=== PATIENT | male | born 1955 | race Hispanic/Latino ===

== ENCOUNTER 2019-04-13 14:04 | Emergency (ER) | payer MEDICARE ==
[2019-04-13] MEDS ORDERED: SODIUM CHLORIDE 0.9% 1000ML 1,000 ML IV ONE (14:49)
[2019-04-13] MEDS ORDERED: KETOROLAC TROMETHAMINE 30MG/ML ONE (14:50)
[2019-04-13 15:16] LABS: BASOPHILS % (AUTO) 0.7 % (0.0-5.0); EOSINOPHILS % (AUTO) 1.5 % (0.0-8.0); HEMATOCRIT 42.3 % (42-54); MEAN CORPUSCULAR HEMOGLOBIN 30.8 pg (27.0-33.0); MEAN CORPUSCULAR HGB CONC 33.9 g/dL (32.0-36.0); MEAN CORPUSCULAR VOLUME 90.9 fL (79-99); MONOCYTES % (AUTO) 9.2 % (3.0-13.0); NEUTROPHILS % (AUTO) 75.6 % (40.0-77.0); PLATELET COUNT (AUTO) 181 K/uL (130-400); RED BLOOD CELL COUNT(AUTO) 4.65 MIL/uL (4.50-6.20); RED CELL DISTRIBUTION WIDTH 13.5 % (11.0-15.5); WHITE BLOOD COUNT (AUTO) 3.8 K/uL (4.8-10.8)
[2019-04-13 15:24] LABS: CREATININE 1.8 mg/dL (0.5-1.5); POTASSIUM 4.1 mmol/L (3.5-5.1)
[2019-04-13 15:26] LABS: INR 1.02 (0.85-1.15); PARTIAL THROMBOPLASTIN TIME 27.5 SEC (26.3-35.5); PROTHROMBIN TIME 10.7 SEC (9.6-11.6)
[2019-04-13 15:28] LABS: ALBUMIN 3.2 g/dL (3.5-5.0); BILIRUBIN,TOTAL 0.4 mg/dL (0.2-1.0); TOTAL PROTEIN, SERUM 6.7 g/dL (6.0-8.3)
== END 2019-04-13 17:19 | disposition home or self-care (01) ==
LOC: EDH 14:04
DX: L03.91 Acute lymphangitis, unspecified (principal); L03.115 Cellulitis of right lower limb; E11.9 Type 2 diabetes mellitus without complications; I10 Essential (primary) hypertension; Z72.0 Tobacco use; M79.604 Pain in right leg; Z96.659 Presence of unspecified artificial knee joint
CPT/HCPCS: 36415; 73552; 73562; 80053; 82948; 85025; 85610; 85651; 85730; 86140; 87040; 93971; 96374; 99285; J1885; J7030

== ENCOUNTER 2020-03-19 14:55 | Emergency (ER) | payer MEDICARE ==
[2020-03-19 15:43] LABS: BASOPHILS % (AUTO) 0.3 % (0.0-5.0); EOSINOPHILS % (AUTO) 2.4 % (0.0-8.0); HEMATOCRIT 47.8 % (42-54); LYMPHOCYTES % (AUTO) 15.8 % (21.0-51.0); MEAN CORPUSCULAR HEMOGLOBIN 29.6 pg (27.0-33.0); MEAN CORPUSCULAR HGB CONC 32.8 g/dL (32.0-36.0); MEAN CORPUSCULAR VOLUME 90.2 fL (79-99); MONOCYTES % (AUTO) 9.9 % (3.0-13.0); NEUTROPHILS % (AUTO) 71.3 % (40.0-77.0); PLATELET COUNT (AUTO) 169 K/uL (130-400); RED CELL DISTRIBUTION WIDTH 13.3 % (11.0-15.5); WHITE BLOOD COUNT (AUTO) 3.7 K/uL (4.8-10.8)
[2020-03-19 16:03] LABS: RAPID GROUP A STREP NEGATIVE (NEGATIVE)
[2020-03-19 16:05] LABS: ALBUMIN 3.4 g/dL (3.5-5.0); BILIRUBIN,TOTAL 0.5 mg/dL (0.2-1.0); CREATININE 2.5 mg/dL (0.5-1.5); TOTAL PROTEIN, SERUM 7.4 g/dL (6.0-8.3)
== END 2020-03-19 17:14 | disposition home or self-care (01) ==
LOC: EDH 14:55
DX: U07.1 COVID-19 (principal); J06.9 Acute upper respiratory infection, unspecified; I12.0 Hypertensive chronic kidney disease with stage 5 chronic kidney disease or end stage renal disease; E11.22 Type 2 diabetes mellitus with diabetic chronic kidney disease; N18.6 End stage renal disease
CPT/HCPCS: 36415; 71045; 80053; 82550; 83605; 84484; 85025; 87804 ×2; 87880; 99284; U0003

== ENCOUNTER 2024-08-28 07:56 | Inpatient (IN) | payer MEDICARE ==
[2024-08-28] VITALS (7 sets, daily range): BP systolic 136–140; BP diastolic 81–96; PULSE 70–71; RESP 16–20; TEMP 97.8–97.9; O2SAT 97–100
[~2024-08-28] VITALS: Ht 170.2 cm; Wt 97.7 kg
--- NOTE | 2024-08-28 08:19 | ERN ---
ED Note History of Present Illness Stated Complaint: SOB Chief Complaint: Shortness of Breath Time Seen by MD: 08:14 Dictation: This 69-year-old gentleman with a history of CAD, chronic CHF, PID, and COPD presents with one week of increasing sob this morning with some intermittent chest discomfor, now resolved as well as diaphoresis. Over the past week he has had increasing leg edema, increasing JOHNSON with orthopnea, back pain and a sensation of air hunger. There has been no fever, ENT symptoms, vomiting or diarrhea. He is not having chest pain at the time of my interview and has not had a defibrillator shock. He is not aware of weight gain. He does not have home O2. He is out of his inhaler for his COPD. The patient reports he had cardiac catheterization done in [place] about a month ago. He is not certain what the results are but he was told there was no indication for surgical intervention. He does have a history of previous myocardial infarctions. Current cardiac medications include Lasix 60 mg a day, metolazone 2.5 mg weekly, is a 10 B, amiodarone 300 a day, Entresto, carvedilol and numerous other medications for his other medical problems. He does not currently smoke but does drink alcohol. He denies recreational drugs. He is here with family His primary care physician is kushal Leonard and his envelope machine adjuster is Dr. López. Allergies: Coded Allergies: No Known Allergies (Unverified Allergy, Unknown, 04/13/19) Past Medical History Past Medical History: CAD, CHF, Diabetes-Type II, High Cholesterol, Heart Disease, Hypertension Surgical History: CABG, Pacer/AICD RN Note Reviewed/Agreed w/PFSH: Yes Review of System Dictation All pertinent systems reviewed, negative except as documented in the HPI The ROS is obtained from patient GENERAL/CONSTITUTIONAL: Negative except as documented in HPI. ENT: Negative except as documented in HPI. CARDIOVASCULAR: Negative except as documented in HPI. RESPIRATORY: Negative except as documented in HPI. GASTROINTESTINAL: Negative except as documented in HPI. GENITOURINARY: Negative except as documented in HPI. MUSCULOSKELETAL: Negative except as documented in HPI. SKIN: Negative except as documented in HPI. NEUROLOGIC: Negative except as documented in HPI. Initial Vital Sign VS Vital Signs Date Time Temp Pulse Resp B/P (MAP) Pulse Ox O2 Delivery O2 Flow Rate FiO2 08/28/24 07:59 97.9 92 24 128/93 97 Room Air 0 08/28/24 09:18 21 Physical Exam Dictation VITAL SIGNS: note is made of triage vital signs. O2 sat, heart rate and blood pressure are acceptable at bedrest CONSTITUTIONAL: This is somewhat uncomfortable anxious appearing patient who is awake, alert, and appropriately interactive. HEAD: Normocephalic, Atraumatic. EYES: Periorbital areas with no swelling, redness, or edema. Lids and lashes are normal. Conjunctival injection is absent. Sclera anicteric. Pupils equal, round, reactive to light. ENT: No nasal discharge noted. Posterior pharynx is without exudate, redness, swelling, masses, or evidence of obstruction. Uvula midline. Mucous membranes moist. NECK: Trachea midline, no masses palpated, and no cervical lymphadenopathy. No swelling. Supple, full range of motion without nuchal rigidity. No vertebral point tenderness. No meningismus. CHEST/AXILLA: Normal chest wall appearance and motion. No tenderness. No crepitus. Well-healed media sternotomy and pacemaker pocket CV: Regular, no audible murmur, marked edema is present in the feet RESPIRATORY:Respiratory rate is normal. Bilateral equal breath sounds with good airflow. The patient has decreased breath sounds in the bases right worse than left. No increased work of breathing, no retractions. ABDOMEN: Inspection normal. No distention is appreciated. Bowel sounds are normal. No mass or organomegaly is appreciated. There is no tenderness. No rebound. No rigidity. No voluntary or involuntary guarding. BACK: Inspection is normal. No midline tenderness is appreciated. The patient appears comfortable when moving. : No CVA tenderness or bladder tenderness. SKIN: Warm, dry, with normal turgor. Capillary refill less than 3 seconds. Normal color.No rash. No cellulitis or abscess. No evidence of acute injury. MS/Extremity: There is no calf tenderness. Baseline range of motion is noted in all 4 extremities. There are no deformities. NEURO: Awake and alert, lucid. Facies symmetric and speech is clear. Motor strength 5/5 in all extremities. Sensory grossly intact. PSYCH: Patient is appropriately attentive and cooperative without evidence of hallucination. Results (Laboratory/Radiology) Laboratory/Radiology Laboratory Tests Test 08/28/24 08:08/28/24 08:35 Urine Color YELLOW (YELLOW) Urine Appearance CLEAR (CLEAR) Urine pH 6.0 (5.0-8.0) Urine Specific [place] 1.016 (1.001-1.031) Urine Protein 600 mg/dL (NEGATIVE) H Urine Glucose (UA) 500 mg/dL (NEGATIVE) H Urine Ketones NEGATIVE mg/dL (NEGATIVE) Urine Occult Blood SMALL (NEGATIVE) H Urine Nitrate NEGATIVE (NEGATIVE) Urine Bilirubin NEGATIVE mg/dL (NEGATIVE) Urine Urobilinogen 0.2 mg/dL (0.2-1.0) Urine Leukocyte Esterase NEGATIVE Angella/uL Urine RBC 2-5 /HPF (0-1) H Urine WBC 0-1 /HPF (0-1) Urine Squamous Epithelial Cells RARE /HPF (0-2) Urine Bacteria FEW /HPF (None Seen) White Blood Count 7.0 K/uL (4.8-10.8) Red Blood Count 4.87 MIL/uL (4.50-6.20) Hemoglobin 15.0 g/dL (14.0-18.0) Hematocrit 46.1 % (42-54) Mean Corpuscular Volume 94.7 fL (79-99) Mean Corpuscular Hemoglobin 30.8 pg (27.0-33.0) Mean Corpuscular Hemoglobin Concent 32.5 g/dL (32.0-36.0) Red Cell Distribution Width 15.5 % (11.0-15.5) Platelet Count 224 K/uL (130-400) Mean Platelet Volume 11.5 fL (7.5-10.5) H Immature Granulocyte % (Auto) 0.4 % (0-1) Neutrophils (%) (Auto) 83.4 % (40.0-77.0) H Lymphocytes (%) (Auto) 7.6 % (21.0-51.0) L Monocytes (%) (Auto) 7.0 % (3.0-13.0) Eosinophils (%) (Auto) 1.3 % (0.0-8.0) Basophils (%) (Auto) 0.3 % (0.0-5.0) Neutrophils # (Auto) 5.8 K/uL (1.8-7.7) Lymphocytes # (Auto) 0.5 K/uL (1.0-4.8) L Monocytes # (Auto) 0.5 K/uL (0.1-1.0) Eosinophils # (Auto) 0.09 K/uL (0.00-0.70) Basophils # (Auto) 0.02 K/uL (0.00-0.20) Absolute Immature Granulocyte (auto 0.03 K/uL (0-1) Nucleated Red Blood Cells 0.0 % (0.0-0.19) White Cell Morphology Comment See comments Sodium Level 137 mmol/L (136-145) Potassium Level 4.4 mmol/L (3.5-5.1) Chloride Level 101 mmol/L (101-111) Carbon Dioxide Level 24 mmol/L (21-32) Blood Urea Nitrogen 44 mg/dL (7-18) H Creatinine 2.3 mg/dL (0.5-1.3) H Glomerular Filtration Rate Calc 30 mL/min (>90) Random Glucose 226 mg/dL (70-105) H Total Calcium 8.7 mg/dL (8.5-10.1) Magnesium Level 1.90 mg/dL (1.80-2.40) Troponin I High Sensitivity 151 ng/L (4-75) *H B-Type Natriuretic Peptide 1650 pg/mL (0-100) H EKG Comment: Time reviewed: EKG number; 1 Rate and rhythm: Ventricular pacing at 84 beats per minute [place]: +[phone] Morphology: Consistent with pacing CT interval: normal QT interval: normal ST/Twaves: normal Impression: No evidence of STEMI Comparison EKG: none EKG INTERPRETATION by Dr. Mariam Tavares ED Course ED Course Orders Procedure Category Date Status Time Cbc With Differential LAB 08/28/24 Complete 08:17 B-Type Natriuretic LAB 08/28/24 Complete Peptide 08:17 Chest 1vw RAD 08/28/24 Resulted 08:17 12 Lead Ekg Tracing- EKG 08/28/24 Logged Technical 08:17 Magnesium LAB 08/28/24 Complete 08:17 Troponin I High LAB 08/28/24 Complete Sensitivity 08:17 Basic Metabolic Panel LAB 08/28/24 Complete 08:17 Ipratropium/Albuterol PHA 08/28/24 Complete Neb (Duoneb) 08:30 Furosemide 100mg Vial PHA 08/28/24 Complete (Lasix 100mg Vial) 11:00 Urinalysis Profile LAB 12/7/24 Complete 10:57 Current Medications Medications (Trade) Dose Ordered Sig/Joellen Route PRN Reason Start Time Stop Time Status Last Admin Dose Admin Albuterol (DUOneb) 1 udvial ONCE ONCE IH 08/28/24 08:30 08/28/24 08:31 DC 08/28/24 08:29 Furosemide (LASix 100MG VIAL) 60 mg ONCE ONCE IVP 08/28/24 11:00 08/28/24 11:01 DC 08/28/24 11:10 Vital Signs Date Time Temp Pulse Resp B/P (MAP) Pulse Ox O2 Delivery O2 Flow Rate FiO2 08/28/24 10:22 70 16 137/86 98 Room Air* 0 21 08/28/24 09:18 71 19 140/92 97 Room Air* 0 21 08/28/24 08:30 70 18 08/28/24 07:59 97.9 92 24 128/93 97 Room Air 0 HEART Score Response (Comments) Value History: Moderate suspicion (+1) 1 EKG: Repolarization changes 1 Age: > 65yrs (+2) 2 Risk Factors: 3+ risk factors (+2) 2 Initial Troponin: 1-3x Normal Limit (+1) 1 HEART Score Risk: High Risk for MACE (7-10) Total 7 Medical Decision Making MDM INITIAL IMPRESSION Initial history and physical concerning for congestive heart failure reactive ischemia, no evidence of STEMI Contributing medical problems: Multiple contributing medical problems complicating his situation I have reviewed the triage nursing notes and vital signs. The patient is afebrile. He is saturating well at rest but feels air hunger Initial plan: Laboratory screening DATA REVIEW I have reviewed additional NN, repeat VS, and monitoring where indicated. Heart rate, blood pressure, and O2 saturation are acceptable. Yi diagnostic results: A BNP is 1650 in the troponin is 151. BUN and creatinine are 44 and 2.3. The glucose is 226. CBC is normal except for a neutrophil predominance. Chest x-ray is consistent with congestive heart failure and pleural effusion Other independent historian: none Review of external data: There are no recent reports for him ED COURSE Interventions: The patient received Lasix IV. Is chest pain free at the time of my evaluation but is requesting oxygen. Reassessment: Vital signs have remained stable DISPOSITION Final diagnostic impression: Acute congestive heart failure with reactive is chemia I discussed my findings, clinical impression and treatment recommendations with the patient. I have reviewed the social factors contributing to the patient's presentation and disposition planning. My final plan for disposition was made based upon clinical findings, response to treatment and discussion with the patient regarding management options. At 11:13 a.m. I discussed the case with the nurse practitioner on duty for [facility] to arrange admission Hospitalization is indicated due to high risk of short term progression, complication, morbidity or mortality related to the current diagnosis The patient will be admitted for further management of acute congestive heart failure with reactive cardiac ischemia The patient has been advised regarding the reason for admission Questions were invited and answered in layman's terms. This dictation was prepared using [employer] voice recognition software. Occasional voice recognition errors may occur. When identified, these errors have been corrected. While every attempt is made to correct errors during dictation, errors may still exist. DX & DISP Disposition: Inpatient Decision to Admit Date: Aug 28, 2024 Decision to Admit Time: 11:59 Departure Impression: Primary Impression: Acute exacerbation of chronic heart failure Additional Impressions: Secondary cardiac ischemia, Chronic renal insu fficiency Condition: Stable Referrals: KUSHAL LEONARD MD (PCP) Time of Disposition: 12:00 MARIAM TAVARES MD Aug 28, 2024 08:19
[2024-08-28] MEDS: IpraTROPium/alBUTERol SULFATE 3 ML SOLUTION IH ONE (08:29)
[2024-08-28 08:53] LABS: BASOPHILS # (AUTO) 0.02 K/uL (0.00-0.20); BASOPHILS % (AUTO) 0.3 % (0.0-5.0); EOSINOPHILS # (AUTO) 0.09 K/uL (0.00-0.70); EOSINOPHILS % (AUTO) 1.3 % (0.0-8.0); HEMATOCRIT 46.1 % (42-54); IMMATURE GRANULOCYTE ABSOLUTE 0.03 K/uL (0-1); LYMPHOCYTES # (AUTO) 0.5 K/uL (1.0-4.8); LYMPHOCYTES % (AUTO) 7.6 % (21.0-51.0); MEAN CORPUSCULAR HEMOGLOBIN 30.8 pg (27.0-33.0); MEAN CORPUSCULAR HGB CONC 32.5 g/dL (32.0-36.0); MEAN CORPUSCULAR VOLUME 94.7 fL (79-99); MONOCYTES # (AUTO) 0.5 K/uL (0.1-1.0); NEUTROPHILS # (AUTO) 5.8 K/uL (1.8-7.7); NEUTROPHILS % (AUTO) 83.4 % (40.0-77.0); PLATELET COUNT (AUTO) 224 K/uL (130-400); RED BLOOD CELL COUNT(AUTO) 4.87 MIL/uL (4.50-6.20); RED CELL DISTRIBUTION WIDTH 15.5 % (11.0-15.5)
--- NOTE | 2024-08-28 09:15 | HMCIMG ---
PORTABLE CHEST RADIOGRAPH INDICATION: sob COMPARISON: 03/19/2020 FINDINGS: Median sternotomy wires are in appropriate alignment. Left sided dual chamber pacer and continuous leads remain in customary position. Heart is enlarged. The pulmonary vascularity and marta appear normal. No evidence for consolidation. Left costophrenic angle appears slightly blunted more than the right. No pneumothorax detected. IMPRESSION: Cardiomegaly and trace left greater than right pleural effusion without pulmonary vascular congestion.
[2024-08-28 09:18] LABS: CREATININE 2.3 mg/dL (0.5-1.3); MAGNESIUM 1.9 mg/dL (1.80-2.40); POTASSIUM 4.4 mmol/L (3.5-5.1)
[2024-08-28 09:25] LABS: B-TYPE NATRIURETIC PEPTIDE 1650 pg/mL (0-100)
[2024-08-28] MEDS: furoSEMIDE 100MG VIAL 10 MG/ML VIAL IVP ONE (11:10)
[2024-08-28 11:16] LABS: APPEARANCE,URINE CLEAR (CLEAR); BILIRUBIN,URINE NEGATIVE (NEGATIVE); COLOR,URINE YELLOW (YELLOW); GLUCOSE, URINE (UA) 500 mg/dL (NEGATIVE); KETONES,URINE NEGATIVE (NEGATIVE); LEUKOCYTE ESTERASE ,URINE NEGATIVE Leu/uL (NEGATIVE); NITRATE,URINE NEGATIVE (NEGATIVE); OCCULT BLOOD,URINE SMALL (NEGATIVE); PROTEIN,URINE 600 mg/dL (NEGATIVE); UROBILINOGEN,URINE 0.2 mg/dL (0.2-1.0)
[2024-08-28 11:31] LABS: ADD UA MICROSCOPIC YES
[2024-08-28 11:42] LABS: BACTERIA,URINE FEW /HPF (None Seen); MUCUS,URINE RARE LPF (None Seen); SQUAMOUS EPITHELIAL CELL,UR RARE /HPF (0-2); WBC,URINE 0-1 /HPF (0-1)
[2024-08-28] MEDS ORDERED: AMIO400T4 PO (14:19)
[2024-08-28] MEDS ORDERED: FURO40TA5 PO (14:19)
[2024-08-28] MEDS ORDERED: GLIP-162 PO (14:19)
[2024-08-28] MEDS ORDERED: ALLO300T2 PO (14:19)
[2024-08-28] MEDS ORDERED: METO2.5T2 PO (14:19)
[2024-08-28] MEDS ORDERED: SACU1TAB PO (14:19)
[2024-08-28] MEDS ORDERED: EZET10TA48 PO (14:24)
[2024-08-28] MEDS ORDERED: ERGO50CA PO (14:24)
[2024-08-28] MEDS ORDERED: acetaMINOPHEN 650 MG SUPPOSITORY RC PRN (14:30)
--- NOTE | 2024-08-28 14:36 | CONS ---
[facility] CONSULTATION NOTE Date Patient Seen: Aug 28, 2024 Time of Visit: 14:36 Supervising Physician: [ ] Reason for Consultation: [ ] Primary Care Physician: [ ] Outpatient Specialists: [ ] Inpatient Consults: [ ] PROBLEM LIST: 1. [ ] 2. [ ] 3. [ ] 4. [ ] 5. [ ] HPI: [ ] PAST MEDICAL HX: see above PAST SURGICAL HX: noncontributory SOCIAL HISTORY: No tobacco, ETOH, or illicit drug use Coded Allergies: No Known Allergies (Unverified Allergy, Unknown, 04/13/19) REVIEW OF SYSTEMS: 12 point ROS reviewed with patient. Pertinent positives mentioned above. Otherwise negative. PHYSICAL EXAM: GENERAL: alert, weak, awake oriented x 3 HEENT: EOMI, Sclera non icteric, moist mucosa NECK: Supple, no JVD, trachea midline LUNGS: Clear breath sounds bilaterally. No wheezes HEART: Regular rate and rhythm. Normal S1 and S2, without murmurs ABD: Abdomen soft, nontender. Bowel sounds present EXT: No clubbing cyanosis or edema NEURO: Alert and oriented to person, follows commands Vital Signs (last 8hr) Date Time Temp Pulse Resp B/P (MAP) Pulse Ox O2 Delivery O2 Flow Rate FiO2 08/28/24 12:42 98.1 72 18 162/95 100 Room Air* 2 N/A Nasal Cannula* 08/28/24 10:22 70 16 137/86 98 Room Air* 0 21 08/28/24 09:18 71 19 140/92 97 Room Air* 0 21 08/28/24 08:30 70 18 08/28/24 07:59 97.9 92 24 128/93 97 Room Air 0 LABS: Hematology Labs: Test 08/28/24 08:35 Range/Units White Blood Count 7.0 4.8-10.8 K/uL Red Blood Count 4.87 4.50-6.20 MIL/uL Hemoglobin 15.0 14.0-18.0 g/dL Hematocrit 46.1 42-54 % Mean Corpuscular Volume 94.7 79-99 fL Mean Corpuscular Hemoglobin 30.8 27.0-33.0 pg Mean Corpuscular Hemoglobin Concent 32.5 32.0-36.0 g/dL Red Cell Distribution Width 15.5 11.0-15.5 % Platelet Count 224 130-400 K/uL Mean Platelet Volume 11.5 H 7.5-10.5 fL Immature Granulocyte % (Auto) 0.4 0-1 % Neutrophils (%) (Auto) 83.4 H 40.0-77.0 % Lymphocytes (%) (Auto) 7.6 L 21.0-51.0 % Monocytes (%) (Auto) 7.0 3.0-13.0 % Eosinophils (%) (Auto) 1.3 0.0-8.0 % Basophils (%) (Auto) 0.3 0.0-5.0 % Neutrophils # (Auto) 5.8 1.8-7.7 K/uL Lymphocytes # (Auto) 0.5 L 1.0-4.8 K/uL Monocytes # (Auto) 0.5 0.1-1.0 K/uL Eosinophils # (Auto) 0.09 0.00-0.70 K/uL Basophils # (Auto) 0.02 0.00-0.20 K/uL Absolute Immature Granulocyte (auto 0.03 0-1 K/uL Nucleated Red Blood Cells 0.0 0.0-0.19 % White Cell Morphology Comment See comments Chemistry Labs: Test 08/28/24 08:35 Range/Units Sodium Level 137 136-145 mmol/L Potassium Level 4.4 3.5-5.1 mmol/L Chloride Level 101 101-111 mmol/L Carbon Dioxide Level 24 21-32 mmol/L Blood Urea Nitrogen 44 H 7-18 mg/dL Creatinine 2.3 H 0.5-1.3 mg/dL Glomerular Filtration Rate Calc 30 >90 mL/min Random Glucose 226 H 70-105 mg/dL Total Calcium 8.7 8.5-10.1 mg/dL Magnesium Level 1.90 1.80-2.40 mg/dL Troponin I High Sensitivity 151 *H 4-75 ng/L B-Type Natriuretic Peptide 1650 H 0-100 pg/mL DIAGNOSTICS / RADIOLOGY RESULTS: [ ] PLAN NEURO: Minimize central acting medications as possible. Maintain fall precautions, adequate lighting during the day PULMONARY: Supplemental 02 as needed. Maintain aspiration precautions at all times CARDIOVASCULAR: Follow hemodynamics. Vital signs per facility protocol GI & NUTRITION: Continue with nutritional support. Continue stool softeners and laxatives as needed. KIDNEYS & ELECTROLYTES: Strict monitoring of intake, output and overall fluid balance. Avoid nephrotoxic medications to the extent possible. Medications to be dosed according to renal function. Monitor electrolytes and replace as needed ENDOCRINE: Maintain blood glucose between 100-180 at all times. Hypoglycemia protocol in place INFECTIOUS DISEASE: Trend temperature, WBC and procalcitonin level Follow cultures, deescalate antibiotics as soon as possible. Panculture if new onset fever ONCOLOGY/HEMATOLOGY/COAGULATION: Monitor for s/s of bleeding Monitor hemoglobin, coagulation studies as needed SKIN: Pressure ulcer prevention per facility protocol Specialty mattress ORTHO/REHAB: Continue PT/OT Prophylaxis: Continue GI and DVT prophylaxis Code Status: Full Resuscitation Disposition: TBD Other: Total patient care time exceeds 35 minutes excluding all procedures. SHREE CORDOBA [facility] Aug 28, 2024 14:36
[2024-08-28] MEDS: ASPIRIN 81MG CHEW TAB PO ONE (14:41)
[2024-08-28] MEDS: acetaMINOPHEN 500 MG TABLET PO ONE (14:41)
[2024-08-28] MEDS: cefTRIAXone 1G VIAL IVP SCH (14:41)
[2024-08-28] MEDS: furoSEMIDE 20MG VIAL IV SCH (14:41)
[2024-08-28] MEDS: NITROGLYCERIN 1GM OINT 1 INCH/1GM TD ONE ×2 (14:42→17:19)
--- NOTE | 2024-08-28 15:00 | HP ---
[facility] HISTORY & PHYSICAL Date Patient Seen: Aug 28, 2024 Time of Visit: 15:00 Supervising Physician: Gen Molina MD Primary Care Physician: Srinath Kumari MD Outpatient Specialists: Dr Maribel Higgins MD Inpatient Consults: Dr Maribel Higgins MD (Cardiology) PROBLEM LIST: Acute hypoxic respiratory failure, POA Lt > RT pleural effusion, POA Acute on Chronic CHF with ICM EF 20% s/p AICD placement, POA (BNP 1650) Suspected CAP, POA COPD exacerbation, POA CKD stage III, PO ( GFR 28 in 2019) NSTEMI, POA Chest Pain POA HEART Score 7, POA Hyperglycemia in the presence of Type 2DM, POA Proteinuria Glucosuria Essential HTN Suspected BETTY, undiagnosed and untreated, POA Hx of COPD, severe CAD s/p CABG 16yrs ago and 2nd CABG 10 yrs ago HPI: This is a 69-year-old obese male with a past medical history of two CABGs last one 10 years ago. The Patient also has a pertinent medical history of HFrEF of 20% status post AICD, COPD, CKD stage 3, essential hypertension, and type 2 diabetes mellitus. He presented to the emergency department today for progressive increasing shortness of breath with minimal exertion, and orthopnea that started this morning. Patient did report a moderate chest pain prior to coming into the emergency department. He described pain feeling like pressure in the middle of his chest radiating to his back with associated cold sweat. On arrival to the emergency department he presented with a temperature 97.9 heart rate of 92 respiratory rate of 24 blood pressure 128/93 saturating 97% on room air. WBCs were normal with neutrophils of 83.4 on chemistry BUN 44 creatinine 2.3 random glucose of 226 mg/dL with a ionized calcium of 1.09 sensitive troponin initially was 151 and on repeat 225.7. On assessment patient was awake alert and oriented x3. Appears to be comfortable but did report chest pain of 4/10 and was administered nitro place. Patient was also administered 60 mg of Lasix IV push on arrival to ED with 500 mL of urine output. Patient reports Dr López is his rfid specialist and we will consult him for NSTEMI and acute on chronic CHF. On chest x-ray medial sternotomy wires are seen left-sided dual-chamber AICD/pacemaker, cardiomegaly, left greater than right pleural effusion, no pneumothorax, increased pulmonary vascular congestion consistent with pulmonary edema. PAST MEDICAL HX: Type 2 diabetes mellitus Severe coronary artery disease HFrEF EF 20% status post AICD COPD Obesity PAST SURGICAL HX: CAD s/p CABG 16yrs ago and 2nd CABG 10 yrs ago SOCIAL HISTORY: Former smoker, ETOH, or illicit drug use Coded Allergies: No Known Allergies (Unverified Allergy, Unknown, 04/13/19) REVIEW OF SYSTEMS: Const: No fever yes to fatigue yes to weight gain Eyes:[ no recent vision problems] ENT: [No congestion, ear pain, or sore throat] C/V: Yes to chest pain, palpitations and bilateral lower extremity edema Resp: No cough yes to shortness of breath progressive dyspnea and orthopnea. GI: [No abdominal pain, nausea, vomiting, constipation, or diarrhea] : [No incontinence of or dyuria] M/S: [No joint or pain swelling] Skin: [No rash] Neuro: [no headache, focal numbness, or weakness, dizziness or seizures] Psych: [no depression or anxiety] Heme: [no abnormal bruising or bleeding] Lymph: [no swollen glands] PHYSICAL EXAM: GENERAL: alert, weak, awake oriented x 3 HEENT: EOMI, Sclera non icteric, moist mucosa NECK: Supple, no JVD, trachea midline LUNGS: Lung sounds Diminished to bilateral bases. No wheezes HEART: Regular rate and rhythm. Normal S1 and S2, without murmurs ABD: Abdomen soft obese, nontender. Bowel sounds present EXT: No clubbing cyanosis plus two pitting edema to bilateral lower extremities NEURO: Alert and oriented to person, follows commands Vital Signs (last 8hr) Date Time Temp Pulse Resp B/P (MAP) Pulse Ox O2 Delivery O2 Flow Rate FiO2 08/28/24 12:42 98.1 72 18 162/95 100 Room Air* 2 N/A Nasal Cannula* 08/28/24 10:22 70 16 137/86 98 Room Air* 0 21 08/28/24 09:18 71 19 140/92 97 Room Air* 0 21 08/28/24 08:30 70 18 08/28/24 07:59 97.9 92 24 128/93 97 Room Air 0 LABS: Hematology Labs: Test 08/28/24 08:35 Range/Units White Blood Count 7.0 4.8-10.8 K/uL Red Blood Count 4.87 4.50-6.20 MIL/uL Hemoglobin 15.0 14.0-18.0 g/dL Hematocrit 46.1 42-54 % Mean Corpuscular Volume 94.7 79-99 fL Mean Corpuscular Hemoglobin 30.8 27.0-33.0 pg Mean Corpuscular Hemoglobin Concent 32.5 32.0-36.0 g/dL Red Cell Distribution Width 15.5 11.0-15.5 % Platelet Count 224 130-400 K/uL Mean Platelet Volume 11.5 H 7.5-10.5 fL Immature Granulocyte % (Auto) 0.4 0-1 % Neutrophils (%) (Auto) 83.4 H 40.0-77.0 % Lymphocytes (%) (Auto) 7.6 L 21.0-51.0 % Monocytes (%) (Auto) 7.0 3.0-13.0 % Eosinophils (%) (Auto) 1.3 0.0-8.0 % Basophils (%) (Auto) 0.3 0.0-5.0 % Neutrophils # (Auto) 5.8 1.8-7.7 K/uL Lymphocytes # (Auto) 0.5 L 1.0-4.8 K/uL Monocytes # (Auto) 0.5 0.1-1.0 K/uL Eosinophils # (Auto) 0.09 0.00-0.70 K/uL Basophils # (Auto) 0.02 0.00-0.20 K/uL Absolute Immature Granulocyte (auto 0.03 0-1 K/uL Nucleated Red Blood Cells 0.0 0.0-0.19 % White Cell Morphology Comment See comments Chemistry Labs: Test 08/28/24 08:35 Range/Units Sodium Level 137 136-145 mmol/L Potassium Level 4.4 3.5-5.1 mmol/L Chloride Level 101 101-111 mmol/L Carbon Dioxide Level 24 21-32 mmol/L Blood Urea Nitrogen 44 H 7-18 mg/dL Creatinine 2.3 H 0.5-1.3 mg/dL Glomerular Filtration Rate Calc 30 >90 mL/min Random Glucose 226 H 70-105 mg/dL Total Calcium 8.7 8.5-10.1 mg/dL Magnesium Level 1.90 1.80-2.40 mg/dL Troponin I High Sensitivity 151 *H 4-75 ng/L B-Type Natriuretic Peptide 1650 H 0-100 pg/mL DIAGNOSTICS / RADIOLOGY RESULTS: Signed PATIENT: NESIHA BATISTA MR#: [id number] : 1955 SEX: M AGE: 69 LOCATION: [facility] ORDER 7 STATUS: REG ER REPORT#: [id number] SERVICE 6 REASON: sob ORDERING PHYSICIAN: MARIAM TAVARES MD PROCEDURE: CXR1VW - CHEST 1VW PORTABLE CHEST RADIOGRAPH INDICATION: sob COMPARISON: 03/19/2020 FINDINGS: Median sternotomy wires are in appropriate alignment. Left sided dual chamber pacer and continuous leads remain in customary position. Heart is enlarged. The pulmonary vascularity and marta appear normal. No evidence for consolidation. Left costophrenic angle appears slightly blunted more than the right. No pneumothorax detected. IMPRESSION: Cardiomegaly and trace left greater than right pleural effusion without pulmonary vascular congestion. DICTATED BY: ITZ CHAPARRO MD DATE: 08/28/24911 ELECTRONICALLY SIGNED BY: ITZ CHAPARRO MD DATE: 08/28/24914 PLAN NEURO: Minimize central acting medications as possible. Maintain fall precautions, adequate lighting during the day PULMONARY: Supplemental 02 as needed. Maintain aspiration precautions at all times maintain o2 sats above 92% atrovent Tx's PRN wheezing or sob emperin CAP coverage singulari 10mg po daily ABG if worsening respiratory failure CARDIOVASCULAR: Follow hemodynamics. Vital signs per facility protocol Telemetry monitoring Consult cardiology for NSTEMI and high HEART score Heparin per protocol for now Continue patient's cardiac meds including: Amiodarone 100 mg daily Ezetimibe 10 mg daily Diurese with Lasix IV pushes 20 mg q.8 hours Metolazone 2.5 mg daily as he takes at home Hold CARLOS/ARB due to CKD If I&O Daily weights Fluid restriction of 1500 Interrogate AICD/pacemaker GI & NUTRITION: Continue with nutritional support. Continue stool softeners and laxatives as needed. Heart healthy diet KIDNEYS & ELECTROLYTES: Strict monitoring of intake, output and overall fluid balance. Avoid nephrotoxic medications to the extent possible. Medications to be dosed according to renal function. Monitor electrolytes and replace as needed ENDOCRINE: Maintain blood glucose between 100-180 at all times. Hypoglycemia protocol in place Lantus 20units BID ISS Hemoglobin A1C in am TSH in am INFECTIOUS DISEASE: Trend temperature, WBC and procalcitonin level Follow cultures, deescalate antibiotics as soon as possible. Panculture if new onset fever Doxy Rocephin for emperic CAP coverage swab for flu, covid, and strep blood cultures resp culture ONCOLOGY/HEMATOLOGY/COAGULATION: Monitor for s/s of bleeding Monitor hemoglobin, coagulation studies as needed monitor for bleeding due to heparin gtt monitor platelets PT/INR now SKIN: Pressure ulcer prevention per facility protocol Specialty mattress ORTHO/REHAB: Continue PT/OT Prophylaxis: Continue GI and DVT prophylaxis Protonix on heparin gtt Code Status: Full Resuscitation Disposition: PCCU Other: Total patient care time exceeds 60 minutes excluding all procedures. SHREE CORDOBA Aug 28, 2024 15:00
[2024-08-28] MEDS ORDERED: GLUCAGON 1MG KIT 1 MG ML IM PRN (15:30)
[2024-08-28 15:33] LABS: COVID19 (SARS ANTIGEN RAPID) PRESUMPTIVE NEGATIVE (NEGATIVE); INFLUENZA TYPE A Negative For Type A (NEGATIVE); INFLUENZA TYPE B Negative For Type B (NEGATIVE)
--- NOTE | 2024-08-28 15:50 | NUR ---
PT WAS ADMITTED TO ROOM 221 FROM ER. PT IS TO BE ASSESSED AND DOCUMENT.
[2024-08-28] MEDS ORDERED: NITROGLYCERIN 0.4 MG SL TAB SL PRN (17:00)
--- NOTE | 2024-08-28 17:00 | NUR ---
DR. BLACKWELL WAS PAGED AND WILL AWAIT THE RESPONSE.
--- NOTE | 2024-08-28 17:07 | NUR ---
DR. BLACKWELL CALLED BACK AND WAS ADVISED OF PT'S PRESENT STATUS AND CONSULT.
[2024-08-28] MEDS: INSULIN humuLIN R 100 UNIT/ML 3ML SQ SCH (17:20)
[2024-08-28 19:26] LABS: INR 1.12 (0.85-1.15)
--- NOTE | 2024-08-28 19:43 | HMCIMG ---
US VENOUS DOPPLER BILATERAL CLINICAL HISTORY: Lower extremity pain and edema COMPARISON: None FINDINGS: Bilateral lower extremity venous Doppler ultrasound was performed. The greater saphenous, common femoral, deep femoral, femoral , popliteal veins are widely patent and easily compressible with the ultrasound probe. Calf veins appear normal as well. There is normal response to compression and augmentation. IMPRESSION: Normal bilateral lower extremity venous Doppler ultrasound.
[2024-08-28 20:40] LABS: CREATINE KINASE, TOTAL 202 U/L (21-232)
[2024-08-28] MEDS: DOXYCYCLINE 100MG+NS 250ML IV SCH (21:34)
[2024-08-28] MEDS: INSULIN GLARgine 100 UNITS/ML 10 ML VIAL SQ SCH (21:36)
[2024-08-28] MEDS: IpraTROPium 0.5 MG/2.5 ML INH IH SCH (23:15)
[2024-08-29] VITALS (15 sets, daily range): BP systolic 122–147; BP diastolic 71–93; PULSE 62–78; RESP 17–20; TEMP 97.5–98.7; O2SAT 94–100
[2024-08-29 02:11] LABS: BASOPHILS # (AUTO) 0.02 K/uL (0.00-0.20); BASOPHILS % (AUTO) 0.3 % (0.0-5.0); EOSINOPHILS # (AUTO) 0.14 K/uL (0.00-0.70); EOSINOPHILS % (AUTO) 2.2 % (0.0-8.0); HEMATOCRIT 40.9 % (42-54); IMMATURE GRANULOCYTE ABSOLUTE 0.01 K/uL (0-1); LYMPHOCYTES # (AUTO) 0.8 K/uL (1.0-4.8); LYMPHOCYTES % (AUTO) 11.9 % (21.0-51.0); MEAN CORPUSCULAR HEMOGLOBIN 30.7 pg (27.0-33.0); MONOCYTES # (AUTO) 0.6 K/uL (0.1-1.0); MONOCYTES % (AUTO) 9.4 % (3.0-13.0); NEUTROPHILS # (AUTO) 4.8 K/uL (1.8-7.7); PLATELET COUNT (AUTO) 189 K/uL (130-400); RED CELL DISTRIBUTION WIDTH 15.7 % (11.0-15.5); WHITE BLOOD COUNT (AUTO) 6.3 K/uL (4.8-10.8)
[2024-08-29 02:35] LABS: B-TYPE NATRIURETIC PEPTIDE 1420 pg/mL (0-100); HEMOGLOBIN A1C 7.4 % (4.0-6.0)
[2024-08-29 02:41] LABS: ALBUMIN 2.9 g/dL (3.5-5.0); BILIRUBIN,TOTAL 0.6 mg/dL (0.2-1.0); CREATININE 2.3 mg/dL (0.5-1.3); PHOSPHORUS 4.3 mg/dL (2.5-4.9); POTASSIUM 4.1 mmol/L (3.5-5.1); THYROID STIMULATING HORMONE 1.24 uIU/mL (0.36-3.74); TOTAL PROTEIN, SERUM 5.9 g/dL (6.0-8.3)
[2024-08-29] MEDS: HEParin 25,000 UNITS/250ML D5W 250 ML IV SCH ×2 (03:03→21:34)
--- NOTE | 2024-08-29 03:21 | EKG ---
[facility] Test Date: 2024-08-29 Test Time: 03:20:26 Pat Name: NEISHA BATISTA Department: [facility] Room: 221 1 Gender: M Building Construction Superintendent: IVA : 1955 Requested By: HANNAH CHAUDHRY Order Number: [id number] Reading MD: Fox Combs Measurements Intervals [place] Rate: 70 P: 0 MN: 120 QRS: 92 QRSD: 176 T: -3 QT: 532 QTc: 574 Interpretive Statements AV dual-paced rhythm No previous ECG available for comparison Electronically Signed On 08-29-2024 17:45:10 SILK SCREEN PRINTER HELPER by Fox Combs Please click the below link to view image of tracing.
[2024-08-29] MEDS ORDERED: ENOXAPARIN SODIUM 30 MG/0.3 ML SQ SCH (09:00)
--- NOTE | 2024-08-29 09:08 | HMCIMG ---
CHEST 1VW REASON: HYPOXIA COMPARISON: 08/28/2024 FINDINGS: There is cardiomegaly. There is mild central vascular congestion. There are small bilateral pleural effusions. Pacemaker and median sternotomy are again noted. IMPRESSION: 1. Interval development of mild vascular congestion with small bilateral pleural effusions.
[2024-08-29] MEDS: AMIOdarone 200 MG TABLET PO SCH (09:26)
[2024-08-29] MEDS: polyETHYLene GLYCol 3350 17 GM POWD.PACK PO SCH (09:26)
[2024-08-29] MEDS: PANTOPrazole 40 MG TAB DR PO SCH (09:26)
[2024-08-29] MEDS: glipiZIDE XL 5MG TAB PO SCH (09:26)
[2024-08-29] MEDS: EZETIMIBE 10 MG TAB PO SCH (09:26)
[2024-08-29] MEDS: alloPURInol 300 MG TABLET PO SCH (09:27)
--- NOTE | 2024-08-29 09:36 | NUR ---
DCP: HOME Sw met with pt who states he lives at home alone. Pt lives in home his mother left him. Pt gets $13.00 food stamps, on SSI, has provider services 21hrs a wk thru [facility] and uses [facility] or [facility] in [place]. Pt denies dc needs and will return home at sc Addendum: 08/29/24 at 0938 by MERARY KRAUSE Amended: Links added.
--- NOTE | 2024-08-29 13:23 | HMCSR ---
APPROVED REPORT EXAM: Two-dimensional and M-mode echocardiogram with Doppler and color Doppler. Study Details: HTN ,HLD ,CHF ,CAD , CP , COPD , CABG INDICATION ICD: acute on chronic CHF 2D Dimensions RVDd5.8 cmLVEF(%)38.1 (>50%)LA ESV INDEX (4CH)34.50 mL/m2 IVSd1.0 (0.7-1.1cm)FS(%)18 % LVDd4.9 (3.8-5.6cm)LA (2D)4.7 (1.6-4.0cm) PWd1.5 (0.7-1.1cm)Ao Root(2D)3.5 (2.0-3.7cm) IVSs1.3 cmLVOT diam2.2 (1.8-2.4cm) LVDs4.0 (2.5-4.0cm) PWs1.6 cm M-Mode Dimensions EPSS2.1 cm LA (MM)5.3 (1.6-4.0cm) Ao Root(MM)3.2 (2.0-3.7cm) Aortic Valve AoV VTI0.1 mAo Mean GR1.0 mmHgLVOT VTI0.09 m OLIVER (VMAX)2.7 cm2AVA (VTI) 2.7 cm2 Mitral Valve MV E Yxck704.3 cm/sDECEL Yvnh264 ms MV A Vmax23.5 cm/sP 1/2 T51 ms E/A ratio5.3MVA (PHT)4.4 cm2 TDI E/E' Ybgull20.8E/E' Zvfwnae59.1 Medial E' Peak V3.50 cm/sLateral E' Peak V3.90 cm/s Pulmonary Valve PV VTI0.13 mPV Mean GR1 mmHg Tricuspid Valve TR Vmax2.6 m/s TR Peak GR26.4 mmHg Left Ventricle The left ventricle is moderately dilated. Severe concentric left ventricular hypertrophy. LVEF is 25 -30%. Stage III diastolic dysfunction. Right Ventricle The right ventricle is moderately dilated. Right ventricular systolic function is moderately reduced. Device lead is present in the right ventricle. Atria The left atrium is moderately dilated. The right atrium size is normal. A pacemaker is seen in the ri ght atrium consistent with history. Aortic Valve Aortic valve leaflets are thickened and calcified. No aortic regurgitation is present. There is no ao rtic valvular stenosis. Mitral Valve Mild mitral annular calcification present. The mitral valve chordae are redundant. Mitral regurgitati on is mild. There is no mitral valve stenosis. Tricuspid Valve The tricuspid valve leaflets are mildly thickened. Mild tricuspid regurgitation. Pulmonic Valve Pulmonic valve is not well visualized. There is no pulmonic valvular regurgitation. Great Vessels The aortic root is normal in size. The ascending aorta is normal in size. The inferior vena cava is m oderately to severely dilated with no inspiratory collapse. Pericardium No pericardial effusion. Other Information Technically limited study due to body habitus, smoking and CABG. Conclusion The left ventricle is moderately dilated. LVEF is 25-30%. Stage III diastolic dysfunction. Mitral regurgitation is mild.
[2024-08-29] MEDS ORDERED: DiphenhydrAMINE HCL 50 MG/ML VIAL IVP PRN (14:00)
--- NOTE | 2024-08-29 14:43 | CONS ---
CARDIOLOGY/PERIPHERAL ARTERY DISEASE CONSULTATION LOCATION: He is in room 221. REFERRING PHYSICIAN: Gen Byrnes MD. REASON FOR REFERRAL: Congestive heart failure, elevated troponin. HISTORY OF PRESENT ILLNESS: This 69-year-old man came to the Emergency Room on 04/02/2024 complaining of increasing shortness of breath over the preceding week. His initial blood pressure 128/93 mmHg and heart rate 92 beats per minute. His electrocardiogram showed evidence of electronic atrial sensing and electronic ventricular pacing at 72 beats per minute. His first troponin was 369, second troponin 225, third troponin 601. The B-type natriuretic peptide was 1420. PAST CARDIAC HISTORY: This patient has a known ischemic dilated cardiomyopathy. He is status post remote coronary artery bypass grafting in addition to subsequent angioplasty plus stenting. The last cardiac catheterization was done by me in 2018, at which time, the left main was stented into the circumflex. The patient does have an AICD, followed by Dr. Gallardo. ADDITIONAL PAST MEDICAL HISTORY: Diabetes, hypercholesterolemia, hypertension, and chronic renal failure. ALLERGIES: None. PHYSICAL EXAMINATION: GENERAL: The patient is a well-developed, well-nourished man in no acute distress, currently sitting in a chair but becomes short of breath, getting back to bed. VITAL SIGNS: Last blood pressure 123/71 mmHg, heart rate 65 beats per minute. LUNGS: Lungs are clear bilaterally. NECK: There is no JVD but there is a mildly positive HJR. HEART: S1 is soft. S2 single. No S3 or S4. There is a grade 1-2/6 systolic murmur at the lower left sternal border. No diastolic murmurs. No pericardial friction or rubs. ABDOMEN: The abdomen is nondistended. Bowel sounds are positive. No bruits, no masses, no hepatomegaly. EXTREMITIES: There is 1+-2+ edema bilaterally. The popliteal pulses are intact. LABORATORY DATA: WBC 6.3, hemoglobin 13.5, hematocrit 40.9. Potassium 4.4, BUN 44, creatinine 2.3 with a glomerular filtration rate of 30. Magnesium 1.9. ECHOCARDIOGRAM: The patient's ejection fraction is 25-30% with a dilated left ventricle which is globally hypokinetic. No significant valvular abnormalities. IMPRESSION: This patient has a known ischemic dilated cardiomyopathy. He presents with increasing shortness of breath but also has elevated troponin. Cardiac catheterization and possible percutaneous intervention was discussed with the patient including risks, benefits, pros, and cons. He has consented for the procedure. PLAN: Proceed with cardiac catheterization and intervention as needed in the morning. TID: [id number] RECEIPT: [id number]
[2024-08-29] MEDS: ASPIRIN 81 MG EC TAB PO SCH (16:30)
--- NOTE | 2024-08-29 17:17 | EKG ---
[facility] Test Date: 2024-08-28 Test Time: 08:08:57 Pat Name: NEISHA BATISTA Department: [facility] Room: 221 1 Gender: M Marketing Intern: [id number] : 1955 Requested By: MARIAM TAVARES Order Number: [id number] Reading MD: Fox Combs Measurements Intervals [place] Rate: 84 P: 146 FL: 66 QRS: 178 QRSD: 161 T: -12 QT: 451 QTc: 544 Interpretive Statements Ventricular-paced complexes No previous ECG available for comparison Electronically Signed On 08-29-2024 17:40:49 RETRIEVAL SPECIALIST by Fox Combs Please click the below link to view image of tracing.
--- NOTE | 2024-08-29 17:22 | EKG ---
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
--- NOTE | 2024-08-29 20:12 | NUR ---
Doxy IV Per report, swathi RN had only 1 IV access with pt on hep gtt and access came out with shower. 3 IVs were established to accommodate all meds, but doxycycline ran late due to this and was hung at 1646 at time of Rocephin. RX was made aware and timing to be adjusted on doxy.
[2024-08-29] MEDS: furoSEMIDE 40MG VIAL IV SCH (20:47)
[2024-08-29] MEDS: atorVAStatin 40 MG TABLET PO SCH (20:47)
[2024-08-29] MEDS: metoPROLOL tartRATE 25 MG TAB PO SCH (20:47)
--- NOTE | 2024-08-29 21:09 | NUR ---
Hep gtt Hep gtt order seen as dc'd with comment "D/C AT 0200 08/30/24". Notified pharmacy who stated the order was dc'd by Dr. López. Per swathi RN, this was clarified with : hep gtt to remain running but stop date comment was meant to be the actual stop time. Hep gtt re-ordered, to be stopped at 08/30/24 0200.
[2024-08-29] MEDS ORDERED: HEParin 5,000 UNIT VIAL IV PRN (22:00)
--- NOTE | 2024-08-29 22:22 | PN ---
[facility] PROGRESS NOTE Date Patient Seen: Aug 29, 2024 Time of Visit: 22:22 Supervising Physician: 13:00 Primary Care Physician: Srinath Kumari MD Outpatient Specialists: Dr Maribel Higgins MD Inpatient Consults: Dr Maribel Higgins MD (Cardiology) PROBLEM LIST: Acute hypoxic respiratory failure, POA Lt > RT pleural effusion, POA Acute on Chronic CHF with ICM EF 25-30% s/p AICD placement, POA (BNP 1650) Suspected CAP, POA COPD exacerbation, POA CKD stage III, PO ( GFR 28 in 2019) NSTEMI, POA Chest Pain POA HEART Score 7, POA Hyperglycemia in the presence of Type 2DM, POA Proteinuria Glucosuria Essential HTN Suspected BETTY, undiagnosed and untreated, POA Hx of COPD, severe CAD s/p CABG 16yrs ago and 2nd CABG 10 yrs ago INTERVAL HISTORY: Patient is awake alert and oriented x3. Hemodynamically stable. No fevers blood pressure today 123/71 heart rate in the 60s respiratory rate of 18 and unlabored saturating 97% on room air. He reports still some dyspnea with minimal exertion. Urine output a total of 1020 mL. We will continue to follow daily weights. Patient continues on Lasix 40 mg IV push q.12 hours. Pending Cardiology consult for NSTEMI. This morning patient heparin is on hold due to supratherapeutic levels per continues with protocol. Patient is currently on aspirin, statin, beta meagan for medical management of NSTEMI. 2D echo resulted with left ventricular moderate dilation, LVEF is 25-30% stage III diastolic dysfunction with mild mitral regurgitation. We will await and appreciate Cardiology recommendations. REVIEW OF SYSTEMS: Const: No fever yes to fatigue yes to weight gain Eyes:[ no recent vision problems] ENT: [No congestion, ear pain, or sore throat] C/V: Yes to chest pain, palpitations and bilateral lower extremity edema Resp: No cough yes to shortness of breath progressive dyspnea and orthopnea. GI: [No abdominal pain, nausea, vomiting, constipation, or diarrhea] : [No incontinence of or dyuria] M/S: [No joint or pain swelling] Skin: [No rash] Neuro: [no headache, focal numbness, or weakness, dizziness or seizures] Psych: [no depression or anxiety] Heme: [no abnormal bruising or bleeding] Lymph: [no swollen glands] PHYSICAL EXAM: GENERAL: alert, weak, awake oriented x 3 HEENT: EOMI, Sclera non icteric, moist mucosa NECK: Supple, no JVD, trachea midline LUNGS: Lung sounds Diminished to bilateral bases. No wheezes HEART: Regular rate and rhythm. Normal S1 and S2, without murmurs ABD: Abdomen soft obese, nontender. Bowel sounds present EXT: No clubbing cyanosis plus two pitting edema to bilateral lower extremities NEURO: Alert and oriented to person, follows commands Vital Signs (last 8hr) Date Time Temp Pulse Resp B/P (MAP) Pulse Ox O2 Delivery O2 Flow Rate FiO2 08/29/24 19:28 98.2 78 19 147/93 97 Room Air 08/29/24 16:21 98.4 73 18 138/84 95 Room Air 08/29/24 14:26 74 18 08/29/24 14:25 74 18 N/A Room Air 21 LABS: Hematology Labs: Test 08/29/24 02:04 08/28/24 08:35 Range/Units White Blood Count 6.3 4.8-10.8 K/uL Red Blood Count 4.40 L 4.50-6.20 MIL/uL Hemoglobin 13.5 L 14.0-18.0 g/dL Hematocrit 40.9 L 42-54 % Mean Corpuscular Volume 93.0 79-99 fL Mean Corpuscular Hemoglobin 30.7 27.0-33.0 pg Mean Corpuscular Hemoglobin Concent 33.0 32.0-36.0 g/dL Red Cell Distribution Width 15.7 H 11.0-15.5 % Platelet Count 189 130-400 K/uL Mean Platelet Volume 10.9 H 7.5-10.5 fL Immature Granulocyte % (Auto) 0.2 0-1 % Neutrophils (%) (Auto) 76.0 40.0-77.0 % Lymphocytes (%) (Auto) 11.9 L 21.0-51.0 % Monocytes (%) (Auto) 9.4 3.0-13.0 % Eosinophils (%) (Auto) 2.2 0.0-8.0 % Basophils (%) (Auto) 0.3 0.0-5.0 % Neutrophils # (Auto) 4.8 1.8-7.7 K/uL Lymphocytes # (Auto) 0.8 L 1.0-4.8 K/uL Monocytes # (Auto) 0.6 0.1-1.0 K/uL Eosinophils # (Auto) 0.14 0.00-0.70 K/uL Basophils # (Auto) 0.02 0.00-0.20 K/uL Absolute Immature Granulocyte (auto 0.01 0-1 K/uL Nucleated Red Blood Cells 0.0 0.0-0.19 % White Cell Morphology Comment See comments Chemistry Labs: Test 08/29/24 19:47 08/29/24 02:04 08/28/24 15:31 Range/Units Whole Blood Glucose 124 H 70-110 MG/DL Sodium Level 143 136-145 mmol/L Potassium Level 4.1 3.5-5.1 mmol/L Chloride Level 106 101-111 mmol/L Carbon Dioxide Level 27 21-32 mmol/L Blood Urea Nitrogen 46 H 7-18 mg/dL Creatinine 2.3 H 0.5-1.3 mg/dL Glomerular Filtration Rate Calc 30 >90 mL/min Random Glucose 59 #L 70-105 mg/dL Hemoglobin A1c 7.4 H 4.0-6.0 % Estimated Average Glucose (eAG) 166 H 70-126 mg/dL Lactic Acid Level 2.0 0.8-2.5 mmol/L Total Calcium 8.5 8.5-10.1 mg/dL Phosphorus Level 4.3 2.5-4.9 mg/dL Magnesium Level 2.00 1.80-2.40 mg/dL Total Bilirubin 0.6 0.2-1.0 mg/dL Aspartate Amino Transf (AST/SGOT) 27 10-37 U/L Alanine Aminotransferase (ALT/SGPT) 35 12-78 U/L Alkaline Phosphatase 111 50-136 U/L Total Creatine Kinase 178 21-232 U/L Troponin I High Sensitivity 601.3 *H 4-75 ng/L B-Type Natriuretic Peptide 1420 H 0-100 pg/mL Total Protein 5.9 L 6.0-8.3 g/dL Albumin 2.9 L 3.5-5.0 g/dL Triglycerides Level 68 30-200 mg/dL Cholesterol Level 146 <200 mg/dL LDL Cholesterol 84 0-99 mg/dL HDL Cholesterol 51 29-71 mg/dL Procalcitonin 0.09 0.05-0.5 ng/mL Thyroid Stimulating Hormone (TSH) 1.24 0.36-3.74 uIU/mL Ionized Calcium 1.09 L 1.16-1.32 MMOL/L Coagulation Labs: Test 08/29/24 18:56 08/28/24 18:57 Range/Units Activated Partial Thromboplast Time 75.4 #H 26.3-35.5 SEC Prothrombin Time 12.0 H 9.6-11.6 SEC Prothromb Time International Ratio 1.12 0.85-1.15 DIAGNOSTICS / RADIOLOGY RESULTS: [ ] PATIENT: NEISHA BATISTA MR#: [id number] : 1955 SEX: M AGE: 69 LOCATION: 2DH ORDER 2300 STATUS: ADM IN REPORT#: [id number] SERVICE 0600 REASON: HYPOXIA ORDERING PHYSICIAN: SHREE CORDOBA PROCEDURE: CXR1VW - CHEST 1VW CHEST 1VW REASON: HYPOXIA COMPARISON: 08/28/2024 FINDINGS: There is cardiomegaly. There is mild central vascular congestion. There are small bilateral pleural effusions. Pacemaker and median sternotomy are again noted. IMPRESSION: 1. Interval development of mild vascular congestion with small bilateral pleural effusions. DICTATED BY: WENDY MUELLER MD DATE: 08/29/24903 ELECTRONICALLY SIGNED BY: WENDY MUELLER MD DATE: 08/29/24907 Signed PATIENT: NEISHA BATSITA MR#: [id number] : 1955 SEX: M AGE: 69 LOCATION: 2DH ORDER 1433 STATUS: ADM IN REPORT#: [id number] SERVICE 1433 REASON: ACUTE ON CHORNIC CHF ORDERING PHYSICIAN: SHREE CORDOBA PROCEDURE: ECHO CMP - ECHO 2-D COMPLETE APPROVED REPORT EXAM: Two-dimensional and M-mode echocardiogram with Doppler and color Doppler. Study Details: HTN ,HLD ,CHF ,CAD , CP , COPD , CABG INDICATION ICD: acute on chronic CHF 2D Dimensions RVDd 5.8 cm LVEF(%) 38.1 (>50%) LA ESV INDEX (4CH) 34.50 mL/m2 IVSd 1.0 (0.7-1.1cm) FS(%) 18 % LVDd 4.9 (3.8-5.6cm) LA (2D) 4.7 (1.6-4.0cm) PWd 1.5 (0.7-1.1cm) Ao Root(2D) 3.5 (2.0-3.7cm) IVSs 1.3 cm LVOT diam 2.2 (1.8-2.4cm) LVDs 4.0 (2.5-4.0cm) PWs 1.6 cm M-Mode Dimensions EPSS 2.1 cm LA (MM) 5.3 (1.6-4.0cm) Ao Root(MM) 3.2 (2.0-3.7cm) Aortic Valve AoV VTI 0.1 m Ao Mean GR 1.0 mmHg LVOT VTI 0.09 m OLIVER (VMAX) 2.7 cm2 OLIVER (VTI) 2.7 cm2 Mitral Valve MV E Vmax 125.3 cm/s DECEL Time 173 ms MV A Vmax 23.5 cm/s P 1/2 T 51 ms E/A ratio 5.3 MVA (PHT) 4.4 cm2 TDI E/E' Medial 35.8 E/E' Lateral 32.1 Medial E' Peak V 3.50 cm/s Lateral E' Peak V 3.90 cm/s Pulmonary Valve PV VTI 0.13 m PV Mean GR 1 mmHg Tricuspid Valve TR Vmax 2.6 m/s TR Peak GR 26.4 mmHg Left Ventricle The left ventricle is moderately dilated. Severe concentric left ventricular hypertrophy. LVEF is 25-30%. Stage III diastolic dysfunction. Right Ventricle The right ventricle is moderately dilated. Right ventricular systolic function is moderately reduced. Device lead is present in the right ventricle. Atria The left atrium is moderately dilated. The right atrium size is normal. A pacemaker is seen in the right atrium consistent with history. Aortic Valve Aortic valve leaflets are thickened and calcified. No aortic regurgitation is present. There is no aortic valvular stenosis. Mitral Valve Mild mitral annular calcification present. The mitral valve chordae are redundant. Mitral regurgitation is mild. There is no mitral valve stenosis. Tricuspid Valve The tricuspid valve leaflets are mildly thickened. Mild tricuspid regurgitation. Pulmonic Valve Pulmonic valve is not well visualized. There is no pulmonic valvular regurgitation. Great Vessels The aortic root is normal in size. The ascending aorta is normal in size. The inferior vena cava is moderately to severely dilated with no inspiratory collapse. Pericardium No pericardial effusion. Other Information Technically limited study due to body habitus, smoking and CABG. Conclusion The left ventricle is moderately dilated. LVEF is 25-30%. Stage III diastolic dysfunction. Mitral regurgitation is mild. DICTATED BY: JAYLEN BLACKWELL II, MD DATE: 08/28/24 1636 ELECTRONICALLY SIGNED BY: JAYLEN BLACKWELL II, MD DATE: 08/29/24 1323 PLAN NEURO: Minimize central acting medications as possible. Maintain fall precautions, adequate lighting during the day PULMONARY: Supplemental 02 as needed. Maintain aspiration precautions at all times maintain o2 sats above 92% atrovent Tx's PRN wheezing or sob emperin CAP coverage singulari 10mg po daily ABG if worsening respiratory failure CARDIOVASCULAR: Follow hemodynamics. Vital signs per facility protocol Telemetry monitoring Consult cardiology for NSTEMI and high HEART score Heparin per protocol for now Continue patient's cardiac meds including: Amiodarone 100 mg daily Ezetimibe 10 mg daily Diurese with Lasix IV pushes 20 mg q.8 hours Metolazone 2.5 mg daily as he takes at home Hold CARLOS/ARB due to CKD If I&O Daily weights Fluid restriction of 1500 Interrogate AICD/pacemaker 2D echo done Aspirin Atorvastatin Beta meagan GI & NUTRITION: Continue with nutritional support. Continue stool softeners and laxatives as needed. Heart healthy diet KIDNEYS & ELECTROLYTES: Strict monitoring of intake, output and overall fluid balance. Avoid nephrotoxic medications to the extent possible. Medications to be dosed according to renal function. Monitor electrolytes and replace as needed ENDOCRINE: Maintain blood glucose between 100-180 at all times. Hypoglycemia protocol in place Lantus 20units BID ISS Hemoglobin A1C in am TSH in am INFECTIOUS DISEASE: Trend temperature, WBC and procalcitonin level Follow cultures, deescalate antibiotics as soon as possible. Panculture if new onset fever Doxy Rocephin for emperic CAP coverage swab for flu, covid, and strep blood cultures resp culture ONCOLOGY/HEMATOLOGY/COAGULATION: Monitor for s/s of bleeding Monitor hemoglobin, coagulation studies as needed monitor for bleeding due to heparin gtt monitor platelets PT/INR now SKIN: Pressure ulcer prevention per facility protocol Specialty mattress ORTHO/REHAB: Continue PT/OT Prophylaxis: Continue GI and DVT prophylaxis Protonix on heparin gtt Code Status: Full Resuscitation Disposition: PCCU Other: Total patient care time exceeds 60 minutes excluding all procedures. SHREE CORDOBA [facility] Aug 29, 2024 22:22
[2024-08-29] MEDS: MELATONIN 5 MG TABLET PO ONE ×2 (23:58)
[2024-08-30] VITALS (13 sets, daily range): BP systolic 109–141; BP diastolic 73–95; PULSE 67–78; RESP 18–20; TEMP 97.6–98.4; O2SAT 97–100
[2024-08-30 02:25] LABS: HEMATOCRIT 41.6 % (42-54); MEAN CORPUSCULAR HEMOGLOBIN 30.7 pg (27.0-33.0); MEAN CORPUSCULAR HGB CONC 32.7 g/dL (32.0-36.0); MEAN CORPUSCULAR VOLUME 93.9 fL (79-99); RED BLOOD CELL COUNT(AUTO) 4.43 MIL/uL (4.50-6.20); RED CELL DISTRIBUTION WIDTH 15.5 % (11.0-15.5); WHITE BLOOD COUNT (AUTO) 5.9 K/uL (4.8-10.8)
[2024-08-30 02:39] LABS: INR 1.18 (0.85-1.15); PROTHROMBIN TIME 12.6 SEC (9.6-11.6)
[2024-08-30 02:41] LABS: PARTIAL THROMBOPLASTIN TIME 81.7 SEC (26.3-35.5)
[2024-08-30 02:43] LABS: CREATININE 2.3 mg/dL (0.5-1.3); POTASSIUM 3.8 mmol/L (3.5-5.1)
[2024-08-30] MEDS: DOXYCYCLINE 100MG+NS 250ML IV SCH (06:09)
--- NOTE | 2024-08-30 13:58 | PN ---
[facility] PROGRESS NOTE Date Patient Seen: Aug 30, 2024 Time of Visit: 1025 Supervising Physician: Dr. Macario Primary Care Physician: Srinath Kumari MD Outpatient Specialists: Dr Maribel Higgins MD Inpatient Consults: Dr Maribel Higgins MD (Cardiology) PROBLEM LIST: Acute hypoxic respiratory failure, requiring supplemental oxygen via nasal cannula POA Lt > RT pleural effusion, POA Acute on Chronic CHF exacerbation with ICM EF 25-30% s/p AICD placement, POA (BNP 1650) Suspected CAP, POA COPD exacerbation, POA CKD stage III, PO ( GFR 28 in 2019) NSTEMI, POA Chest Pain POA HEART Score 7, POA Hyperglycemia in the presence of Type 2DM, POA Proteinuria Glucosuria Essential HTN Suspected BETTY, undiagnosed and untreated, POA Hx of COPD, severe CAD s/p CABG 16yrs ago and 2nd CABG 10 yrs ago INTERVAL HISTORY: Patient is awake alert and oriented x3. Hemodynamically stable. No fevers blood pressure today 123/71 heart rate in the 60s respiratory rate of 18 and unlabored saturating 97% on room air. He reports still some dyspnea with minimal exertion. Urine output a total of 1020 mL. We will continue to follow daily weights. Patient continues on Lasix 40 mg IV push q.12 hours. Pending Cardiology consult for NSTEMI. This morning patient heparin is on hold due to supratherapeutic levels per continues with protocol. Patient is currently on aspirin, statin, beta meagan for medical management of NSTEMI. 2D echo resulted with left ventricular moderate dilation, LVEF is 25-30% stage III diastolic dysfunction with mild mitral regurgitation. We will await and appreciate Cardiology recommendations. 08/30 patient was seen and examined by bedside with no family present. At time of visit patient is currently on2 L nasal cannula appears to be tolerating well. Patient denies chest pain however is reporting shortness of breath, and primary nurse had to apply nasal cannula to patient. Patient states FiO2 is helping with symptoms. Patient's BNP noted to be trending down upon admission a a 1650 today 1420 we will continue with diuresing. Patient's chest x-ray shows bilateral small effusions. Patient's venous Dopplers were negative for DVT. Patient to continue on doxycycline and Rocephin. Patient is scheduled for left heart catheterization with possible intervention on 09/01/2024. We will continue to follow recommendations from Cardiology. REVIEW OF SYSTEMS: Const: No fever yes to fatigue yes to weight gain Eyes:[ no recent vision problems] ENT: [No congestion, ear pain, or sore throat] C/V: Yes to chest pain, palpitations and bilateral lower extremity edema Resp: No cough yes to shortness of breath progressive dyspnea and orthopnea. GI: [No abdominal pain, nausea, vomiting, constipation, or diarrhea] : [No incontinence of or dyuria] M/S: [No joint or pain swelling] Skin: [No rash] Neuro: [no headache, focal numbness, or weakness, dizziness or seizures] Psych: [no depression or anxiety] Heme: [no abnormal bruising or bleeding] Lymph: [no swollen glands] PHYSICAL EXAM: GENERAL: alert, weak, awake oriented x 3 HEENT: EOMI, Sclera non icteric, moist mucosa NECK: Supple, no JVD, trachea midline LUNGS: Lung sounds Diminished to bilateral bases. No wheezes HEART: Regular rate and rhythm. Normal S1 and S2, without murmurs ABD: Abdomen soft obese, nontender. Bowel sounds present EXT: No clubbing cyanosis plus two pitting edema to bilateral lower extremities NEURO: Alert and oriented to person, follows commands Vital Signs (last 8hr) Date Time Temp Pulse Resp B/P (MAP) Pulse Ox O2 Delivery O2 Flow Rate FiO2 08/30/24 12:00 97.5 72 18 140/95 99 Nasal Cannula 1.0 08/30/24 08:00 100 Room Air* 0 21 08/30/24 06:39 70 18 N/A Room Air 08/30/24 06:37 70 18 LABS: Hematology Labs: Test 08/30/24 02:16 08/29/24 02:04 Range/Units White Blood Count 5.9 4.8-10.8 K/uL Red Blood Count 4.43 L 4.50-6.20 MIL/uL Hemoglobin 13.6 L 14.0-18.0 g/dL Hematocrit 41.6 L 42-54 % Mean Corpuscular Volume 93.9 79-99 fL Mean Corpuscular Hemoglobin 30.7 27.0-33.0 pg Mean Corpuscular Hemoglobin Concent 32.7 32.0-36.0 g/dL Red Cell Distribution Width 15.5 11.0-15.5 % Platelet Count 191 130-400 K/uL Mean Platelet Volume 11.1 H 7.5-10.5 fL Nucleated Red Blood Cells 0.0 0.0-0.19 % Immature Granulocyte % (Auto) 0.2 0-1 % Neutrophils (%) (Auto) 76.0 40.0-77.0 % Lymphocytes (%) (Auto) 11.9 L 21.0-51.0 % Monocytes (%) (Auto) 9.4 3.0-13.0 % Eosinophils (%) (Auto) 2.2 0.0-8.0 % Basophils (%) (Auto) 0.3 0.0-5.0 % Neutrophils # (Auto) 4.8 1.8-7.7 K/uL Lymphocytes # (Auto) 0.8 L 1.0-4.8 K/uL Monocytes # (Auto) 0.6 0.1-1.0 K/uL Eosinophils # (Auto) 0.14 0.00-0.70 K/uL Basophils # (Auto) 0.02 0.00-0.20 K/uL Absolute Immature Granulocyte (auto 0.01 0-1 K/uL Chemistry Labs: Test 08/30/24 11:46 08/30/24 02:16 08/29/24 02:04 08/28/24 15:31 Range/Units Whole Blood Glucose 145 H 70-110 MG/DL Sodium Level 141 136-145 mmol/L Potassium Level 3.8 3.5-5.1 mmol/L Chloride Level 107 101-111 mmol/L Carbon Dioxide Level 24 21-32 mmol/L Blood Urea Nitrogen 46 H 7-18 mg/dL Creatinine 2.3 H 0.5-1.3 mg/dL Glomerular Filtration Rate Calc 30 >90 mL/min Random Glucose 185 H 70-105 mg/dL Total Calcium 8.5 8.5-10.1 mg/dL Hemoglobin A1c 7.4 H 4.0-6.0 % Estimated Average Glucose (eAG) 166 H 70-126 mg/dL Lactic Acid Level 2.0 0.8-2.5 mmol/L Phosphorus Level 4.3 2.5-4.9 mg/dL Magnesium Level 2.00 1.80-2.40 mg/dL Total Bilirubin 0.6 0.2-1.0 mg/dL Aspartate Amino Transf (AST/SGOT) 27 10-37 U/L Alanine Aminotransferase (ALT/SGPT) 35 12-78 U/L Alkaline Phosphatase 111 50-136 U/L Total Creatine Kinase 178 21-232 U/L Troponin I High Sensitivity 601.3 *H 4-75 ng/L B-Type Natriuretic Peptide 1420 H 0-100 pg/mL Total Protein 5.9 L 6.0-8.3 g/dL Albumin 2.9 L 3.5-5.0 g/dL Triglycerides Level 68 30-200 mg/dL Cholesterol Level 146 <200 mg/dL LDL Cholesterol 84 0-99 mg/dL HDL Cholesterol 51 29-71 mg/dL Procalcitonin 0.09 0.05-0.5 ng/mL Thyroid Stimulating Hormone (TSH) 1.24 0.36-3.74 uIU/mL Ionized Calcium 1.09 L 1.16-1.32 MMOL/L Coagulation Labs: Test 08/30/24 02:16 Range/Units Prothrombin Time 12.6 H 9.6-11.6 SEC Prothromb Time International Ratio 1.18 H 0.85-1.15 Activated Partial Thromboplast Time 81.7 H 26.3-35.5 SEC DIAGNOSTICS / RADIOLOGY RESULTS: na PLAN Continue to actively titrate FiO2 as tolerated Patient will require 6 minute walk prior to discharge for home oxygen evaluation Patient is scheduled for left heart catheterization 09/01/2024 with possible intervention per cardiology's recommendations Continue with Lasix 40 mg IV push b.i.d. Continue with metolazone 2.5 mg Continue with Rocephin2 g daily Continue with doxycycline 100 mg b.i.d. Continue metoprolol 12.5 mg b.i.d. Continue amiodarone 300 mg daily Continue [id number] mg daily Continue atorvastatin 40 mg q.h.s. We will discontinue patient's glipizide while in the hospital NEURO: Minimize central acting medications as possible. Maintain fall precautions, adequate lighting during the day PULMONARY: Supplemental 02 as needed. Maintain aspiration precautions at all times maintain o2 sats above 92% atrovent Tx's PRN wheezing or sob emperin CAP coverage singulari 10mg po daily ABG if worsening respiratory failure CARDIOVASCULAR: Follow hemodynamics. Vital signs per facility protocol Telemetry monitoring Continue patient's cardiac meds including: Amiodarone 100 mg daily Ezetimibe 10 mg daily Diurese with Lasix IV pushes 20 mg q.8 hours Metolazone 2.5 mg daily as he takes at home Hold CARLOS/ARB due to CKD I&O Daily weights Fluid restriction of 1500 Interrogate AICD/pacemaker Aspirin Atorvastatin Beta meagan GI & NUTRITION: Continue with nutritional support. Continue stool softeners and laxatives as needed. Heart healthy diet KIDNEYS & ELECTROLYTES: Strict monitoring of intake, output and overall fluid balance. Avoid nephrotoxic medications to the extent possible. Medications to be dosed according to renal function. Monitor electrolytes and replace as needed ENDOCRINE: Maintain blood glucose between 100-180 at all times. Hypoglycemia protocol in place Lantus 20units BID ISS INFECTIOUS DISEASE: Trend temperature, WBC and procalcitonin level Follow cultures, deescalate antibiotics as soon as possible. Panculture if new onset fever Doxy Rocephin for emperic CAP coverage ONCOLOGY/HEMATOLOGY/COAGULATION: Monitor for s/s of bleeding Monitor hemoglobin, coagulation studies as needed SKIN: Pressure ulcer prevention per facility protocol Specialty mattress ORTHO/REHAB: Continue PT/OT Prophylaxis: Continue GI and DVT prophylaxis Protonix Lovenox Code Status: Full Resuscitation Disposition: TBD Other: Total critical care time 35 minutes Case discussed with supervising physician plan of care agreed upon MYNOR DOVER Aug 30, 2024 13:58
[2024-08-31] VITALS (13 sets, daily range): BP systolic 123–152; BP diastolic 79–99; PULSE 64–83; RESP 16–24; TEMP 97.7–98.5; O2SAT 98–100
[2024-08-31] MEDS ORDERED: DiphenhydrAMINE HCL 50 MG/ML VIAL IVP PRN (08:30)
[2024-08-31] MEDS: ENOXAPARIN SODIUM 30 MG/0.3 ML SQ SCH (09:04)
--- NOTE | 2024-08-31 12:18 | HMCIMG ---
CHEST 1VW REASON: PLEURAL EFFUSION COMPARISON: 08/29/2024 FINDINGS: There are stable cardiomegaly. There is mild vascular congestion. There are small bilateral pleural effusions. These findings appear unchanged. Pacemaker and median sternotomy are again noted. IMPRESSION: 1. Mild cardiomegaly with mild vascular congestion and effusions. 2. No interval change.
--- NOTE | 2024-08-31 14:21 | PN ---
[facility] PROGRESS NOTE Date Patient Seen: Aug 31, 2024 Time of Visit: 14:06 Supervising Physician: Dr. Bimal Macario Primary Care Physician: Srinath Kumari MD Outpatient Specialists: Dr Maribel Higgins MD Inpatient Consults: Dr Maribel Higgins MD (Cardiology) PROBLEM LIST: Acute hypoxic respiratory failure, requiring supplemental oxygen via nasal cannula POA, NSTEMI, POA Severe CAD s/p CABG 16yrs ago and 2nd CABG 10 yrs ago Acute on Chronic CHF exacerbation with ICM EF 25-30% s/p AICD placement, POA (BNP 1650) Suspected CAP, POA COPD exacerbation, POA Lt > RT pleural effusion, POA , multifactorial CKD stage III, PO ( GFR 28 in 2020) Hyperglycemia in the presence of Type 2DM, POA Essential HTN Suspected BETTY, undiagnosed and untreated, POA INTERVAL HISTORY: Patient was seen and examined today by me, at bedside with son in room, patient was sitting up in chair continues to complain of dyspnea, shortness for breath. He is pending left heart catheterization for tomorrow. He denies any significant orthopnea, it has overall improved with diuresis. Co ntinues on Lasix and responding well with a total output of 800 mL in the last 24 hours. Renal function is being monitored. His renal function is stable when compared to previous lab results. Back in February of 2020 the patient's creatinine was at 2.5 currently at 2.3. REVIEW OF SYSTEMS: 12 Point ROS reviewed with patient and were positive only as per HPI. Pertinent + and negative listed above all others negative PHYSICAL EXAM: GENERAL: alert, weak, awake oriented x 3 HEENT: EOMI, Sclera non icteric, moist mucosa NECK: Supple, no JVD, trachea midline LUNGS: Lung sounds Diminished to bilateral bases. No wheezes HEART: Regular rate and rhythm. Normal S1 and S2, without murmurs ABD: Abdomen soft obese, nontender. Bowel sounds present EXT: No clubbing cyanosis plus 1 pitting edema to bilateral lower extremities NEURO: Alert and oriented to person, follows commands Vital Signs (last 8hr) Date Time Temp Pulse Resp B/P (MAP) Pulse Ox O2 Delivery O2 Flow Rate FiO2 08/31/24 13:52 74 24 N/Cannula Low lpm 2.0 08/31/24 13:48 74 24 08/31/24 11:00 98.4 70 20 142/94 100 Nasal Cannula 2.0 08/31/24 07:00 99 Room Air* 0 21 08/31/24 07:00 97.9 71 16 137/99 100 Room Air 08/31/24 06:31 71 18 LABS: Hematology Labs: Test 08/30/24 02:16 Range/Units White Blood Count 5.9 4.8-10.8 K/uL Red Blood Count 4.43 L 4.50-6.20 MIL/uL Hemoglobin 13.6 L 14.0-18.0 g/dL Hematocrit 41.6 L 42-54 % Mean Corpuscular Volume 93.9 79-99 fL Mean Corpuscular Hemoglobin 30.7 27.0-33.0 pg Mean Corpuscular Hemoglobin Concent 32.7 32.0-36.0 g/dL Red Cell Distribution Width 15.5 11.0-15.5 % Platelet Count 191 130-400 K/uL Mean Platelet Volume 11.1 H 7.5-10.5 fL Nucleated Red Blood Cells 0.0 0.0-0.19 % Chemistry Labs: Test 08/31/24 10:48 08/30/24 02:16 Range/Units Whole Blood Glucose 171 #H 70-110 MG/DL Bedside Glucose Comment Notified Nurse Sodium Level 141 136-145 mmol/L Potassium Level 3.8 3.5-5.1 mmol/L Chloride Level 107 101-111 mmol/L Carbon Dioxide Level 24 21-32 mmol/L Blood Urea Nitrogen 46 H 7-18 mg/dL Creatinine 2.3 H 0.5-1.3 mg/dL Glomerular Filtration Rate Calc 30 >90 mL/min Random Glucose 185 H 70-105 mg/dL Total Calcium 8.5 8.5-10.1 mg/dL Coagulation Labs: Test 08/30/24 02:16 Range/Units Prothrombin Time 12.6 H 9.6-11.6 SEC Prothromb Time International Ratio 1.18 H 0.85-1.15 Activated Partial Thromboplast Time 81.7 H 26.3-35.5 SEC DIAGNOSTICS / RADIOLOGY RESULTS: CHEST 1VW REASON: PLEURAL EFFUSION COMPARISON: 08/29/2024 FINDINGS: There are stable cardiomegaly. There is mild vascular congestion. There are small bilateral pleural effusions. These findings appear unchanged. Pacemaker and median sternotomy are again noted. IMPRESSION: 1. Mild cardiomegaly with mild vascular congestion and effusions. 2. No interval change. PLAN Continue to actively titrate FiO2 as tolerated Patient will require 6 minute walk prior to discharge for home oxygen evaluation Patient is scheduled for left heart catheterization 09/01/2024 with possible intervention per cardiology's recommendations Continue with Lasix 40 mg IV push b.i.d. Continue with metolazone 2.5 mg Continue with Rocephin2 g daily Continue with doxycycline 100 mg b.i.d. Continue metoprolol 12.5 mg b.i.d. Continue amiodarone 300 mg daily Continue qibdgin93 mg daily Continue atorvastatin 40 mg q.h.s. We will discontinue patient's glipizide while in the hospital NEURO: Minimize central acting medications as possible. Maintain fall precautions, adequate lighting during the day PULMONARY: Supplemental 02 as needed. Maintain aspiration precautions at all times maintain o2 sats above 92% atrovent Tx's PRN wheezing or sob emperin CAP coverage singulari 10mg po daily ABG if worsening respiratory failure CARDIOVASCULAR: Follow hemodynamics. Vital signs per facility protocol Telemetry monitoring Continue patient's cardiac meds including: Amiodarone 300 mg daily Ezetimibe 10 mg daily Diurese with Lasix Metolazone 2.5 mg daily as he takes at home Hold CARLOS/ARB due to CKD I&O Daily weights Fluid restriction of 1500 Interrogate AICD/pacemaker Aspirin Atorvastatin Beta meagan GI & NUTRITION: Continue with nutritional support. Continue stool softeners and laxatives as needed. Heart healthy diet KIDNEYS & ELECTROLYTES: Strict monitoring of intake, output and overall fluid balance. Avoid nephrotoxic medications to the extent possible. Medications to be dosed according to renal function. Monitor electrolytes and replace as needed ENDOCRINE: Maintain blood glucose between 100-180 at all times. Hypoglycemia protocol in place Lantus 20units BID ISS INFECTIOUS DISEASE: Trend temperature, WBC and procalcitonin level Follow cultures, deescalate antibiotics as soon as possible. Panculture if new onset fever Doxy Rocephin for emperic CAP coverage ONCOLOGY/HEMATOLOGY/COAGULATION: Monitor for s/s of bleeding Monitor hemoglobin, coagulation studies as needed SKIN: Pressure ulcer prevention per facility protocol Specialty mattress ORTHO/REHAB: Continue PT/OT Prophylaxis: Continue GI and DVT prophylaxis Protonix Lovenox Code Status: Full Resuscitation Disposition: TBD Other: Total critical care time 35 minutes Case discussed with supervising physician plan of care agreed upon ALBIN DIAS Aug 31, 2024 14:21
[2024-08-31] MEDS ORDERED: queTIAPine fuMARate 25 MG TAB PO PRN (20:30)
[2024-08-31] MEDS: 0.9%NACL 1000ML 1,000 ML IV SCH (21:31)
[2024-08-31] MEDS: MELATONIN 5 MG TABLET PO PRN (21:51)
[2024-08-31] MEDS: acetaMINOPHEN 325 MG TAB PO PRN (21:56)
[2024-09-01] VITALS (17 sets, daily range): BP systolic 14–159; BP diastolic 82–104; PULSE 66–76; RESP 18–22; TEMP 96.6–98.5; O2SAT 98–100
[2024-09-01 04:38] LABS: HEMATOCRIT 44.8 % (42-54); MEAN CORPUSCULAR HEMOGLOBIN 30.4 pg (27.0-33.0); MEAN CORPUSCULAR HGB CONC 31.9 g/dL (32.0-36.0); MEAN CORPUSCULAR VOLUME 95.1 fL (79-99); RED BLOOD CELL COUNT(AUTO) 4.71 MIL/uL (4.50-6.20); RED CELL DISTRIBUTION WIDTH 15.5 % (11.0-15.5); WHITE BLOOD COUNT (AUTO) 7.5 K/uL (4.8-10.8)
[2024-09-01 04:47] LABS: CREATININE 2.3 mg/dL (0.5-1.3); POTASSIUM 3.8 mmol/L (3.5-5.1)
[2024-09-01 04:56] LABS: INR 1.18 (0.85-1.15); PROTHROMBIN TIME 12.6 SEC (9.6-11.6)
[2024-09-01 04:57] LABS: PARTIAL THROMBOPLASTIN TIME 34.2 SEC (26.3-35.5)
[2024-09-01] MEDS ORDERED: HEParin 10,000 UNIT/10ML (1,000 UNIT/ML) VIAL ONE (09:18)
[2024-09-01] MEDS ORDERED: HEParin-NS 1,000 UNIT/500 ML 1,000 ML IV ONE (09:18)
[2024-09-01] MEDS ORDERED: IOHEXOL 350 MG/ML 100ML INFUS..BTL IV ONE ×2 (09:18→11:11)
[2024-09-01] MEDS ORDERED: LIDOCAINE HCL 400MG/20ML VIAL ONE (09:18)
[2024-09-01] MEDS ORDERED: NITROGLYCERIN 50MG VIAL ONE (09:18)
[2024-09-01] MEDS ORDERED: IOHEXOL-350 50ML VIAL IV ONE (09:19)
[2024-09-01] MEDS ORDERED: BIVALIRUDIN 250 MG/VIAL IV ONE ×2 (09:35→10:35)
[2024-09-01] MEDS ORDERED: FENTanyl CITRate PF 50 MCG/1 ML 2ML VIAL ONE (09:44)
[2024-09-01] MEDS ORDERED: MIDAZOLAM HCL 1 MG/ML 2ML VIAL ONE (09:44)
[2024-09-01] MEDS ORDERED: HEParin-NS 1,000 UNIT/500 ML 500 ML IV ONE (10:35)
[2024-09-01] MEDS ORDERED: TICAGrelor 90 MG TABLET ONE (11:23)
[2024-09-01] MEDS ORDERED: ASPIRIN 325MG EC TAB PO ONE (11:23)
[2024-09-01] MEDS: 0.9%NACL 1000ML 1,000 ML IV SCH (12:27)
--- NOTE | 2024-09-01 12:38 | PR ---
PROCEDURES PERFORMED: Left heart catheterization, left and right coronary arteriography, bypass graft angiography, angioplasty plus stenting of the saphenous vein graft to the posterior descending artery. INDICATIONS: This 69-year-old man has a known longstanding ischemic dilated cardiomyopathy. He is status post coronary artery bypass grafting, percutaneous coronary interventions, placement of a biventricular AICD. The patient presents with shortness of breath and chest discomfort with mildly elevated troponins, consistent with a non-ST elevation OK. Previous ejection fractions have been in the 25% range. He last underwent cardiac catheterization in 2018 with angioplasty and stenting of the left main into the circumflex. The previously stented LAD was patent. Two saphenous vein grafts were totally occluded. The saphenous vein graft to the posterior descending artery was patent. The left internal mammary artery had been anastomosed to a high obtuse marginal branch/ramus branch and was widely patent. DESCRIPTION OF PROCEDURE: After informed consent and premedication, the patient was brought to the cardiac catheterization laboratory in a fasting state, where the right femoral artery was accessed utilizing the micropuncture technique. The above described procedures were performed. COMPLICATIONS: None. FINDINGS: LEFT MAIN: The previously stented left main is patent, but may contain a 50% stenosis in its mid portion. The stent is patent into the circumflex. CIRCUMFLEX: The nondominant circumflex including the high obtuse marginal branch/ramus branch is patent. LAD: The LAD is subtotally occluded starting at its origin without distal flow either antegrade or retrograde. RIGHT CORONARY ARTERY: The right coronary artery contains a 70% stenosis in its mid portion. The posterior descending artery is not well seen. SAPHENOUS VEIN GRAFT TO THE POSTERIOR DESCENDING ARTERY: The saphenous vein graft to the posterior descending artery contains a 99% stenosis proximally. Two other saphenous vein grafts are known to be totally occluded. The aortic valve was crossed with the JR4 diagnostic catheter. The resting left ventricular end diastolic pressure is 31 mmHg. There is no aortic stenosis. No left ventricular angiography was performed. ANGIOPLASTY PLUS STENTING OF THE SAPHENOUS VEIN GRAFT TO THE POSTERIOR DESCENDING ARTERY: A 6-Maori RCB guide gave good support. A 0.014 Whisper wire was positioned in the distal saphenous vein graft. A 5 mm spider wire distal protection device was positioned in the distal bypass graft. Balloon angioplasty was performed in the vein graft utilizing a 3.0 x 15 mm Sprinter balloon being inflated to 3.18 mm. The saphenous vein graft was then stented utilizing a 3.5 x 26 mm [place] drug-eluting stent being deployed at 3.5 mm. Angiography was repeated. FINDINGS: The saphenous vein graft to the posterior descending artery now has 10% residual stenosis. Attempted angioplasty of the LAD, a 6-Maori JL4 guide gave good support. The same 0.014 Whisper wire was used, but no wire pass could enter the LAD. No intervention in the LAD was performed. The arteriotomy was closed with Mynx. MEDICATIONS: The patient received Versed 2 mg IV, fentanyl 50 mcg IV, heparin 1000 units intravenously for the diagnostic angiograms, followed by Angiomax 12.25 mL bolus and 33.25 mL per hour for the duration of the procedure. He received Brilinta 180 mg p.o. and aspirin 325 mg p.o. IMPRESSION: This has been a successful angioplasty and stenting of the saphenous vein graft to the posterior descending artery. TID: [id number] RECEIPT: [id number]
--- NOTE | 2024-09-01 13:30 | NUR ---
RIGHT GROIN STARTED OOZING SMALL AMOUNT OF BLOOD. OP SITE. REMOVED. PRESSURE HELD FOR 30 MINUTES. CHARGE NURSE OCTAVIA NOTIFIED. PEDAL PULSE WITH DOPPLER. RIGHT FOOT IS PINK AND WARM. PATIENT IS EXTREMELY AGGRESSIVE AND ANGRY. CLAIMS THE NURSES MOVE TOO SLOW. WILL NOTIFY AT [address] DR [place]ACK[place] AND ALBIN DIAS MANAGER REVENUE ON PATIENTS STATUS. ORDERS RECEIVED.
[2024-09-01] MEDS: diazePAM 5 MG/ML 2 ML SYG IVP ONE (14:15)
--- NOTE | 2024-09-01 14:17 | PN ---
[facility] PROGRESS NOTE Date Patient Seen: Sep 01, 2024 Time of Visit: 14:02 Supervising Physician: MD IKER Primary Care Physician: Srinath Kumari MD Outpatient Specialists: Dr Maribel Higgins MD Inpatient Consults: Dr Maribel Higgins MD (Cardiology) PROBLEM LIST: Acute hypoxic respiratory failure, requiring supplemental oxygen via nasal cannula POA, NSTEMI, POA -s/p [facility] Left heart catheterization with stenting of the saphenous vein graft to the posterior descending artery. Severe CAD s/p CABG 16yrs ago and 2nd CABG 10 yrs ago Acute on Chronic CHF exacerbation with ICM EF 25-30% s/p AICD placement, POA (BNP 1650) Suspected CAP, POA COPD exacerbation, POA,improved Lt > RT pleural effusion, POA , multifactorial CKD stage III, PO ( GFR 28 in 2019) Hyperglycemia in the presence of Type 2DM, POA Essential HTN Suspected BETTY, undiagnosed and untreated, POA INTERVAL HISTORY: Patient was seen and examined today by me at bedside he was evaluated post left heart catheterization, a stent was placed to the saphenous vein graft to the posterior descending artery. Post procedure the patient was in the reverse Trendelenburg position, VS stable and patient with no acute complaints . Of note the patient continues with Lasix 40 mg q.12 hours with a total of 820 mL output in the last24 hours. Chest x-ray from yesterday continues to reveal bilateral effusions with left greater than the right. It was secondary to his congestive heart failure exacerbation with an EF of25 30% with stage III diastolic dysfunction.Will Monitor renal function, patient has stable creat of 2.3 at this time And was later called after evaluating the patient that he began to have mild oozing from his groin, pressure applied and bleeding controlled. Patient did have a panic attack during episode due to bleeding , x 1 dose of low dose diazepam was ordered. REVIEW OF SYSTEMS: 12 Point ROS reviewed with patient and were positive only as per HPI. Pertinent + and negative listed above all others negative PHYSICAL EXAM: GENERAL: alert, weak, awake oriented x 3 HEENT: EOMI, Sclera non icteric, moist mucosa NECK: Supple, no JVD, trachea midline LUNGS: Lung sounds Diminished to bilateral bases. No wheezes HEART: Regular rate and rhythm. Normal S1 and S2, without murmurs ABD: Abdomen soft obese, nontender. Bowel sounds present EXT: No clubbing cyanosis plus 1 pitting edema to bilateral lower extremities NEURO: Alert and oriented to person, follows commands , calm at time of my evaluation Vital Signs (last 8hr) Date Time Temp Pulse Resp B/P (MAP) Pulse Ox O2 Delivery O2 Flow Rate FiO2 09/01/24 13:00 76 159/98 95 Room Air 09/01/24 12:45 72 154/99 99 Room Air 09/01/24 12:30 70 156/98 99 09/01/24 12:15 71 156/98 99 Room Air 09/01/24 12:00 96.6 70 18 146/95 98 Room Air 09/01/24 07:00 97.9 69 20 14/97 97 Room Air 09/01/24 07:00 98 Room Air* 0 21 09/01/24 06:34 68 18 09/01/24 06:33 68 18 N/A Room Air 21 LABS: Hematology Labs: Test 09/01/24 04:25 Range/Units White Blood Count 7.5 4.8-10.8 K/uL Red Blood Count 4.71 4.50-6.20 MIL/uL Hemoglobin 14.3 14.0-18.0 g/dL Hematocrit 44.8 42-54 % Mean Corpuscular Volume 95.1 79-99 fL Mean Corpuscular Hemoglobin 30.4 27.0-33.0 pg Mean Corpuscular Hemoglobin Concent 31.9 L 32.0-36.0 g/dL Red Cell Distribution Width 15.5 11.0-15.5 % Platelet Count 209 130-400 K/uL Mean Platelet Volume 11.1 H 7.5-10.5 fL Nucleated Red Blood Cells 0.0 0.0-0.19 % Chemistry Labs: Test 09/01/24 12:15 09/01/24 04:25 08/31/24 16:23 Range/Units Whole Blood Glucose 77 70-110 MG/DL Sodium Level 146 H 136-145 mmol/L Potassium Level 3.8 3.5-5.1 mmol/L Chloride Level 109 101-111 mmol/L Carbon Dioxide Level 26 21-32 mmol/L Blood Urea Nitrogen 50 H 7-18 mg/dL Creatinine 2.3 H 0.5-1.3 mg/dL Glomerular Filtration Rate Calc 30 >90 mL/min Random Glucose 55 L 70-105 mg/dL Total Calcium 9.0 8.5-10.1 mg/dL Bedside Glucose Comment Notified Nurse Coagulation Labs: Test 09/01/24 04:25 Range/Units Prothrombin Time 12.6 H 9.6-11.6 SEC Prothromb Time International Ratio 1.18 H 0.85-1.15 Activated Partial Thromboplast Time 34.2 26.3-35.5 SEC DIAGNOSTICS / RADIOLOGY RESULTS: [ ] PLAN Continue to actively titrate FiO2 as tolerated Patient will require 6 minute walk prior to discharge for home oxygen evaluation s/p [facility] with successful angioplasty and stenting to SVG to posterior descending artery. continue with ASA, statin and brilinta. Continue with Lasix 40 mg IV push b.i.d. and metolazone 2.5 mg Will reassess pleural effusion in AM and further recommendation to follow Continue with Rocephin2 g daily Continue with doxycycline 100 mg b.i.d. Continue metoprolol 12.5 mg b.i.d. Continue amiodarone 300 mg daily We will discontinue patient's glipizide while in the hospital NEURO: Minimize central acting medications as possible. Maintain fall precautions, adequate lighting during the day PULMONARY: Supplemental 02 as needed. Maintain aspiration precautions at all times maintain o2 sats above 92% atrovent Tx's PRN wheezing or sob emperic CAP coverage singular 10mg po daily ABG if worsening respiratory failure CARDIOVASCULAR: Follow hemodynamics. Vital signs per facility protocol Telemetry monitoring Continue patient's cardiac meds including: Amiodarone 300 mg daily Ezetimibe 10 mg daily Diurese with Lasix Metolazone 2.5 mg Hold CARLOS/ARB due to CKD I&O Daily weights Fluid restriction of 1500 Aspirin Atorvastatin Brilinta Beta meagan GI & NUTRITION: Continue with nutritional support. Continue stool softeners and laxatives as needed. Heart healthy diet KIDNEYS & ELECTROLYTES: Strict monitoring of intake, output and overall fluid balance. Avoid nephrotoxic medications to the extent possible. Medications to be dosed according to renal function. Monitor electrolytes and replace as needed ENDOCRINE: Maintain blood glucose between 100-180 at all times. Hypoglycemia protocol in place Lantus 20units BID ISS INFECTIOUS DISEASE: Trend temperature, WBC and procalcitonin level Follow cultures, deescalate antibiotics as soon as possible. Panculture if new onset fever Doxy Rocephin for emperic CAP coverage ONCOLOGY/HEMATOLOGY/COAGULATION: Monitor for s/s of bleeding Monitor hemoglobin, coagulation studies as needed SKIN: Pressure ulcer prevention per facility protocol Specialty mattress ORTHO/REHAB: Continue PT/OT Prophylaxis: Continue GI and DVT prophylaxis Protonix Lovenox Code Status: Full Resuscitation Disposition: TBD Other: Total critical care time 35 minutes Case discussed with supervising physician plan of care agreed upon ALBIN DIAS Sep 01, 2024 14:17
[2024-09-01] MEDS: TICAGrelor 90 MG TABLET PO SCH (20:55)
[2024-09-02] VITALS (13 sets, daily range): BP systolic 122–156; BP diastolic 71–106; PULSE 70–78; RESP 18–22; TEMP 97.5–98.5; O2SAT 96–100
[2024-09-02 03:39] LABS: BASOPHILS # (AUTO) 0.02 K/uL (0.00-0.20); BASOPHILS % (AUTO) 0.3 % (0.0-5.0); EOSINOPHILS # (AUTO) 0.09 K/uL (0.00-0.70); EOSINOPHILS % (AUTO) 1.2 % (0.0-8.0); HEMATOCRIT 44.1 % (42-54); IMMATURE GRANULOCYTE ABSOLUTE 0.02 K/uL (0-1); LYMPHOCYTES # (AUTO) 0.5 K/uL (1.0-4.8); LYMPHOCYTES % (AUTO) 6.1 % (21.0-51.0); MEAN CORPUSCULAR HEMOGLOBIN 29.9 pg (27.0-33.0); MEAN CORPUSCULAR HGB CONC 31.5 g/dL (32.0-36.0); MEAN CORPUSCULAR VOLUME 94.8 fL (79-99); MONOCYTES # (AUTO) 0.6 K/uL (0.1-1.0); MONOCYTES % (AUTO) 7.9 % (3.0-13.0); NEUTROPHILS # (AUTO) 6.2 K/uL (1.8-7.7); NEUTROPHILS % (AUTO) 84.2 % (40.0-77.0); PLATELET COUNT (AUTO) 210 K/uL (130-400); RED BLOOD CELL COUNT(AUTO) 4.65 MIL/uL (4.50-6.20); RED CELL DISTRIBUTION WIDTH 15.6 % (11.0-15.5); WHITE BLOOD COUNT (AUTO) 7.4 K/uL (4.8-10.8)
[2024-09-02 03:58] LABS: ALBUMIN 3.1 g/dL (3.5-5.0); BILIRUBIN,TOTAL 0.5 mg/dL (0.2-1.0); CREATININE 2.5 mg/dL (0.5-1.3); MAGNESIUM 1.7 mg/dL (1.80-2.40); POTASSIUM 3.7 mmol/L (3.5-5.1); TOTAL PROTEIN, SERUM 6.3 g/dL (6.0-8.3)
[2024-09-02 04:36] LABS: B-TYPE NATRIURETIC PEPTIDE 2240 pg/mL (0-100)
--- NOTE | 2024-09-02 08:25 | PN ---
CARDIOLOGY PROGRESS REPORT LOCATION: He is in room 221. SUBJECTIVE: This 69-year-old man has a known ischemic dilated cardiomyopathy. He does have an AICD. Ejection fraction is in the 25% range. He is status post remote coronary artery bypass grafting and remote percutaneous coronary interventions. He is admitted with shortness of breath and elevated troponin. Yesterday, he underwent angiography and intervention. He was found to have a 99% stenosis in the saphenous vein graft to the right coronary artery. He underwent angioplasty and stenting of this bypass graft, resulting in 10% residual stenosis. He has 2 previously known totally occluded saphenous vein grafts. He was also found to have a widely patent left internal mammary artery graft to the ramus/high obtuse marginal branch. The LAD is totally occluded. He has a previously placed stent in the left main into the circumflex, which is also patent. A left ventricular angiogram was not done because of renal dysfunction. PHYSICAL EXAMINATION: GENERAL: At present, the patient is resting comfortably, in no acute distress. VITAL SIGNS: Blood pressure 153/98, heart rate 71. RIGHT GROIN: The bandage was removed. It had been replaced last evening. There was no bleeding. There was mild tenderness and no obvious hematoma. LABORATORY DATA: Hemoglobin 13.9, hematocrit 44.1. Potassium 3.7, magnesium 1.7, BUN 48, creatinine 2.5 with a glomerular filtration rate of 27. MEDICATIONS: Reviewed. The patient was receiving metoprolol tartrate. He is not receiving an CARLOS inhibitor or CARLOS inhibitor receptor meagan because of his renal dysfunction. PLAN: A nephrology consult with Dr. Dickerson will be requested. The magnesium will be replaced. The metoprolol tartrate will be discontinued. Carvedilol 12.5 mg b.i.d. will be started. Isosorbide mononitrate 30 mg daily will be started. Hydralazine 12.5 mg t.i.d. will be started. TID: [id number] RECEIPT: [id number]
[2024-09-02] MEDS: ASPIRIN 81MG CHEW TAB PO SCH (10:43)
[2024-09-02] MEDS: carVEDIlol 12.5 MG TABLET PO SCH (10:43)
[2024-09-02] MEDS: ISOSORBIDE MONO 30MG SR TAB PO SCH (10:44)
[2024-09-02] MEDS: hydrALAZine 25MG TABLET PO SCH (10:48)
--- NOTE | 2024-09-02 12:27 | PN ---
[facility] PROGRESS NOTE Date Patient Seen: Sep 02, 2024 Time of Visit: 12:25 Supervising Physician: DR JOY BAHENA Primary Care Physician: Srinath Kumari MD Outpatient Specialists: Dr Maribel Higgins MD Inpatient Consults: Dr Maribel Higgins MD (Cardiology) PROBLEM LIST: Acute hypoxic respiratory failure, requiring supplemental oxygen via nasal cannula POA, NSTEMI, POA -s/p [facility] Left heart catheterization with stenting of the saphenous vein graft to the posterior descending artery. Severe CAD s/p CABG 16yrs ago and 2nd CABG 10 yrs ago Acute on Chronic CHF exacerbation with ICM EF 25-30% s/p AICD placement, POA (BNP 1650) Suspected CAP, POA COPD exacerbation, POA,improved Lt > RT pleural effusion, POA , multifactorial CKD stage III, PO ( GFR 28 in 2019) Hyperglycemia in the presence of Type 2DM, POA Essential HTN Suspected BETTY, undiagnosed and untreated, POA INTERVAL HISTORY: Patient was seen and examined today by me at bedside continues to complain of shortness of breath continues with Lasix 40 mg q.12 hours , Chest x-ray to reveal bilateral effusions with left greater than the right small to moderate, improving. Of note does have congestive heart failure exacerbation with an EF of25 30% with stage III diastolic dysfunction and medications have been optimized by Dr. López Considerdation for dobutamine drip discussed with Dr. López as per recs by our team however at this time he would like to wait and see how he comes along . Should he not improve Dr. López would prefer milrinone. We greatly appreciate his input in this interesting case. For now we will continue to monitor his effusions , he is on 2L via [place] + orthopnea REVIEW OF SYSTEMS: 12 Point ROS reviewed with patient and were positive only as per HPI. Pertinent + and negative listed above all others negative PHYSICAL EXAM: GENERAL: alert, weak, awake oriented x 3 HEENT: EOMI, Sclera non icteric, moist mucosa NECK: Supple, no JVD, trachea midline LUNGS: Lung sounds Diminished to bilateral bases. No wheezes HEART: Regular rate and rhythm. Normal S1 and S2, without murmurs ABD: Abdomen soft obese, nontender. Bowel sounds present EXT: No clubbing cyanosis plus 1 pitting edema to bilateral lower extremities NEURO: Alert and oriented to person, follows commands , calm at time of my evaluation Vital Signs (last 8hr) Date Time Temp Pulse Resp B/P (MAP) Pulse Ox O2 Delivery O2 Flow Rate FiO2 09/02/24 11:00 98.1 72 22 156/106 100 Nasal Cannula 2.0 09/02/24 10:43 153/98 09/02/24 07:44 98.1 71 22 153/98 98 Nasal Cannula 2.0 09/02/24 07:11 71 18 N/A Room Air 21 09/02/24 07:08 70 20 LABS: Hematology Labs: Test 09/02/24 09:34 09/02/24 03:08 Range/Units Hemoglobin 14.1 14.0-18.0 g/dL White Blood Count 7.4 4.8-10.8 K/uL Red Blood Count 4.65 4.50-6.20 MIL/uL Hematocrit 44.1 42-54 % Mean Corpuscular Volume 94.8 79-99 fL Mean Corpuscular Hemoglobin 29.9 27.0-33.0 pg Mean Corpuscular Hemoglobin Concent 31.5 L 32.0-36.0 g/dL Red Cell Distribution Width 15.6 H 11.0-15.5 % Platelet Count 210 130-400 K/uL Mean Platelet Volume 11.6 H 7.5-10.5 fL Immature Granulocyte % (Auto) 0.3 0-1 % Neutrophils (%) (Auto) 84.2 H 40.0-77.0 % Lymphocytes (%) (Auto) 6.1 L 21.0-51.0 % Monocytes (%) (Auto) 7.9 3.0-13.0 % Eosinophils (%) (Auto) 1.2 0.0-8.0 % Basophils (%) (Auto) 0.3 0.0-5.0 % Neutrophils # (Auto) 6.2 1.8-7.7 K/uL Lymphocytes # (Auto) 0.5 L 1.0-4.8 K/uL Monocytes # (Auto) 0.6 0.1-1.0 K/uL Eosinophils # (Auto) 0.09 0.00-0.70 K/uL Basophils # (Auto) 0.02 0.00-0.20 K/uL Absolute Immature Granulocyte (auto 0.02 0-1 K/uL Nucleated Red Blood Cells 0.0 0.0-0.19 % Chemistry Labs: Test 09/02/24 10:49 09/02/24 03:08 08/31/24 16:23 Range/Units Whole Blood Glucose 91 70-110 MG/DL Sodium Level 146 H 136-145 mmol/L Potassium Level 3.7 3.5-5.1 mmol/L Chloride Level 109 101-111 mmol/L Carbon Dioxide Level 26 21-32 mmol/L Blood Urea Nitrogen 48 H 7-18 mg/dL Creatinine 2.5 H 0.5-1.3 mg/dL Glomerular Filtration Rate Calc 27 >90 mL/min Random Glucose 77 70-105 mg/dL Total Calcium 9.1 8.5-10.1 mg/dL Magnesium Level 1.70 L 1.80-2.40 mg/dL Total Bilirubin 0.5 0.2-1.0 mg/dL Aspartate Amino Transf (AST/SGOT) 23 10-37 U/L Alanine Aminotransferase (ALT/SGPT) 25 12-78 U/L Alkaline Phosphatase 126 50-136 U/L B-Type Natriuretic Peptide 2240 H 0-100 pg/mL Total Protein 6.3 6.0-8.3 g/dL Albumin 3.1 L 3.5-5.0 g/dL Bedside Glucose Comment Notified Nurse Coagulation Labs: Test 09/01/24 04:25 Range/Units Prothrombin Time 12.6 H 9.6-11.6 SEC Prothromb Time International Ratio 1.18 H 0.85-1.15 Activated Partial Thromboplast Time 34.2 26.3-35.5 SEC DIAGNOSTICS / RADIOLOGY RESULTS: [ ] PLAN Continue to actively titrate FiO2 as tolerated Patient will require 6 minute walk prior to discharge for home oxygen evaluation s/p [facility] with successful angioplasty and stenting to SVG to posterior descending artery. continue with ASA, statin and brilinta. Continue with Lasix 40 mg IV push b.i.d. and metolazone 2.5 mg Will reassess pleural effusion and further recommendation to follow Continue with Rocephin2 g daily Continue with doxycycline 100 mg b.i.d. Continue metoprolol 12.5 mg b.i.d. Continue amiodarone 300 mg daily We will discontinue patient's glipizide while in the hospital NEURO: Minimize central acting medications as possible. Maintain fall precautions, adequate lighting during the day PULMONARY: Supplemental 02 as needed. Maintain aspiration precautions at all times maintain o2 sats above 92% atrovent Tx's PRN wheezing or sob emperic CAP coverage singular 10mg po daily ABG if worsening respiratory failure CARDIOVASCULAR: Follow hemodynamics. Vital signs per facility protocol Telemetry monitoring Continue patient's cardiac meds including: Amiodarone 300 mg daily Ezetimibe 10 mg daily Diurese with Lasix Metolazone 2.5 mg Hold CARLOS/ARB due to CKD I&O Daily weights Fluid restriction of 1500 Aspirin Atorvastatin Brilinta Beta meagan GI & NUTRITION: Continue with nutritional support. Continue stool softeners and laxatives as needed. Heart healthy diet KIDNEYS & ELECTROLYTES: Strict monitoring of intake, output and overall fluid balance. Avoid nephrotoxic medications to the extent possible. Medications to be dosed according to renal function. Monitor electrolytes and replace as needed ENDOCRINE: Maintain blood glucose between 100-180 at all times. Hypoglycemia protocol in place Lantus 20units BID ISS INFECTIOUS DISEASE: Trend temperature, WBC and procalcitonin level Follow cultures, deescalate antibiotics as soon as possible. Panculture if new onset fever Doxy Rocephin for emperic CAP coverage ONCOLOGY/HEMATOLOGY/COAGULATION: Monitor for s/s of bleeding Monitor hemoglobin, coagulation studies as needed SKIN: Pressure ulcer prevention per facility protocol Specialty mattress ORTHO/REHAB: Continue PT/OT Prophylaxis: Continue GI and DVT prophylaxis Protonix Lovenox Code Status: Full Resuscitation Disposition: TBD Other: Total critical care time 35 minutes Case discussed with supervising physician plan of care agreed upon ALBIN DIAS Sep 02, 2024 12:27
--- NOTE | 2024-09-02 13:57 | HMCIMG ---
CHEST 1VW REASON: effusion COMPARISON: 08/31/2024 FINDINGS: There is mild cardiomegaly. There is mild vascular congestion, this appears decreased. There are small bilateral pleural effusions, also decreased. IMPRESSION: 1. Stable cardiomegaly with decreasing vascular congestion and effusions.
--- NOTE | 2024-09-02 15:06 | CONS ---
NEPHROLOGY CONSULTATION NOTE Date/Time Patient Seen: Sep 02, 2024 Reason for Consultation: Acute on chronic renal failure, STEMI HISTORY OF PRESENT ILLNESS: This is a 69-year-old male with a past medical history of two CABGs last one 10 years ago, HFrEF of 20% status post AICD, COPD, CKD stage 3, essential hypertension, obesity, and type 2 diabetes mellitus. He presented to the emergency department today for progressive increasing shortness of breath with minimal exertion, and orthopnea that started this morning. He has been in the hospital for several days Was admitted further evaluation and management of NSTEMI. Echocardiogram showed LVEF of 25-30%. Stage III diastolic dysfunction He is S/p left heart catheterization with stenting of the saphenous vein graft to the posterior descending artery on 09/01/2024. He was noted to have worsening renal function. We has been consulted for renal failure. Renal function remains elevated Electrolytes are stable. He continues on diuretics. He was seen in the telemetry floor, in no acute distress No family at the bedside Prognosis remains guarded REVIEW OF SYSTEMS: GENERAL: Negative for any nausea, vomiting, fevers, chills, or weight loss. NEUROLOGIC: Negative for any blurry vision, blind spots, double vision, facial asymmetry, dysphagia, dysarthria, hemiparesis, hemisensory deficits, vertigo, ataxia. HEENT: Negative for any head trauma, neck trauma, neck stiffness, photophobia, phonophobia, sinusitis, rhinitis. CARDIAC: Negative for any chest pain, dyspnea on exertion, paroxysmal nocturnal dyspnea, peripheral edema. PULMONARY: Negative for any shortness of breath, wheezing, COPD, or TB exposure. GASTROINTESTINAL: Negative for any abdominal pain, nausea, vomiting, bright red blood per rectum, melena. GENITOURINARY: Negative for any dysuria, hematuria, incontinence. INTEGUMENTARY: Negative for any rashes, cuts, insect bites. RHEUMATOLOGIC: Negative for any joint pains, photosensitive rashes, history of vasculitis or kidney problems. HEMATOLOGIC: Negative for any abnormal bruising, frequent infections or bleeding. PAST MEDICAL HISTORY: Coronary artery disease HFrEF EF 20% status post AICD COPD Chronic kidney disease Hypertension Diabetes mellitus type II Obesity PAST SURGICAL HISTORY: CABG x2 PAST SOCIAL HISTORY: Former smoker Denies use of alcohol, tobacco or illicit drugs FAMILY HISTORY: Noncontributory PHYSICAL EXAM: GENERAL: Alert and oriented x 3. No acute distress. Well-nourished. EYES: EOMI. Anicteric. HENT: Moist mucous membranes. No scleral icterus. No cervical lymphadenopathy. LUNGS: Clear to auscultation bilaterally. No accessory muscle use. CARDIOVASCULAR: Regular rate and rhythm. No murmur. No JVD. ABDOMEN: Soft, non-tender and non-distended. No palpable masses. EXTREMITIES: No edema. Non-tender. SKIN: No rashes or lesions. Warm. NEUROLOGIC: No focal neurological deficits. CN II-XII grossly intact, but not individually tested. PSYCHIATRIC: Cooperative. Appropriate mood and affect. MEDICATIONS: [ ] Current Medications Medications (Trade) Dose Ordered Sig/Joellen Route PRN Reason Start Time Stop Time Status Last Admin Dose Admin Acetaminophen (TYLenol 325MG TAB) 650 mg Q6H PRN PO FEVER/MILD PAIN LEVEL 1-3 08/28/24 14:30 09/27/24 14:29 08/31/24 21:56 650 MG Acetaminophen (TYLenol 650MG SUPPOSITORY) 650 mg Q6H PRN RC FEVER / MILD PAIN 1-3 IF NPO 08/28/24 14:30 09/27/24 14:29 Allopurinol (ZYLOprim 300MG) 300 mg DAILY PO 08/29/24 09:00 09/28/24 08:59 09/02/24 10:44 300 MG Amiodarone HCl (pacERONE 200MG) 300 mg DAILY PO 08/29/24 09:00 09/28/24 08:59 09/02/24 10:44 300 MG Aspirin (Aspirin 81mg Chew Tab) 81 mg DAILY PO 09/02/24 09:00 10/02/24 08:59 09/02/24 10:43 81 MG Aspirin (Aspirin 81mg Ec Tab) 81 mg DAILY PO 08/29/24 13:30 09/01/24 14:07 DC 08/31/24 09:05 81 MG Atorvastatin Calcium (LIPItor 40MG) 40 mg HS PO 08/29/24 21:00 09/28/24 20:59 09/01/24 20:55 40 MG Carvedilol (Coreg 12.5MG) 12.5 mg BID PO 09/02/24 09:00 10/02/24 08:59 09/02/24 10:43 12.5 MG Ceftriaxone Sodium (ROCEphine 1G INJ) 2 gm Q24H IVP 08/28/24 14:30 09/07/24 14:29 09/01/24 14:54 2 GM Dextrose (D50w) 50 ml AD PRN IV HYPOGLYCEMIA PROTOCOL 08/28/24 15:30 09/27/24 15:29 Diphenhydramine HCl (BENAdryl INJ) 25 mg ONCE PRN IVP [facility] TO [employer] 08/31/24 08:30 Diphenhydramine HCl (BENAdryl INJ) 25 mg ONCE PRN IVP BULK[employer] CARPENTER TO [employer]ING SPECIALIST 08/29/24 14:00 08/31/24 08:41 DC Doxycycline Hyclate (Doxycycline 100mg+NS 250ml) 100 mg BID IV 08/28/24 21:00 08/29/24 20:17 DC 08/29/24 09:27 100 MG Doxycycline Hyclate (Doxycycline 100mg+NS 250ml) 100 mg Q12H IV 08/30/24 05:00 09/09/24 04:59 09/02/24 05:46 100 MG Enoxaparin Sodium (Lovenox) 30 mg DAILY SQ 08/31/24 09:00 09/01/24 11:34 DC 08/31/24 09:04 30 MG Enoxaparin Sodium (Lovenox) 30 mg DAILY SQ 08/29/24 09:00 08/28/24 18:38 DC EZETIMIBE (Zetia) 10 mg DAILY PO 08/29/24 09:00 09/28/24 08:59 09/02/24 10:45 10 MG Furosemide (LASix 20MG VIAL) 20 mg Q8H IV 08/28/24 14:30 08/29/24 16:30 DC 08/29/24 05:51 20 MG Furosemide (LASix 40MG VIAL) 40 mg Q12H IV 08/29/24 20:00 09/28/24 19:59 09/02/24 10:48 40 MG Glipizide (GLUCOtrol XL 5MG TAB) 5 mg DAILY PO 08/29/24 09:00 08/30/24 13:55 DC 08/30/24 09:24 5 MG Glucagon (Glucagon 1mg Kit) 1 mg AD PRN IM HYPOGLYCEMIA PROTOCOL 08/28/24 15:30 09/27/24 15:29 Heparin Sodium (Porcine) (HEParin 5,000 UNIT VIAL) *calculation based on ACTUAL B... AD PRN IV HEPARIN PROTOCOL 08/29/24 22:00 08/30/24 02:00 DC Heparin Sodium/ Dextrose 250 ml @ 0 mls/hr PROTOCOL IV 08/28/24 19:00 08/29/24 14:07 DC 08/29/24 03:03 0 MLS/HR Heparin Sodium/ Dextrose 250 ml @ 0 mls/hr Q6H IV 08/29/24 22:00 08/30/24 02:00 DC 08/29/24 21:34 12.38 MLS/HR Home Med (Home Medication) (Vitamin D2) (Katheryn... QWEEK PO 09/04/24 09:00 10/04/24 08:59 Hydralazine HCl ([id number] TAB) 12.5 mg TID PO 09/02/24 09:00 10/02/24 08:59 09/02/24 10:48 12.5 MG Insulin Glargine (LANtus 100 UNITS/ML 10 ML VIAL) 20 units BID@0730,2100 SQ 08/28/24 21:00 09/27/24 20:59 09/01/24 20:50 20 UNITS Insulin Human Regular (humuLIN R 100 UNIT/ML 3ML) INSULIN SLIDING SCAL... ACHS SQ 08/28/24 16:30 09/27/24 16:29 08/31/24 11:47 4 UNIT Ipratropium [place] (AtrovENT UD) 0.5 MG [id number] IH 08/28/24 22:00 09/27/24 21:59 09/02/24 14:25 0.5 MG Isosorbide Mononitrate (Imdur 30mg Sr) 30 mg DAILY PO 09/02/24 09:00 10/02/24 08:59 09/02/24 10:44 30 MG Magnesium Sulfate 50 ml @ 0 mls/hr PROTOCOL PRN IV MAGNESIUM PROTOCOL 09/02/24 08:00 10/02/24 07:59 Melatonin (Melatonin) 5 mg HS PRN PO INSOMNIA/SLEEP 08/31/24 20:30 09/30/24 20:29 08/31/24 21:51 5 MG Metolazone (zarOXOlyn) 2.5 mg QWEEK PO 09/04/24 09:00 10/04/24 08:59 Metoprolol Tartrate (loprESSOR) 12.5 mg BID PO 08/29/24 21:00 09/02/24 08:03 DC 09/01/24 21:07 12.5 MG Nitroglycerin (Nitrostat) 0.4 mg AD PRN SL CHEST PAIN 08/28/24 17:00 09/27/24 16:59 Pantoprazole Sodium (PROTonix 40MG TAB) 40 mg DAILY PO 08/29/24 09:00 09/28/24 08:59 09/02/24 10:44 40 MG Polyethylene Glycol (MIRalax 3350 17 GM POWD.PACK) 17 gm DAILY PO 08/29/24 09:00 09/28/24 08:59 09/02/24 10:41 17 GM Quetiapine Fumarate (SEROquel 25 mg TAB) 25 mg HS PRN PO INSOMNIA 08/31/24 20:30 08/31/24 20:11 DC Sodium Chloride 1,000 ml @ 30 mls/hr Q24H IV 08/31/24 08:30 09/01/24 11:42 DC Sodium Chloride 1,000 ml @ 50 mls/hr Q20H IV 09/01/24 12:00 09/01/24 15:59 DC 09/01/24 12:27 50 MLS/HR Ticagrelor (BRILinta) 90 mg BID PO 09/01/24 21:00 10/01/24 20:59 09/02/24 10:43 90 MG Vital Signs (last 8hr) Date Time Temp Pulse Resp B/P (MAP) Pulse Ox O2 Delivery O2 Flow Rate FiO2 09/02/24 14:25 70 20 09/02/24 11:00 98.1 72 22 156/106 100 Nasal Cannula 2.0 09/02/24 10:43 153/98 09/02/24 07:44 98.1 71 22 153/98 98 Nasal Cannula 2.0 09/02/24 07:35 100 Room Air* 0 21 09/02/24 07:11 71 18 N/A Room Air 21 09/02/24 07:08 70 20 DIAGNOSTICS / RADIOLOGY: REASON: effusion ORDERING PHYSICIAN: ALBIN DIAS PROCEDURE: CXR1VW - CHEST 1VW CHEST 1VW REASON: effusion COMPARISON: 08/31/2024 FINDINGS: There is mild cardiomegaly. There is mild vascular congestion, this appears decreased. There are small bilateral pleural effusions, also decreased. IMPRESSION: 1. Stable cardiomegaly with decreasing vascular congestion and effusions. DICTATED BY: WENDY MUELLER MD DATE: 09/02/24 1354 REASON: PLEURAL EFFUSION ORDERING PHYSICIAN: ALBIN DIAS PROCEDURE: CXR1VW - CHEST 1VW CHEST 1VW REASON: PLEURAL EFFUSION COMPARISON: 08/29/2024 FINDINGS: There are stable cardiomegaly. There is mild vascular congestion. There are small bilateral pleural effusions. These findings appear unchanged. Pacemaker and median sternotomy are again noted. IMPRESSION: 1. Mild cardiomegaly with mild vascular congestion and effusions. 2. No interval change. DICTATED BY: WENDY MUELLER MD DATE: 08/31/24 1215 REASON: ACUTE ON CHORNIC CHF ORDERING PHYSICIAN: SHREE CORDOBA PROCEDURE: ECHO CMP - ECHO 2-D COMPLETE APPROVED REPORT EXAM: Two-dimensional and M-mode echocardiogram with Doppler and color Doppler. Study Details: HTN ,HLD ,CHF ,CAD , CP , COPD , CABG INDICATION ICD: acute on chronic CHF 2D Dimensions RVDd 5.8 cm LVEF(%) 38.1 (>50%) LA ESV INDEX (4CH) 34.50 mL/m2 IVSd 1.0 (0.7-1.1cm) FS(%) 18 % LVDd 4.9 (3.8-5.6cm) LA (2D) 4.7 (1.6-4.0cm) PWd 1.5 (0.7-1.1cm) Ao Root(2D) 3.5 (2.0-3.7cm) IVSs 1.3 cm LVOT diam 2.2 (1.8-2.4cm) LVDs 4.0 (2.5-4.0cm) PWs 1.6 cm M-Mode Dimensions EPSS 2.1 cm LA (MM) 5.3 (1.6-4.0cm) Ao Root(MM) 3.2 (2.0-3.7cm) Aortic Valve AoV VTI 0.1 m Ao Mean GR 1.0 mmHg LVOT VTI 0.09 m OLIVER (VMAX) 2.7 cm2 OLIVER (VTI) 2.7 cm2 Mitral Valve MV E Vmax 125.3 cm/s DECEL Time 173 ms MV A Vmax 23.5 cm/s P 1/2 T 51 ms E/A ratio 5.3 MVA (PHT) 4.4 cm2 TDI E/E' Medial 35.8 E/E' Lateral 32.1 Medial E' Peak V 3.50 cm/s Lateral E' Peak V 3.90 cm/s Pulmonary Valve PV VTI 0.13 m PV Mean GR 1 mmHg Tricuspid Valve TR Vmax 2.6 m/s TR Peak GR 26.4 mmHg Left Ventricle The left ventricle is moderately dilated. Severe concentric left ventricular hypertrophy. LVEF is 25-30%. Stage III diastolic dysfunction. Right Ventricle The right ventricle is moderately dilated. Right ventricular systolic function is moderately reduced. Device lead is present in the right ventricle. Atria The left atrium is moderately dilated. The right atrium size is normal. A p acemaker is seen in the right atrium consistent with history. Aortic Valve Aortic valve leaflets are thickened and calcified. No aortic regurgitation is present. There is no aortic valvular stenosis. Mitral Valve Mild mitral annular calcification present. The mitral valve chordae are redundant. Mitral regurgitation is mild. There is no mitral valve stenosis. Tricuspid Valve The tricuspid valve leaflets are mildly thickened. Mild tricuspid regurgitation. Pulmonic Valve Pulmonic valve is not well visualized. There is no pulmonic valvular regurgitation. Great Vessels The aortic root is normal in size. The ascending aorta is normal in size. The inferior vena cava is moderately to severely dilated with no inspiratory collapse. Pericardium No pericardial effusion. Other Information Technically limited study due to body habitus, smoking and CABG. Conclusion The left ventricle is moderately dilated. LVEF is 25-30%. Stage III diastolic dysfunction. Mitral regurgitation is mild. DICTATED BY: JAYLEN BLACKWELL II, MD DATE: 08/28/24 1636 REASON: HYPOXIA ORDERING PHYSICIAN: SHREE CORDOBA PROCEDURE: CXR1VW - CHEST 1VW CHEST 1VW REASON: HYPOXIA COMPARISON: 08/28/2024 FINDINGS: There is cardiomegaly. There is mild central vascular congestion. There are small bilateral pleural effusions. Pacemaker and median sternotomy are again noted. IMPRESSION: 1. Interval development of mild vascular congestion with small bilateral pleural effusions. DICTATED BY: WENDY MUELLER MD DATE: 08/29/24903 REASON: RULE OUT dvt ORDERING PHYSICIAN: SHREE CORDOBA PROCEDURE: VENOUS JONATHAN - US VENOUS DOPPLER BILATERAL US VENOUS DOPPLER BILATERAL CLINICAL HISTORY: Lower extremity pain and edema COMPARISON: None FINDINGS: Bilateral lower extremity venous Doppler ultrasound was performed. The greater saphenous, common femoral, deep femoral, femoral , popliteal veins are widely patent and easily compressible with the ultrasound probe. Calf veins appear normal as well. There is normal response to compression and augmentation. IMPRESSION: Normal bilateral lower extremity venous Doppler ultrasound. DICTATED BY: ANCA MIXON DO DATE: 08/28/241938 REASON: sob ORDERING PHYSICIAN: MARIAM TAVARES MD PROCEDURE: CXR1VW - CHEST 1VW PORTABLE CHEST RADIOGRAPH INDICATION: sob COMPARISON: 03/19/2020 FINDINGS: Median sternotomy wires are in appropriate alignment. Left sided dual chamber pacer and continuous leads remain in customary position. Heart is enlarged. The pulmonary vascularity and marta appear normal. No evidence for consolidation. Left costophrenic angle appears slightly blunted more than the right. No pneumothorax detected. IMPRESSION: Cardiomegaly and trace left greater than right pleural effusion without pulmonary vascular congestion. DICTATED BY: ITZ CHAPARRO MD DATE: 08/28/24911 LABORATORY: [ ] Hematology Labs: Test 09/02/24 09:34 09/02/24 03:08 Range/Units Hemoglobin 14.1 14.0-18.0 g/dL White Blood Count 7.4 4.8-10.8 K/uL Red Blood Count 4.65 4.50-6.20 MIL/uL Hematocrit 44.1 42-54 % Mean Corpuscular Volume 94.8 79-99 fL Mean Corpuscular Hemoglobin 29.9 27.0-33.0 pg Mean Corpuscular Hemoglobin Concent 31.5 L 32.0-36.0 g/dL Red Cell Distribution Width 15.6 H 11.0-15.5 % Platelet Count 210 130-400 K/uL Mean Platelet Volume 11.6 H 7.5-10.5 fL Immature Granulocyte % (Auto) 0.3 0-1 % Neutrophils (%) (Auto) 84.2 H 40.0-77.0 % Lymphocytes (%) (Auto) 6.1 L 21.0-51.0 % Monocytes (%) (Auto) 7.9 3.0-13.0 % Eosinophils (%) (Auto) 1.2 0.0-8.0 % Basophils (%) (Auto) 0.3 0.0-5.0 % Neutrophils # (Auto) 6.2 1.8-7.7 K/uL Lymphocytes # (Auto) 0.5 L 1.0-4.8 K/uL Monocytes # (Auto) 0.6 0.1-1.0 K/uL Eosinophils # (Auto) 0.09 0.00-0.70 K/uL Basophils # (Auto) 0.02 0.00-0.20 K/uL Absolute Immature Granulocyte (auto 0.02 0-1 K/uL Nucleated Red Blood Cells 0.0 0.0-0.19 % Chemistry Labs: Test 09/02/24 10:49 09/02/24 03:08 08/31/24 16:23 Range/Units Whole Blood Glucose 91 70-110 MG/DL Sodium Level 146 H 136-145 mmol/L Potassium Level 3.7 3.5-5.1 mmol/L Chloride Level 109 101-111 mmol/L Carbon Dioxide Level 26 21-32 mmol/L Blood Urea Nitrogen 48 H 7-18 mg/dL Creatinine 2.5 H 0.5-1.3 mg/dL Glomerular Filtration Rate Calc 27 >90 mL/min Random Glucose 77 70-105 mg/dL Total Calcium 9.1 8.5-10.1 mg/dL Magnesium Level 1.70 L 1.80-2.40 mg/dL Total Bilirubin 0.5 0.2-1.0 mg/dL Aspartate Amino Transf (AST/SGOT) 23 10-37 U/L Alanine Aminotransferase (ALT/SGPT) 25 12-78 U/L Alkaline Phosphatase 126 50-136 U/L B-Type Natriuretic Peptide 2240 H 0-100 pg/mL Total Protein 6.3 6.0-8.3 g/dL Albumin 3.1 L 3.5-5.0 g/dL Bedside Glucose Comment Notified Nurse Coagulation Labs: Test 09/01/24 04:25 Range/Units Prothrombin Time 12.6 H 9.6-11.6 SEC Prothromb Time International Ratio 1.18 H 0.85-1.15 Activated Partial Thromboplast Time 34.2 26.3-35.5 SEC ASSESSMENT: Acute on chronic renal failure Acute hypoxic respiratory failure NSTEMI, Severe CAD s/p CABG 16yrs ago and 2nd CABG 10 yrs ago Acute on Chronic CHF exacerbation with ICM EF 25-30% s/p AICD placement Suspected CAP COPD exacerbation Lt > RT pleural effusion Type 2DM Essential hypertension Obesity PLAN: Labs, diagnostic, radiologic exams reviewed and interpreted by myself and supervising physician. We have reviewed external records in detail Obtain UA and complete renal ultrasound Start Nephro-Yany daily Require close monitoring of renal function and electrolytes Order CBC, CMP, uric acid, TSH and electrolytes in am Continue with antibiotics Renal diabetic diet BiPAP as necessary, for respiratory distress Monitor blood pressure adjust medication doses as needed Avoid hypotensive episodes May use Dilaudid 0.5 mg IV every 6 hours as needed for severe pain Monitor blood sugars Strict intake, output, and daily weight should be monitored Please renally adjust medications Avoid nephrotoxic and nonsteroidal drugs Avoid contrast if possible Will continue to monitor renal function, anemia, electrolytes Treatment plan discussed with patient Questions were answered We have discussed with the other team physicians in detail about the care plan We will continue to monitor the patient closely Thank you for allowing us to participate in the care of this patient ATTESTATION BY PHYSICIAN I have seen and examined the patient. I reviewed the documentation, medical decision making, and treatment plan as noted by the mid-level provider above. I agree with the findings and plan of care. IVAN DUARTE MD, [facility] Sep 02, 2024 15:06 IVAN DUARTE MD Sep 02, 2024 20:04
[2024-09-02] MEDS: MAGNESIUM 2GM PREMIX 50ML 50 ML IV PRN (22:36)
[2024-09-03] VITALS (13 sets, daily range): BP systolic 102–132; BP diastolic 61–96; PULSE 69–77; RESP 16–20; TEMP 97.4–98.5; O2SAT 96–100
[2024-09-03 04:31] LABS: HEMATOCRIT 42.8 % (42-54); MEAN CORPUSCULAR HEMOGLOBIN 30.7 pg (27.0-33.0); RED BLOOD CELL COUNT(AUTO) 4.46 MIL/uL (4.50-6.20); RED CELL DISTRIBUTION WIDTH 15.5 % (11.0-15.5); WHITE BLOOD COUNT (AUTO) 7.4 K/uL (4.8-10.8)
[2024-09-03 05:11] LABS: ALBUMIN 3.1 g/dL (3.5-5.0); BILIRUBIN,TOTAL 0.7 mg/dL (0.2-1.0); CREATININE 2.8 mg/dL (0.5-1.3); MAGNESIUM 2.3 mg/dL (1.80-2.40); PHOSPHORUS 4.4 mg/dL (2.5-4.9); POTASSIUM 3.6 mmol/L (3.5-5.1); THYROID STIMULATING HORMONE 1.51 uIU/mL (0.36-3.74); TOTAL PROTEIN, SERUM 6.2 g/dL (6.0-8.3)
[2024-09-03] MEDS: Vitamin B Complex/Vit C/Folic Acid PO SCH (08:11)
--- NOTE | 2024-09-03 10:18 | HMCIMG ---
US RENAL SONOGRAM REASON: ACUTE KIDNEY INJURY COMPARISON: None TECHNIQUE: Renal and bladder sonogram was performed FINDINGS: Right kidney is 9.9 x 6.1 x 5.0 cm, left 4.2 x 6.5 x 5.0 cm. Overall size and cortical thickness appears preserved. Kidneys are moderately echogenic consistent with chronic renal disease. There is no mass, stone or hydronephrosis. Urinary bladder was nondistended and not well visualized. IMPRESSION: 1. Echogenic kidneys consistent with chronic renal disease, overall size and cortical thickness appears preserved. 2. Urinary bladder not well visualized.
--- NOTE | 2024-09-03 14:02 | PN ---
NEPHROLOGY PROGRESS NOTE Date/Time Patient Seen: Sep 03, 2024 SUBJECTIVE: This is a 69-year-old male with a past medical history of two CABGs last one 10 years ago, HFrEF of 20% status post AICD, COPD, CKD stage 3, essential hypertension, obesity, and type 2 diabetes mellitus. He presented to the emergency department today for progressive increasing shortness of breath with minimal exertion, and orthopnea that started this morning. He has been in the hospital for several days Was admitted further evaluation and management of NSTEMI. Echocardiogram showed LVEF of 25-30%. Stage III diastolic dysfunction He is S/p left heart catheterization with stenting of the saphenous vein graft to the posterior descending artery on 09/01/2024. He was noted to have worsening renal function. We has been consulted for renal failure. Renal function remains elevated Electrolytes are stable. Renal ultrasound noted. He continues on diuretics. Continues with shortness of breath He was seen in the telemetry floor, in no acute distress No family at the bedside Prognosis remains guarded REVIEW OF SYSTEMS: GENERAL: Negative for any nausea, vomiting, fevers, chills, or weight loss. NEUROLOGIC: Negative for any blurry vision, blind spots, double vision, facial a symmetry, dysphagia, dysarthria, hemiparesis, hemisensory deficits, vertigo, ataxia. HEENT: Negative for any head trauma, neck trauma, neck stiffness, photophobia, phonophobia, sinusitis, rhinitis. CARDIAC: Negative for any chest pain, dyspnea on exertion, paroxysmal nocturnal dyspnea, peripheral edema. PULMONARY: Negative for any shortness of breath, wheezing, COPD, or TB exposure. GASTROINTESTINAL: Negative for any abdominal pain, nausea, vomiting, bright red blood per rectum, melena. GENITOURINARY: Negative for any dysuria, hematuria, incontinence. INTEGUMENTARY: Negative for any rashes, cuts, insect bites. RHEUMATOLOGIC: Negative for any joint pains, photosensitive rashes, history of vasculitis or kidney problems. HEMATOLOGIC: Negative for any abnormal bruising, frequent infections or bleeding. PHYSICAL EXAM: GENERAL: Alert and oriented x 3. No acute distress. Well-nourished. EYES: EOMI. Anicteric. HENT: Moist mucous membranes. No scleral icterus. No cervical lymphadenopathy. LUNGS: Clear to auscultation bilaterally. No accessory muscle use. CARDIOVASCULAR: Regular rate and rhythm. No murmur. No JVD. ABDOMEN: Soft, non-tender and non-distended. No palpable masses. EXTREMITIES: No edema. Non-tender. SKIN: No rashes or lesions. Warm. NEUROLOGIC: No focal neurological deficits. CN II-XII grossly intact, but not individually tested. PSYCHIATRIC: Cooperative. Appropriate mood and affect. LABORATORY: [ ] Hematology Labs: Test 09/03/24 03:45 09/02/24 03:08 Range/Units White Blood Count 7.4 4.8-10.8 K/uL Red Blood Count 4.46 L 4.50-6.20 MIL/uL Hemoglobin 13.7 L 14.0-18.0 g/dL Hematocrit 42.8 42-54 % Mean Corpuscular Volume 96.0 79-99 fL Mean Corpuscular Hemoglobin 30.7 27.0-33.0 pg Mean Corpuscular Hemoglobin Concent 32.0 32.0-36.0 g/dL Red Cell Distribution Width 15.5 11.0-15.5 % Platelet Count 178 130-400 K/uL Mean Platelet Volume 11.5 H 7.5-10.5 fL Nucleated Red Blood Cells 0.0 0.0-0.19 % Immature Granulocyte % (Auto) 0.3 0-1 % Neutrophils (%) (Auto) 84.2 H 40.0-77.0 % Lymphocytes (%) (Auto) 6.1 L 21.0-51.0 % Monocytes (%) (Auto) 7.9 3.0-13.0 % Eosinophils (%) (Auto) 1.2 0.0-8.0 % Basophils (%) (Auto) 0.3 0.0-5.0 % Neutrophils # (Auto) 6.2 1.8-7.7 K/uL Lymphocytes # (Auto) 0.5 L 1.0-4.8 K/uL Monocytes # (Auto) 0.6 0.1-1.0 K/uL Eosinophils # (Auto) 0.09 0.00-0.70 K/uL Basophils # (Auto) 0.02 0.00-0.20 K/uL Absolute Immature Granulocyte (auto 0.02 0-1 K/uL Chemistry Labs: Test 09/03/24 11:07 09/03/24 03:45 09/02/24 03:08 Range/Units Whole Blood Glucose 125 #H 70-110 MG/DL Sodium Level 147 H 136-145 mmol/L Potassium Level 3.6 3.5-5.1 mmol/L Chloride Level 108 101-111 mmol/L Carbon Dioxide Level 25 21-32 mmol/L Blood Urea Nitrogen 51 H 7-18 mg/dL Creatinine 2.8 H 0.5-1.3 mg/dL Glomerular Filtration Rate Calc 24 >90 mL/min Random Glucose 55 L 70-105 mg/dL Uric Acid 9.0 H 2.6-7.2 mg/dL Total Calcium 9.0 8.5-10.1 mg/dL Phosphorus Level 4.4 2.5-4.9 mg/dL Magnesium Level 2.30 1.80-2.40 mg/dL Total Bilirubin 0.7 0.2-1.0 mg/dL Aspartate Amino Transf (AST/SGOT) 26 10-37 U/L Alanine Aminotransferase (ALT/SGPT) 24 12-78 U/L Alkaline Phosphatase 128 50-136 U/L Total Protein 6.2 6.0-8.3 g/dL Albumin 3.1 L 3.5-5.0 g/dL Thyroid Stimulating Hormone (TSH) 1.51 # 0.36-3.74 uIU/mL B-Type Natriuretic Peptide 2240 H 0-100 pg/mL DIAGNOSTICS / RADIOLOGY: REASON: ACUTE KIDNEY INJURY ORDERING PHYSICIAN: IVAN DUARTE MD PROCEDURE: RENAL - US RENAL SONOGRAM US RENAL SONOGRAM REASON: ACUTE KIDNEY INJURY COMPARISON: None TECHNIQUE: Renal and bladder sonogram was performed FINDINGS: Right kidney is 9.9 x 6.1 x 5.0 cm, left 4.2 x 6.5 x 5.0 cm. Overall size and cortical thickness appears preserved. Kidneys are moderately echogenic consistent with chronic renal disease. There is no mass, stone or hydronephrosis. Urinary bladder was nondistended and not well visualized. IMPRESSION: 1. Echogenic kidneys consistent with chronic renal disease, overall size and cortical thickness appears preserved. 2. Urinary bladder not well visualized. DICTATED BY: WENDY MUELLER MD DATE: 09/03/24 1013 REASON: effusion ORDERING PHYSICIAN: ALBIN DIAS PROCEDURE: CXR1VW - CHEST 1VW CHEST 1VW REASON: effusion COMPARISON: 08/31/2024 FINDINGS: There is mild cardiomegaly. There is mild vascular congestion, this appears decreased. There are small bilateral pleural effusions, also decreased. IMPRESSION: 1. Stable cardiomegaly with decreasing vascular congestion and effusions. DICTATED BY: WENDY MUELLER MD DATE: 09/02/24 1354 REASON: PLEURAL EFFUSION ORDERING PHYSICIAN: ALBIN DIAS PROCEDURE: CXR1VW - CHEST 1VW CHEST 1VW REASON: PLEURAL EFFUSION COMPARISON: 08/29/2024 FINDINGS: There are stable cardiomegaly. There is mild vascular congestion. There are small bilateral pleural effusions. These findings appear unchanged. Pacemaker and median sternotomy are again noted. IMPRESSION: 1. Mild cardiomegaly with mild vascular congestion and effusions. 2. No interval change. DICTATED BY: WENDY MUELLER MD DATE: 08/31/24 1215 REASON: ACUTE ON CHORNIC CHF ORDERING PHYSICIAN: SHREE CORDOBA PROCEDURE: ECHO CMP - ECHO 2-D COMPLETE APPROVED REPORT EXAM: Two-dimensional and M-mode echocardiogram with Doppler and color Doppler. Study Details: HTN ,HLD ,CHF ,CAD , CP , COPD , CABG INDICATION ICD: acute on chronic CHF 2D Dimensions RVDd 5.8 cm LVEF(%) 38.1 (>50%) LA ESV INDEX (4CH) 34.50 mL/m2 IVSd 1.0 (0.7-1.1cm) FS(%) 18 % LVDd 4.9 (3.8-5.6cm) LA (2D) 4.7 (1.6-4.0cm) PWd 1.5 (0.7-1.1cm) Ao Root(2D) 3.5 (2.0-3.7cm) IVSs 1.3 cm LVOT diam 2.2 (1.8-2.4cm) LVDs 4.0 (2.5-4.0cm) PWs 1.6 cm M-Mode Dimensions EPSS 2.1 cm LA (MM) 5.3 (1.6-4.0cm) Ao Root(MM) 3.2 (2.0-3.7cm) Aortic Valve AoV VTI 0.1 m Ao Mean GR 1.0 mmHg LVOT VTI 0.09 m OLIVER (VMAX) 2.7 cm2 OLIVER (VTI) 2.7 cm2 Mitral Valve MV E Vmax 125.3 cm/s DECEL Time 173 ms MV A Vmax 23.5 cm/s P 1/2 T 51 ms E/A ratio 5.3 MVA (PHT) 4.4 cm2 TDI E/E' Medial 35.8 E/E' Lateral 32.1 Medial E' Peak V 3.50 cm/s Lateral E' Peak V 3.90 cm/s Pulmonary Valve PV VTI 0.13 m PV Mean GR 1 mmHg Tricuspid Valve TR Vmax 2.6 m/s TR Peak GR 26.4 mmHg Left Ventricle The left ventricle is moderately dilated. Severe concentric left ventricular hypertrophy. LVEF is 25-30%. Stage III diastolic dysfunction. Right Ventricle The right ventricle is moderately dilated. Right ventricular systolic function is moderately reduced. Device lead is present in the right ventricle. Atria The left atrium is moderately dilated. The right atrium size is normal. A pacem carlito is seen in the right atrium consistent with history. Aortic Valve Aortic valve leaflets are thickened and calcified. No aortic regurgitation is present. There is no aortic valvular stenosis. Mitral Valve Mild mitral annular calcification present. The mitral valve chordae are redundant. Mitral regurgitation is mild. There is no mitral valve stenosis. Tricuspid Valve The tricuspid valve leaflets are mildly thickened. Mild tricuspid regurgitation. Pulmonic Valve Pulmonic valve is not well visualized. There is no pulmonic valvular regurgitation. Great Vessels The aortic root is normal in size. The ascending aorta is normal in size. The inferior vena cava is moderately to severely dilated with no inspiratory collapse. Pericardium No pericardial effusion. Other Information Technically limited study due to body habitus, smoking and CABG. Conclusion The left ventricle is moderately dilated. LVEF is 25-30%. Stage III diastolic dysfunction. Mitral regurgitation is mild. DICTATED BY: JAYLEN BLACKWELL II, MD DATE: 08/28/24 1636 REASON: HYPOXIA ORDERING PHYSICIAN: SHREE CORDOBA PROCEDURE: CXR1VW - CHEST 1VW CHEST 1VW REASON: HYPOXIA COMPARISON: 08/28/2024 FINDINGS: There is cardiomegaly. There is mild central vascular congestion. There are small bilateral pleural effusions. Pacemaker and median sternotomy are again noted. IMPRESSION: 1. Interval development of mild vascular congestion with small bilateral pleural effusions. DICTATED BY: WENDY MUELLER MD DATE: 08/29/24 0904 REASON: RULE OUT dvt ORDERING PHYSICIAN: SHREE CORDOBA PROCEDURE: VENOUS JONATHAN - US VENOUS DOPPLER BILATERAL US VENOUS DOPPLER BILATERAL CLINICAL HISTORY: Lower extremity pain and edema COMPARISON: None FINDINGS: Bilateral lower extremity venous Doppler ultrasound was performed. The greater saphenous, common femoral, deep femoral, femoral , popliteal veins are widely patent and easily compressible with the ultrasound probe. Calf veins appear normal as well. There is normal response to compression and augmentation. IMPRESSION: Normal bilateral lower extremity venous Doppler ultrasound. DICTATED BY: ANCA MIXON DO DATE: 08/28/241938 REASON: sob ORDERING PHYSICIAN: MARIAM TAVARES MD PROCEDURE: CXR1VW - CHEST 1VW PORTABLE CHEST RADIOGRAPH INDICATION: sob COMPARISON: 03/19/2020 FINDINGS: Median sternotomy wires are in appropriate alignment. Left sided dual chamber pacer and continuous leads remain in customary position. Heart is enlarged. The pulmonary vascularity and marta appear normal. No evidence for consolidation. Left costophrenic angle appears slightly blunted more than the right. No pneumothorax detected. IMPRESSION: Cardiomegaly and trace left greater than right pleural effusion without pulmonary vascular congestion. DICTATED BY: ITZ CHAPARRO MD DATE: 08/28/24 0912 ASSESSMENT: Acute on chronic renal failure Acute hypoxic respiratory failure NSTEMI, Severe CAD s/p CABG 16yrs ago and 2nd CABG 10 yrs ago Acute on Chronic CHF exacerbation with ICM EF 25-30% s/p AICD placement Suspected CAP COPD exacerbation Lt > RT pleural effusion Type 2DM Essential hypertension Obesity PLAN: Labs, diagnostic, radiologic exams reviewed and interpreted by myself and supervising physician. We have reviewed external records in detail Continue with diuretics. He was counseled on the importance of fluid restriction. There is no need for renal replacement therapy at this time Require close monitoring of renal function and electrolytes Order CBC, CMP, and electrolytes in am Continue with antibiotics Renal diabetic diet BiPAP as necessary, for respiratory distress Monitor blood pressure adjust medication doses as needed Avoid hypotensive episodes May use Dilaudid 0.5 mg IV every 6 hours as needed for severe pain Monitor blood sugars Strict intake, output, and daily weight should be monitored Please renally adjust medications Avoid nephrotoxic and nonsteroidal drugs Avoid contrast if possible Will continue to monitor renal function, anemia, electrolytes Treatment plan discussed with patient Questions were answered We have discussed with the other team physicians in detail about the care plan We will continue to monitor the patient closely ATTESTATION BY PHYSICIAN I have seen and examined the patient. I reviewed the documentation, medical decision making, and treatment plan as noted by the mid-level provider above. I agree with the findings and plan of care. IVAN DUARTE MD, [facility] Sep 03, 2024 14:02
[2024-09-03] MEDS: CEFTRIAXONE 2GM VIAL IVP SCH (14:03)
[2024-09-03] MEDS: MILRINONE-D5W 20 MG/100 ML 100 ML IV SCH (14:18)
[2024-09-03 14:48] LABS: INR 1.16 (0.85-1.15); PROTHROMBIN TIME 12.4 SEC (9.6-11.6)
--- NOTE | 2024-09-03 19:44 | PN ---
[facility] PROGRESS NOTE Date Patient Seen: Sep 03, 2024 Time of Visit: 19:43 Supervising Physician: Dr. Romero Primary Care Physician: Srinath Kumari MD Outpatient Specialists: Dr Maribel Higgins MD Inpatient Consults: Dr Maribel Higgins MD (Cardiology) PROBLEM LIST: Acute hypoxic respiratory failure, requiring supplemental oxygen via nasal cannula POA, NSTEMI, POA -s/p [facility] Left heart catheterization with stenting of the saphenous vein graft to the posterior descending artery. Severe CAD s/p CABG 16yrs ago and 2nd CABG 10 yrs ago Acute on Chronic CHF exacerbation with ICM EF 25-30% s/p AICD placement, POA (BNP 1650) Suspected CAP, POA COPD exacerbation, POA,improved Lt > RT pleural effusion, POA , multifactorial CKD stage III, PO ( GFR 28 in 2019) Hyperglycemia in the presence of Type 2DM, POA Essential HTN Suspected BETTY, undiagnosed and untreated, POA INTERVAL HISTORY: Patient was seen and examined today by me at bedside continues to complain of shortness of breath continues with Lasix 40 mg q.12 hours , Chest x-ray to reveal bilateral effusions with left greater than the right small to moderate, improving. Of note does have congestive heart failure exacerbation with an EF of25 30% with stage III diastolic dysfunction and medications have been optimized by Dr. López Considerdation for dobutamine drip discussed with Dr. López as per recs by our team however at this time he would like to wait and see how he comes along .Should he not improve Dr. López would prefer milrinone. We greatly appreciate his input in this interesting case. For now we will continue to monitor his effusions , he is on 2L via [place] + orthopnea 09/03 patient is sitting up in the chair not in acute distress. He reported that he is still out of breath with exertion. He remains on 2 L of oxygen nasal cannula. Creatinine is worsening, creatinine is 2.8 up from 2.5. we will start patient on inotrope with Milrinone drip. Continue to monitor I/O. REVIEW OF SYSTEMS: 12 Point ROS reviewed with patient and were positive only as per HPI. Pertinent + and negative listed above all others negative PHYSICAL EXAM: GENERAL: alert, weak, awake oriented x 3 HEENT: EOMI, Sclera non icteric, moist mucosa NECK: Supple, no JVD, trachea midline LUNGS: Lung sounds Diminished to bilateral bases. No wheezes HEART: Regular rate and rhythm. Normal S1 and S2, without murmurs ABD: Abdomen soft obese, nontender. Bowel sounds present EXT: No clubbing cyanosis plus 1 pitting edema to bilateral lower extremities NEURO: Alert and oriented to person, follows commands , calm at time of my evaluation Vital Signs (last 8hr) Date Time Temp Pulse Resp B/P (MAP) Pulse Ox O2 Delivery O2 Flow Rate FiO2 09/03/24 19:38 71 19 N/A Room Air 21 09/03/24 19:37 71 18 09/03/24 17:55 97.9 72 16 121/74 99 Nasal Cannula 1.0 09/03/24 14:50 77 18 LABS: Hematology Labs: Test 09/03/24 03:45 09/02/24 03:08 Range/Units White Blood Count 7.4 4.8-10.8 K/uL Red Blood Count 4.46 L 4.50-6.20 MIL/uL Hemoglobin 13.7 L 14.0-18.0 g/dL Hematocrit 42.8 42-54 % Mean Corpuscular Volume 96.0 79-99 fL Mean Corpuscular Hemoglobin 30.7 27.0-33.0 pg Mean Corpuscular Hemoglobin Concent 32.0 32.0-36.0 g/dL Red Cell Distribution Width 15.5 11.0-15.5 % Platelet Count 178 130-400 K/uL Mean Platelet Volume 11.5 H 7.5-10.5 fL Nucleated Red Blood Cells 0.0 0.0-0.19 % Immature Granulocyte % (Auto) 0.3 0-1 % Neutrophils (%) (Auto) 84.2 H 40.0-77.0 % Lymphocytes (%) (Auto) 6.1 L 21.0-51.0 % Monocytes (%) (Auto) 7.9 3.0-13.0 % Eosinophils (%) (Auto) 1.2 0.0-8.0 % Basophils (%) (Auto) 0.3 0.0-5.0 % Neutrophils # (Auto) 6.2 1.8-7.7 K/uL Lymphocytes # (Auto) 0.5 L 1.0-4.8 K/uL Monocytes # (Auto) 0.6 0.1-1.0 K/uL Eosinophils # (Auto) 0.09 0.00-0.70 K/uL Basophils # (Auto) 0.02 0.00-0.20 K/uL Absolute Immature Granulocyte (auto 0.02 0-1 K/uL Chemistry Labs: Test 09/03/24 15:23 09/03/24 03:45 09/02/24 03:08 Range/Units Whole Blood Glucose 217 #H 70-110 MG/DL Sodium Level 147 H 136-145 mmol/L Potassium Level 3.6 3.5-5.1 mmol/L Chloride Level 108 101-111 mmol/L Carbon Dioxide Level 25 21-32 mmol/L Blood Urea Nitrogen 51 H 7-18 mg/dL Creatinine 2.8 H 0.5-1.3 mg/dL Glomerular Filtration Rate Calc 24 >90 mL/min Random Glucose 55 L 70-105 mg/dL Uric Acid 9.0 H 2.6-7.2 mg/dL Total Calcium 9.0 8.5-10.1 mg/dL Phosphorus Level 4.4 2.5-4.9 mg/dL Magnesium Level 2.30 1.80-2.40 mg/dL Total Bilirubin 0.7 0.2-1.0 mg/dL Aspartate Amino Transf (AST/SGOT) 26 10-37 U/L Alanine Aminotransferase (ALT/SGPT) 24 12-78 U/L Alkaline Phosphatase 128 50-136 U/L Total Protein 6.2 6.0-8.3 g/dL Albumin 3.1 L 3.5-5.0 g/dL Thyroid Stimulating Hormone (TSH) 1.51 # 0.36-3.74 uIU/mL B-Type Natriuretic Peptide 2240 H 0-100 pg/mL Coagulation Labs: Test 09/03/24 14:20 Range/Units Prothrombin Time 12.4 H 9.6-11.6 SEC Prothromb Time International Ratio 1.16 H 0.85-1.15 DIAGNOSTICS / RADIOLOGY RESULTS: [ ] PLAN Continue to actively titrate FiO2 as tolerated Patient will require 6 minute walk prior to discharge for home oxygen evaluation s/p C with successful angioplasty and stenting to SVG to posterior descending artery. continue with ASA, statin and brilinta. Continue with Lasix 40 mg IV push b.i.d. and metolazone 2.5 mg Will reassess pleural effusion and further recommendation to follow Continue with Rocephin2 g daily Continue with doxycycline 100 mg b.i.d. Continue metoprolol 12.5 mg b.i.d. Continue amiodarone 300 mg daily We will discontinue patient's glipizide while in the hospital NEURO: Minimize central acting medications as possible. Maintain fall precautions, adequate lighting during the day PULMONARY: Supplemental 02 as needed. Maintain aspiration precautions at all times maintain o2 sats above 92% atrovent Tx's PRN wheezing or sob emperic CAP coverage singular 10mg po daily ABG if worsening respiratory failure CARDIOVASCULAR: Follow hemodynamics. Vital signs per facility protocol Telemetry monitoring Continue patient's cardiac meds including: Amiodarone 300 mg daily Ezetimibe 10 mg daily Diurese with Lasix Metolazone 2.5 mg Hold CARLOS/ARB due to CKD I&O Daily weights Fluid restriction of 1500 Aspirin Atorvastatin Brilinta Beta meagan GI & NUTRITION: Continue with nutritional support. Continue stool softeners and laxatives as needed. Heart healthy diet KIDNEYS & ELECTROLYTES: Strict monitoring of intake, output and overall fluid balance. Avoid nephrotoxic medications to the extent possible. Medications to be dosed according to renal function. Monitor electrolytes and replace as needed ENDOCRINE: Maintain blood glucose between 100-180 at all times. Hypoglycemia protocol in place Lantus 20units BID ISS INFECTIOUS DISEASE: Trend temperature, WBC and procalcitonin level Follow cultures, deescalate antibiotics as soon as possible. Panculture if new onset fever Doxy Rocephin for emperic CAP coverage ONCOLOGY/HEMATOLOGY/COAGULATION: Monitor for s/s of bleeding Monitor hemoglobin, coagulation studies as needed SKIN: Pressure ulcer prevention per facility protocol Specialty mattress ORTHO/REHAB: Continue PT/OT Prophylaxis: Continue GI and DVT prophylaxis Protonix Lovenox Code Status: Full Resuscitation Disposition: TBD Other: Total critical care time 35 minutes Case discussed with supervising physician plan of care agreed upon [facility] Sep 03, 2024 19:43
[2024-09-04] VITALS (13 sets, daily range): BP systolic 110–129; BP diastolic 62–89; PULSE 70–77; RESP 16–20; TEMP 97.6–98; O2SAT 97–99
[2024-09-04 04:06] LABS: BASOPHILS # (AUTO) 0.02 K/uL (0.00-0.20); BASOPHILS % (AUTO) 0.3 % (0.0-5.0); EOSINOPHILS # (AUTO) 0.17 K/uL (0.00-0.70); EOSINOPHILS % (AUTO) 2.4 % (0.0-8.0); HEMATOCRIT 39.1 % (42-54); IMMATURE GRANULOCYTE ABSOLUTE 0.02 K/uL (0-1); LYMPHOCYTES # (AUTO) 0.3 K/uL (1.0-4.8); LYMPHOCYTES % (AUTO) 4.3 % (21.0-51.0); MEAN CORPUSCULAR HEMOGLOBIN 30.2 pg (27.0-33.0); MEAN CORPUSCULAR HGB CONC 32.2 g/dL (32.0-36.0); MEAN CORPUSCULAR VOLUME 93.8 fL (79-99); MONOCYTES # (AUTO) 0.5 K/uL (0.1-1.0); MONOCYTES % (AUTO) 7.4 % (3.0-13.0); NEUTROPHILS % (AUTO) 85.3 % (40.0-77.0); PLATELET COUNT (AUTO) 167 K/uL (130-400); RED BLOOD CELL COUNT(AUTO) 4.17 MIL/uL (4.50-6.20); RED CELL DISTRIBUTION WIDTH 15.6 % (11.0-15.5)
[2024-09-04 04:11] LABS: CREATININE 4.1 mg/dL (0.5-1.3); MAGNESIUM 2.2 mg/dL (1.80-2.40); POTASSIUM 3.7 mmol/L (3.5-5.1)
[2024-09-04] MEDS: [UNRECOGNIZED DRUG - OTHER] PO SCH (09:00)
[2024-09-04] MEDS: VITAMIN D2 PO SCH (09:00)
--- NOTE | 2024-09-04 11:48 | NUR ---
Bladder scan performed at bedside, bladder scan revealed 33ml of fluid in bladder. Patient denies any retention or bladder distention, no further needs noted.
[2024-09-04] MEDS: metoLAZONE 2.5 MG TABLET PO SCH (12:07)
--- NOTE | 2024-09-04 13:05 | PN ---
FOLLOWUP PROGRESS NOTE SUBJECTIVE: A 69-year-old male with a history of diabetes mellitus and hypertension. The patient with a history of known coronary artery disease, status post coronary catheterization. The patient has a history of known congestive heart failure. The patient has had worsening renal dysfunction in the hospital. The patient also with significant anasarca on the diuretics. Urine output has been marginal and he is being seen for all of the above. REVIEW OF SYSTEMS: GENERAL: He is feeling weak and tired. HEENT: No change in vision. No change in hearing. CARDIOVASCULAR: There is no current chest pain or palpitations. PULMONARY: Has chronic shortness of breath. GASTROINTESTINAL: He is tolerating diet. MUSCULOSKELETAL: Complains of the weakness. PHYSICAL EXAMINATION: VITAL SIGNS: Blood pressure 122/62, pulse in the 70s. GENERAL: He is a chronically ill male, lying in bed on medical floor. HEENT: Head is atraumatic. Pupils equal, roving to light. Oropharynx is without exudate. Nares clear. NECK: There is no JVP. There is no thyromegaly, no mass. CARDIOVASCULAR: Regular rhythm. There is no S3, S4 gallop. LUNGS: Coarse with equal thoracic movement. ABDOMEN: Soft, nondistended, nontender. EXTREMITIES: He does have edema. LABORATORY DATA: Hemoglobin 12, hematocrit 39. Sodium 143, potassium 3.7, BUN 65, creatinine is 4. IMPRESSION: * Aztja-dj-gzoewat renal failure. * Coronary artery disease, status post coronary catheterization. * Anasarca. * Diabetes mellitus. PLAN: The patient is now with worsening renal dysfunction in the hospital. We will obtain a bladder scan for completeness. The patient will continue with the diuretics as prescribed. We will continue to follow closely. There is no acute need for renal replacement therapy at this time. All labs can be repeated in the morning. TID: [id number] RECEIPT: [id number]
--- NOTE | 2024-09-04 15:53 | PN ---
[facility] PROGRESS NOTE Date Patient Seen: Sep 04, 2024 Time of Visit: 15:50 Supervising Physician: Bimal Troncoso Primary Care Physician: Srinath Kumari MD Outpatient Specialists: Dr Maribel Higgins MD Inpatient Consults: Dr Maribel Higgins MD (Cardiology) PROBLEM LIST: Acute hypoxic respiratory failure, requiring supplemental oxygen via nasal cannula POA, NSTEMI, POA -s/p C Left heart catheterization with stenting of the saphenous vein graft to the posterior descending artery. Acute renal failure secondary to ATN from [facility] vs CRS on CKD stage III, PO ( GFR 28 in 2019) Severe CAD s/p CABG 16yrs ago and 2nd CABG 10 yrs ago Acute on Chronic CHF exacerbation with ICM EF 25-30% s/p AICD placement, POA (BNP 1650) Suspected CAP, POA COPD exacerbation, POA,improved Lt > RT pleural effusion, POA , multifactorial Hyperglycemia in the presence of Type 2DM, POA Essential HTN Suspected BETTY, undiagnosed and untreated, POA INTERVAL HISTORY: Patient was seen and examined today by me at bedside continues to complain of shortness of breath continues with Lasix 40 mg q.12 hours , Chest x-ray to reveal bilateral effusions with left greater than the right small to moderate, improving. Of note does have congestive heart failure exacerbation with an EF of25 30% with stage III diastolic dysfunction and medications have been optimized by Dr. López Considerdation for dobutamine drip discussed with Dr. López as per recs by our team however at this time he would like to wait and see how he comes along .Should he not improve Dr. López would prefer milrinone. We greatly appreciate his input in this interesting case. For now we will continue to monitor his effusions , he is on 2L via [place] + orthopnea 09/03 patient is sitting up in the chair not in acute distress. He reported that he is still out of breath with exertion. He remains on 2 L of oxygen nasal cannula. Creatinine is worsening, creatinine is 2.8 up from 2.5. we will start patient on inotrope with Milrinone drip. Continue to monitor I/O. 09/04 patient is up in the chair dangling his legs which are markedly more ed ematous since yesterday. Venous Doppler negative. This is likely from fluid retention in related to worsening MAHESH, creatinine is 4.1 this is up from 2.8 yesterday. He was started on inotrope Milrinone. Given worsening renal function and urine output is minimal, We will discontinue Milrinone because he is not responding to inotrope. He likely has cardiorenal syndrome vs LANIE. Con tinue with diuretic Lasix. Continue to follow renal function very closely. Otherwise continue current regimen. Nephrology is following. REVIEW OF SYSTEMS: 12 Point ROS reviewed with patient and were positive only as per HPI. Pertinent + and negative listed above all others negative PHYSICAL EXAM: GENERAL: alert, weak, awake oriented x 3 HEENT: EOMI, Sclera non icteric, moist mucosa NECK: Supple, no JVD, trachea midline LUNGS: Lung sounds Diminished to bilateral bases. No wheezes HEART: Regular rate and rhythm. Normal S1 and S2, without murmurs ABD: Abdomen soft obese, nontender. Bowel sounds present EXT: No clubbing cyanosis plus 1 pitting edema to bilateral lower extremities NEURO: Alert and oriented to person, follows commands , calm at time of my evaluation Vital Signs (last 8hr) Date Time Temp Pulse Resp B/P (MAP) Pulse Ox O2 Delivery O2 Flow Rate FiO2 09/04/24 14:29 70 18 09/04/24 12:17 98.1 75 16 129/81 96 Nasal Cannula 1.0 09/04/24 09:16 119/62 09/04/24 08:15 97 Room Air* 0 21 09/04/24 07:59 97.5 71 16 119/62 99 Nasal Cannula 1.0 LABS: Hematology Labs: Test 09/04/24 03:12 Range/Units White Blood Count 7.0 4.8-10.8 K/uL Red Blood Count 4.17 L 4.50-6.20 MIL/uL Hemoglobin 12.6 L 14.0-18.0 g/dL Hematocrit 39.1 L 42-54 % Mean Corpuscular Volume 93.8 79-99 fL Mean Corpuscular Hemoglobin 30.2 27.0-33.0 pg Mean Corpuscular Hemoglobin Concent 32.2 32.0-36.0 g/dL Red Cell Distribution Width 15.6 H 11.0-15.5 % Platelet Count 167 130-400 K/uL Mean Platelet Volume 11.5 H 7.5-10.5 fL Immature Granulocyte % (Auto) 0.3 0-1 % Neutrophils (%) (Auto) 85.3 H 40.0-77.0 % Lymphocytes (%) (Auto) 4.3 L 21.0-51.0 % Monocytes (%) (Auto) 7.4 3.0-13.0 % Eosinophils (%) (Auto) 2.4 0.0-8.0 % Basophils (%) (Auto) 0.3 0.0-5.0 % Neutrophils # (Auto) 6.0 1.8-7.7 K/uL Lymphocytes # (Auto) 0.3 L 1.0-4.8 K/uL Monocytes # (Auto) 0.5 0.1-1.0 K/uL Eosinophils # (Auto) 0.17 0.00-0.70 K/uL Basophils # (Auto) 0.02 0.00-0.20 K/uL Absolute Immature Granulocyte (auto 0.02 0-1 K/uL Nucleated Red Blood Cells 0.0 0.0-0.19 % Chemistry Labs: Test 09/04/24 11:47 09/04/24 03:12 09/03/24 03:45 Range/Units Whole Blood Glucose 151 H 70-110 MG/DL Sodium Level 143 136-145 mmol/L Potassium Level 3.7 3.5-5.1 mmol/L Chloride Level 107 101-111 mmol/L Carbon Dioxide Level 24 21-32 mmol/L Blood Urea Nitrogen 65 H 7-18 mg/dL Creatinine 4.1 H 0.5-1.3 mg/dL Glomerular Filtration Rate Calc 15 >90 mL/min Random Glucose 102 # 70-105 mg/dL Total Calcium 9.0 8.5-10.1 mg/dL Magnesium Level 2.20 1.80-2.40 mg/dL Uric Acid 9.0 H 2.6-7.2 mg/dL Phosphorus Level 4.4 2.5-4.9 mg/dL Total Bilirubin 0.7 0.2-1.0 mg/dL Aspartate Amino Transf (AST/SGOT) 26 10-37 U/L Alanine Aminotransferase (ALT/SGPT) 24 12-78 U/L Alkaline Phosphatase 128 50-136 U/L Total Protein 6.2 6.0-8.3 g/dL Albumin 3.1 L 3.5-5.0 g/dL Thyroid Stimulating Hormone (TSH) 1.51 # 0.36-3.74 uIU/mL Coagulation Labs: Test 09/03/24 14:20 Range/Units Prothrombin Time 12.4 H 9.6-11.6 SEC Prothromb Time International Ratio 1.16 H 0.85-1.15 DIAGNOSTICS / RADIOLOGY RESULTS: [ ] PLAN Continue to actively titrate FiO2 as tolerated Patient will require 6 minute walk prior to discharge for home oxygen evaluation s/p C with successful angioplasty and stenting to SVG to posterior descending artery. continue with ASA, statin and brilinta. Continue with Lasix 40 mg IV push b.i.d. and metolazone 2.5 mg Will reassess pleural effusion and further recommendation to follow Continue with Rocephin2 g daily Continue with doxycycline 100 mg b.i.d. Continue metoprolol 12.5 mg b.i.d. Continue amiodarone 300 mg daily We will discontinue patient's glipizide while in the hospital NEURO: Minimize central acting medications as possible. Maintain fall precautions, adequate lighting during the day PULMONARY: Supplemental 02 as needed. Maintain aspiration precautions at all times maintain o2 sats above 92% atrovent Tx's PRN wheezing or sob emperic CAP coverage singular 10mg po daily ABG if worsening respiratory failure CARDIOVASCULAR: Follow hemodynamics. Vital signs per facility protocol Telemetry monitoring Continue patient's cardiac meds including: Amiodarone 300 mg daily Ezetimibe 10 mg daily Diurese with Lasix Metolazone 2.5 mg Hold CARLOS/ARB due to CKD I&O Daily weights Fluid restriction of 1500 Aspirin Atorvastatin Brilinta Beta meagan GI & NUTRITION: Continue with nutritional support. Continue stool softeners and laxatives as needed. Heart healthy diet KIDNEYS & ELECTROLYTES: Strict monitoring of intake, output and overall fluid balance. Avoid nephrotoxic medications to the extent possible. Medications to be dosed according to renal function. Monitor electrolytes and replace as needed ENDOCRINE: Maintain blood glucose between 100-180 at all times. Hypoglycemia protocol in place Lantus 20units BID ISS INFECTIOUS DISEASE: Trend temperature, WBC and procalcitonin level Follow cultures, deescalate antibiotics as soon as possible. Panculture if new onset fever Doxy Rocephin for emperic CAP coverage ONCOLOGY/HEMATOLOGY/COAGULATION: Monitor for s/s of bleeding Monitor hemoglobin, coagulation studies as needed SKIN: Pressure ulcer prevention per facility protocol Specialty mattress ORTHO/REHAB: Continue PT/OT Prophylaxis: Continue GI and DVT prophylaxis Protonix Lovenox Code Status: Full Resuscitation Disposition: TBD Other: Total critical care time 35 minutes Case discussed with supervising physician plan of care agreed upon R[facility] HERNANDEZ [facility] Sep 04, 2024 15:53
[2024-09-05] VITALS (13 sets, daily range): BP systolic 116–139; BP diastolic 50–81; PULSE 70–89; RESP 18–22; TEMP 97.6–98.4; O2SAT 96–99
[2024-09-05 04:54] LABS: BASOPHILS # (AUTO) 0.01 K/uL (0.00-0.20); BASOPHILS % (AUTO) 0.1 % (0.0-5.0); EOSINOPHILS # (AUTO) 0.18 K/uL (0.00-0.70); EOSINOPHILS % (AUTO) 2.4 % (0.0-8.0); HEMATOCRIT 39.2 % (42-54); IMMATURE GRANULOCYTE ABSOLUTE 0.03 K/uL (0-1); LYMPHOCYTES # (AUTO) 0.4 K/uL (1.0-4.8); LYMPHOCYTES % (AUTO) 4.9 % (21.0-51.0); MEAN CORPUSCULAR HEMOGLOBIN 29.9 pg (27.0-33.0); MEAN CORPUSCULAR HGB CONC 31.6 g/dL (32.0-36.0); MEAN CORPUSCULAR VOLUME 94.5 fL (79-99); MONOCYTES # (AUTO) 0.6 K/uL (0.1-1.0); MONOCYTES % (AUTO) 8.2 % (3.0-13.0); NEUTROPHILS # (AUTO) 6.4 K/uL (1.8-7.7); PLATELET COUNT (AUTO) 165 K/uL (130-400); RED BLOOD CELL COUNT(AUTO) 4.15 MIL/uL (4.50-6.20); RED CELL DISTRIBUTION WIDTH 15.3 % (11.0-15.5); WHITE BLOOD COUNT (AUTO) 7.6 K/uL (4.8-10.8)
[2024-09-05 05:08] LABS: CREATININE 5.2 mg/dL (0.5-1.3); POTASSIUM 3.8 mmol/L (3.5-5.1)
--- NOTE | 2024-09-05 10:36 | NUR ---
Dr. Antonette Whitman, stud master/mistress, came in to see patient. Dr. Whitman updated him on his kidney status and reviewed plan of care.
--- NOTE | 2024-09-05 11:48 | PN ---
FOLLOWUP PROGRESS NOTE SUBJECTIVE: A 69-year-old male with a history of diabetes mellitus and hypertension. The patient with a history of known coronary artery disease, status post coronary catheterization. The patient with congestive heart failure. He continues to have worsening renal dysfunction in the hospital with oliguria. He does remain on the diuretics and the patient is being seen as a followup visit for all of the above. REVIEW OF SYSTEMS: GENERAL: He is feeling weak and tired. HEENT: No change in vision. No change in hearing, no nasal discharge, no sore throat. CARDIOVASCULAR: There is no current chest pain or palpitations. PULMONARY: He has chronic shortness of breath. GASTROINTESTINAL: He is tolerating a diet. MUSCULOSKELETAL: Complains of swelling. PHYSICAL EXAMINATION: VITAL SIGNS: Blood pressure 138/81, pulse in the 70s. GENERAL: He is a chronically ill male, older than appearing. HEENT: Head is atraumatic. Pupils equal, roving to light. Oropharynx is without exudate. Nares clear. NECK: There is no JVP. There is no thyromegaly, no mass. CARDIOVASCULAR: Regular. There is no S3, S4 gallop. LUNGS: Coarse with equal thoracic movement. ABDOMEN: Soft, nondistended, nontender. EXTREMITIES: Reveal no clubbing, no cyanosis. NEUROLOGIC: He is awake. He is alert. LABORATORY DATA: BUN 12, hematocrit 39, white cell count 7000. Sodium 143, BUN 72, creatinine is 5. IMPRESSION: * Acute on chronic renal dysfunction. * Coronary artery disease, status post recent coronary catheterization. * Hypertension. * Congestive heart failure. PLAN: The patient continues with worsening renal dysfunction while in the hospital. The patient's urine output continues to be marginal despite the diuretics. I did have a long discussion with the patient. The patient said he is refusing any form of renal replacement therapy if ever needed. We will continue to follow the chemistries closely. All labs can be repeated in the morning. TID: [id number] RECEIPT: [id number]
--- NOTE | 2024-09-05 16:26 | PN ---
[facility] PROGRESS NOTE Date Patient Seen: Sep 05, 2024 Time of Visit: 16:23 Supervising Physician: Bimal Troncoso Primary Care Physician: Srinath Kumari MD Outpatient Specialists: Dr Maribel Higgins MD Inpatient Consults: Dr Maribel Higgins MD (Cardiology), Dr. Whitman (nephrology) PROBLEM LIST: Acute hypoxic respiratory failure, requiring supplemental oxygen via nasal cannula POA, NSTEMI, POA S/p C Left heart catheterization with stenting of the saphenous vein graft to the posterior descending artery 09/01 Acute renal failure secondary to ATN from [facility] vs CRS on CKD stage III, PO ( GFR 28 in 2019 Severe CAD s/p CABG 16yrs ago and 2nd CABG 10 yrs ago Acute on Chronic CHF exacerbation with ICM EF 25-30% s/p AICD placement, POA (BNP 1650) Suspected CAP, POA COPD exacerbation, POA,improved Lt > RT pleural effusion, POA , multifactorial Hyperglycemia in the presence of Type 2DM, POA Essential HTN Suspected BETTY, undiagnosed and untreated, POA INTERVAL HISTORY: Patient was seen and examined today by me at bedside continues to complain of shortness of breath continues with Lasix 40 mg q.12 hours , Chest x-ray to reveal bilateral effusions with left greater than the right small to moderate, improving. Of note does have congestive heart failure exacerbation with an EF of25 30% with stage III diastolic dysfunction and medications have been optimized by Dr. López Considerdation for dobutamine drip discussed with Dr. López as per recs by our team however at this time he would like to wait and see how he comes along .Should he not improve Dr. López would prefer milrinone. We greatly appreciate his input in this interesting case. For now we will continue to monitor his effusions , he is on 2L via [place] + orthopnea 09/03 patient is sitting up in the chair not in acute distress. He reported that he is still out of breath with exertion. He remains on 2 L of oxygen nasal cannula. Creatinine is worsening, creatinine is 2.8 up from 2.5. we will start patient on inotrope with Milrinone drip. Continue to monitor I/O. 09/04 patient is up in the chair dangling his legs which are markedly more edematous since yesterday. Venous Doppler negative. This is likely from fluid retention in related to worsening MAHESH, creatinine is 4.1 this is up from 2.8 yesterday. He was started on inotrope Milrinone. Given worsening renal function and urine output is minimal, We will discontinue Milrinone because he is not responding to inotrope. He likely has cardiorenal syndrome vs LANIE. Continue with diuretic Lasix. Continue to follow renal function very closely. Otherwise continue current regimen. Nephrology is following. 09/05 patient is sitting up at the recliner not in acute distress. He stated that he is able to ambulate though with shortness of breath. His bilateral lower extremity are still edematous. His remarkable lab studies this morning with creatinine up to 5.2 from 4.1. He put out 500 cc with balance +79 cc. Diuretic. He also has moved his bowel. He remains on 2 L nasal cannula with sats 98%. Continue to trend renal function. Will need 6 minute walk prior to discharge. REVIEW OF SYSTEMS: 12 Point ROS reviewed with patient and were positive only as per HPI. Pertinent + and negative listed above all others negative PHYSICAL EXAM: GENERAL: alert, weak, awake oriented x 3 HEENT: EOMI, Sclera non icteric, moist mucosa NECK: Supple, no JVD, trachea midline LUNGS: Lung sounds Diminished to bilateral bases. No wheezes HEART: Regular rate and rhythm. Normal S1 and S2, without murmurs ABD: Abdomen soft obese, nontender. Bowel sounds present EXT: No clubbing cyanosis plus 1 pitting edema to bilateral lower extremities NEURO: Alert and oriented to person, follows commands , calm at time of my evaluation Vital Signs (last 8hr) Date Time Temp Pulse Resp B/P (MAP) Pulse Ox O2 Delivery O2 Flow Rate FiO2 09/05/24 16:22 97.5 79 18 123/50 95 Nasal Cannula 1.0 09/05/24 14:08 70 18 116/63 98 Room Air 09/05/24 13:59 70 20 09/05/24 13:59 70 20 N/Cannula Low lpm 1.0 09/05/24 12:05 98.1 80 18 134/64 96 Room Air 09/05/24 10:00 96 Room Air* 0 21 09/05/24 09:54 138/81 LABS: Hematology Labs: Test 09/05/24 04:43 Range/Units White Blood Count 7.6 4.8-10.8 K/uL Red Blood Count 4.15 L 4.50-6.20 MIL/uL Hemoglobin 12.4 L 14.0-18.0 g/dL Hematocrit 39.2 L 42-54 % Mean Corpuscular Volume 94.5 79-99 fL Mean Corpuscular Hemoglobin 29.9 27.0-33.0 pg Mean Corpuscular Hemoglobin Concent 31.6 L 32.0-36.0 g/dL Red Cell Distribution Width 15.3 11.0-15.5 % Platelet Count 165 130-400 K/uL Mean Platelet Volume 11.1 H 7.5-10.5 fL Immature Granulocyte % (Auto) 0.4 0-1 % Neutrophils (%) (Auto) 84.0 H 40.0-77.0 % Lymphocytes (%) (Auto) 4.9 L 21.0-51.0 % Monocytes (%) (Auto) 8.2 3.0-13.0 % Eosinophils (%) (Auto) 2.4 0.0-8.0 % Basophils (%) (Auto) 0.1 0.0-5.0 % Neutrophils # (Auto) 6.4 1.8-7.7 K/uL Lymphocytes # (Auto) 0.4 L 1.0-4.8 K/uL Monocytes # (Auto) 0.6 0.1-1.0 K/uL Eosinophils # (Auto) 0.18 0.00-0.70 K/uL Basophils # (Auto) 0.01 0.00-0.20 K/uL Absolute Immature Granulocyte (auto 0.03 0-1 K/uL Nucleated Red Blood Cells 0.0 0.0-0.19 % White Cell Morphology Comment See comments Chemistry Labs: Test 09/05/24 16:01 09/05/24 04:43 09/04/24 03:12 Range/Units Whole Blood Glucose 110 70-110 MG/DL Sodium Level 143 136-145 mmol/L Potassium Level 3.8 3.5-5.1 mmol/L Chloride Level 108 101-111 mmol/L Carbon Dioxide Level 22 21-32 mmol/L Blood Urea Nitrogen 72 H 7-18 mg/dL Creatinine 5.2 H 0.5-1.3 mg/dL Glomerular Filtration Rate Calc 11 >90 mL/min Random Glucose 106 H 70-105 mg/dL Total Calcium 8.8 8.5-10.1 mg/dL Magnesium Level 2.20 1.80-2.40 mg/dL DIAGNOSTICS / RADIOLOGY RESULTS: [ ] PLAN Continue to actively titrate FiO2 as tolerated Patient will require 6 minute walk prior to discharge for home oxygen evaluation s/p [place] with successful angioplasty and stenting to SVG to posterior descending artery. continue with ASA, statin and brilinta. Continue with Lasix 40 mg IV push b.i.d. and metolazone 2.5 mg Will reassess pleural effusion and further recommendation to follow Continue with Rocephin2 g daily Continue with doxycycline 100 mg b.i.d. Continue metoprolol 12.5 mg b.i.d. Continue amiodarone 300 mg daily We will discontinue patient's glipizide while in the hospital NEURO: Minimize central acting medications as possible. Maintain fall precautions, adequate lighting during the day PULMONARY: Supplemental 02 as needed. Maintain aspiration precautions at all times maintain o2 sats above 92% atrovent Tx's PRN wheezing or sob emperic CAP coverage singular 10mg po daily ABG if worsening respiratory failure CARDIOVASCULAR: Follow hemodynamics. Vital signs per facility protocol Telemetry monitoring Continue patient's cardiac meds including: Amiodarone 300 mg daily Ezetimibe 10 mg daily Diurese with Lasix Metolazone 2.5 mg Hold CARLOS/ARB due to CKD I&O Daily weights Fluid restriction of 1500 Aspirin Atorvastatin Brilinta Beta meagan GI & NUTRITION: Continue with nutritional support. Continue stool softeners and laxatives as needed. Heart healthy diet KIDNEYS & ELECTROLYTES: Strict monitoring of intake, output and overall fluid balance. Avoid nephrotoxic medications to the extent possible. Medications to be dosed according to renal function. Monitor electrolytes and replace as needed ENDOCRINE: Maintain blood glucose between 100-180 at all times. Hypoglycemia protocol in place Lantus 20units BID ISS INFECTIOUS DISEASE: Trend temperature, WBC and procalcitonin level Follow cultures, deescalate antibiotics as soon as possible. Panculture if new onset fever Doxy Rocephin for emperic CAP coverage ONCOLOGY/HEMATOLOGY/COAGULATION: Monitor for s/s of bleeding Monitor hemoglobin, coagulation studies as needed SKIN: Pressure ulcer prevention per facility protocol Specialty mattress ORTHO/REHAB: Continue PT/OT Prophylaxis: Continue GI and DVT prophylaxis Protonix Lovenox Code Status: Full Resuscitation Disposition: TBD Other: Total critical care time 35 minutes Case discussed with supervising physician plan of care agreed upon RAND HERNANDEZ [facility] Sep 05, 2024 16:26
--- NOTE | 2024-09-05 18:30 | NUR ---
Midline Leaking Midline noted to be leaking on one port when flushed. Dressing was changed. IV antibiotic connected and started. However, patient called that Midline started leaking. Midline removed after a new peripheral IV was inserted.
[2024-09-06] VITALS (14 sets, daily range): BP systolic 13–129; BP diastolic 64–77; PULSE 65–73; RESP 16–20; TEMP 97.7–98.5; O2SAT 96–100
[2024-09-06] MEDS: DEXTROSE 50%-WATER 50 ML DISP.SYRIN IV PRN (04:09)
--- NOTE | 2024-09-06 04:50 | NUR ---
0400 patient called nurse and was found to be lethargic, with dizzyness and diaphoresis, blood glucose checked was found to be 56, 1 AMP of D50 blood glucose rechecked, 70 blood glucose, patient more alert, juice given to patient to drink, glucose rechecked, result 105, patient no longer feeling symptoms of hypoglycemia.
[2024-09-06 04:59] LABS: BASOPHILS # (AUTO) 0.02 K/uL (0.00-0.20); BASOPHILS % (AUTO) 0.3 % (0.0-5.0); EOSINOPHILS # (AUTO) 0.13 K/uL (0.00-0.70); EOSINOPHILS % (AUTO) 1.8 % (0.0-8.0); HEMATOCRIT 38.9 % (42-54); IMMATURE GRANULOCYTE ABSOLUTE 0.04 K/uL (0-1); LYMPHOCYTES # (AUTO) 0.4 K/uL (1.0-4.8); LYMPHOCYTES % (AUTO) 4.7 % (21.0-51.0); MEAN CORPUSCULAR HEMOGLOBIN 30.3 pg (27.0-33.0); MEAN CORPUSCULAR HGB CONC 31.9 g/dL (32.0-36.0); MEAN CORPUSCULAR VOLUME 95.1 fL (79-99); MONOCYTES # (AUTO) 0.6 K/uL (0.1-1.0); MONOCYTES % (AUTO) 8.4 % (3.0-13.0); NEUTROPHILS # (AUTO) 6.2 K/uL (1.8-7.7); NEUTROPHILS % (AUTO) 84.3 % (40.0-77.0); PLATELET COUNT (AUTO) 158 K/uL (130-400); RED BLOOD CELL COUNT(AUTO) 4.09 MIL/uL (4.50-6.20); RED CELL DISTRIBUTION WIDTH 15.3 % (11.0-15.5); WHITE BLOOD COUNT (AUTO) 7.4 K/uL (4.8-10.8)
[2024-09-06 05:06] LABS: CREATININE 5.8 mg/dL (0.5-1.3); POTASSIUM 3.9 mmol/L (3.5-5.1)
--- NOTE | 2024-09-06 09:25 | HMCIMG ---
CHEST 1VW HISTORY: Follow-up COMPARISON: 08/25/2024 FINDINGS: A frontal projection of the chest was obtained. Mild bilateral pulmonary infiltrates are seen may be related to mild pulmonary vascular congestion with possible superimposed pneumonitis. Poststernotomy changes are seen. The heart is enlarged. Degenerative changes of the thoracolumbar spine are present. Pacemaker is seen entering from the left. No evidence of aortic calcification is seen. IMPRESSION: 1. Mild bilateral pulmonary infiltrates are seen may be related to mild pulmonary vascular congestion with possible superimposed pneumonitis.
--- NOTE | 2024-09-06 13:49 | PN ---
NEPHROLOGY PROGRESS NOTE Date/Time Patient Seen: Sep 06, 2024 SUBJECTIVE: This is a 69-year-old male with a past medical history of two CABGs last one 10 years ago, HFrEF of 20% status post AICD, COPD, CKD stage 3, essential hypertension, obesity, and type 2 diabetes mellitus. He presented to the emergency department today for progressive increasing shortness of breath with minimal exertion, and orthopnea that started this morning. He has been in the hospital for several days Was admitted further evaluation and management of NSTEMI. Echocardiogram showed LVEF of 25-30%. Stage III diastolic dysfunction He is S/p left heart catheterization with stenting of the saphenous vein graft to the posterior descending artery on 09/01/2024. He was noted to have worsening renal function. We has been consulted for renal failure. Renal function continues to worsen Electrolytes are stable. He continues on metolazone 2.5 mg p.o. weekly and Lasix 40 mg IV b.i.d.. Weight continues to trend up Continues with shortness of breath He was seen in the telemetry floor, in no acute distress He is complaining of lower extremity edema and shortness of breath. Family at the bedside Prognosis remains guarded REVIEW OF SYSTEMS: GENERAL: Positive for lower extremity edema and shortness of breath NEUROLOGIC: Negative for any blurry vision, blind spots, double vision, facial asymmetry, dysphagia, dysarthria, hemiparesis, hemisensory deficits, vertigo, ataxia. HEENT: Negative for any head trauma, neck trauma, neck stiffness, photophobia, phonophobia, sinusitis, rhinitis. CARDIAC: Negative for any chest pain, dyspnea on exertion, paroxysmal nocturnal dyspnea, peripheral edema. PULMONARY: Negative for any shortness of breath, wheezing, COPD, or TB exposure. GASTROINTESTINAL: Negative for any abdominal pain, nausea, vomiting, bright red blood per rectum, melena. GENITOURINARY: Negative for any dysuria, hematuria, incontinence. INTEGUMENTARY: Negative for any rashes, cuts, insect bites. RHEUMATOLOGIC: Negative for any joint pains, photosensitive rashes, history of vasculitis or kidney problems. HEMATOLOGIC: Negative for any abnormal bruising, frequent infections or bleeding. Vital Signs (last 8hr) Date Time Temp Pulse Resp B/P (MAP) Pulse Ox O2 Delivery O2 Flow Rate FiO2 09/06/24 14:09 71 20 09/06/24 11:30 98.4 71 16 123/77 100 Nasal Cannula 2.0 100 09/06/24 09:29 13/65 09/06/24 08:50 96 Room Air* 0 21 PHYSICAL EXAM: GENERAL: Alert and oriented x 3. No acute distress. Well-nourished. EYES: EOMI. Anicteric. HENT: Moist mucous membranes. No scleral icterus. No cervical lymphadenopathy. LUNGS: Clear to auscultation bilaterally. No accessory muscle use. CARDIOVASCULAR: Regular rate and rhythm. No murmur. No JVD. ABDOMEN: Soft, non-tender and non-distended. No palpable masses. EXTREMITIES: 2+ edema. Non-tender. SKIN: No rashes or lesions. Warm. NEUROLOGIC: No focal neurological deficits. CN II-XII grossly intact, but not individually tested. PSYCHIATRIC: Cooperative. Appropriate mood and affect. Current Medications Medications (Trade) Dose Ordered Sig/Joellen Route Start Time Stop Time Status Last Admin Dose Admin Allopurinol (ZYLOprim 300MG) 300 mg DAILY PO 08/29/24 09:00 09/28/24 08:59 09/06/24 09:28 300 MG Amiodarone HCl (pacERONE 200MG) 300 mg DAILY PO 08/29/24 09:00 09/28/24 08:59 09/06/24 09:31 300 MG Aspirin (Aspirin 81mg Chew Tab) 81 mg DAILY PO 09/02/24 09:00 10/02/24 08:59 09/06/24 09:31 81 MG Aspirin (Aspirin 81mg Ec Tab) 81 mg DAILY PO 08/29/24 13:30 09/01/24 14:07 DC 08/31/24 09:05 81 MG Atorvastatin Calcium (LIPItor 40MG) 40 mg HS PO 08/29/24 21:00 09/28/24 20:59 09/05/24 20:37 40 MG Carvedilol (Coreg 12.5MG) 12.5 mg BID PO 09/02/24 09:00 10/02/24 08:59 09/06/24 09:29 12.5 MG Ceftriaxone Sodium (ROCEphine 1G INJ) 2 gm Q24H IVP 08/28/24 14:30 09/03/24 13:41 DC 09/02/24 15:44 2 GM Ceftriaxone Sodium (Rocephin 2gm Inj) 2 gm Q24H IVP 09/03/24 14:00 09/07/24 14:29 09/05/24 14:05 2 GM Doxycycline Hyclate (Doxycycline 100mg+NS 250ml) 100 mg BID IV 08/28/24 21:00 08/29/24 20:17 DC 08/29/24 09:27 100 MG Doxycycline Hyclate (Doxycycline 100mg+NS 250ml) 100 mg Q12H IV 08/30/24 05:00 09/09/24 04:59 09/06/24 04:09 100 MG Enoxaparin Sodium (Lovenox) 30 mg DAILY SQ 08/31/24 09:00 09/01/24 11:34 DC 08/31/24 09:04 30 MG Enoxaparin Sodium (Lovenox) 30 mg DAILY SQ 08/29/24 09:00 08/28/24 18:38 DC EZETIMIBE (Zetia) 10 mg DAILY PO 08/29/24 09:00 09/28/24 08:59 09/06/24 09:32 10 MG Furosemide (LASix 20MG VIAL) 20 mg Q8H IV 08/28/24 14:30 08/29/24 16:30 DC 08/29/24 05:51 20 MG Furosemide (LASix 40MG VIAL) 40 mg Q12H IV 08/29/24 20:00 09/28/24 19:59 09/06/24 09:28 40 MG Glipizide (GLUCOtrol XL 5MG TAB) 5 mg DAILY PO 08/29/24 09:00 08/30/24 13:55 DC 08/30/24 09:24 5 MG Heparin Sodium/ Dextrose 250 ml @ 0 mls/hr PROTOCOL IV 08/28/24 19:00 08/29/24 14:07 DC 08/29/24 03:03 0 MLS/HR Heparin Sodium/ Dextrose 250 ml @ 0 mls/hr Q6H IV 08/29/24 22:00 08/30/24 02:00 DC 08/29/24 21:34 12.38 MLS/HR Home Med (Home Medication) (Vitamin D2) (Katheryn... QWEEK PO 09/04/24 09:00 10/04/24 08:59 Hydralazine HCl ([id number] TAB) 12.5 mg TID PO 09/02/24 09:00 10/02/24 08:59 09/06/24 09:31 12.5 MG Insulin Glargine (LANtus 100 UNITS/ML 10 ML VIAL) 20 units BID@0730,2100 SQ 08/28/24 21:00 09/27/24 20:59 09/05/24 20:33 20 UNITS Insulin Human Regular (humuLIN R 100 UNIT/ML 3ML) INSULIN SLIDING SCAL... ACHS SQ 08/28/24 16:30 09/27/24 16:29 09/06/24 12:19 6 UNIT Ipratropium [place] (AtrovENT UD) 0.5 MG I4THREY IH 08/28/24 22:00 09/27/24 21:59 09/06/24 14:09 0.5 MG Isosorbide Mononitrate (Imdur 30mg Sr) 30 mg DAILY PO 09/02/24 09:00 10/02/24 08:59 09/06/24 09:32 30 MG Metolazone (zarOXOlyn) 2.5 mg QWEEK PO 09/04/24 09:00 10/04/24 08:59 09/04/24 12:07 2.5 MG Metoprolol Tartrate (loprESSOR) 12.5 mg BID PO 08/29/24 21:00 09/02/24 08:03 DC 09/01/24 21:07 12.5 MG Milrinone Lactate/ Dextrose 100 ml @ 0 mls/hr PROTOCOL IV 09/03/24 14:00 09/04/24 12:42 DC 09/03/24 14:18 4 MLS/HR Pantoprazole Sodium (PROTonix 40MG TAB) 40 mg DAILY PO 08/29/24 09:00 09/28/24 08:59 09/06/24 09:29 40 MG Polyethylene Glycol (MIRalax 3350 17 GM POWD.PACK) 17 gm DAILY PO 08/29/24 09:00 09/28/24 08:59 09/06/24 09:32 17 GM Sodium Chloride 1,000 ml @ 30 mls/hr Q24H IV 08/31/24 08:30 09/01/24 11:42 DC Sodium Chloride 1,000 ml @ 50 mls/hr Q20H IV 09/01/24 12:00 09/01/24 15:59 DC 09/01/24 12:27 50 MLS/HR Ticagrelor (BRILinta) 90 mg BID PO 09/01/24 21:00 10/01/24 20:59 09/06/24 09:31 90 MG Vitamin B Complex/ Vit C/Folic Acid (Nephrovite Tablet) 1 cap DAILY PO 09/03/24 09:00 10/03/24 08:59 09/06/24 09:29 1 CAP LABORATORY: [ ] Hematology Labs: Test 09/06/24 04:39 09/05/24 04:43 Range/Units White Blood Count 7.4 4.8-10.8 K/uL Red Blood Count 4.09 L 4.50-6.20 MIL/uL Hemoglobin 12.4 L 14.0-18.0 g/dL Hematocrit 38.9 L 42-54 % Mean Corpuscular Volume 95.1 79-99 fL Mean Corpuscular Hemoglobin 30.3 27.0-33.0 pg Mean Corpuscular Hemoglobin Concent 31.9 L 32.0-36.0 g/dL Red Cell Distribution Width 15.3 11.0-15.5 % Platelet Count 158 130-400 K/uL Mean Platelet Volume 11.8 H 7.5-10.5 fL Immature Granulocyte % (Auto) 0.5 0-1 % Neutrophils (%) (Auto) 84.3 H 40.0-77.0 % Lymphocytes (%) (Auto) 4.7 L 21.0-51.0 % Monocytes (%) (Auto) 8.4 3.0-13.0 % Eosinophils (%) (Auto) 1.8 0.0-8.0 % Basophils (%) (Auto) 0.3 0.0-5.0 % Neutrophils # (Auto) 6.2 1.8-7.7 K/uL Lymphocytes # (Auto) 0.4 L 1.0-4.8 K/uL Monocytes # (Auto) 0.6 0.1-1.0 K/uL Eosinophils # (Auto) 0.13 0.00-0.70 K/uL Basophils # (Auto) 0.02 0.00-0.20 K/uL Absolute Immature Granulocyte (auto 0.04 0-1 K/uL Nucleated Red Blood Cells 0.0 0.0-0.19 % White Cell Morphology Comment See comments Chemistry Labs: Test 09/06/24 11:33 09/06/24 04:39 Range/Units Whole Blood Glucose 200 #H 70-110 MG/DL Sodium Level 141 136-145 mmol/L Potassium Level 3.9 3.5-5.1 mmol/L Chloride Level 107 101-111 mmol/L Carbon Dioxide Level 20 L 21-32 mmol/L Blood Urea Nitrogen 81 *H 7-18 mg/dL Creatinine 5.8 H 0.5-1.3 mg/dL Glomerular Filtration Rate Calc 10 >90 mL/min Random Glucose 93 70-105 mg/dL Total Calcium 8.7 8.5-10.1 mg/dL DIAGNOSTICS / RADIOLOGY: REASON: follow up pulmonary edema, hypoxia ORDERING PHYSICIAN: RAND HERNANDEZ CNP PROCEDURE: CXR1VW - CHEST 1VW CHEST 1VW HISTORY: Follow-up COMPARISON: 08/25/2024 FINDINGS: A frontal projection of the chest was obtained. Mild bilateral pulmonary infiltrates are seen may be related to mild pulmonary vascular congestion with possible superimposed pneumonitis. Poststernotomy changes are seen. The heart is enlarged. Degenerative changes of the thoracolumbar spine are present. Pacemaker is seen entering from the left. No evidence of aortic calcification is seen. IMPRESSION: 1. Mild bilateral pulmonary infiltrates are seen may be related to mild pulmonary vascular congestion with possible superimposed pneumonitis. DICTATED BY: GARFIELD BRAGA MD DATE: 09/06/24 0920 REASON: ACUTE KIDNEY INJURY ORDERING PHYSICIAN: IVAN DUARTE MD PROCEDURE: RENAL - US RENAL SONOGRAM US RENAL SONOGRAM REASON: ACUTE KIDNEY INJURY COMPARISON: None TECHNIQUE: Renal and bladder sonogram was performed FINDINGS: Right kidney is 9.9 x 6.1 x 5.0 cm, left 4.2 x 6.5 x 5.0 cm. Overall size and cortical thickness appears preserved. Kidneys are moderately echogenic consistent with chronic renal disease. There is no mass, stone or hydronephrosis. Urinary bladder was nondistended and not well visualized. IMPRESSION: 1. Echogenic kidneys consistent with chronic renal disease, overall size and cortical thickness appears preserved. 2. Urinary bladder not well visualized. DICTATED BY: WENDY MUELLER MD DATE: 09/03/24 1013 REASON: effusion ORDERING PHYSICIAN: ALBIN DIAS PROCEDURE: CXR1VW - CHEST 1VW CHEST 1VW REASON: effusion COMPARISON: 08/31/2024 FINDINGS: There is mild cardiomegaly. There is mild vascular congestion, this appears decreased. There are small bilateral pleural effusions, also decreased. IMPRESSION: 1. Stable cardiomegaly with decreasing vascular congestion and effusions. DICTATED BY: WENDY MUELLER MD DATE: 09/02/24 1354 REASON: PLEURAL EFFUSION ORDERING PHYSICIAN: ALBIN DIAS PROCEDURE: CXR1VW - CHEST 1VW CHEST 1VW REASON: PLEURAL EFFUSION COMPARISON: 08/29/2024 FINDINGS: There are stable cardiomegaly. There is mild vascular congestion. There are small bilateral pleural effusions. These findings appear unchanged. Pacemaker and median sternotomy are again noted. IMPRESSION: 1. Mild cardiomegaly with mild vascular congestion and effusions. 2. No interval change. DICTATED BY: WENDY MUELLER MD DATE: 08/31/24 1215 REASON: ACUTE ON CHORNIC CHF ORDERING PHYSICIAN: SHREE CORDOBA PROCEDURE: ECHO CMP - ECHO 2-D COMPLETE APPROVED REPORT EXAM: Two-dimensional and M-mode echocardiogram with Doppler and color Doppler. Study Details: HTN ,HLD ,CHF ,CAD , CP , COPD , CABG INDICATION ICD: acute on chronic CHF 2D Dimensions RVDd 5.8 cm LVEF(%) 38.1 (>50%) LA ESV INDEX (4CH) 34.50 mL/m2 IVSd 1.0 (0.7-1.1cm) FS(%) 18 % LVDd 4.9 (3.8-5.6cm) LA (2D) 4.7 (1.6-4.0cm) PWd 1.5 (0.7-1.1cm) Ao Root(2D) 3.5 (2.0-3.7cm) IVSs 1.3 cm LVOT diam 2.2 (1.8-2.4cm) LVDs 4.0 (2.5-4.0cm) PWs 1.6 cm M-Mode Dimensions EPSS 2.1 cm LA (MM) 5.3 (1.6-4.0cm) Ao Root(MM) 3.2 (2.0-3.7cm) Aortic Valve AoV VTI 0.1 m Ao Mean GR 1.0 mmHg LVOT VTI 0.09 m OLIVER (VMAX) 2.7 cm2 OLIVER (VTI) 2.7 cm2 Mitral Valve MV E Vmax 125.3 cm/s DECEL Time 173 ms MV A Vmax 23.5 cm/s P 1/2 T 51 ms E/A ratio 5.3 MVA (PHT) 4.4 cm2 TDI E/E' Medial 35.8 E/E' Lateral 32.1 Medial E' Peak V 3.50 cm/s Lateral E' Peak V 3.90 cm/s Pulmonary Valve PV VTI 0.13 m PV Mean GR 1 mmHg Tricuspid Valve TR Vmax 2.6 m/s TR Peak GR 26.4 mmHg Left Ventricle The left ventricle is moderately dilated. Severe concentric left ventricular hypertrophy. LVEF is 25-30%. Stage III diastolic dysfunction. Right Ventricle The right ventricle is moderately dilated. Right ventricular systolic function is moderately reduced. Device lead is present in the right ventricle. Atria The left atrium is moderately dilated. The right atrium size is normal. A pacemaker is seen in the right atrium consistent with history. Aortic Valve Aortic valve leaflets are thickened and calcified. No aortic regurgitation is present. There is no aortic valvular stenosis. Mitral Valve Mild mitral annular calcification present. The mitral valve chordae are redundant. Mitral regurgitation is mild. There is no mitral valve stenosis. Tricuspid Valve The tricuspid valve leaflets are mildly thickened. Mild tricuspid regurgitation. Pulmonic Valve Pulmonic valve is not well visualized. There is no pulmonic valvular regurgitation. Great Vessels The aortic root is normal in size. The ascending aorta is normal in size. The inferior vena cava is moderately to severely dilated with no inspiratory collapse. Pericardium No pericardial effusion. Other Information Technically limited study due to body habitus, smoking and CABG. Conclusion The left ventricle is moderately dilated. LVEF is 25-30%. Stage III diastolic dysfunction. Mitral regurgitation is mild. DICTATED BY: JAYLEN BLACKWELL II, MD DATE: 08/28/24 1636 REASON: HYPOXIA ORDERING PHYSICIAN: SHREE CORDOBA PROCEDURE: CXR1VW - CHEST 1VW CHEST 1VW REASON: HYPOXIA COMPARISON: 08/28/2024 FINDINGS: There is cardiomegaly. There is mild central vascular congestion. There are small bilateral pleural effusions. Pacemaker and median sternotomy are again noted. IMPRESSION: 1. Interval development of mild vascular congestion with small bilateral pleural effusions. DICTATED BY: WENDY MUELLER MD DATE: 08/29/24903 REASON: RULE OUT dvt ORDERING PHYSICIAN: SHREE CORDOBA PROCEDURE: VENOUS JONATHAN - US VENOUS DOPPLER BILATERAL US VENOUS DOPPLER BILATERAL CLINICAL HISTORY: Lower extremity pain and edema COMPARISON: None FINDINGS: Bilateral lower extremity venous Doppler ultrasound was performed. The greater saphenous, common femoral, deep femoral, femoral , popliteal veins are widely patent and easily compressible with the ultrasound probe. Calf veins appear normal as well. There is normal response to compression and augmentation. IMPRESSION: Normal bilateral lower extremity venous Doppler ultrasound. DICTATED BY: ANCA MIXON DO DATE: 08/28/241938 REASON: sob ORDERING PHYSICIAN: MARIAM TAVARES MD PROCEDURE: CXR1VW - CHEST 1VW PORTABLE CHEST RADIOGRAPH INDICATION: sob COMPARISON: 03/19/2020 FINDINGS: Median sternotomy wires are in appropriate alignment. Left sided dual chamber pacer and continuous leads remain in customary position. Heart is enlarged. The pulmonary vascularity and marta appear normal. No evidence for consolidation. Left costophrenic angle appears slightly blunted more than the right. No pneumothorax detected. IMPRESSION: Cardiomegaly and trace left greater than right pleural effusion without pulmonary vascular congestion. DICTATED BY: ITZ CHAPARRO MD DATE: 08/28/24 0912 ASSESSMENT: Acute on chronic renal failure Acute hypoxic respiratory failure NSTEMI, Severe CAD s/p CABG 16yrs ago and 2nd CABG 10 yrs ago Acute on Chronic CHF exacerbation with ICM EF 25-30% s/p AICD placement Suspected CAP COPD exacerbation Lt > RT pleural effusion Type 2DM Essential hypertension Obesity PLAN: Labs, diagnostic, radiologic exams reviewed and interpreted by myself and super vising physician. We have reviewed external records in detail From a renal standpoint, the function continues to decline and electrolytes remain unbalanced. The patient has remained hemodynamically stable and therefore we will recommend dialysis intervention to correct electrolytes as well as BUN and Creatinine. Risk and complications of renal replacement therapy, vascular access, and modalities were explained in great detail to the patient. Patient voices understanding and wishes to proceed. PermCath replaced and dialysis to follow Continue with diuretics. He was counseled on the importance of fluid restriction. Require close monitoring of renal function and electrolytes Order CBC, CMP, and electrolytes in am Continue with antibiotics Renal diabetic diet BiPAP as necessary, for respiratory distress Monitor blood pressure adjust medication doses as needed Avoid hypotensive episodes May use Dilaudid 0.5 mg IV every 6 hours as needed for severe pain Monitor blood sugars Strict intake, output, and daily weight should be monitored Please renally adjust medications Avoid nephrotoxic and nonsteroidal drugs Avoid contrast if possible Will continue to monitor renal function, anemia, electrolytes Treatment plan discussed with patient Questions were answered We have discussed with the other team physicians in detail about the care plan We will continue to monitor the patient closely ATTESTATION BY PHYSICIAN I have seen and examined the patient. I reviewed the documentation, medical decision making, and treatment plan as noted by the mid-level provider above. I agree with the findings and plan of care. IVAN DUARTE MD, [facility] Sep 06, 2024 13:49
[2024-09-06 16:08] LABS: HEMATOCRIT 39.5 % (42-54)
[2024-09-06 16:29] LABS: % IRON SATURATION 11.3 % (30-44)
[2024-09-06 16:43] LABS: CREATININE 5.7 mg/dL (0.5-1.3)
--- NOTE | 2024-09-06 16:44 | HMCIMG ---
CHEST 1VW HISTORY: Dialysis COMPARISON: None FINDINGS: A frontal projection of the chest was obtained. There are bilateral pulmonary infiltrates suggestive of pulmonary vascular congestion with possible superimposed pneumonitis. Poststernotomy changes are seen. The heart is enlarged. Degenerative changes of the thoracolumbar spine are present. Pacemaker is seen entering from the left. Aortic calcifications are seen. IMPRESSION: 1. Bilateral pulmonary infiltrates mostly on the right are seen suggestive of pulmonary vascular congestion with possible superimposed pneumonitis.
[2024-09-06 16:45] LABS: HIV 1&2 ANTIBODY Non-Reactive (Negative); HIV-1 p24 Antigen Non-Reactive (Negative)
[2024-09-06 16:49] LABS: HEMOGLOBIN A1C 7.1 % (4.0-6.0)
--- NOTE | 2024-09-06 18:00 | PN ---
[facility] PROGRESS NOTE Date Patient Seen: Sep 06, 2024 Time of Visit: 17:58 Supervising Physician: Bimal Troncoso Primary Care Physician: Srinath Kumari MD Outpatient Specialists: Dr Maribel Higgins MD Inpatient Consults: Dr Maribel Higgins MD (Cardiology), Dr. Whitman (nephrology) PROBLEM LIST: Acute hypoxic respiratory failure, requiring supplemental oxygen via nasal cannula POA, NSTEMI, POA S/p C Left heart catheterization with stenting of the saphenous vein graft to the posterior descending artery 09/01 Acute renal failure secondary to ATN from [facility] vs CRS on CKD stage III, PO ( GFR 28 in 2019 Severe CAD s/p CABG 16yrs ago and 2nd CABG 10 yrs ago Acute on Chronic CHF exacerbation with ICM EF 25-30% s/p AICD placement, POA (BNP 1650) Suspected CAP, POA COPD exacerbation, POA,improved Lt > RT pleural effusion, POA , multifactorial Hyperglycemia in the presence of Type 2DM, POA Essential HTN Suspected BETTY, undiagnosed and untreated, POA INTERVAL HISTORY: Patient was seen and examined today by me at bedside continues to complain of shortness of breath continues with Lasix 40 mg q.12 hours , Chest x-ray to reveal bilateral effusions with left greater than the right small to moderate, improving. Of note does have congestive heart failure exacerbation with an EF of25 30% with stage III diastolic dysfunction and medications have been optimized by Dr. López Considerdation for dobutamine drip discussed with Dr. López as per recs by our team however at this time he would like to wait and see how he comes along .Should he not improve Dr. López would prefer milrinone. We greatly appreciate his input in this interesting case. For now we will continue to monitor his effusions , he is on 2L via [place] + orthopnea 09/03 patient is sitting up in the chair not in acute distress. He reported that he is still out of breath with exertion. He remains on 2 L of oxygen nasal cannula. Creatinine is worsening, creatinine is 2.8 up from 2.5. we will start patient on inotrope with Milrinone drip. Continue to monitor I/O. 09/04 patient is up in the chair dangling his legs which are markedly more edematous since yesterday. Venous Doppler negative. This is likely from fluid retention in related to worsening MAHESH, creatinine is 4.1 this is up from 2.8 yesterday. He was started on inotrope Milrinone. Given worsening renal function and urine output is minimal, We will discontinue Milrinone because he is not responding to inotrope. He likely has cardiorenal syndrome vs LANIE. Continue with diuretic Lasix. Continue to follow renal function very closely. Otherwise continue current regimen. Nephrology is following. 09/05 patient is sitting up at the recliner not in acute distress. He stated that he is able to ambulate though with shortness of breath. His bilateral lower extremity are still edematous. His remarkable lab studies this morning with creatinine up to 5.2 from 4.1. He put out 500 cc with balance +79 cc. Diuretic. He also has moved his bowel. He remains on 2 L nasal cannula with sats 98%. Continue to trend renal function. Will need 6 minute walk prior to discharge. 09/06 patient is awake alert oriented x3 no acute event overnight. Patient had decided to go ahead and do dialysis given worsening renal function. Patient's lower extremities edema is worsened. Patient has put out only 1.2 L of urine. We will ask IR to place dialysis catheter and Nephrology to start patient on hemodialysis. Case management to arrange for chair for outpatient dialysis. REVIEW OF SYSTEMS: 12 Point ROS reviewed with patient and were positive only as per HPI. Pertinent + and negative listed above all others negative PHYSICAL EXAM: GENERAL: alert, weak, awake oriented x 3 HEENT: EOMI, Sclera non icteric, moist mucosa NECK: Supple, no JVD, trachea midline LUNGS: Lung sounds Diminished to bilateral bases. No wheezes HEART: Regular rate and rhythm. Normal S1 and S2, without murmurs ABD: Abdomen soft obese, nontender. Bowel sounds present EXT: No clubbing cyanosis plus 1 pitting edema to bilateral lower extremities NEURO: Alert and oriented to person, follows commands , calm at time of my evaluation Vital Signs (last 8hr) Date Time Temp Pulse Resp B/P (MAP) Pulse Ox O2 Delivery O2 Flow Rate FiO2 09/06/24 16:00 97.9 71 20 129/67 98 Nonrebreathing Mask 3.0 09/06/24 14:09 71 20 09/06/24 11:30 98.4 71 16 123/77 100 Nasal Cannula 2.0 100 LABS: Hematology Labs: Test 09/06/24 15:57 09/06/24 04:39 09/05/24 04:43 Range/Units Hemoglobin 13.1 L 14.0-18.0 g/dL Hematocrit 39.5 L 42-54 % White Blood Count 7.4 4.8-10.8 K/uL Red Blood Count 4.09 L 4.50-6.20 MIL/uL Mean Corpuscular Volume 95.1 79-99 fL Mean Corpuscular Hemoglobin 30.3 27.0-33.0 pg Mean Corpuscular Hemoglobin Concent 31.9 L 32.0-36.0 g/dL Red Cell Distribution Width 15.3 11.0-15.5 % Platelet Count 158 130-400 K/uL Mean Platelet Volume 11.8 H 7.5-10.5 fL Immature Granulocyte % (Auto) 0.5 0-1 % Neutrophils (%) (Auto) 84.3 H 40.0-77.0 % Lymphocytes (%) (Auto) 4.7 L 21.0-51.0 % Monocytes (%) (Auto) 8.4 3.0-13.0 % Eosinophils (%) (Auto) 1.8 0.0-8.0 % Basophils (%) (Auto) 0.3 0.0-5.0 % Neutrophils # (Auto) 6.2 1.8-7.7 K/uL Lymphocytes # (Auto) 0.4 L 1.0-4.8 K/uL Monocytes # (Auto) 0.6 0.1-1.0 K/uL Eosinophils # (Auto) 0.13 0.00-0.70 K/uL Basophils # (Auto) 0.02 0.00-0.20 K/uL Absolute Immature Granulocyte (auto 0.04 0-1 K/uL Nucleated Red Blood Cells 0.0 0.0-0.19 % White Cell Morphology Comment See comments Chemistry Labs: Test 09/06/24 15:57 09/06/24 15:28 09/06/24 04:39 Range/Units Blood Urea Nitrogen 82 *H 7-18 mg/dL Creatinine 5.7 H 0.5-1.3 mg/dL Glomerular Filtration Rate Calc 10 >90 mL/min Hemoglobin A1c 7.1 H 4.0-6.0 % Estimated Average Glucose (eAG) 157 H 70-126 mg/dL Iron Level 29 L 65-175 mcg/dL Total Iron Binding Capacity 255 250-450 mcg/dL Percent Iron Saturation 11.3 L 30-44 % Ferritin 143 30-400 ng/mL Albumin 3.0 L 3.5-5.0 g/dL Triglycerides Level 15 L 30-200 mg/dL Cholesterol Level 80 # <200 mg/dL LDL Cholesterol 36 0-99 mg/dL HDL Cholesterol 58 29-71 mg/dL Whole Blood Glucose 101 70-110 MG/DL Sodium Level 141 136-145 mmol/L Potassium Level 3.9 3.5-5.1 mmol/L Chloride Level 107 101-111 mmol/L Carbon Dioxide Level 20 L 21-32 mmol/L Random Glucose 93 70-105 mg/dL Total Calcium 8.7 8.5-10.1 mg/dL DIAGNOSTICS / RADIOLOGY RESULTS: [ ] PLAN Continue to actively titrate FiO2 as tolerated Patient will require 6 minute walk prior to discharge for home oxygen evaluation s/p [facility] with successful angioplasty and stenting to SVG to posterior descending artery. continue with ASA, statin and brilinta. Continue with Lasix 40 mg IV push b.i.d. and metolazone 2.5 mg Will reassess pleural effusion and further recommendation to follow Continue with Rocephin2 g daily Continue with doxycycline 100 mg b.i.d. Continue metoprolol 12.5 mg b.i.d. Continue amiodarone 300 mg daily We will discontinue patient's glipizide while in the hospital NEURO: Minimize central acting medications as possible. Maintain fall precautions, adequate lighting during the day PULMONARY: Supplemental 02 as needed. Maintain aspiration precautions at all times maintain o2 sats above 92% atrovent Tx's PRN wheezing or sob emperic CAP coverage singular 10mg po daily ABG if worsening respiratory failure CARDIOVASCULAR: Follow hemodynamics. Vital signs per facility protocol Telemetry monitoring Continue patient's cardiac meds including: Amiodarone 300 mg daily Ezetimibe 10 mg daily Diurese with Lasix Metolazone 2.5 mg Hold CARLOS/ARB due to CKD I&O Daily weights Fluid restriction of 1500 Aspirin Atorvastatin Brilinta Beta meagan GI & NUTRITION: Continue with nutritional support. Continue stool softeners and laxatives as needed. Heart healthy diet KIDNEYS & ELECTROLYTES: Strict monitoring of intake, output and overall fluid balance. Avoid nephrotoxic medications to the extent possible. Medications to be dosed according to renal function. Monitor electrolytes and replace as needed ENDOCRINE: Maintain blood glucose between 100-180 at all times. Hypoglycemia protocol in place Lantus 20units BID ISS INFECTIOUS DISEASE: Trend temperature, WBC and procalcitonin level Follow cultures, deescalate antibiotics as soon as possible. Panculture if new onset fever Doxy Rocephin for emperic CAP coverage ONCOLOGY/HEMATOLOGY/COAGULATION: Monitor for s/s of bleeding Monitor hemoglobin, coagulation studies as needed SKIN: Pressure ulcer prevention per facility protocol Specialty mattress ORTHO/REHAB: Continue PT/OT Prophylaxis: Continue GI and DVT prophylaxis Protonix Lovenox Code Status: Full Resuscitation Disposition: TBD Other: Total critical care time 35 minutes Case discussed with supervising physician plan of care agreed upon RAND HERNANDEZ BONSAI CULTURIST Sep 06, 2024 18:00
--- NOTE | 2024-09-06 20:30 | NUR ---
held brilanta as ordered due to patient receiving a permacath placement tomorrow.
[2024-09-07] VITALS (23 sets, daily range): BP systolic 119–151; BP diastolic 61–104; PULSE 63–77; RESP 16–20; TEMP 97.5–98.6; O2SAT 95–98
[2024-09-07 04:01] LABS: HEMATOCRIT 37.7 % (42-54); MEAN CORPUSCULAR HEMOGLOBIN 30.5 pg (27.0-33.0); MEAN CORPUSCULAR HGB CONC 32.4 g/dL (32.0-36.0); MEAN CORPUSCULAR VOLUME 94.3 fL (79-99); WHITE BLOOD COUNT (AUTO) 7.1 K/uL (4.8-10.8)
[2024-09-07 04:15] LABS: INR 1.12 (0.85-1.15); PROTHROMBIN TIME 12.4 SEC (9.6-11.6)
[2024-09-07 04:16] LABS: PARTIAL THROMBOPLASTIN TIME 36.7 SEC (26.3-35.5)
[2024-09-07 04:19] LABS: HEPATITIS B CORE AB TOTAL Non-Reactive (Nonreactive); HEPATITIS B SURFACE ANTIGEN Non-Reactive (Nonreactive); HEPATITIS C ANTIBODY Non-Reactive (Nonreactive)
[2024-09-07 04:30] LABS: ALBUMIN 2.7 g/dL (3.5-5.0); BILIRUBIN,TOTAL 0.5 mg/dL (0.2-1.0); CREATININE 5.9 mg/dL (0.5-1.3); MAGNESIUM 1.7 mg/dL (1.80-2.40); PHOSPHORUS 7.1 mg/dL (2.5-4.9); POTASSIUM 3.5 mmol/L (3.5-5.1)
[2024-09-07 06:31] LABS: HEPATITIS B SURFACE ANTIBODY Negative (Reactive)
--- NOTE | 2024-09-07 06:35 | EKG ---
[facility] Test Date: 2024-09-07 Test Time: 06:02:27 Pat Name: NEISHA BATISTA Department: [facility] Room: 221 1 Gender: M Director Of Regional Sales: [id number] : 1955 Requested By: IVAN DUARTE Order Number: [id number] Reading MD: Fox Combs Measurements Intervals [place] Rate: 71 P: 0 NE: 131 QRS: 164 QRSD: 173 T: 263 QT: 534 QTc: 582 Interpretive Statements Ventricular-paced rhythm Compared to ECG 08/29/2024 03:20:26 AV dual-paced complex(es) or rhythm no longer present Electronically Signed On 09-07-2024 20:55:08 CONTENT ANALYST by Fox Combs Please click the below link to view image of tracing.
--- NOTE | 2024-09-07 13:51 | PN ---
NEPHROLOGY PROGRESS NOTE Date/Time Patient Seen: Sep 07, 2024 SUBJECTIVE: This is a 69-year-old male with a past medical history of two CABGs last one 10 years ago, HFrEF of 20% status post AICD, COPD, CKD stage 3, essential hypertension, obesity, and type 2 diabetes mellitus. He presented to the emergency department today for progressive increasing shortness of breath with minimal exertion, and orthopnea that started this morning. He has been in the hospital for several days Was admitted further evaluation and management of NSTEMI. Echocardiogram showed LVEF of 25-30%. Stage III diastolic dysfunction He is S/p left heart catheterization with stenting of the saphenous vein graft to the posterior descending artery on 09/01/2024. He was noted to have worsening renal function. We has been consulted for renal failure. Renal function continues to worsen Electrolytes are stable. He continues on metolazone 2.5 mg p.o. weekly and Lasix 40 mg IV b.i.d.. Weight continues to trend up Continues with shortness of breath Patient has agreed to start renal replacement therapy, pending PermCath placement, dialysis to follow He was seen in the telemetry floor, in no acute distress He is complaining of lower extremity edema and shortness of breath. Family at the bedside Prognosis remains guarded REVIEW OF SYSTEMS: GENERAL: Positive for lower extremity edema and shortness of breath NEUROLOGIC: Negative for any blurry vision, blind spots, double vision, facial asymmetry, dysphagia, dysarthria, hemiparesis, hemisensory deficits, vertigo, ataxia. HEENT: Negative for any head trauma, neck trauma, neck stiffness, photophobia, phonophobia, sinusitis, rhinitis. CARDIAC: Negative for any chest pain, dyspnea on exertion, paroxysmal nocturnal dyspnea, peripheral edema. PULMONARY: Negative for any shortness of breath, wheezing, COPD, or TB exposure. GASTROINTESTINAL: Negative for any abdominal pain, nausea, vomiting, bright red blood per rectum, melena. GENITOURINARY: Negative for any dysuria, hematuria, incontinence. INTEGUMENTARY: Negative for any rashes, cuts, insect bites. RHEUMATOLOGIC: Negative for any joint pains, photosensitive rashes, history of vasculitis or kidney problems. HEMATOLOGIC: Negative for any abnormal bruising, frequent infections or bleeding. Vital Signs (last 8hr) Date Time Temp Pulse Resp B/P (MAP) Pulse Ox O2 Delivery O2 Flow Rate FiO2 09/06/24 14:09 71 20 09/06/24 11:30 98.4 71 16 123/77 100 Nasal Cannula 2.0 100 09/06/24 09:29 13/65 09/06/24 08:50 96 Room Air* 0 21 PHYSICAL EXAM: GENERAL: Alert and oriented x 3. No acute distress. Well-nourished. EYES: EOMI. Anicteric. HENT: Moist mucous membranes. No scleral icterus. No cervical lymphadenopathy. LUNGS: Clear to auscultation bilaterally. No accessory muscle use. CARDIOVASCULAR: Regular rate and rhythm. No murmur. No JVD. ABDOMEN: Soft, non-tender and non-distended. No palpable masses. EXTREMITIES: 2+ edema. Non-tender. SKIN: No rashes or lesions. Warm. NEUROLOGIC: No focal neurological deficits. CN II-XII grossly intact, but not individually tested. PSYCHIATRIC: Cooperative. Appropriate mood and affect. Current Medications Medications (Trade) Dose Ordered Sig/[facility] Route Start Time Stop Time Status Last Admin Dose Admin Allopurinol (ZYLOprim 300MG) 300 mg DAILY PO 08/29/24 09:00 09/28/24 08:59 09/06/24 09:28 300 MG Amiodarone HCl (pacERONE 200MG) 300 mg DAILY PO 08/29/24 09:00 09/28/24 08:59 09/06/24 09:31 300 MG Aspirin (Aspirin 81mg Chew Tab) 81 mg DAILY PO 09/02/24 09:00 10/02/24 08:59 09/06/24 09:31 81 MG Aspirin (Aspirin 81mg Ec Tab) 81 mg DAILY PO 08/29/24 13:30 09/01/24 14:07 DC 08/31/24 09:05 81 MG Atorvastatin Calcium (LIPItor 40MG) 40 mg HS PO 08/29/24 21:00 09/28/24 20:59 09/05/24 20:37 40 MG Carvedilol (Coreg 12.5MG) 12.5 mg BID PO 09/02/24 09:00 10/02/24 08:59 09/06/24 09:29 12.5 MG Ceftriaxone Sodium (ROCEphine 1G INJ) 2 gm Q24H IVP 08/28/24 14:30 09/03/24 13:41 DC 09/02/24 15:44 2 GM Ceftriaxone Sodium (Rocephin 2gm Inj) 2 gm Q24H IVP 09/03/24 14:00 09/07/24 14:29 09/05/24 14:05 2 GM Doxycycline Hyclate (Doxycycline 100mg+NS 250ml) 100 mg BID IV 08/28/24 21:00 08/29/24 20:17 DC 08/29/24 09:27 100 MG Doxycycline Hyclate (Doxycycline 100mg+NS 250ml) 100 mg Q12H IV 08/30/24 05:00 09/09/24 04:59 09/06/24 04:09 100 MG Enoxaparin Sodium (Lovenox) 30 mg DAILY SQ 08/31/24 09:00 09/01/24 11:34 DC 08/31/24 09:04 30 MG Enoxaparin Sodium (Lovenox) 30 mg DAILY SQ 08/29/24 09:00 08/28/24 18:38 DC EZETIMIBE (Zetia) 10 mg DAILY PO 08/29/24 09:00 09/28/24 08:59 09/06/24 09:32 10 MG Furosemide (LASix 20MG VIAL) 20 mg Q8H IV 08/28/24 14:30 08/29/24 16:30 OK 08/29/24 05:51 20 MG Furosemide (LASix 40MG VIAL) 40 mg Q12H IV 08/29/24 20:00 09/28/24 19:59 09/06/24 09:28 40 MG Glipizide (GLUCOtrol XL 5MG TAB) 5 mg DAILY PO 08/29/24 09:00 08/30/24 13:55 OK 08/30/24 09:24 5 MG Heparin Sodium/ Dextrose 250 ml @ 0 mls/hr PROTOCOL IV 08/28/24 19:00 08/29/24 14:07 DC 08/29/24 03:03 0 MLS/HR Heparin Sodium/ Dextrose 250 ml @ 0 mls/hr Q6H IV 08/29/24 22:00 08/30/24 02:00 OK 08/29/24 21:34 12.38 MLS/HR Home Med (Home Medication) (Vitamin D2) (Katheryn... QWEEK PO 09/04/24 09:00 10/04/24 08:59 Hydralazine HCl ([id number] TAB) 12.5 mg TID PO 09/02/24 09:00 10/02/24 08:59 09/06/24 09:31 12.5 MG Insulin Glargine (LANtus 100 UNITS/ML 10 ML VIAL) 20 units BID@0730,2100 SQ 08/28/24 21:00 09/27/24 20:59 09/05/24 20:33 20 UNITS Insulin Human Regular (humuLIN R 100 UNIT/ML 3ML) INSULIN SLIDING SCAL... ACHS SQ 08/28/24 16:30 09/27/24 16:29 09/06/24 12:19 6 UNIT Ipratropium [place] (AtrovENT UD) 0.5 MG Q7GYNEM IH 08/28/24 22:00 09/27/24 21:59 09/06/24 14:09 0.5 MG Isosorbide Mononitrate (Imdur 30mg Sr) 30 mg DAILY PO 09/02/24 09:00 10/02/24 08:59 09/06/24 09:32 30 MG Metolazone (zarOXOlyn) 2.5 mg QWEEK PO 09/04/24 09:00 10/04/24 08:59 09/04/24 12:07 2.5 MG Metoprolol Tartrate (loprESSOR) 12.5 mg BID PO 08/29/24 21:00 09/02/24 08:03 DC 09/01/24 21:07 12.5 MG Milrinone Lactate/ Dextrose 100 ml @ 0 mls/hr PROTOCOL IV 09/03/24 14:00 09/04/24 12:42 DC 09/03/24 14:18 4 MLS/HR Pantoprazole Sodium (PROTonix 40MG TAB) 40 mg DAILY PO 08/29/24 09:00 09/28/24 08:59 09/06/24 09:29 40 MG Polyethylene Glycol (MIRalax 3350 17 GM POWD.PACK) 17 gm DAILY PO 08/29/24 09:00 09/28/24 08:59 09/06/24 09:32 17 GM Sodium Chloride 1,000 ml @ 30 mls/hr Q24H IV 08/31/24 08:30 09/01/24 11:42 DC Sodium Chloride 1,000 ml @ 50 mls/hr Q20H IV 09/01/24 12:00 09/01/24 15:59 DC 09/01/24 12:27 50 MLS/HR Ticagrelor (BRILinta) 90 mg BID PO 09/01/24 21:00 10/01/24 20:59 09/06/24 09:31 90 MG Vitamin B Complex/ Vit C/Folic Acid (Nephrovite Tablet) 1 cap DAILY PO 09/03/24 09:00 10/03/24 08:59 09/06/24 09:29 1 CAP LABORATORY: [ ] Hematology Labs: Test 09/07/24 03:19 09/06/24 04:39 Range/Units White Blood Count 7.1 4.8-10.8 K/uL Red Blood Count 4.00 L 4.50-6.20 MIL/uL Hemoglobin 12.2 L 14.0-18.0 g/dL Hematocrit 37.7 L 42-54 % Mean Corpuscular Volume 94.3 79-99 fL Mean Corpuscular Hemoglobin 30.5 27.0-33.0 pg Mean Corpuscular Hemoglobin Concent 32.4 32.0-36.0 g/dL Red Cell Distribution Width 15.0 11.0-15.5 % Platelet Count 149 130-400 K/uL Mean Platelet Volume 12.1 H 7.5-10.5 fL Nucleated Red Blood Cells 0.0 0.0-0.19 % Immature Granulocyte % (Auto) 0.5 0-1 % Neutrophils (%) (Auto) 84.3 H 40.0-77.0 % Lymphocytes (%) (Auto) 4.7 L 21.0-51.0 % Monocytes (%) (Auto) 8.4 3.0-13.0 % Eosinophils (%) (Auto) 1.8 0.0-8.0 % Basophils (%) (Auto) 0.3 0.0-5.0 % Neutrophils # (Auto) 6.2 1.8-7.7 K/uL Lymphocytes # (Auto) 0.4 L 1.0-4.8 K/uL Monocytes # (Auto) 0.6 0.1-1.0 K/uL Eosinophils # (Auto) 0.13 0.00-0.70 K/uL Basophils # (Auto) 0.02 0.00-0.20 K/uL Absolute Immature Granulocyte (auto 0.04 0-1 K/uL Chemistry Labs: Test 09/07/24 11:41 09/07/24 03:19 09/06/24 15:57 Range/Units Whole Blood Glucose 96 70-110 MG/DL Sodium Level 145 136-145 mmol/L Potassium Level 3.5 3.5-5.1 mmol/L Chloride Level 107 101-111 mmol/L Carbon Dioxide Level 22 21-32 mmol/L Blood Urea Nitrogen 88 *H 7-18 mg/dL Creatinine 5.9 H 0.5-1.3 mg/dL Glomerular Filtration Rate Calc 10 >90 mL/min Random Glucose 115 H 70-105 mg/dL Total Calcium 8.7 8.5-10.1 mg/dL Phosphorus Level 7.1 H 2.5-4.9 mg/dL Magnesium Level 1.70 L 1.80-2.40 mg/dL Total Bilirubin 0.5 0.2-1.0 mg/dL Aspartate Amino Transf (AST/SGOT) 21 10-37 U/L Alanine Aminotransferase (ALT/SGPT) 20 12-78 U/L Alkaline Phosphatase 128 50-136 U/L Total Protein 6.0 6.0-8.3 g/dL Albumin 2.7 L 3.5-5.0 g/dL Hemoglobin A1c 7.1 H 4.0-6.0 % Estimated Average Glucose (eAG) 157 H 70-126 mg/dL Iron Level 29 L 65-175 mcg/dL Total Iron Binding Capacity 255 250-450 mcg/dL Percent Iron Saturation 11.3 L 30-44 % Ferritin 143 30-400 ng/mL Triglycerides Level 15 L 30-200 mg/dL Cholesterol Level 80 # <200 mg/dL LDL Cholesterol 36 0-99 mg/dL HDL Cholesterol 58 29-71 mg/dL Coagulation Labs: Test 09/07/24 03:19 Range/Units Prothrombin Time 12.4 H 9.6-11.6 SEC Prothromb Time International Ratio 1.12 0.85-1.15 Activated Partial Thromboplast Time 36.7 H 26.3-35.5 SEC DIAGNOSTICS / RADIOLOGY: REASON: [facility]. ORDERING PHYSICIAN: IVAN DUARTE MD PROCEDURE: CXR1VW - CHEST 1VW CHEST 1VW HISTORY: Dialysis COMPARISON: None FINDINGS: A frontal projection of the chest was obtained. There are bilateral pulmonary infiltrates suggestive of pulmonary vascular congestion with possible superimposed pneumonitis. Poststernotomy changes are seen. The heart is enlarged. Degenerative changes of the thoracolumbar spine are present. Pacemaker is seen entering from the left. Aortic calcifications are seen. IMPRESSION: 1. Bilateral pulmonary infiltrates mostly on the right are seen suggestive of pulmonary vascular congestion with possible superimposed pneumonitis. DICTATED BY: GARFIELD BRAGA MD DATE: 09/06/24 1641 REASON: follow up pulmonary edema, hypoxia ORDERING PHYSICIAN: RAND HERNANDEZ CNP PROCEDURE: CXR1VW - CHEST 1VW CHEST 1VW HISTORY: Follow-up COMPARISON: 08/25/2024 FINDINGS: A frontal projection of the chest was obtained. Mild bilateral pulmonary infiltrates are seen may be related to mild pulmonary vascular congestion with possible superimposed pneumonitis. Poststernotomy changes are seen. The heart is enlarged. Degenerative changes of the thoracolumbar spine are present. Pacemaker is seen entering from the left. No evidence of aortic calcification is seen. IMPRESSION: 1. Mild bilateral pulmonary infiltrates are seen may be related to mild pulmonary vascular congestion with possible superimposed pneumonitis. DICTATED BY: GARFIELD BRAGA MD DATE: 09/06/24 0920 REASON: ACUTE KIDNEY INJURY ORDERING PHYSICIAN: IVAN DUARTE MD PROCEDURE: RENAL - US RENAL SONOGRAM US RENAL SONOGRAM REASON: ACUTE KIDNEY INJURY COMPARISON: None TECHNIQUE: Renal and bladder sonogram was performed FINDINGS: Right kidney is 9.9 x 6.1 x 5.0 cm, left 4.2 x 6.5 x 5.0 cm. Overall size and cortical thickness appears preserved. Kidneys are moderately echogenic consistent with chronic renal disease. There is no mass, stone or hydronephrosis. Urinary bladder was nondistended and not well visualized. IMPRESSION: 1. Echogenic kidneys consistent with chronic renal disease, overall size and cortical thickness appears preserved. 2. Urinary bladder not well visualized. DICTATED BY: WENDY MUELLER MD DATE: 09/03/24 1013 REASON: effusion ORDERING PHYSICIAN: ALBIN DIAS PROCEDURE: CXR1VW - CHEST 1VW CHEST 1VW REASON: effusion COMPARISON: 08/31/2024 FINDINGS: There is mild cardiomegaly. There is mild vascular congestion, this appears decreased. There are small bilateral pleural effusions, also decreased. IMPRESSION: 1. Stable cardiomegaly with decreasing vascular congestion and effusions. DICTATED BY: WENDY MUELLER MD DATE: 09/02/24 1354 REASON: PLEURAL EFFUSION ORDERING PHYSICIAN: ALBIN DIAS PROCEDURE: CXR1VW - CHEST 1VW CHEST 1VW REASON: PLEURAL EFFUSION COMPARISON: 08/29/2024 FINDINGS: There are stable cardiomegaly. There is mild vascular congestion. There are small bilateral pleural effusions. These findings appear unchanged. Pacemaker and median sternotomy are again noted. IMPRESSION: 1. Mild cardiomegaly with mild vascular congestion and effusions. 2. No interval change. DICTATED BY: WENDY MUELLER MD DATE: 08/31/24 1215 REASON: ACUTE ON CHORNIC CHF ORDERING PHYSICIAN: SHREE CORDOBA PROCEDURE: ECHO CMP - ECHO 2-D COMPLETE APPROVED REPORT EXAM: Two-dimensional and M-mode echocardiogram with Doppler and color Doppler. Study Details: HTN ,HLD ,CHF ,CAD , CP , COPD , CABG INDICATION ICD: acute on chronic CHF 2D Dimensions RVDd 5.8 cm LVEF(%) 38.1 (>50%) LA ESV INDEX (4CH) 34.50 mL/m2 IVSd 1.0 (0.7-1.1cm) FS(%) 18 % LVDd 4.9 (3.8-5.6cm) LA (2D) 4.7 (1.6-4.0cm) PWd 1.5 (0.7-1.1cm) Ao Root(2D) 3.5 (2.0-3.7cm) IVSs 1.3 cm LVOT diam 2.2 (1.8-2.4cm) LVDs 4.0 (2.5-4.0cm) PWs 1.6 cm M-Mode Dimensions EPSS 2.1 cm LA (MM) 5.3 (1.6-4.0cm) Ao Root(MM) 3.2 (2.0-3.7cm) Aortic Valve AoV VTI 0.1 m Ao Mean GR 1.0 mmHg LVOT VTI 0.09 m OLIVER (VMAX) 2.7 cm2 OLIVER (VTI) 2.7 cm2 Mitral Valve MV E Vmax 125.3 cm/s DECEL Time 173 ms MV A Vmax 23.5 cm/s P 1/2 T 51 ms E/A ratio 5.3 MVA (PHT) 4.4 cm2 TDI E/E' Medial 35.8 E/E' Lateral 32.1 Medial E' Peak V 3.50 cm/s Lateral E' Peak V 3.90 cm/s Pulmonary Valve PV VTI 0.13 m PV Mean GR 1 mmHg Tricuspid Valve TR Vmax 2.6 m/s TR Peak GR 26.4 mmHg Left Ventricle The left ventricle is moderately dilated. Severe concentric left ventricular hypertrophy. LVEF is 25-30%. Stage III diastolic dysfunction. Right Ventricle The right ventricle is moderately dilated. Right ventricular systolic function is moderately reduced. Device lead is present in the right ventricle. Atria The left atrium is moderately dilated. The right atrium size is normal. A pacemaker is seen in the right atrium consistent with history. Aortic Valve Aortic valve leaflets are thickened and calcified. No aortic regurgitation is present. There is no aortic valvular stenosis. Mitral Valve Mild mitral annular calcification present. The mitral valve chordae are redundant. Mitral regurgitation is mild. There is no mitral valve stenosis. Tricuspid Valve The tricuspid valve leaflets are mildly thickened. Mild tricuspid regurgitation. Pulmonic Valve Pulmonic valve is not well visualized. There is no pulmonic valvular regurgitation. Great Vessels The aortic root is normal in size. The ascending aorta is normal in size. The inferior vena cava is moderately to severely dilated with no inspiratory collapse. Pericardium No pericardial effusion. Other Information Technically limited study due to body habitus, smoking and CABG. Conclusion The left ventricle is moderately dilated. LVEF is 25-30%. Stage III diastolic dysfunction. Mitral regurgitation is mild. DICTATED BY: JAYLEN BLACKWELL II, MD DATE: 08/28/24 1636 REASON: HYPOXIA ORDERING PHYSICIAN: SHREE CORDOBA PROCEDURE: CXR1VW - CHEST 1VW CHEST 1VW REASON: HYPOXIA COMPARISON: 08/28/2024 FINDINGS: There is cardiomegaly. There is mild central vascular congestion. There are small bilateral pleural effusions. Pacemaker and median sternotomy are again noted. IMPRESSION: 1. Interval development of mild vascular congestion with small bilateral pleural effusions. DICTATED BY: WENDY MUELLER MD DATE: 08/29/24903 REASON: RULE OUT dvt ORDERING PHYSICIAN: SHREE CORDOBA PROCEDURE: VENOUS JONATHAN - US VENOUS DOPPLER BILATERAL US VENOUS DOPPLER BILATERAL CLINICAL HISTORY: Lower extremity pain and edema COMPARISON: None FINDINGS: Bilateral lower extremity venous Doppler ultrasound was performed. The greater saphenous, common femoral, deep femoral, femoral , popliteal veins are widely patent and easily compressible with the ultrasound probe. Calf veins appear normal as well. There is normal response to compression and augmentation. IMPRESSION: Normal bilateral lower extremity venous Doppler ultrasound. DICTATED BY: ANCA MIXON DO DATE: 08/28/241938 REASON: sob ORDERING PHYSICIAN: MARIAM TAVARES MD PROCEDURE: CXR1VW - CHEST 1VW PORTABLE CHEST RADIOGRAPH INDICATION: sob COMPARISON: 03/19/2020 FINDINGS: Median sternotomy wires are in appropriate alignment. Left sided dual chamber pacer and continuous leads remain in customary position. Heart is enlarged. The pulmonary vascularity and marta appear normal. No evidence for consolidation. Left costophrenic angle appears slightly blunted more than the right. No pneumothorax detected. IMPRESSION: Cardiomegaly and trace left greater than right pleural effusion without pulmonary vascular congestion. DICTATED BY: ITZ CHAPARRO MD DATE: 08/28/24911 ASSESSMENT: Acute on chronic renal failure Acute hypoxic respiratory failure NSTEMI Severe CAD s/p CABG 16yrs ago and 2nd CABG 10 yrs ago Acute on Chronic CHF exacerbation with ICM EF 25-30% s/p AICD placement Suspected CAP COPD exacerbation Lt > RT pleural effusion Type 2DM Essential hypertension Obesity PLAN: Labs, diagnostic, radiologic exams reviewed and interpreted by myself and supervising physician. We have reviewed external records in detail Pending PermCath and dialysis to follow Continue with diuretics. Preserve nondominant arm for AV access creation Epogen, on dialysis days. He was counseled on the importance of fluid restriction. Require close monitoring of renal function and electrolytes Order CBC, CMP, and electrolytes in am Continue with antibiotics Renal diabetic diet BiPAP as necessary, for respiratory distress Monitor blood pressure adjust medication doses as needed Avoid hypotensive episodes May use Dilaudid 0.5 mg IV every 6 hours as needed for severe pain Monitor blood sugars Strict intake, output, and daily weight should be monitored Please renally adjust medications Avoid nephrotoxic and nonsteroidal drugs Avoid contrast if possible Will continue to monitor renal function, anemia, electrolytes Treatment plan discussed with patient Questions were answered We have discussed with the other team physicians in detail about the care plan We will continue to monitor the patient closely ATTESTATION BY PHYSICIAN I have seen and examined the patient. I reviewed the documentation, medical decision making, and treatment plan as noted by the mid-level provider above. I agree with the findings and plan of care. IVAN DUARTE MD, [facility] Sep 07, 2024 13:51
[2024-09-07] MEDS ORDERED: IRON sUCROse COMPLEX 100 MG/5 ML VIAL IVP SCH (14:00)
[2024-09-07] MEDS ORDERED: LIDOCAINE HCL 1% MDV 50ML VIAL ONE (14:08)
[2024-09-07] MEDS ORDERED: HEParin-NS 1,000 UNIT/500 ML 500 ML IV ONE (14:08)
[2024-09-07] MEDS ORDERED: HEParin 1,000 UNIT VIAL ONE (14:08)
[2024-09-07] MEDS ORDERED: COMPOUND IV REFRIGERATED 1 EACH IVSOLN MISC PRN (14:30)
[2024-09-07] MEDS: CEFTRIAXONE 2GM VIAL IVP SCH (18:05)
--- NOTE | 2024-09-07 18:25 | PN ---
[facility] PROGRESS NOTE Date Patient Seen: Sep 07, 2024 Time of Visit: 18:20 Supervising Physician: salvatore Macario MD Primary Care Physician: Srinath Kumari MD Outpatient Specialists: Dr Maribel Higgins MD Inpatient Consults: Dr Maribel Higgins MD (Cardiology), Dr. Whitman (nephrology) PROBLEM LIST: Acute hypoxic respiratory failure, requiring supplemental oxygen via nasal cannula POA, NSTEMI, POA S/p LHC Left heart catheterization with stenting of the saphenous vein graft to the posterior descending artery 09/01 Acute renal failure secondary to ATN from LANIE vs CRS on CKD stage III, PO ( GFR 28 in 2019 Severe CAD s/p CABG 16yrs ago and 2nd CABG 10 yrs ago Acute on Chronic CHF exacerbation with ICM EF 25-30% s/p AICD placement, POA (BNP 1650) Suspected CAP, POA COPD exacerbation, POA,improved Lt > RT pleural effusion, POA , multifactorial Hyperglycemia in the presence of Type 2DM, POA Essential HTN Suspected BETTY, undiagnosed and untreated, POA INTERVAL HISTORY: Patient was seen and examined today by me at bedside continues to complain of shortness of breath continues with Lasix 40 mg q.12 hours , Chest x-ray to reveal bilateral effusions with left greater than the right small to moderate, improving. Of note does have congestive heart failure exacerbation with an EF of25 30% with stage III diastolic dysfunction and medications have been optimized by Dr. López Considerdation for dobutamine drip discussed with Dr. López as per recs by our team however at this time he would like to wait and see how he comes along .Should he not improve Dr. López would prefer milrinone. We greatly appreciate his input in this interesting case. For now we will continue to monitor his effusions , he is on 2L via [place] + orthopnea 09/03 patient is sitting up in the chair not in acute distress. He reported that he is still out of breath with exertion. He remains on 2 L of oxygen nasal cannula. Creatinine is worsening, creatinine is 2.8 up from 2.5. we will start patient on inotrope with Milrinone drip. Continue to monitor I/O. 09/04 patient is up in the chair dangling his legs which are markedly more e dematous since yesterday. Venous Doppler negative. This is likely from fluid retention in related to worsening MAHESH, creatinine is 4.1 this is up from 2.8 yesterday. He was started on inotrope Milrinone. Given worsening renal function and urine output is minimal, We will discontinue Milrinone because he is not responding to inotrope. He likely has cardiorenal syndrome vs LANIE. Co ntinue with diuretic Lasix. Continue to follow renal function very closely. Otherwise continue current regimen. Nephrology is following. 09/05 patient is sitting up at the recliner not in acute distress. He stated that he is able to ambulate though with shortness of breath. His bilateral lower extremity are still edematous. His remarkable lab studies this morning with creatinine up to 5.2 from 4.1. He put out 500 cc with balance +79 cc. Diuretic. He also has moved his bowel. He remains on 2 L nasal cannula with sats 98%. Continue to trend renal function. Will need 6 minute walk prior to discharge. 09/06 patient is awake alert oriented x3 no acute event overnight. Patient had decided to go ahead and do dialysis given worsening renal function. Patient's lower extremities edema is worsened. Patient has put out only 1.2 L of urine. We will ask IR to place dialysis catheter and Nephrology to start patient on hemodialysis. Case management to arrange for chair for outpatient dialysis. 09/07-patient is awake alert and oriented x3 hemodynamically stable afebrile saturating 99% on room air. Pending a PermCath placement. And dialysis scheduled for later on today. CBC unremarkable similar to yesterday. Magnesium was 1.7 replace per protocol BUN 88 creatinine 5.9 GFR 10 consistent with ESRD. PT is 12.4 INR 1.12, P APTT 36.7. We will follow Nephrology recommendations in regards to hemodialysis. Poor long-term prognosis. Consider palliative. REVIEW OF SYSTEMS: 12 Point ROS reviewed with patient and were positive only as per HPI. Pertinent + and negative listed above all others negative PHYSICAL EXAM: GENERAL: alert, weak, awake oriented x 3 HEENT: EOMI, Sclera non icteric, moist mucosa NECK: Supple, no JVD, trachea midline LUNGS: Lung sounds Diminished to bilateral bases. No wheezes HEART: Regular rate and rhythm. Normal S1 and S2, without murmurs ABD: Abdomen soft obese, nontender. Bowel sounds present EXT: No clubbing cyanosis plus 1 pitting edema to bilateral lower extremities NEURO: Alert and oriented to person, follows commands , calm at time of my evaluation Vital Signs (last 8hr) Date Time Temp Pulse Resp B/P (MAP) Pulse Ox O2 Delivery O2 Flow Rate FiO2 09/07/24 18:05 97.5 70 16 143/92 99 Room Air 09/07/24 17:55 70 16 145/89 99 Room Air 09/07/24 17:40 70 16 139/86 99 Room Air 09/07/24 17:25 70 16 139/84 99 Room Air 09/07/24 17:10 70 16 141/89 98 Room Air 09/07/24 16:55 70 16 133/87 98 Room Air 09/07/24 16:40 74 16 138/90 98 Room Air 09/07/24 16:25 77 16 151/104 98 Room Air 09/07/24 16:10 73 16 139/91 98 Room Air 09/07/24 16:00 97.7 73 16 139/86 97 Room Air 09/07/24 16:00 98.6 71 20 137/85 98 Nasal Cannula 2.0 09/07/24 15:45 97.7 73 20 137/85 97 Room Air 09/07/24 15:05 71 20 09/07/24 10:22 74 18 N/Cannula Low lpm 2.0 28 LABS: Hematology Labs: Test 09/07/24 03:19 09/06/24 04:39 Range/Units White Blood Count 7.1 4.8-10.8 K/uL Red Blood Count 4.00 L 4.50-6.20 MIL/uL Hemoglobin 12.2 L 14.0-18.0 g/dL Hematocrit 37.7 L 42-54 % Mean Corpuscular Volume 94.3 79-99 fL Mean Corpuscular Hemoglobin 30.5 27.0-33.0 pg Mean Corpuscular Hemoglobin Concent 32.4 32.0-36.0 g/dL Red Cell Distribution Width 15.0 11.0-15.5 % Platelet Count 149 130-400 K/uL Mean Platelet Volume 12.1 H 7.5-10.5 fL Nucleated Red Blood Cells 0.0 0.0-0.19 % Immature Granulocyte % (Auto) 0.5 0-1 % Neutrophils (%) (Auto) 84.3 H 40.0-77.0 % Lymphocytes (%) (Auto) 4.7 L 21.0-51.0 % Monocytes (%) (Auto) 8.4 3.0-13.0 % Eosinophils (%) (Auto) 1.8 0.0-8.0 % Basophils (%) (Auto) 0.3 0.0-5.0 % Neutrophils # (Auto) 6.2 1.8-7.7 K/uL Lymphocytes # (Auto) 0.4 L 1.0-4.8 K/uL Monocytes # (Auto) 0.6 0.1-1.0 K/uL Eosinophils # (Auto) 0.13 0.00-0.70 K/uL Basophils # (Auto) 0.02 0.00-0.20 K/uL Absolute Immature Granulocyte (auto 0.04 0-1 K/uL Chemistry Labs: Test 09/07/24 16:25 09/07/24 03:19 09/06/24 15:57 Range/Units Whole Blood Glucose 94 70-110 MG/DL Sodium Level 145 136-145 mmol/L Potassium Level 3.5 3.5-5.1 mmol/L Chloride Level 107 101-111 mmol/L Carbon Dioxide Level 22 21-32 mmol/L Blood Urea Nitrogen 88 *H 7-18 mg/dL Creatinine 5.9 H 0.5-1.3 mg/dL Glomerular Filtration Rate Calc 10 >90 mL/min Random Glucose 115 H 70-105 mg/dL Total Calcium 8.7 8.5-10.1 mg/dL Phosphorus Level 7.1 H 2.5-4.9 mg/dL Magnesium Level 1.70 L 1.80-2.40 mg/dL Total Bilirubin 0.5 0.2-1.0 mg/dL Aspartate Amino Transf (AST/SGOT) 21 10-37 U/L Alanine Aminotransferase (ALT/SGPT) 20 12-78 U/L Alkaline Phosphatase 128 50-136 U/L Total Protein 6.0 6.0-8.3 g/dL Albumin 2.7 L 3.5-5.0 g/dL Hemoglobin A1c 7.1 H 4.0-6.0 % Estimated Average Glucose (eAG) 157 H 70-126 mg/dL Iron Level 29 L 65-175 mcg/dL Total Iron Binding Capacity 255 250-450 mcg/dL Percent Iron Saturation 11.3 L 30-44 % Ferritin 143 30-400 ng/mL Triglycerides Level 15 L 30-200 mg/dL Cholesterol Level 80 # <200 mg/dL LDL Cholesterol 36 0-99 mg/dL HDL Cholesterol 58 29-71 mg/dL Coagulation Labs: Test 09/07/24 03:19 Range/Units Prothrombin Time 12.4 H 9.6-11.6 SEC Prothromb Time International Ratio 1.12 0.85-1.15 Activated Partial Thromboplast Time 36.7 H 26.3-35.5 SEC DIAGNOSTICS / RADIOLOGY RESULTS: [ ] PLAN Continue to actively titrate FiO2 as tolerated Patient will require 6 minute walk prior to discharge for home oxygen evaluation s/p C with successful angioplasty and stenting to SVG to posterior descending artery. continue with ASA, statin and brilinta. Continue with Lasix 40 mg IV push b.i.d. and metolazone 2.5 mg Will reassess pleural effusion and further recommendation to follow Continue with Rocephin2 g daily Continue with doxycycline 100 mg b.i.d. Continue metoprolol 12.5 mg b.i.d. Continue amiodarone 300 mg daily We will discontinue patient's glipizide while in the hospital NEURO: Minimize central acting medications as possible. Maintain fall precautions, adequate lighting during the day PULMONARY: Supplemental 02 as needed. Maintain aspiration precautions at all times maintain o2 sats above 92% atrovent Tx's PRN wheezing or sob emperic CAP coverage singular 10mg po daily ABG if worsening respiratory failure CARDIOVASCULAR: Follow hemodynamics. Vital signs per facility protocol Telemetry monitoring Continue patient's cardiac meds including: Amiodarone 300 mg daily Ezetimibe 10 mg daily Diurese with Lasix Metolazone 2.5 mg Hold CARLOS/ARB due to CKD I&O Daily weights Fluid restriction of 1500 Aspirin Atorvastatin Brilinta Beta meagan GI & NUTRITION: Continue with nutritional support. Continue stool softeners and laxatives as needed. Heart healthy diet KIDNEYS & ELECTROLYTES: Strict monitoring of intake, output and overall fluid balance. Avoid nephrotoxic medications to the extent possible. Medications to be dosed according to renal function. Monitor electrolytes and replace as needed ENDOCRINE: Maintain blood glucose between 100-180 at all times. Hypoglycemia protocol in place Lantus 20units BID ISS INFECTIOUS DISEASE: Trend temperature, WBC and procalcitonin level Follow cultures, deescalate antibiotics as soon as possible. Panculture if new onset fever Doxy Rocephin for emperic CAP coverage ONCOLOGY/HEMATOLOGY/COAGULATION: Monitor for s/s of bleeding Monitor hemoglobin, coagulation studies as needed SKIN: Pressure ulcer prevention per facility protocol Specialty mattress ORTHO/REHAB: Continue PT/OT Prophylaxis: Continue GI and DVT prophylaxis Protonix Lovenox Code Status: Full Resuscitation Disposition: TBD Other: Total critical care time 35 minutes Case discussed with supervising physician plan of care agreed upon SHREE CORDOBA [facility] Sep 07, 2024 18:25
--- NOTE | 2024-09-07 18:40 | NUR ---
DAY #1 DIALYSIS REMOVED 1.3 LITERS OVER 3 HOURS PENDING MEDICATIONS STARTED
--- NOTE | 2024-09-07 18:55 | OP ---
DATE OF PROCEDURE: 09/07/2024 INDICATIONS: History of chronic renal failure, for hemodialysis. BUSINESS LINE MANAGER: Ryan Browne MD TECHNIQUE: Informed consent was obtained after explaining the procedure and potential. Patient was placed supine on the angiographic table. Timeout performed. All elements of maximal sterile barrier technique, including hand hygiene, sterile gown, gloves and mask were utilized. The neck and chest were prepped and draped in sterile fashion. Under ultrasound and fluoroscopic guidance, access was gained into the internal jugular vein with a 21G needle. Over a wire, a peel-away sheath was deployed leaving its tip in the superior vena cava. Skin dylan made and entry site in the anterior/superior chest wall and a tunneling device was utilized to advance cm BioFlo Duramax catheter through the subcutaneous tissues and into the venotomy site. The catheter advanced through the sheath, which was peeled away. Catheter was heparin locked and secured to the skin with a suture. Sterile dressing applied. ANESTHETIC: 10 mL Lidocaine 1% SQ. BLOOD LOSS: 5 mL. COMPLICATIONS: None. IMPRESSION: Successful placement of permcath placement using the right internal jugular vein. TID: [id number] RECEIPT: [id number]
--- NOTE | 2024-09-07 21:10 | PN ---
SUBJECTIVE: This patient has been seen several times today. I initially saw, ordered a PermCath and then waiting for dialysis. The patient was seen for on and off dialysis. The patient is critically ill. He is short of breath. He has renal failure, possibly has reached end-stage. No other associated finding. No other aggravating or relieving factors. PHYSICAL EXAMINATION: VITAL SIGNS: Blood pressure has been low, pulse 74, respiratory rate 18, afebrile. HEENT: Head is atraumatic. Pupils are round and reactive. Sclerae are anicteric. Conjunctivae not pale. Oral mucosa is not dry. NECK: Supple. No masses or bruits. Thyroid is palpable. LABORATORY DATA: Have been reviewed. Old records reviewed. PROBLEMS: Renal failure and anemia. PLAN: To continue monitoring. Follow up on renal function. Follow up on electrolytes. Intake, output, weight will be monitored. The patient was evaluated and seen for dialysis and seen on and off dialysis multiple times. Total time spent today was 40-45 minutes. TID: [id number] RECEIPT: [id number]
[2024-09-08] VITALS (27 sets, daily range): BP systolic 115–135; BP diastolic 22–84; PULSE 67–99; RESP 16–20; TEMP 97.9–98.4; O2SAT 96–100
[2024-09-08] MEDS: IRON SUCROSE COMPLEX 300 MG+/NS 250ML IV SCH ×2 (01:20→17:10)
[2024-09-08 03:31] LABS: HEMATOCRIT 38.1 % (42-54); MEAN CORPUSCULAR HEMOGLOBIN 30.6 pg (27.0-33.0); MEAN CORPUSCULAR HGB CONC 33.1 g/dL (32.0-36.0); MEAN CORPUSCULAR VOLUME 92.5 fL (79-99); RED BLOOD CELL COUNT(AUTO) 4.12 MIL/uL (4.50-6.20); RED CELL DISTRIBUTION WIDTH 15.1 % (11.0-15.5); WHITE BLOOD COUNT (AUTO) 6.8 K/uL (4.8-10.8)
[2024-09-08 03:49] LABS: ALBUMIN 2.7 g/dL (3.5-5.0); BILIRUBIN,TOTAL 0.7 mg/dL (0.2-1.0); CREATININE 4.5 mg/dL (0.5-1.3); PHOSPHORUS 5.8 mg/dL (2.5-4.9); POTASSIUM 3.1 mmol/L (3.5-5.1); TOTAL PROTEIN, SERUM 5.6 g/dL (6.0-8.3)
--- NOTE | 2024-09-08 09:40 | HMCIMG ---
CHEST 1VW HISTORY: Hypoxia COMPARISON: 09/06/2024 FINDINGS: A frontal projection of the chest was obtained. Mild bilateral pulmonary infiltrates are seen may be related to mild pulmonary vascular congestion with possible superimposed pneumonitis. Poststernotomy changes are seen. The heart is enlarged. Degenerative changes of the thoracolumbar spine are present. All the lines and tubes are again seen in place. Aortic calcifications are seen. IMPRESSION: 1. Mild bilateral pulmonary infiltrates are seen may be related to mild pulmonary vascular congestion with possible superimposed pneumonitis.
--- NOTE | 2024-09-08 12:38 | PN ---
[facility] PROGRESS NOTE Date Patient Seen: Sep 08, 2024 Time of Visit: 12:38 Supervising Physician: Bello Miguel MD Primary Care Physician: Srinath Kumari MD Outpatient Specialists: Dr Maribel Higgins MD Inpatient Consults: Dr Maribel Higgins MD (Cardiology), Dr. Whitman (nephrology) PROBLEM LIST: Acute hypoxic respiratory failure, requiring supplemental oxygen via nasal cannula POA, NSTEMI, POA S/p LHC Left heart catheterization with stenting of the saphenous vein graft to the posterior descending artery 09/01 Acute renal failure secondary to ATN from LANIE vs CRS on CKD stage III, PO ( GFR 28 in 2019) S/P PermCath placement to right chest wall and HD 1st Tx on 09/07/24 Severe CAD s/p CABG 16yrs ago and 2nd CABG 10 yrs ago Acute on Chronic CHF exacerbation with ICM EF 25-30% s/p AICD placement, POA (BNP 1650) Suspected CAP, POA COPD exacerbation, POA,improved Lt > RT pleural effusion, POA , multifactorial Hyperglycemia in the presence of Type 2DM, POA Essential HTN Suspected BETTY, undiagnosed and untreated, POA INTERVAL HISTORY: Patient was seen and examined today by me at bedside continues to complain of shortness of breath continues with Lasix 40 mg q.12 hours , Chest x-ray to reveal bilateral effusions with left greater than the right small to moderate, improving. Of note does have congestive heart failure exacerbation with an EF of25 30% with stage III diastolic dysfunction and medications have been optimized by Dr. López Considerdation for dobutamine drip discussed with Dr. López as per recs by our team however at this time he would like to wait and see how he comes along .Should he not improve Dr. López would prefer milrinone. We greatly appreciate his input in this interesting case. For now we will continue to monitor his effusions , he is on 2L via [place] + orthopnea 09/03 patient is sitting up in the chair not in acute distress. He reported that he is still out of breath with exertion. He remains on 2 L of oxygen nasal cannula. Creatinine is worsening, creatinine is 2.8 up from 2.5. we will start patient on inotrope with Milrinone drip. Continue to monitor I/O. 09/04 patient is up in the chair dangling his legs which are markedly more edematous since yesterday. Venous Doppler negative. This is likely from fluid retention in related to worsening MAHESH, creatinine is 4.1 this is up from 2.8 yesterday. He was started on inotrope Milrinone. Given worsening renal function and urine output is minimal, We will discontinue Milrinone because he is not responding to inotrope. He likely has cardiorenal syndrome vs LANIE. Continue with diuretic Lasix. Continue to follow renal function very closely. Otherwise continue current regimen. Nephrology is following. 09/05 patient is sitting up at the recliner not in acute distress. He stated that he is able to ambulate though with shortness of breath. His bilateral lower extremity are still edematous. His remarkable lab studies this morning with creatinine up to 5.2 from 4.1. He put out 500 cc with balance +79 cc. Diuretic. He also has moved his bowel. He remains on 2 L nasal cannula with sats 98%. Continue to trend renal function. Will need 6 minute walk prior to discharge. 09/06 patient is awake alert oriented x3 no acute event overnight. Patient had decided to go ahead and do dialysis given worsening renal function. Patient's lower extremities edema is worsened. Patient has put out only 1.2 L of urine. We will ask IR to place dialysis catheter and Nephrology to start patient on hemodialysis. Case management to arrange for chair for outpatient dialysis. 09/07-patient is awake alert and oriented x3 hemodynamically stable afebrile saturating 99% on room air. Pending a PermCath placement. And dialysis scheduled for later on today. CBC unremarkable similar to yesterday. Magnesium was 1.7 replace per protocol BUN 88 creatinine 5.9 GFR 10 consistent with ESRD. PT is 12.4 INR 1.12, P APTT 36.7. We will follow Nephrology recommendations in regards to hemodialysis. 09/08- patient is awake alert and oriented x3 he is in good spirits his family at bedside hemodynamically stable with a blood pressure of 128/72 heart rate in the 70s respiratory rate of 16 saturating 99% on room air and afebrile. He tolerated his hemodialysis treatment yesterday in which the pulled 1.3 L. On laboratory H&H is 12.6/38.1 and platelet count is [id number]. Chemistries sodium is 141 potassium 3.1 covered per protocol with BUN 68 creatinine of 4.5 and GFR 14 consistent with his ESRD glucose 109 mg/dL with a phosphorus 5.8 total protein 5.6 albumin 2.7. On chest x-ray mild bilateral pulmonary infiltrates are seen may be related to mild pulmonary vascular congestion with possible superimposed pneumonitis. Nephrology plans for another hemodialysis treatment for today. Case management spoke to patient regarding HD arrangement patient's preference is to have a chair at [facility]. Poor long-term prognosis. Consider palliative. REVIEW OF SYSTEMS: 12 Point ROS reviewed with patient and were positive only as per HPI. Pertinent + and negative listed above all others negative PHYSICAL EXAM: GENERAL: alert, weak, awake oriented x 3 HEENT: EOMI, Sclera non icteric, moist mucosa NECK: Supple, no JVD, trachea midline LUNGS: Lung sounds clear to bilateral bases. No wheezes HEART: Regular rate and rhythm. Normal S1 and S2, without murmurs ABD: Abdomen soft obese, nontender. Bowel sounds present EXT: No clubbing cyanosis plus 1 pitting edema to bilateral lower extremities NEURO: Alert and oriented to person, follows commands , calm at time of my evaluation Vital Signs (last 8hr) Date Time Temp Pulse Resp B/P (MAP) Pulse Ox O2 Delivery O2 Flow Rate FiO2 09/08/24 08:59 97 Nasal Cannula* 2 28 09/08/24 08:43 134/78 09/08/24 07:03 77 18 09/08/24 07:02 18 N/Cannula Low lpm 2.0 28 09/08/24 07:00 98.2 73 20 134/78 97 Room Air LABS: Hematology Labs: Test 09/08/24 03:19 Range/Units White Blood Count 6.8 4.8-10.8 K/uL Red Blood Count 4.12 L 4.50-6.20 MIL/uL Hemoglobin 12.6 L 14.0-18.0 g/dL Hematocrit 38.1 L 42-54 % Mean Corpuscular Volume 92.5 79-99 fL Mean Corpuscular Hemoglobin 30.6 27.0-33.0 pg Mean Corpuscular Hemoglobin Concent 33.1 32.0-36.0 g/dL Red Cell Distribution Width 15.1 11.0-15.5 % Platelet Count 150 130-400 K/uL Mean Platelet Volume 11.7 H 7.5-10.5 fL Nucleated Red Blood Cells 0.0 0.0-0.19 % Chemistry Labs: Test 09/08/24 11:58 09/08/24 03:19 09/07/24 03:19 09/06/24 15:57 Range/Units Whole Blood Glucose 175 #H 70-110 MG/DL Sodium Level 141 136-145 mmol/L Potassium Level 3.1 L 3.5-5.1 mmol/L Chloride Level 103 101-111 mmol/L Carbon Dioxide Level 25 21-32 mmol/L Blood Urea Nitrogen 68 #H 7-18 mg/dL Creatinine 4.5 H 0.5-1.3 mg/dL Glomerular Filtration Rate Calc 14 >90 mL/min Random Glucose 109 H 70-105 mg/dL Total Calcium 8.5 8.5-10.1 mg/dL Phosphorus Level 5.8 H 2.5-4.9 mg/dL Total Bilirubin 0.7 # 0.2-1.0 mg/dL Aspartate Amino Transf (AST/SGOT) 20 10-37 U/L Alanine Aminotransferase (ALT/SGPT) 16 12-78 U/L Alkaline Phosphatase 116 50-136 U/L Total Protein 5.6 L 6.0-8.3 g/dL Albumin 2.7 L 3.5-5.0 g/dL Magnesium Level 1.70 L 1.80-2.40 mg/dL Hemoglobin A1c 7.1 H 4.0-6.0 % Estimated Average Glucose (eAG) 157 H 70-126 mg/dL Iron Level 29 L 65-175 mcg/dL Total Iron Binding Capacity 255 250-450 mcg/dL Percent Iron Saturation 11.3 L 30-44 % Ferritin 143 30-400 ng/mL Triglycerides Level 15 L 30-200 mg/dL Cholesterol Level 80 # <200 mg/dL LDL Cholesterol 36 0-99 mg/dL HDL Cholesterol 58 29-71 mg/dL Coagulation Labs: Test 09/07/24 03:19 Range/Units Prothrombin Time 12.4 H 9.6-11.6 SEC Prothromb Time International Ratio 1.12 0.85-1.15 Activated Partial Thromboplast Time 36.7 H 26.3-35.5 SEC DIAGNOSTICS / RADIOLOGY RESULTS: IMAGING REPORT Signed PATIENT: NEISHA BATISTA MR#: [id number] : 1955 SEX: M AGE: 69 LOCATION: 2DH ORDER 230 STATUS: ADM IN REPORT#: [id number] SERVICE [id number] REASON: hypoxic resp failure ORDERING PHYSICIAN: SHREE CORDOBA PROCEDURE: CXR1VW - CHEST 1VW CHEST 1VW HISTORY: Hypoxia COMPARISON: 09/06/2024 FINDINGS: A frontal projection of the chest was obtained. Mild bilateral pulmonary infiltrates are seen may be related to mild pulmonary vascular congestion with possible superimposed pneumonitis. Poststernotomy changes are seen. The heart is enlarged. Degenerative changes of the thoracolumbar spine are present. All the lines and tubes are again seen in place. Aortic calcifications are seen. IMPRESSION: 1. Mild bilateral pulmonary infiltrates are seen may be related to mild pulmonary vascular congestion with possible superimposed pneumonitis. DICTATED BY: GARFIELD BRAGA MD DATE: 09/08/24934 ELECTRONICALLY SIGNED BY: GARFIELD BRAGA MD DATE: 09/08/24939 PLAN wean O2 Patient will require 6 minute walk prior to discharge for home oxygen evaluation s/p [facility] with successful angioplasty and stenting to SVG to posterior descending artery 09/01. continue with ASA, statin and brilinta. Continue with Lasix 40 mg IV push b.i.d. and metolazone 2.5 mg Continue with Rocephin2 g daily Continue with doxycycline 100 mg b.i.d. Continue metoprolol 12.5 mg b.i.d. Continue amiodarone 300 mg daily We will discontinue patient's glipizide while in the hospital Case Management for DC planning and setting up HD chair , pt's preference [facility]. NEURO: Minimize central acting medications as possible. Maintain fall precautions, adequate lighting during the day PULMONARY: Supplemental 02 as needed. Maintain aspiration precautions at all times maintain o2 sats above 92% atrovent Tx's PRN wheezing or sob emperic CAP coverage singular 10mg po daily ABG if worsening respiratory failure CARDIOVASCULAR: Follow hemodynamics. Vital signs per facility protocol Telemetry monitoring Continue patient's cardiac meds including: Amiodarone 300 mg daily Ezetimibe 10 mg daily Diurese with Lasix Metolazone 2.5 mg Hold CARLOS/ARB due to CKD I&O Daily weights Fluid restriction of 1500 Aspirin Atorvastatin Brilinta Beta meagan GI & NUTRITION: Continue with nutritional support. Continue stool softeners and laxatives as needed. Heart healthy diet KIDNEYS & ELECTROLYTES: Strict monitoring of intake, output and overall fluid balance. Avoid nephrotoxic medications to the extent possible. Medications to be dosed according to renal function. Monitor electrolytes and replace as needed ENDOCRINE: Maintain blood glucose between 100-180 at all times. Hypoglycemia protocol in place Lantus 20units BID ISS INFECTIOUS DISEASE: Trend temperature, WBC and procalcitonin level Follow cultures, deescalate antibiotics as soon as possible. Panculture if new onset fever Doxy Rocephin for emperic CAP coverage ONCOLOGY/HEMATOLOGY/COAGULATION: Monitor for s/s of bleeding Monitor hemoglobin, coagulation studies as needed SKIN: Pressure ulcer prevention per facility protocol Specialty mattress ORTHO/REHAB: Continue PT/OT Prophylaxis: Continue GI and DVT prophylaxis Protonix Lovenox Code Status: Full Resuscitation Disposition: TBD Other: Total critical care time 35 minutes Case discussed with supervising physician plan of care agreed upon SHREE CORDOBA [facility] Sep 08, 2024 12:38
[2024-09-08] MEDS ORDERED: COMPOUND IV MISC 1 EACH IVSOLN MISC PRN (13:00)
--- NOTE | 2024-09-08 17:46 | NUR ---
BEBETO DUNCAN/AILYN TATE spoke to patient regarding o/p HD arrangements. Patient prefers placement at [facility]. CM obtained [facility]AAK and faxed referral. CM to f/u. Addendum: 09/08/24 at 1747 by CATY YOU CM Amended: Links added. Addendum: 09/08/24 at 1753 by CATY YOU CM PATIENT PREFERS MWF CHAIR 2ND SHIFT. BEBETO ALSO DISCUSSED TRANSPORTATION TO HD TREATMENTS. STATES HE PLANS ON DRIVING SELF.
[2024-09-09] VITALS (28 sets, daily range): BP systolic 106–131; BP diastolic 55–77; PULSE 62–114; RESP 16–20; TEMP 97.3–99.1; O2SAT 96–99
--- NOTE | 2024-09-09 00:40 | PN ---
NEPHROLOGY NOTE SUBJECTIVE: The patient has been evaluated and seen for dialysis and seen several times. No other associated finding. No other aggravating or relieving factors. The patient is weak. PHYSICAL EXAMINATION: GENERAL: Pale, no other distress, short of breath. VITAL SIGNS: Patient's blood pressure is 137/80, respiratory rate is 18, afebrile. HEENT: Head is atraumatic. Pupils are round and reactive. Sclerae are anicteric. Conjunctivae not pale. Oral mucosa is not dry. NECK: Supple. No masses, bruits. Thyroid is palpable. Neck has no bruits. CHEST: Shows equal thoracic percussion note being resonant. Diminished in both bases. CARDIAC: Regular rhythm, no rub, no S3, S4. No parasternal heave. LABORATORY DATA: Have been reviewed and old records reviewed. PROBLEMS: Renal failure, anemia, fluid overload. PLAN: To continue supportive care. Seen for dialysis multiple times. I reviewed the old records. We will continue monitoring. The patient was evaluated multiple times today. TID: [id number] RECEIPT: [id number]
--- NOTE | 2024-09-09 01:15 | PN ---
SUBJECTIVE: The patient has been evaluated and seen for dialysis and seen multiple times. The patient has renal failure, anemia and multiple other comorbidities. No fever, chills or rigors with no cough, expectoration, or hemoptysis. No abdominal pain, no nausea or vomiting. No other associated finding. No other aggravating or relieving factors. PHYSICAL EXAMINATION: GENERAL: Pale, no other distress or deformities, lying in bed. VITAL SIGNS: Blood pressure is 118/70, respiratory rate is 18. HEENT: Head is atraumatic. Pupils are round and reactive. Sclerae are anicteric. Conjunctivae not pale. Oral mucosa is not dry. NECK: Without masses, bruits. Thyroid is palpable. Neck has no bruits. LABORATORY DATA: Have been reviewed. Old records reviewed. PROBLEMS: Renal failure, anemia, end-stage renal disease, multiple other comorbidities. PLAN: To continue dialysis support. Follow up on renal function. Follow up on electrolytes. Intake, output, weight will be monitored. The patient was evaluated and seen for dialysis and seen several times. We will be monitoring closely. The patient was evaluated multiple times today. I have discussed with other team physicians. TID: [id number] RECEIPT: [id number]
[2024-09-09 05:06] LABS: HEMATOCRIT 38.3 % (42-54); MEAN CORPUSCULAR HEMOGLOBIN 30.4 pg (27.0-33.0); MEAN CORPUSCULAR HGB CONC 33.2 g/dL (32.0-36.0); MEAN CORPUSCULAR VOLUME 91.6 fL (79-99); RED BLOOD CELL COUNT(AUTO) 4.18 MIL/uL (4.50-6.20); RED CELL DISTRIBUTION WIDTH 14.7 % (11.0-15.5)
[2024-09-09 05:26] LABS: ALBUMIN 2.8 g/dL (3.5-5.0); BILIRUBIN,TOTAL 0.9 mg/dL (0.2-1.0); CREATININE 3.7 mg/dL (0.5-1.3); PHOSPHORUS 4.2 mg/dL (2.5-4.9); POTASSIUM 3.2 mmol/L (3.5-5.1)
--- NOTE | 2024-09-09 12:47 | PN ---
[facility] PROGRESS NOTE Date Patient Seen: Sep 09, 2024 Time of Visit: 12:47 Supervising Physician: Bello Miguel MD Primary Care Physician: Srinath Kumari MD Outpatient Specialists: Dr Maribel Higgins MD Inpatient Consults: Dr Maribel Higgins MD (Cardiology), Dr. Whitman (nephrology) PROBLEM LIST: Acute hypoxic respiratory failure, requiring supplemental oxygen via nasal cannula POA, NSTEMI, POA S/p LHC Left heart catheterization with stenting of the saphenous vein graft to the posterior descending artery 09/01 Acute renal failure secondary to ATN from LANIE vs CRS on CKD stage III, PO ( GFR 28 in 2019) S/P PermCath placement to right chest wall and HD 1st Tx on 09/07/24 Severe CAD s/p CABG 16yrs ago and 2nd CABG 10 yrs ago Acute on Chronic CHF exacerbation with ICM EF 25-30% s/p AICD placement, POA (BNP 1650) Suspected CAP, POA COPD exacerbation, POA,improved Lt > RT pleural effusion, POA , multifactorial Hyperglycemia in the presence of Type 2DM, POA Essential HTN Suspected BETTY, undiagnosed and untreated, POA INTERVAL HISTORY: Patient was seen and examined today by me at bedside continues to complain of shortness of breath continues with Lasix 40 mg q.12 hours , Chest x-ray to reveal bilateral effusions with left greater than the right small to moderate, improving. Of note does have congestive heart failure exacerbation with an EF of25 30% with stage III diastolic dysfunction and medications have been optimized by Dr. López Considerdation for dobutamine drip discussed with Dr. López as per recs by our team however at this time he would like to wait and see how he comes along .Should he not improve Dr. López would prefer milrinone. We greatly appreciate his input in this interesting case. For now we will continue to monitor his effusions , he is on 2L via [place] + orthopnea 09/03 patient is sitting up in the chair not in acute distress. He reported that he is still out of breath with exertion. He remains on 2 L of oxygen nasal cannula. Creatinine is worsening, creatinine is 2.8 up from 2.5. we will start patient on inotrope with Milrinone drip. Continue to monitor I/O. 09/04 patient is up in the chair dangling his legs which are markedly more edematous since yesterday. Venous Doppler negative. This is likely from fluid retention in related to worsening MAHESH, creatinine is 4.1 this is up from 2.8 yesterday. He was started on inotrope Milrinone. Given worsening renal function and urine output is minimal, We will discontinue Milrinone because he is not responding to inotrope. He likely has cardiorenal syndrome vs LANIE. Continue with diuretic Lasix. Continue to follow renal function very closely. Otherwise continue current regimen. Nephrology is following. 09/05 patient is sitting up at the recliner not in acute distress. He stated that he is able to ambulate though with shortness of breath. His bilateral lower extremity are still edematous. His remarkable lab studies this morning with creatinine up to 5.2 from 4.1. He put out 500 cc with balance +79 cc. Diuretic. He also has moved his bowel. He remains on 2 L nasal cannula with sats 98%. Continue to trend renal function. Will need 6 minute walk prior to discharge. 09/06 patient is awake alert oriented x3 no acute event overnight. Patient had decided to go ahead and do dialysis given worsening renal function. Patient's lower extremities edema is worsened. Patient has put out only 1.2 L of urine. We will ask IR to place dialysis catheter and Nephrology to start patient on hemodialysis. Case management to arrange for chair for outpatient dialysis. 09/07-patient is awake alert and oriented x3 hemodynamically stable afebrile saturating 99% on room air. Pending a PermCath placement. And dialysis scheduled for later on today. CBC unremarkable similar to yesterday. Magnesium was 1.7 replace per protocol BUN 88 creatinine 5.9 GFR 10 consistent with ESRD. PT is 12.4 INR 1.12, P APTT 36.7. We will follow Nephrology recommendations in regards to hemodialysis. 09/08- patient is awake alert and oriented x3 he is in good spirits his family at bedside hemodynamically stable with a blood pressure of 128/72 heart rate in the 70s respiratory rate of 16 saturating 99% on room air and afebrile. He tolerated his hemodialysis treatment yesterday in which the pulled 1.3 L. On laboratory H&H is 12.6/38.1 and platelet count is [id number]. Chemistries sodium is 141 potassium 3.1 covered per protocol with BUN 68 creatinine of 4.5 and GFR 14 consistent with his ESRD glucose 109 mg/dL with a phosphorus 5.8 total protein 5.6 albumin 2.7. On chest x-ray mild bilateral pulmonary infiltrates are seen may be related to mild pulmonary vascular congestion with possible superimposed pneumonitis. Nephrology plans for another hemodialysis treatment for today. Case management spoke to patient regarding HD arrangement patient's preference is to have a chair at [facility]. 09/09-patient is awake alert and oriented x3 sitting up in recliner chair. Appears to be in good spirits afebrile heart rate in the 70s hemodynamically stable with a blood pressure 115/72 saturating 96% on room air. He has passed 6 minute walk. Patient received dialysis yesterday with a 2nd time with 2.2 L out and pending dialysis for today as well. Per nephrology recommendations consult CV surgery for possible AV fistula placement or graft placement. Pending to see. Otherwise as per case management patient already has a chair at [facility]. REVIEW OF SYSTEMS: 12 Point ROS reviewed with patient and were positive only as per HPI. Pertinent + and negative listed above all others negative PHYSICAL EXAM: GENERAL: alert, weak, awake oriented x 3 HEENT: EOMI, Sclera non icteric, moist mucosa NECK: Supple, no JVD, trachea midline LUNGS: Lung sounds clear to bilateral bases. No wheezes HEART: Regular rate and rhythm. Normal S1 and S2, without murmurs ABD: Abdomen soft obese, nontender. Bowel sounds present EXT: No clubbing cyanosis plus 1 pitting edema to bilateral lower extremities NEURO: Alert and oriented to person, follows commands , calm at time of my evaluation Vital Signs (last 8hr) Date Time Temp Pulse Resp B/P (MAP) Pulse Ox O2 Delivery O2 Flow Rate FiO2 09/09/24 11:00 98.1 62 20 119/73 98 Room Air 09/09/24 09:41 130/69 09/09/24 08:48 72 18 N/A Room Air 21 09/09/24 08:00 96 Room Air* 0 21 09/09/24 07:14 71 18 09/09/24 07:00 98.1 70 20 130/69 96 Room Air LABS: Hematology Labs: Test 09/09/24 04:39 Range/Units White Blood Count 7.0 4.8-10.8 K/uL Red Blood Count 4.18 L 4.50-6.20 MIL/uL Hemoglobin 12.7 L 14.0-18.0 g/dL Hematocrit 38.3 L 42-54 % Mean Corpuscular Volume 91.6 79-99 fL Mean Corpuscular Hemoglobin 30.4 27.0-33.0 pg Mean Corpuscular Hemoglobin Concent 33.2 32.0-36.0 g/dL Red Cell Distribution Width 14.7 11.0-15.5 % Platelet Count 161 130-400 K/uL Mean Platelet Volume 12.2 H 7.5-10.5 fL Nucleated Red Blood Cells 0.0 0.0-0.19 % Chemistry Labs: Test 09/09/24 10:46 09/09/24 04:39 Range/Units Whole Blood Glucose 207 #H 70-110 MG/DL Bedside Glucose Comment Notified Nurse Sodium Level 140 136-145 mmol/L Potassium Level 3.2 L 3.5-5.1 mmol/L Chloride Level 102 101-111 mmol/L Carbon Dioxide Level 29 21-32 mmol/L Blood Urea Nitrogen 54 H 7-18 mg/dL Creatinine 3.7 H 0.5-1.3 mg/dL Glomerular Filtration Rate Calc 17 >90 mL/min Random Glucose 90 70-105 mg/dL Total Calcium 8.9 8.5-10.1 mg/dL Phosphorus Level 4.2 2.5-4.9 mg/dL Total Bilirubin 0.9 0.2-1.0 mg/dL Aspartate Amino Transf (AST/SGOT) 24 10-37 U/L Alanine Aminotransferase (ALT/SGPT) 17 12-78 U/L Alkaline Phosphatase 118 50-136 U/L Total Protein 6.0 6.0-8.3 g/dL Albumin 2.8 L 3.5-5.0 g/dL DIAGNOSTICS / RADIOLOGY RESULTS: [ ] PLAN wean O2 Passed 6 min walk. s/p C with successful angioplasty and stenting to SVG to posterior descending artery 09/01. continue with ASA, statin and brilinta. Continue with Lasix 40 mg IV push b.i.d. and metolazone 2.5 mg Continue with Rocephin2 g daily Continue with doxycycline 100 mg b.i.d. Continue metoprolol 12.5 mg b.i.d. Continue amiodarone 300 mg daily We will discontinue patient's glipizide while in the hospital Per Case Management pt has a chair in [facility]. Per Nepology recs consult CV for possible AV fistula, preferably a graft Poor long-term prognosis. Consider palliative. NEURO: Minimize central acting medications as possible. Maintain fall precautions, adequate lighting during the day PULMONARY: Supplemental 02 as needed. Maintain aspiration precautions at all times maintain o2 sats above 92% atrovent Tx's PRN wheezing or sob emperic CAP coverage singular 10mg po daily ABG if worsening respiratory failure CARDIOVASCULAR: Follow hemodynamics. Vital signs per facility protocol Telemetry monitoring Continue patient's cardiac meds including: Amiodarone 300 mg daily Ezetimibe 10 mg daily Diurese with Lasix Metolazone 2.5 mg Hold CARLOS/ARB due to CKD I&O Daily weights Fluid restriction of 1500 Aspirin Atorvastatin Brilinta Beta meagan GI & NUTRITION: Continue with nutritional support. Continue stool softeners and laxatives as needed. Heart healthy diet KIDNEYS & ELECTROLYTES: Strict monitoring of intake, output and overall fluid balance. Avoid nephrotoxic medications to the extent possible. Medications to be dosed according to renal function. Monitor electrolytes and replace as needed ENDOCRINE: Maintain blood glucose between 100-180 at all times. Hypoglycemia protocol in place Lantus 20units BID ISS INFECTIOUS DISEASE: Trend temperature, WBC and procalcitonin level Follow cultures, deescalate antibiotics as soon as possible. Panculture if new onset fever Doxy Rocephin for emperic CAP coverage ONCOLOGY/HEMATOLOGY/COAGULATION: Monitor for s/s of bleeding Monitor hemoglobin, coagulation studies as needed SKIN: Pressure ulcer prevention per facility protocol Specialty mattress ORTHO/REHAB: Continue PT/OT Prophylaxis: Continue GI and DVT prophylaxis Protonix Lovenox Code Status: Full Resuscitation Disposition: TBD Other: Total critical care time 35 minutes Case discussed with supervising physician plan of care agreed upon SHREE CORDOBA Sep 09, 2024 12:47
--- NOTE | 2024-09-09 17:22 | NUR ---
CM NOTE/DAVITA APPROVED CM spoke to Sulma with [facility]. Verified patient is approved for MWF @ 230 pm. CM provided copy of welcome letter to patient and primary nurse. Virgil Morgan SURFACE MINER updated with approval. Dr. Dickerson also updated. States patient will need AV access surgery prior to d/c.
--- NOTE | 2024-09-09 20:51 | PN ---
NEPHROLOGY NOTE SUBJECTIVE: The patient has been evaluated and seen for dialysis and seen multiple times. The patient is generally weak. No other associated finding. No other aggravating or relieving factor. The patient is critically ill. He is short of breath. He has CHF, severe cardiomyopathy and he will need possible AV access. We have discussed with other care team assistant. PHYSICAL EXAMINATION: GENERAL: Pale, no other distress or deformities, lying in bed. VITAL SIGNS: Blood pressure is 117/74, pulse 70, respiratory rate 16. HEENT: Head is atraumatic. Pupils are round and reactive. Sclerae are anicteric. Conjunctivae not pale. Oral mucosa is not dry. NECK: Supple. No masses or bruits. Thyroid is palpable. Neck has no bruits. LABORATORY DATA: Labs have been reviewed. Old records are reviewed and imaging studies are personally reviewed. PROBLEMS: Renal failure, anemia and underlying other comorbidities, underlying coronary artery disease and cardiomyopathy, atrial fibrillation. PLAN: Continue dialysis support. Outpatient dialysis being arranged. Meanwhile, the patient will be better served by having AV access also, seen several times. Doses of medicine to be adjusted. Diuretics can be soon stopped because of dialysis and fluid status management. Doses of antihypertensives can be adjusted depending on the blood pressure now. Seen for dialysis multiple times. TID: [id number] RECEIPT: [id number]
--- NOTE | 2024-09-09 21:11 | PN ---
NEPHROLOGY NOTE SUBJECTIVE: This patient has been evaluated and seen for dialysis and seen several times. The patient has no fever, chills, or rigors. No cough, expectoration, or hemoptysis. No abdominal pain, no nausea. PHYSICAL EXAMINATION: GENERAL: Pale, no other distress or deformities, lying in bed. VITAL SIGNS: Blood pressure is 128/70, respiratory rate is 18, afebrile. HEENT: Head is atraumatic. Pupils are round and reactive. LABORATORY DATA: We have reviewed available labs in detail. Old records reviewed. PROBLEMS: Renal failure, anemia, multiple other comorbidities. The patient has underlying diabetes, cardiomyopathy, and congestive heart failure. PLAN: Continue dialysis support. Seen for dialysis multiple times. We will be following up closely. Condition remained guarded. Thank you for this patient. TID: [id number] RECEIPT: [id number]
--- NOTE | 2024-09-09 22:32 | HMCIMG ---
US VEIN MAPPING UNI/LTD HISTORY: Preop COMPARISON: None TECHNIQUE: Ultrasound of left upper extremity venous mapping study was performed for hemodialysis access. FINDINGS: Noncompressible thrombi are seen in the proximal portion of the left basilic vein consistent with superficial thrombophlebitis. Noncompressible thrombus are noted in the left axillary vein consistent with deep venous spondylosis. Left cephalic vein High upper arm: 11 x 3 millimeter Mid upper arm: 4 x 3 millimeter Low upper arm: 8 x 3 millimeter High forearm: 5 x 3 millimeter Mid forearm: 5 x 3 millimeter Low forearm: 2 x 3 millimeter Left basilic vein Upper arm: 8 x 6 millimeter Lower arm: 5 x 6 millimeter Antecubital fossa: 4 x 4 millimeter IMPRESSION: 1. Noncompressible thrombi are seen in the proximal portion of the left basilic vein consistent with superficial thrombophlebitis. Noncompressible thrombus are noted in the left axillary vein consistent with deep venous spondylosis. Ultrasound upper extremity venous mapping study as described above.
--- NOTE | 2024-09-09 23:25 | NUR ---
Fistula Mapping Results DVT finding reported to Miguel BAKER, no orders given at this time. Continue Brilinta PO, already given. Addendum: 09/10/24 at 0434 by MENA BARNEY RN RN 09/10/24 Leanna Rivera NP ordered for Heparin Subcutaneous 250 units per kg every 12 hours to be given for DVT treatment, pharmacy to dose
[2024-09-10] VITALS (13 sets, daily range): BP systolic 103–119; BP diastolic 54–68; PULSE 64–78; RESP 16–20; TEMP 97.9–98.7; O2SAT 96–98
[2024-09-10] MEDS ORDERED: PHARMACY COMMUNICATION MISC SCH
[2024-09-10] MEDS: HEParin 5,000 UNIT VIAL SQ SCH (00:59)
[2024-09-10 03:53] LABS: BASOPHILS # (AUTO) 0.02 K/uL (0.00-0.20); BASOPHILS % (AUTO) 0.3 % (0.0-5.0); EOSINOPHILS % (AUTO) 2.6 % (0.0-8.0); IMMATURE GRANULOCYTE ABSOLUTE 0.04 K/uL (0-1); LYMPHOCYTES # (AUTO) 0.4 K/uL (1.0-4.8); LYMPHOCYTES % (AUTO) 5.6 % (21.0-51.0); MEAN CORPUSCULAR HEMOGLOBIN 29.4 pg (27.0-33.0); MEAN CORPUSCULAR HGB CONC 32.3 g/dL (32.0-36.0); MEAN CORPUSCULAR VOLUME 91.1 fL (79-99); MONOCYTES # (AUTO) 0.8 K/uL (0.1-1.0); MONOCYTES % (AUTO) 10.5 % (3.0-13.0); NEUTROPHILS # (AUTO) 6.2 K/uL (1.8-7.7); NEUTROPHILS % (AUTO) 80.5 % (40.0-77.0); NUCLEATED RED BLOOD CELLS 0.3 % (0.0-0.19); PLATELET COUNT (AUTO) 165 K/uL (130-400); RED BLOOD CELL COUNT(AUTO) 4.28 MIL/uL (4.50-6.20); RED CELL DISTRIBUTION WIDTH 14.7 % (11.0-15.5); WHITE BLOOD COUNT (AUTO) 7.6 K/uL (4.8-10.8)
[2024-09-10 04:05] LABS: INR 1.14 (0.85-1.15); PROTHROMBIN TIME 12.6 SEC (9.6-11.6)
[2024-09-10 04:10] LABS: ALBUMIN 2.8 g/dL (3.5-5.0); BILIRUBIN,TOTAL 0.9 mg/dL (0.2-1.0); CREATININE 3.2 mg/dL (0.5-1.3); MAGNESIUM 1.6 mg/dL (1.80-2.40); PHOSPHORUS 3.6 mg/dL (2.5-4.9); TOTAL PROTEIN, SERUM 6.2 g/dL (6.0-8.3)
[2024-09-10 04:16] LABS: POTASSIUM 2.9 mmol/L (3.5-5.1)
[2024-09-10 04:22] LABS: PARTIAL THROMBOPLASTIN TIME 97.1 SEC (26.3-35.5)
--- NOTE | 2024-09-10 12:40 | PN ---
[facility] PROGRESS NOTE Date Patient Seen: Sep 10, 2024 Time of Visit: 12:40 Supervising Physician: Sebastian Nolasco MD Primary Care Physician: Srinath Kumari MD Outpatient Specialists: Dr Maribel Higgins MD Inpatient Consults: Dr Maribel Higgins MD (Cardiology), Dr. Whitman (nephrology) PROBLEM LIST: Acute hypoxic respiratory failure, requiring supplemental oxygen via nasal cannula POA, resolved Left upper extremity DVT on vein mapping 09/10/24. NSTEMI, POA S/p C Left heart catheterization with stenting of the saphenous vein graft to the posterior descending artery 09/01 Acute renal failure secondary to ATN from LANIE vs CRS on CKD stage III, PO ( GFR 28 in 2019) S/P PermCath placement to right chest wall and HD 1st Tx on 09/07/24 Severe CAD s/p CABG 16yrs ago and 2nd CABG 10 yrs ago Acute on Chronic CHF exacerbation with ICM EF 25-30% s/p AICD placement, POA (BNP 1650) Suspected CAP, POA COPD exacerbation, POA,improved Lt > RT pleural effusion, POA , multifactorial Hyperglycemia in the presence of Type 2DM, POA Essential HTN Suspected BETTY, undiagnosed and untreated, POA INTERVAL HISTORY: Patient was seen and examined today by me at bedside continues to complain of shortness of breath continues with Lasix 40 mg q.12 hours , Chest x-ray to reveal bilateral effusions with left greater than the right small to moderate, improving. Of note does have congestive heart failure exacerbation with an EF of25 30% with stage III diastolic dysfunction and medications have been optimized by Dr. López Considerdation for dobutamine drip discussed with Dr. López as per recs by our team however at this time he would like to wait and see how he comes along .Should he not improve Dr. López would prefer milrinone. We greatly appreciate his input in this interesting case. For now we will continue to monitor his effusions , he is on 2L via [place] + orthopnea 09/03 patient is sitting up in the chair not in acute distress. He reported that he is still out of breath with exertion. He remains on 2 L of oxygen nasal cannula. Creatinine is worsening, creatinine is 2.8 up from 2.5. we will start patient on inotrope with Milrinone drip. Continue to monitor I/O. 09/04 patient is up in the chair dangling his legs which are markedly more edematous since yesterday. Venous Doppler negative. This is likely from fluid retention in related to worsening MAHESH, creatinine is 4.1 this is up from 2.8 yesterday. He was started on inotrope Milrinone. Given worsening renal function and urine output is minimal, We will discontinue Milrinone because he is not responding to inotrope. He likely has cardiorenal syndrome vs LANIE. Continue with diuretic Lasix. Continue to follow renal function very closely. Otherwise continue current regimen. Nephrology is following. 09/05 patient is sitting up at the recliner not in acute distress. He stated that he is able to ambulate though with shortness of breath. His bilateral lower extremity are still edematous. His remarkable lab studies this morning with creatinine up to 5.2 from 4.1. He put out 500 cc with balance +79 cc. Diuretic. He also has moved his bowel. He remains on 2 L nasal cannula with sats 98%. Continue to trend renal function. Will need 6 minute walk prior to discharge. 09/06 patient is awake alert oriented x3 no acute event overnight. Patient had decided to go ahead and do dialysis given worsening renal function. Patient's lower extremities edema is worsened. Patient has put out only 1.2 L of urine. We will ask IR to place dialysis catheter and Nephrology to start patient on hemodialysis. Case management to arrange for chair for outpatient dialysis. 09/07-patient is awake alert and oriented x3 hemodynamically stable afebrile saturating 99% on room air. Pending a PermCath placement. And dialysis scheduled for later on today. CBC unremarkable similar to yesterday. Magnesium was 1.7 replace per protocol BUN 88 creatinine 5.9 GFR 10 consistent with ESRD. PT is 12.4 INR 1.12, P APTT 36.7. We will follow Nephrology recommendations in regards to hemodialysis. 09/08- patient is awake alert and oriented x3 he is in good spirits his family at bedside hemodynamically stable with a blood pressure of 128/72 heart rate in the 70s respiratory rate of 16 saturating 99% on room air and afebrile. He tolerated his hemodialysis treatment yesterday in which the pulled 1.3 L. On laboratory H&H is 12.6/38.1 and platelet count is 256352. Chemistries sodium is 141 potassium 3.1 covered per protocol with BUN 68 creatinine of 4.5 and GFR 14 consistent with his ESRD glucose 109 mg/dL with a phosphorus 5.8 total protein 5.6 albumin 2.7. On chest x-ray mild bilateral pulmonary infiltrates are seen may be related to mild pulmonary vascular congestion with possible superimposed pneumonitis. Nephrology plans for another hemodialysis treatment for today. Case management spoke to patient regarding HD arrangement patient's preference is to have a chair at [facility]. 09/09-patient is awake alert and oriented x3 sitting up in recliner chair. Appears to be in good spirits afebrile heart rate in the 70s hemodynamically stable with a blood pressure 115/72 saturating 96% on room air. He has passed 6 minute walk. Patient received dialysis yesterday with a 2nd time with 2.2 L out and pending dialysis for today as well. Per nephrology recommendations consult CV surgery for possible AV fistula placement or graft placement. Pending to see. Otherwise as per case management patient already has a chair at [facility]. 09/10-patient is awake alert and oriented x3. He was on heparin due to noncompressible thrombus seen in the proximal portion of the left basilic vein c onsistent with superficial thrombophlebitis and noncompressible thrombus are noted in the left axillary vein consistent with deep venous spondylosis. Ultrasound upper extremity venous mapping study as described above. APTT was elevated this morning. Holding heparin. We will redraw APTT this afternoon. Patient with some bleeding from PermCath site controlled. CV surgery followed up with patient this afternoon and decided that we will wait for permanent AV fistula or graft placement. No further procedures this admission per CV. Nephrology cleared after hemodialysis tomorrow. Likely discharge in the morning. Otherwise CBC unremarkable and chemistry consistent with ESRD. I have spoken to the patient and explained to him the importance of continuation of anticoagulation with Eliquis. He understands the risk of stopping anticoagulation including stroke or from occluded stent. He also understands the risk of bleeding associated with the use of anticoagulants but we discussed that in this case that benefits outweighed the risk and he agrees to continue Eliquis and follow-up with the cardiology clinic. He is fully awake and oriented at the time of my conversation. We had given him prescription for Eliquis.. REVIEW OF SYSTEMS: 12 Point ROS reviewed with patient and were positive only as per HPI. Pertinent + and negative listed above all others negative PHYSICAL EXAM: GENERAL: alert, weak, awake oriented x 3 HEENT: EOMI, Sclera non icteric, moist mucosa NECK: Supple, no JVD, trachea midline LUNGS: Lung sounds clear to bilateral bases. No wheezes HEART: Regular rate and rhythm. Normal S1 and S2, without murmurs ABD: Abdomen soft obese, nontender. Bowel sounds present EXT: No clubbing cyanosis plus 1 pitting edema to bilateral lower extremities NEURO: Alert and oriented to person, follows commands , calm at time of my evaluation Vital Signs (last 8hr) Date Time Temp Pulse Resp B/P (MAP) Pulse Ox O2 Delivery O2 Flow Rate FiO2 09/10/24 11:00 98.1 70 20 109/62 97 Room Air 09/10/24 08:00 96 Room Air* 0 21 09/10/24 07:26 70 18 09/10/24 07:26 70 18 N/A Room Air 21 09/10/24 07:00 98.1 78 20 106/63 96 Room Air LABS: Hematology Labs: Test 09/10/24 03:24 Range/Units White Blood Count 7.6 4.8-10.8 K/uL Red Blood Count 4.28 L 4.50-6.20 MIL/uL Hemoglobin 12.6 L 14.0-18.0 g/dL Hematocrit 39.0 L 42-54 % Mean Corpuscular Volume 91.1 79-99 fL Mean Corpuscular Hemoglobin 29.4 27.0-33.0 pg Mean Corpuscular Hemoglobin Concent 32.3 32.0-36.0 g/dL Red Cell Distribution Width 14.7 11.0-15.5 % Platelet Count 165 130-400 K/uL Mean Platelet Volume 11.6 H 7.5-10.5 fL Immature Granulocyte % (Auto) 0.5 0-1 % Neutrophils (%) (Auto) 80.5 H 40.0-77.0 % Lymphocytes (%) (Auto) 5.6 L 21.0-51.0 % Monocytes (%) (Auto) 10.5 3.0-13.0 % Eosinophils (%) (Auto) 2.6 0.0-8.0 % Basophils (%) (Auto) 0.3 0.0-5.0 % Neutrophils # (Auto) 6.2 1.8-7.7 K/uL Lymphocytes # (Auto) 0.4 L 1.0-4.8 K/uL Monocytes # (Auto) 0.8 0.1-1.0 K/uL Eosinophils # (Auto) 0.20 0.00-0.70 K/uL Basophils # (Auto) 0.02 0.00-0.20 K/uL Absolute Immature Granulocyte (auto 0.04 0-1 K/uL Nucleated Red Blood Cells 0.3 H 0.0-0.19 % Chemistry Labs: Test 09/10/24 10:52 09/10/24 03:24 Range/Units Whole Blood Glucose 154 #H 70-110 MG/DL Bedside Glucose Comment Notified Nurse Sodium Level 138 136-145 mmol/L Potassium Level 2.9 *L 3.5-5.1 mmol/L Chloride Level 101 101-111 mmol/L Carbon Dioxide Level 30 21-32 mmol/L Blood Urea Nitrogen 42 H 7-18 mg/dL Creatinine 3.2 H 0.5-1.3 mg/dL Glomerular Filtration Rate Calc 20 >90 mL/min Random Glucose 75 70-105 mg/dL Total Calcium 8.7 8.5-10.1 mg/dL Phosphorus Level 3.6 2.5-4.9 mg/dL Magnesium Level 1.60 L 1.80-2.40 mg/dL Total Bilirubin 0.9 0.2-1.0 mg/dL Aspartate Amino Transf (AST/SGOT) 25 10-37 U/L Alanine Aminotransferase (ALT/SGPT) 16 12-78 U/L Alkaline Phosphatase 125 50-136 U/L Total Protein 6.2 6.0-8.3 g/dL Albumin 2.8 L 3.5-5.0 g/dL Coagulation Labs: Test 09/10/24 03:24 Range/Units Prothrombin Time 12.6 H 9.6-11.6 SEC Prothromb Time International Ratio 1.14 0.85-1.15 Activated Partial Thromboplast Time 97.1 *H 26.3-35.5 SEC DIAGNOSTICS / RADIOLOGY RESULTS: [ ] PLAN Passed 6 min walk. s/p [facility] with successful angioplasty and stenting to SVG to posterior descending artery 09/01. continue with ASA, statin and brilinta. Continue with Rocephin2 g daily Continue with doxycycline 100 mg b.i.d. Continue metoprolol 12.5 mg b.i.d. Continue amiodarone 300 mg daily We will discontinue patient's glipizide while in the hospital Per Case Management pt has a chair in [facility]. Per CV surgery we will wait for a fistula or graft placement not in this admission. Poor long-term prognosis. Consider palliative. Nephrology cleared for discharge tomorrow after hemodialysis 09/11/24. Start Eliquis 2.5 mg p.o. b.i.d. for DVT to left upper extremity. Patient will continue on recommended medication with aspirin and Brilinta. Stop aspirin after 30 days. NEURO: Minimize central acting medications as possible. Maintain fall precautions, adequate lighting during the day PULMONARY: Supplemental 02 as needed. Maintain aspiration precautions at all times maintain o2 sats above 92% atrovent Tx's PRN wheezing or sob emperic CAP coverage singular 10mg po daily ABG if worsening respiratory failure CARDIOVASCULAR: Follow hemodynamics. Vital signs per facility protocol Telemetry monitoring Continue patient's cardiac meds including: Amiodarone 300 mg daily Ezetimibe 10 mg daily Diurese with Lasix Metolazone 2.5 mg Hold CARLOS/ARB due to CKD I&O Daily weights Fluid restriction of 1500 Aspirin Atorvastatin Brilinta Beta meagan GI & NUTRITION: Continue with nutritional support. Continue stool softeners and laxatives as needed. Heart healthy diet KIDNEYS & ELECTROLYTES: Strict monitoring of intake, output and overall fluid balance. Avoid nephrotoxic medications to the extent possible. Medications to be dosed according to renal function. Monitor electrolytes and replace as needed ENDOCRINE: Maintain blood glucose between 100-180 at all times. Hypoglycemia protocol in place Lantus 20units BID ISS INFECTIOUS DISEASE: Trend temperature, WBC and procalcitonin level Follow cultures, deescalate antibiotics as soon as possible. Panculture if new onset fever Doxy Rocephin for emperic CAP coverage ONCOLOGY/HEMATOLOGY/COAGULATION: Monitor for s/s of bleeding Monitor hemoglobin, coagulation studies as needed SKIN: Pressure ulcer prevention per facility protocol Specialty mattress ORTHO/REHAB: Continue PT/OT Prophylaxis: Continue GI and DVT prophylaxis Protonix Lovenox Code Status: Full Resuscitation Disposition: TBD Other: Total critical care time 35 minutes Case discussed with supervising physician plan of care agreed upon SHREE CORDOBA [facility] Sep 10, 2024 12:40
[2024-09-10 13:27] LABS: CREATININE 3.5 mg/dL (0.5-1.3)
[2024-09-10 13:29] LABS: INR 1.1 (0.85-1.15); PROTHROMBIN TIME 12.2 SEC (9.6-11.6)
[2024-09-10 13:31] LABS: PARTIAL THROMBOPLASTIN TIME 49.5 SEC (26.3-35.5)
[2024-09-10 13:34] LABS: POTASSIUM 2.9 mmol/L (3.5-5.1)
--- NOTE | 2024-09-10 15:22 | PN ---
NEPHROLOGY PROGRESS NOTE Date/Time Patient Seen: Sep 10, 2024 SUBJECTIVE: This is a 69-year-old male with a past medical history of two CABGs last one 10 years ago, HFrEF of 20% status post AICD, COPD, CKD stage 3, essential hypertension, obesity, and type 2 diabetes mellitus. He presented to the emergency department today for progressive increasing shortness of breath with minimal exertion, and orthopnea that started this morning. He has been in the hospital for several days Was admitted further evaluation and management of NSTEMI. Echocardiogram showed LVEF of 25-30%. Stage III diastolic dysfunction He is S/p left heart catheterization with stenting of the saphenous vein graft to the posterior descending artery on 09/01/2024. He was noted to have worsening renal function. We has been consulted for renal failure. Renal function continued to worsen Patient has agreed to start renal replacement therapy He has been tolerating dialysis without difficulty. Outpatient dialysis chair at [facility] Pending CV surgeon recommendations regarding AV access placement. He was seen in the telemetry floor, in no acute distress Family at the bedside Prognosis remains guarded REVIEW OF SYSTEMS: GENERAL: Positive for lower extremity edema and shortness of breath NEUROLOGIC: Negative for any blurry vision, blind spots, double vision, facial asymmetry, dysphagia, dysarthria, hemiparesis, hemisensory deficits, vertigo, ataxia. HEENT: Negative for any head trauma, neck trauma, neck stiffness, photophobia, phonophobia, sinusitis, rhinitis. CARDIAC: Negative for any chest pain, dyspnea on exertion, paroxysmal nocturnal dyspnea, peripheral edema. PULMONARY: Negative for any shortness of breath, wheezing, COPD, or TB exposure. GASTROINTESTINAL: Negative for any abdominal pain, nausea, vomiting, bright red blood per rectum, melena. GENITOURINARY: Negative for any dysuria, hematuria, incontinence. INTEGUMENTARY: Negative for any rashes, cuts, insect bites. RHEUMATOLOGIC: Negative for any joint pains, photosensitive rashes, history of vasculitis or kidney problems. HEMATOLOGIC: Negative for any abnormal bruising, frequent infections or bleeding. Vital Signs (last 8hr) Date Time Temp Pulse Resp B/P (MAP) Pulse Ox O2 Delivery O2 Flow Rate FiO2 09/06/24 14:09 71 20 09/06/24 11:30 98.4 71 16 123/77 100 Nasal Cannula 2.0 100 09/06/24 09:29 13/65 09/06/24 08:50 96 Room Air* 0 21 PHYSICAL EXAM: GENERAL: Alert and oriented x 3. No acute distress. Well-nourished. EYES: EOMI. Anicteric. HENT: Moist mucous membranes. No scleral icterus. No cervical lymphadenopathy. LUNGS: Clear to auscultation bilaterally. No accessory muscle use. CARDIOVASCULAR: Regular rate and rhythm. No murmur. No JVD. ABDOMEN: Soft, non-tender and non-distended. No palpable masses. EXTREMITIES: 2+ edema. Non-tender. SKIN: No rashes or lesions. Warm. NEUROLOGIC: No focal neurological deficits. CN II-XII grossly intact, but not individually tested. PSYCHIATRIC: Cooperative. Appropriate mood and affect. Current Medications Medications (Trade) Dose Ordered Sig/Joellen Route Start Time Stop Time Status Last Admin Dose Admin Allopurinol (ZYLOprim 300MG) 300 mg DAILY PO 08/29/24 09:00 09/28/24 08:59 09/06/24 09:28 300 MG Amiodarone HCl (pacERONE 200MG) 300 mg DAILY PO 08/29/24 09:00 09/28/24 08:59 09/06/24 09:31 300 MG Aspirin (Aspirin 81mg Chew Tab) 81 mg DAILY PO 09/02/24 09:00 10/02/24 08:59 09/06/24 09:31 81 MG Aspirin (Aspirin 81mg Ec Tab) 81 mg DAILY PO 08/29/24 13:30 09/01/24 14:07 DC 08/31/24 09:05 81 MG Atorvastatin Calcium (LIPItor 40MG) 40 mg HS PO 08/29/24 21:00 09/28/24 20:59 09/05/24 20:37 40 MG Carvedilol (Coreg 12.5MG) 12.5 mg BID PO 09/02/24 09:00 10/02/24 08:59 09/06/24 09:29 12.5 MG Ceftriaxone Sodium (ROCEphine 1G INJ) 2 gm Q24H IVP 08/28/24 14:30 09/03/24 13:41 DC 09/02/24 15:44 2 GM Ceftriaxone Sodium (Rocephin 2gm Inj) 2 gm Q24H IVP 09/03/24 14:00 09/07/24 14:29 09/05/24 14:05 2 GM Doxycycline Hyclate (Doxycycline 100mg+NS 250ml) 100 mg BID IV 08/28/24 21:00 08/29/24 20:17 MA 08/29/24 09:27 100 MG Doxycycline Hyclate (Doxycycline 100mg+NS 250ml) 100 mg Q12H IV 08/30/24 05:00 09/09/24 04:59 09/06/24 04:09 100 MG Enoxaparin Sodium (Lovenox) 30 mg DAILY SQ 08/31/24 09:00 09/01/24 11:34 MA 08/31/24 09:04 30 MG Enoxaparin Sodium (Lovenox) 30 mg DAILY SQ 08/29/24 09:00 08/28/24 18:38 DC EZETIMIBE (Zetia) 10 mg DAILY PO 08/29/24 09:00 09/28/24 08:59 09/06/24 09:32 10 MG Furosemide (LASix 20MG VIAL) 20 mg Q8H IV 08/28/24 14:30 08/29/24 16:30 MA 08/29/24 05:51 20 MG Furosemide (LASix 40MG VIAL) 40 mg Q12H IV 08/29/24 20:00 09/28/24 19:59 09/06/24 09:28 40 MG Glipizide (GLUCOtrol XL 5MG TAB) 5 mg DAILY PO 08/29/24 09:00 08/30/24 13:55 MA 08/30/24 09:24 5 MG Heparin Sodium/ Dextrose 250 ml @ 0 mls/hr PROTOCOL IV 08/28/24 19:00 08/29/24 14:07 MA 08/29/24 03:03 0 MLS/HR Heparin Sodium/ Dextrose 250 ml @ 0 mls/hr Q6H IV 08/29/24 22:00 08/30/24 02:00 MA 08/29/24 21:34 12.38 MLS/HR Home Med (Home Medication) (Vitamin D2) (Katheryn... QWEEK PO 09/04/24 09:00 10/04/24 08:59 Hydralazine HCl ([id number] TAB) 12.5 mg TID PO 09/02/24 09:00 10/02/24 08:59 09/06/24 09:31 12.5 MG Insulin Glargine (LANtus 100 UNITS/ML 10 ML VIAL) 20 units BID@0730,2100 SQ 08/28/24 21:00 09/27/24 20:59 09/05/24 20:33 20 UNITS Insulin Human Regular (humuLIN R 100 UNIT/ML 3ML) INSULIN SLIDING SCAL... ACHS SQ 08/28/24 16:30 09/27/24 16:29 09/06/24 12:19 6 UNIT Ipratropium [place] (AtrovENT UD) 0.5 MG [id number] IH 08/28/24 22:00 09/27/24 21:59 09/06/24 14:09 0.5 MG Isosorbide Mononitrate (Imdur 30mg Sr) 30 mg DAILY PO 09/02/24 09:00 10/02/24 08:59 09/06/24 09:32 30 MG Metolazone (zarOXOlyn) 2.5 mg QWEEK PO 09/04/24 09:00 10/04/24 08:59 09/04/24 12:07 2.5 MG Metoprolol Tartrate (loprESSOR) 12.5 mg BID PO 08/29/24 21:00 09/02/24 08:03 DC 09/01/24 21:07 12.5 MG Milrinone Lactate/ Dextrose 100 ml @ 0 mls/hr PROTOCOL IV 09/03/24 14:00 09/04/24 12:42 DC 09/03/24 14:18 4 MLS/HR Pantoprazole Sodium (PROTonix 40MG TAB) 40 mg DAILY PO 08/29/24 09:00 09/28/24 08:59 09/06/24 09:29 40 MG Polyethylene Glycol (MIRalax 3350 17 GM POWD.PACK) 17 gm DAILY PO 08/29/24 09:00 09/28/24 08:59 09/06/24 09:32 17 GM Sodium Chloride 1,000 ml @ 30 mls/hr Q24H IV 08/31/24 08:30 09/01/24 11:42 DC Sodium Chloride 1,000 ml @ 50 mls/hr Q20H IV 09/01/24 12:00 09/01/24 15:59 DC 09/01/24 12:27 50 MLS/HR Ticagrelor (BRILinta) 90 mg BID PO 09/01/24 21:00 10/01/24 20:59 09/06/24 09:31 90 MG Vitamin B Complex/ Vit C/Folic Acid (Nephrovite Tablet) 1 cap DAILY PO 09/03/24 09:00 10/03/24 08:59 09/06/24 09:29 1 CAP LABORATORY: [ ] Hematology Labs: Test 09/10/24 03:24 Range/Units White Blood Count 7.6 4.8-10.8 K/uL Red Blood Count 4.28 L 4.50-6.20 MIL/uL Hemoglobin 12.6 L 14.0-18.0 g/dL Hematocrit 39.0 L 42-54 % Mean Corpuscular Volume 91.1 79-99 fL Mean Corpuscular Hemoglobin 29.4 27.0-33.0 pg Mean Corpuscular Hemoglobin Concent 32.3 32.0-36.0 g/dL Red Cell Distribution Width 14.7 11.0-15.5 % Platelet Count 165 130-400 K/uL Mean Platelet Volume 11.6 H 7.5-10.5 fL Immature Granulocyte % (Auto) 0.5 0-1 % Neutrophils (%) (Auto) 80.5 H 40.0-77.0 % Lymphocytes (%) (Auto) 5.6 L 21.0-51.0 % Monocytes (%) (Auto) 10.5 3.0-13.0 % Eosinophils (%) (Auto) 2.6 0.0-8.0 % Basophils (%) (Auto) 0.3 0.0-5.0 % Neutrophils # (Auto) 6.2 1.8-7.7 K/uL Lymphocytes # (Auto) 0.4 L 1.0-4.8 K/uL Monocytes # (Auto) 0.8 0.1-1.0 K/uL Eosinophils # (Auto) 0.20 0.00-0.70 K/uL Basophils # (Auto) 0.02 0.00-0.20 K/uL Absolute Immature Granulocyte (auto 0.04 0-1 K/uL Nucleated Red Blood Cells 0.3 H 0.0-0.19 % Chemistry Labs: Test 09/10/24 13:00 09/10/24 10:52 09/10/24 03:24 Range/Units Sodium Level 134 L 136-145 mmol/L Potassium Level 2.9 *L 3.5-5.1 mmol/L Chloride Level 99 L 101-111 mmol/L Carbon Dioxide Level 28 21-32 mmol/L Blood Urea Nitrogen 48 H 7-18 mg/dL Creatinine 3.5 H 0.5-1.3 mg/dL Glomerular Filtration Rate Calc 18 >90 mL/min Random Glucose 151 #H 70-105 mg/dL Total Calcium 8.6 8.5-10.1 mg/dL Whole Blood Glucose 154 #H 70-110 MG/DL Bedside Glucose Comment Notified Nurse Phosphorus Level 3.6 2.5-4.9 mg/dL Magnesium Level 1.60 L 1.80-2.40 mg/dL Total Bilirubin 0.9 0.2-1.0 mg/dL Aspartate Amino Transf (AST/SGOT) 25 10-37 U/L Alanine Aminotransferase (ALT/SGPT) 16 12-78 U/L Alkaline Phosphatase 125 50-136 U/L Total Protein 6.2 6.0-8.3 g/dL Albumin 2.8 L 3.5-5.0 g/dL Coagulation Labs: Test 09/10/24 13:00 Range/Units Prothrombin Time 12.2 H 9.6-11.6 SEC Prothromb Time International Ratio 1.10 0.85-1.15 Activated Partial Thromboplast Time 49.5 #H 26.3-35.5 SEC DIAGNOSTICS / RADIOLOGY: REASON: [facility]. ORDERING PHYSICIAN: IVAN DUARTE MD PROCEDURE: CXR1VW - CHEST 1VW CHEST 1VW HISTORY: Dialysis COMPARISON: None FINDINGS: A frontal projection of the chest was obtained. There are bilateral pulmonary infiltrates suggestive of pulmonary vascular congestion with possible superimposed pneumonitis. Poststernotomy changes are seen. The heart is enlarged. Degenerative changes of the thoracolumbar spine are present. Pacemaker is seen entering from the left. Aortic calcifications are seen. IMPRESSION: 1. Bilateral pulmonary infiltrates mostly on the right are seen suggestive of pulmonary vascular congestion with possible superimposed pneumonitis. DICTATED BY: GARFIELD BRAGA MD DATE: 09/06/24 1641 REASON: follow up pulmonary edema, hypoxia ORDERING PHYSICIAN: RAND HERNANDEZ CNP PROCEDURE: CXR1VW - CHEST 1VW CHEST 1VW HISTORY: Follow-up COMPARISON: 08/25/2024 FINDINGS: A frontal projection of the chest was obtained. Mild bilateral pulmonary infiltrates are seen may be related to mild pulmonary vascular congestion with possible superimposed pneumonitis. Poststernotomy changes are seen. The heart is enlarged. Degenerative changes of the thoracolumbar spine are present. Pacemaker is seen entering from the left. No evidence of aortic calcification is seen. IMPRESSION: 1. Mild bilateral pulmonary infiltrates are seen may be related to mild pulmonary vascular congestion with possible superimposed pneumonitis. DICTATED BY: GARFIELD BRAGA MD DATE: 09/06/24 0920 REASON: ACUTE KIDNEY INJURY ORDERING PHYSICIAN: IVAN DUARTE MD PROCEDURE: RENAL - US RENAL SONOGRAM US RENAL SONOGRAM REASON: ACUTE KIDNEY INJURY COMPARISON: None TECHNIQUE: Renal and bladder sonogram was performed FINDINGS: Right kidney is 9.9 x 6.1 x 5.0 cm, left 4.2 x 6.5 x 5.0 cm. Overall size and cortical thickness appears preserved. Kidneys are moderately echogenic consistent with chronic renal disease. There is no mass, stone or hydronephrosis. Urinary bladder was nondistended and not well visualized. IMPRESSION: 1. Echogenic kidneys consistent with chronic renal disease, overall size and cortical thickness appears preserved. 2. Urinary bladder not well visualized. DICTATED BY: WENDY MUELLER MD DATE: 09/03/24 1013 REASON: effusion ORDERING PHYSICIAN: ALBIN DIAS PROCEDURE: CXR1VW - CHEST 1VW CHEST 1VW REASON: effusion COMPARISON: 08/31/2024 FINDINGS: There is mild cardiomegaly. There is mild vascular congestion, this appears decreased. There are small bilateral pleural effusions, also decreased. IMPRESSION: 1. Stable cardiomegaly with decreasing vascular congestion and effusions. DICTATED BY: WENDY MUELLER MD DATE: 09/02/24 1354 REASON: PLEURAL EFFUSION ORDERING PHYSICIAN: ALBIN DIAS PROCEDURE: CXR1VW - CHEST 1VW CHEST 1VW REASON: PLEURAL EFFUSION COMPARISON: 08/29/2024 FINDINGS: There are stable cardiomegaly. There is mild vascular congestion. There are small bilateral pleural effusions. These findings appear unchanged. Pacemaker and median sternotomy are again noted. IMPRESSION: 1. Mild cardiomegaly with mild vascular congestion and effusions. 2. No interval change. DICTATED BY: WENDY MUELLER MD DATE: 08/31/24 0115 REASON: ACUTE ON CHORNIC CHF ORDERING PHYSICIAN: SHREE CORDOBA PROCEDURE: ECHO CMP - ECHO 2-D COMPLETE APPROVED REPORT EXAM: Two-dimensional and M-mode echocardiogram with Doppler and color Doppler. Study Details: HTN ,HLD ,CHF ,CAD , CP , COPD , CABG INDICATION ICD: acute on chronic CHF 2D Dimensions RVDd 5.8 cm LVEF(%) 38.1 (>50%) LA ESV INDEX (4CH) 34.50 mL/m2 IVSd 1.0 (0.7-1.1cm) FS(%) 18 % LVDd 4.9 (3.8-5.6cm) LA (2D) 4.7 (1.6-4.0cm) PWd 1.5 (0.7-1.1cm) Ao Root(2D) 3.5 (2.0-3.7cm) IVSs 1.3 cm LVOT diam 2.2 (1.8-2.4cm) LVDs 4.0 (2.5-4.0cm) PWs 1.6 cm M-Mode Dimensions EPSS 2.1 cm LA (MM) 5.3 (1.6-4.0cm) Ao Root(MM) 3.2 (2.0-3.7cm) Aortic Valve AoV VTI 0.1 m Ao Mean GR 1.0 mmHg LVOT VTI 0.09 m OLIVER (VMAX) 2.7 cm2 OLIVER (VTI) 2.7 cm2 Mitral Valve MV E Vmax 125.3 cm/s DECEL Time 173 ms MV A Vmax 23.5 cm/s P 1/2 T 51 ms E/A ratio 5.3 MVA (PHT) 4.4 cm2 TDI E/E' Medial 35.8 E/E' Lateral 32.1 Medial E' Peak V 3.50 cm/s Lateral E' Peak V 3.90 cm/s Pulmonary Valve PV VTI 0.13 m PV Mean GR 1 mmHg Tricuspid Valve TR Vmax 2.6 m/s TR Peak GR 26.4 mmHg Left Ventricle The left ventricle is moderately dilated. Severe concentric left ventricular hypertrophy. LVEF is 25-30%. Stage III diastolic dysfunction. Right Ventricle The right ventricle is moderately dilated. Right ventricular systolic function is moderately reduced. Device lead is present in the right ventricle. Atria The left atrium is moderately dilated. The right atrium size is normal. A pacemaker is seen in the right atrium consistent with history. Aortic Valve Aortic valve leaflets are thickened and calcified. No aortic regurgitation is present. There is no aortic valvular stenosis. Mitral Valve Mild mitral annular calcification present. The mitral valve chordae are redundant. Mitral regurgitation is mild. There is no mitral valve stenosis. Tricuspid Valve The tricuspid valve leaflets are mildly thickened. Mild tricuspid regurgitation. Pulmonic Valve Pulmonic valve is not well visualized. There is no pulmonic valvular regurgitation. Great Vessels The aortic root is normal in size. The ascending aorta is normal in size. The inferior vena cava is moderately to severely dilated with no inspiratory collapse. Pericardium No pericardial effusion. Other Information Technically limited study due to body habitus, smoking and CABG. Conclusion The left ventricle is moderately dilated. LVEF is 25-30%. Stage III diastolic dysfunction. Mitral regurgitation is mild. DICTATED BY: JAYLEN BLACKWELL II, MD DATE: 08/28/24 1636 REASON: HYPOXIA ORDERING PHYSICIAN: SHREE CORDOBA PROCEDURE: CXR1VW - CHEST 1VW CHEST 1VW REASON: HYPOXIA COMPARISON: 08/28/2024 FINDINGS: There is cardiomegaly. There is mild central vascular congestion. There are small bilateral pleural effusions. Pacemaker and median sternotomy are again noted. IMPRESSION: 1. Interval development of mild vascular congestion with small bilateral pleural effusions. DICTATED BY: WENDY MUELLER MD DATE: 08/29/24 0904 REASON: RULE OUT dvt ORDERING PHYSICIAN: SHREE CORDOBA PROCEDURE: VENOUS JONATHAN - US VENOUS DOPPLER BILATERAL US VENOUS DOPPLER BILATERAL CLINICAL HISTORY: Lower extremity pain and edema COMPARISON: None FINDINGS: Bilateral lower extremity venous Doppler ultrasound was performed. The greater saphenous, common femoral, deep femoral, femoral , popliteal veins are widely patent and easily compressible with the ultrasound probe. Calf veins appear normal as well. There is normal response to compression and augmentation. IMPRESSION: Normal bilateral lower extremity venous Doppler ultrasound. DICTATED BY: ANCA MIXON DO DATE: 08/28/24 193 REASON: sob ORDERING PHYSICIAN: MARIAM TAVARES MD PROCEDURE: CXR1VW - CHEST 1VW PORTABLE CHEST RADIOGRAPH INDICATION: sob COMPARISON: 03/19/2020 FINDINGS: Median sternotomy wires are in appropriate alignment. Left sided dual chamber pacer and continuous leads remain in customary position. Heart is enlarged. The pulmonary vascularity and marta appear normal. No evidence for consolidation. Left costophrenic angle appears slightly blunted more than the right. No pneumothorax detected. IMPRESSION: Cardiomegaly and trace left greater than right pleural effusion without pulmonary vascular congestion. DICTATED BY: ITZ CHAPARRO MD DATE: 08/28/24911 ASSESSMENT: Acute on chronic renal failure Acute hypoxic respiratory failure NSTEMI Severe CAD s/p CABG 16yrs ago and 2nd CABG 10 yrs ago Acute on Chronic CHF exacerbation with ICM EF 25-30% s/p AICD placement Suspected CAP COPD exacerbation Lt > RT pleural effusion Type 2DM Essential hypertension Obesity PLAN: Labs, diagnostic, radiologic exams reviewed and interpreted by myself and supervising physician. We have reviewed external records in detail Dialysis planned for tomorrow. Pending CV surgeon recommendations Preserve nondominant arm for AV access creation Epogen, on dialysis days. He was counseled on the importance of fluid restriction. Require close monitoring of renal function and electrolytes Order CBC, CMP, and electrolytes in am Continue with antibiotics Renal diabetic diet BiPAP as necessary, for respiratory distress Monitor blood pressure adjust medication doses as needed Avoid hypotensive episodes May use Dilaudid 0.5 mg IV every 6 hours as needed for severe pain Monitor blood sugars Strict intake, output, and daily weight should be monitored Please renally adjust medications Avoid nephrotoxic and nonsteroidal drugs Avoid contrast if possible Will continue to monitor renal function, anemia, electrolytes Treatment plan discussed with patient Questions were answered We have discussed with the other team physicians in detail about the care plan We will continue to monitor the patient closely ATTESTATION BY PHYSICIAN I have seen and examined the patient. I reviewed the documentation, medical decision making, and treatment plan as noted by the mid-level provider above. I agree with the findings and plan of care. IVAN DUARTE MD, [facility] Sep 10, 2024 15:22
[2024-09-10] MEDS ORDERED: [UNRECOGNIZED DRUG - REMARK] MISC SCH (16:00)
[2024-09-10] MEDS ORDERED: APIX2.5T PO (16:52)
[2024-09-10] MEDS ORDERED: CARV12.580 PO (16:52)
[2024-09-10] MEDS ORDERED: TICA90TA PO (16:52)
[2024-09-10] MEDS ORDERED: ATOR40TA69 PO (16:52)
[2024-09-10] MEDS ORDERED: ASPI-1005 PO (16:52)
[2024-09-10] MEDS ORDERED: ISOS20TA85 PO (16:55)
[2024-09-10] MEDS: APIXaban 2.5 MG TABLET PO SCH (21:32)
[2024-09-11] VITALS (24 sets, daily range): BP systolic 122–161; BP diastolic 59–92; PULSE 67–79; RESP 16–19; TEMP 97.2–98.7; O2SAT 97–98
[2024-09-11 04:07] LABS: HEMATOCRIT 35.4 % (42-54); MEAN CORPUSCULAR HEMOGLOBIN 29.9 pg (27.0-33.0); MEAN CORPUSCULAR HGB CONC 32.8 g/dL (32.0-36.0); MEAN CORPUSCULAR VOLUME 91.2 fL (79-99); NUCLEATED RED BLOOD CELLS 0.3 % (0.0-0.19); RED BLOOD CELL COUNT(AUTO) 3.88 MIL/uL (4.50-6.20); RED CELL DISTRIBUTION WIDTH 14.6 % (11.0-15.5); WHITE BLOOD COUNT (AUTO) 7.8 K/uL (4.8-10.8)
[2024-09-11 04:19] LABS: CREATININE 4.1 mg/dL (0.5-1.3); MAGNESIUM 1.7 mg/dL (1.80-2.40); PHOSPHORUS 3.4 mg/dL (2.5-4.9); POTASSIUM 3.1 mmol/L (3.5-5.1)
[2024-09-11] MEDS: 0.9%NACL 1000ML 1,000 ML IV SCH (10:30)
--- NOTE | 2024-09-11 11:50 | NUR ---
DCP/SNF Met w pt this this morning to f/u on dc dispo. Pt is now requesting SNF for rehab. Order obtained from [facility]. Discussed w him SNF closer to [place] and HD center ([facility]). Pt mentions that he has not "heard good things and would prefer another facility". Discussed options avail in [place]. ISAAK/PC obtained for [facility]. Referral/[facility] faxed to [facility]. Neg[facility] Soares notified of new referral.
[2024-09-11 22:10] LABS: INR 1.15 (0.85-1.15); PROTHROMBIN TIME 12.7 SEC (9.6-11.6)
[2024-09-11 22:11] LABS: PARTIAL THROMBOPLASTIN TIME 42.8 SEC (26.3-35.5)
--- NOTE | 2024-09-11 22:26 | PN ---
[facility] PROGRESS NOTE Date Patient Seen: Sep 11, 2024 Time of Visit: 22:24 Supervising Physician: Dr Sebastian Nolasco MD Primary Care Physician: Srinath Kumari MD Outpatient Specialists: Dr Maribel Higgins MD Inpatient Consults: Dr Maribel Higgins MD (Cardiology), Dr. Whitman (nephrology) PROBLEM LIST: Acute hypoxic respiratory failure, requiring supplemental oxygen via nasal cannula POA, resolved Left upper extremity DVT on vein mapping 09/10/24. NSTEMI, POA S/p C Left heart catheterization with stenting of the saphenous vein graft to the posterior descending artery 09/01 Acute renal failure secondary to ATN from LANIE vs CRS on CKD stage III, PO ( GFR 28 in 2019) S/P PermCath placement to right chest wall and HD 1st Tx on 09/07/24 Severe CAD s/p CABG 16yrs ago and 2nd CABG 10 yrs ago Acute on Chronic CHF exacerbation with ICM EF 25-30% s/p AICD placement, POA ([employer] 1650) Suspected CAP, POA COPD exacerbation, POA,improved Lt > RT pleural effusion, POA , multifactorial Hyperglycemia in the presence of Type 2DM, POA Essential HTN Suspected BETTY, undiagnosed and untreated, POA INTERVAL HISTORY: Patient was seen and examined today by me at bedside continues to complain of shortness of breath continues with Lasix 40 mg q.12 hours , Chest x-ray to reveal bilateral effusions with left greater than the right small to moderate, improving. Of not e does have congestive heart failure exacerbation with an EF of25 30% with stage III diastolic dysfunction and medications have been optimized by Dr. López Considerdation for dobutamine drip discussed with Dr. López as per recs by our team however at this time he would like to wait and see how he comes along .Should he not improve Dr. López would prefer milrinone. We greatly appreciate his input in this interesting case. For now we will continue to monitor his effusions , he is on 2L via [place] + orthop ena 09/03 patient is sitting up in the chair not in acute distress. He reported that he is still out of breath with exertion. He remains on 2 L of oxygen nasal cannula. Creatinine is worsening, creatinine is 2.8 up from 2.5. we will start patient on inotrope with Milrinone drip. Continue to monitor I/O. 09/04 patient is up in the chair dangling his legs which are markedly more edematous since yesterday. Venous Doppler negative. This is likely from fluid retention in related to worsening MAHESH, creatinine is 4.1 this is up from 2.8 yesterday. He was started on inotrope Milrinone. Given worsening renal function and urine output is minimal, We will discontinue Milrinone because he is not responding to inotrope. He likely has cardiorenal syndrome vs LANIE. Continue with diuretic Lasix. Continue to follow renal function very closely. Otherwise continue current regimen. Nephrology is following. 09/05 patient is sitting up at the recliner not in acute distress. He stated that he is able to ambulate though with shortness of breath. His bilateral lower extremity are still edematous. His remarkable lab studies this morning with creatinine up to 5.2 from 4.1. He put out 500 cc with balance +79 cc. Diuretic. He also has moved his bowel. He remains on 2 L nasal cannula with sats 98%. Continue to trend renal function. Will need 6 minute walk prior to discharge. 09/06 patient is awake alert oriented x3 no acute event overnight. Patient had decided to go ahead and do dialysis given worsening renal function. Patient's lower extremities edema is worsened. Patient has put out only 1.2 L of urine. We will ask IR to place dialysis catheter and Nephrology to start patient on hemodialysis. Case management to arrange for chair for outpatient dialysis. 09/07-patient is awake alert and oriented x3 hemodynamically stable afebrile saturating 99% on room air. Pending a PermCath placement. And dialysis scheduled for later on today. CBC unremarkable similar to yesterday. Magnesium was 1.7 replace per protocol BUN 88 creatinine 5.9 GFR 10 consistent with ESRD. PT is 12.4 INR 1.12, P APTT 36.7. We will follow Nephrology recommendations in regards to hemodialysis. 09/08- patient is awake alert and oriented x3 he is in good spirits his family at bedside hemodynamically stable with a blood pressure of 128/72 heart rate in the 70s respiratory rate of 16 saturating 99% on room air and afebrile. He tolerated his hemodialysis treatment yesterday in which the pulled 1.3 L. On laboratory H&H is 12.6/38.1 and platelet count is 071236. Chemistries sodium is 141 potassium 3.1 covered per protocol with BUN 68 creatinine of 4.5 and GFR 14 consistent with his ESRD glucose 109 mg/dL with a phosphorus 5.8 total protein 5.6 albumin 2.7. On chest x-ray mild bilateral pulmonary infiltrates are seen may be related to mild pulmonary vascular congestion with possible superimposed pneumonitis. Nephrology plans for another hemodialysis treatment for today. Case management spoke to patient regarding HD arrangement patient's preference is to have a chair at [facility]. 09/09-patient is awake alert and oriented x3 sitting up in recliner chair. Appears to be in good spirits afebrile heart rate in the 70s hemodynamically stable with a blood pressure 115/72 saturating 96% on room air. He has passed 6 minute walk. Patient received dialysis yesterday with a 2nd time with 2.2 L out and pending dialysis for today as well. Per nephrology recommendations consult CV surgery for possible AV fistula placement or graft placement. Pending to see. Otherwise as per case management patient already has a chair at [facility]. 09/10-patient is awake alert and oriented x3. He was on heparin due to noncompressible thrombus seen in the proximal portion of the left basilic vein consistent with superficial thrombophlebitis and noncompressible thrombus are noted in the left axillary vein consistent with deep venous spondylosis. Ultrasound upper extremity venous mapping study as described above. APTT was elevated this morning. Holding heparin. We will redraw APTT this afternoon. Patient with some bleeding from PermCath site controlled. CV surgery followed up with patient this afternoon and decided that we will wait for permanent AV fistula or graft placement. No further procedures this admission per CV. Nephrology cleared after hemodialysis tomorrow. Likely discharge in the morning. Otherwise CBC unremarkable and chemistry consistent with ESRD. I have spoken to the patient and explained to him the importance of continuation of anticoagulation with Eliquis. He understands the risk of stopping anticoagulation including stroke or from occluded stent. He also understands the risk of bleeding associated with the use of anticoagulants but we discussed that in this case that benefits outweighed the risk and he agrees to continue Eliquis and follow-up with the cardiology clinic. He is fully awake and oriented at the time of my conversation. We had given him prescription for Eliquis.. 09/11- patient is awake alert and oriented x3. Hemodynamically stable afebrile. No major events overnight. Plan was for discharge today after hemodialysis but patient has requested to go to an inpatient rehab unit due to is afraid to go home since he lives alone now that he has been started on Eliquis. Case management made aware of DC planning. We will await placement. REVIEW OF SYSTEMS: 12 Point ROS reviewed with patient and were positive only as per HPI. Pertinent + and negative listed above all others negative PHYSICAL EXAM: GENERAL: alert, weak, awake oriented x 3 HEENT: EOMI, Sclera non icteric, moist mucosa NECK: Supple, no JVD, trachea midline LUNGS: Lung sounds clear to bilateral bases. No wheezes HEART: Regular rate and rhythm. Normal S1 and S2, without murmurs ABD: Abdomen soft obese, nontender. Bowel sounds present EXT: No clubbing cyanosis plus 1 pitting edema to bilateral lower extremities NEURO: Alert and oriented to person, follows commands , calm at time of my evaluation Vital Signs (last 8hr) Date Time Temp Pulse Resp B/P (MAP) Pulse Ox O2 Delivery O2 Flow Rate FiO2 09/11/24 20:35 123/62 09/11/24 19:50 98.2 76 18 123/62 98 Room Air 09/11/24 16:00 98.4 71 18 122/59 97 Room Air 09/11/24 15:41 76 18 LABS: Hematology Labs: Test 09/11/24 03:54 09/10/24 03:24 Range/Units White Blood Count 7.8 4.8-10.8 K/uL Red Blood Count 3.88 L 4.50-6.20 MIL/uL Hemoglobin 11.6 L 14.0-18.0 g/dL Hematocrit 35.4 L 42-54 % Mean Corpuscular Volume 91.2 79-99 fL Mean Corpuscular Hemoglobin 29.9 27.0-33.0 pg Mean Corpuscular Hemoglobin Concent 32.8 32.0-36.0 g/dL Red Cell Distribution Width 14.6 11.0-15.5 % Platelet Count 157 130-400 K/uL Mean Platelet Volume 11.7 H 7.5-10.5 fL Nucleated Red Blood Cells 0.3 H 0.0-0.19 % Immature Granulocyte % (Auto) 0.5 0-1 % Neutrophils (%) (Auto) 80.5 H 40.0-77.0 % Lymphocytes (%) (Auto) 5.6 L 21.0-51.0 % Monocytes (%) (Auto) 10.5 3.0-13.0 % Eosinophils (%) (Auto) 2.6 0.0-8.0 % Basophils (%) (Auto) 0.3 0.0-5.0 % Neutrophils # (Auto) 6.2 1.8-7.7 K/uL Lymphocytes # (Auto) 0.4 L 1.0-4.8 K/uL Monocytes # (Auto) 0.8 0.1-1.0 K/uL Eosinophils # (Auto) 0.20 0.00-0.70 K/uL Basophils # (Auto) 0.02 0.00-0.20 K/uL Absolute Immature Granulocyte (auto 0.04 0-1 K/uL Chemistry Labs: Test 09/11/24 19:46 09/11/24 03:54 09/10/24 16:00 09/10/24 03:24 Range/Units Whole Blood Glucose 162 H 70-110 MG/DL Sodium Level 140 136-145 mmol/L Potassium Level 3.1 L 3.5-5.1 mmol/L Chloride Level 102 101-111 mmol/L Carbon Dioxide Level 28 21-32 mmol/L Blood Urea Nitrogen 56 H 7-18 mg/dL Creatinine 4.1 H 0.5-1.3 mg/dL Glomerular Filtration Rate Calc 15 >90 mL/min Random Glucose 149 H 70-105 mg/dL Total Calcium 8.7 8.5-10.1 mg/dL Phosphorus Level 3.4 2.5-4.9 mg/dL Magnesium Level 1.70 L 1.80-2.40 mg/dL Bedside Glucose Comment Notified Nurse Total Bilirubin 0.9 0.2-1.0 mg/dL Aspartate Amino Transf (AST/SGOT) 25 10-37 U/L Alanine Aminotransferase (ALT/SGPT) 16 12-78 U/L Alkaline Phosphatase 125 50-136 U/L Total Protein 6.2 6.0-8.3 g/dL Albumin 2.8 L 3.5-5.0 g/dL Coagulation Labs: Test 09/11/24 21:48 Range/Units Prothrombin Time 12.7 H 9.6-11.6 SEC Prothromb Time International Ratio 1.15 0.85-1.15 Activated Partial Thromboplast Time 42.8 H 26.3-35.5 SEC DIAGNOSTICS / RADIOLOGY RESULTS: [ ] PLAN NEURO: Minimize central acting medications as possible. Fall Precautions. Well lighted room through the day and minimize interruptions through the night to prevent acute delirium. PULMONARY: Supplemental 02 as needed Titrate Fio2 to keep Spo2 > or = 90% DuoNebs and CPT as needed IS hourly while awake for pulmonary hygiene Out of bed to chair as tolerated VAP Bundle Vent/BIPAP Settings: [ ] Driving pressure: [ ] P Plat: [ ] Static C: [ ] Static R: [ ] P/F Ratio: [ ] CARDIOVASCULAR: Follow hemodynamics. Titrate vasopressor to keep MAP >65 or systolic blood pressure >95mmHg DIPS: [ ] LINES: [ ] GI & NUTRITION: Continue nutritional support Aspirations precautions Prokinetic agents and laxatives as needed KIDNEYS & ELECTROLYTES: Strict monitoring of intake and output Daily weights Avoid nephrotoxic agents Monitor electrolytes and replace as needed Goal urine output of 30mL/hr or 0.5mL/kg/hr Urine output: [ ] Fluid Balance: [ ] ENDOCRINE: Maintain blood glucose between 100-180 at all times. Insulin sliding scale for blood glucose management INFECTIOUS DISEASE: Trend temperature. Corcoran-culture if febrile. Micro: [ ] Antibiotics: [ ] HEMATOLOGY & COAGULATION: Monitor H&H. Keep Hgb > 7 Transfuse 1 unit of PRBC for Hgb < 7 Transfuse 1 pack of platelets of platelets < 20, 000 Watch for any signs and symptoms of bleeding SKIN: Pressure ulcer prevention per facility protocol Rehab: PT/OT Prophylaxis: GI: [ ] DVT: [ ] Code Status: Full Resuscitation Disposition: [ ] Other: Total patient care time exceeds 35 minutes excluding all procedures. Case was discussed and seen with my supervising physician. The above plan was formulated and agreed upon. SHREE CORDOAB Sep 11, 2024 22:26
--- NOTE | 2024-09-11 23:36 | PN ---
SUBJECTIVE: This patient has been evaluated and seen for dialysis several times. The patient has multiple problems. No fever, chills or rigors. No cough, expectoration or hemoptysis. No abdominal pain, no nausea or vomiting. No other associated finding. No other aggravating or relieving factors. PHYSICAL EXAMINATION: GENERAL: Pale, no other distress or deformities, lying in bed. VITAL SIGNS: Blood pressure is 131/70, respiratory rate is 18, afebrile. HEENT: Head is atraumatic. Pupils are round and reactive. Sclerae are anicteric. Conjunctivae not pale. Oral mucosa is not dry. NECK: Supple. No masses, bruits. Thyroid is palpable. Neck has no bruits. CHEST: Shows equal thoracic percussion note being resonant in all areas. LABORATORY DATA: Have been reviewed. Old records reviewed. IMAGING STUDIES: Personally reviewed. PROBLEMS: Renal failure and anemia. PLAN: To continue dialysis support. Continue monitoring of renal function and electrolytes. Intake, output, weight will be monitored. The patient was evaluated and seen for dialysis and seen multiple times. Fluid restriction is advised. If possible, provide AV access ____. TID: [id number] RECEIPT: [id number]
--- NOTE | 2024-09-11 23:53 | PN ---
NEPHROLOGY NOTE SUBJECTIVE: The patient has been evaluated and seen for dialysis several times. This patient has renal failure which is end-stage already, anemia, weakness, and multiple other comorbidities. No other associated finding. No other aggravating or relieving factor. PHYSICAL EXAMINATION: VITAL SIGNS: Blood pressure 135/90, pulse 76, respiratory rate 20, afebrile. HEENT: Head is atraumatic. Pupils are round and reactive. Sclerae are anicteric. Conjunctivae not pale. Oral mucosa is not dry. NECK: Supple. No masses or bruits. Thyroid is palpable. Old records reviewed. IMAGING STUDIES: Reviewed. PROBLEMS: Renal failure, anemia, cardiomyopathy, and congestive heart failure. PLAN: Continued monitoring. Follow up on electrolytes and renal function. Intake, output, and weight will be monitored. Seen for dialysis and seen several times. I have discussed with other team members in detail. Labs and x-rays are personally reviewed and interpreted. Thank you for this patient. TID: [id number] RECEIPT: [id number]
[2024-09-12] VITALS (15 sets, daily range): BP systolic 93–130; BP diastolic 52–68; PULSE 68–82; RESP 18–22; TEMP 98–98.7; O2SAT 96–97
[2024-09-12 01:54] LABS: HEMATOCRIT 30.5 % (42-54); MEAN CORPUSCULAR HEMOGLOBIN 30.1 pg (27.0-33.0); MEAN CORPUSCULAR HGB CONC 33.1 g/dL (32.0-36.0); RED BLOOD CELL COUNT(AUTO) 3.35 MIL/uL (4.50-6.20); RED CELL DISTRIBUTION WIDTH 14.6 % (11.0-15.5)
[2024-09-12 02:06] LABS: CREATININE 3.9 mg/dL (0.5-1.3); INR 1.18 (0.85-1.15); MAGNESIUM 1.5 mg/dL (1.80-2.40); POTASSIUM 3.1 mmol/L (3.5-5.1)
[2024-09-12 02:07] LABS: PARTIAL THROMBOPLASTIN TIME 42.1 SEC (26.3-35.5)
[2024-09-12] MEDS: OCTYL 2-CYANOACRYLATE 1 EACH TP ONE (02:33)
--- NOTE | 2024-09-12 03:00 | NUR ---
[facility] Site Bleed 09/11/24 2130: Miguel BAKER notified of patient bleeding from site, made aware of Brilinta and Eliquis. Order received for Quickclot to be placed to stop bleed and coagulation studies to be ordered. Pressure applied to site for 20 minutes prior to placing quickclot dressing and central line dressing. 2300: Notified Miguel BAKER of coagulation results and no signs of bleeding at this point. No orders received at this time. 09/12/24 0130: Bleeding noted on dressing as well as 4x4 gauze, pressure applied at this time. 0200: Pressure still being applied at this time. Vitals noted in Vital signs charting, patient has stable vital signs at this time. 0215: D-stat applied along with new central line dressing, pressure dressing created with gauze and tensoplast tape, pressure dressing anchored down with tensoplast tape. 0300: Dressing clean, dry, and intact. Addendum: 09/12/24 at 0757 by MENA BARNEY RN RN 0600 Tranexamic acid gauze placed as per Anastacia ABKER along with pressure dressing, no bleeding at the site noted.
[2024-09-12] MEDS: TRANEXAMIC ACID 1000MG/10ML TP STA (06:00)
[2024-09-12 08:04] LABS: HEMATOCRIT 30.7 % (42-54)
[2024-09-12 14:51] LABS: HEMATOCRIT 30.9 % (42-54)
--- NOTE | 2024-09-12 15:15 | PN ---
NEPHROLOGY PROGRESS NOTE Date/Time Patient Seen: Sep 12, 2024 SUBJECTIVE: This is a 69-year-old male with a past medical history of two CABGs last one 10 years ago, HFrEF of 20% status post AICD, COPD, CKD stage 3, essential hypertension, obesity, and type 2 diabetes mellitus. He presented to the emergency department today for progressive increasing shortness of breath with minimal exertion, and orthopnea that started this morning. He has been in the hospital for several days Was admitted further evaluation and management of NSTEMI. Echocardiogram showed LVEF of 25-30%. Stage III diastolic dysfunction S/p left heart catheterization with stenting of the saphenous vein graft to the posterior descending artery on 09/01/2024. He was noted to have worsening renal function. We has been consulted for renal failure. Renal function continued to worsen Patient has agreed to start renal replacement therapy He has been tolerating dialysis without difficulty. Outpatient dialysis chair at [facility] Vein mapping showed noncompressive thrombi in the proximal portion of the left basilic vein and left axillary vein. CV surgeon has recommended renogram to be done tomorrow, recommendations pending on results Case management coordinating SNF placement. He was seen in the telemetry floor, in no acute distress Family at the bedside Prognosis remains guarded REVIEW OF SYSTEMS: GENERAL: Positive for lower extremity edema and shortness of breath NEUROLOGIC: Negative for any blurry vision, blind spots, double vision, facial asymmetry, dysphagia, dysarthria, hemiparesis, hemisensory deficits, vertigo, ataxia. HEENT: Negative for any head trauma, neck trauma, neck stiffness, photophobia, phonophobia, sinusitis, rhinitis. CARDIAC: Negative for any chest pain, dyspnea on exertion, paroxysmal nocturnal dyspnea, peripheral edema. PULMONARY: Negative for any shortness of breath, wheezing, COPD, or TB exposure. GASTROINTESTINAL: Negative for any abdominal pain, nausea, vomiting, bright red blood per rectum, melena. GENITOURINARY: Negative for any dysuria, hematuria, incontinence. INTEGUMENTARY: Negative for any rashes, cuts, insect bites. RHEUMATOLOGIC: Negative for any joint pains, photosensitive rashes, history of vasculitis or kidney problems. HEMATOLOGIC: Negative for any abnormal bruising, frequent infections or bleeding. Vital Signs (last 8hr) Date Time Temp Pulse Resp B/P (MAP) Pulse Ox O2 Delivery O2 Flow Rate FiO2 12/16/24 14:09 71 20 09/06/24 11:30 98.4 71 16 123/77 100 Nasal Cannula 2.0 100 09/06/24 09:29 13/65 09/06/24 08:50 96 Room Air* 0 21 PHYSICAL EXAM: GENERAL: Alert and oriented x 3. No acute distress. Well-nourished. EYES: EOMI. Anicteric. HENT: Moist mucous membranes. No scleral icterus. No cervical lymphadenopathy. LUNGS: Clear to auscultation bilaterally. No accessory muscle use. CARDIOVASCULAR: Regular rate and rhythm. No murmur. No JVD. ABDOMEN: Soft, non-tender and non-distended. No palpable masses. EXTREMITIES: 2+ edema. Non-tender. SKIN: No rashes or lesions. Warm. NEUROLOGIC: No focal neurological deficits. CN II-XII grossly intact, but not individually tested. PSYCHIATRIC: Cooperative. Appropriate mood and affect. Current Medications Medications (Trade) Dose Ordered Sig/Joellen Route Start Time Stop Time Status Last Admin Dose Admin Allopurinol (ZYLOprim 300MG) 300 mg DAILY PO 08/29/24 09:00 09/28/24 08:59 09/06/24 09:28 300 MG Amiodarone HCl (pacERONE 200MG) 300 mg DAILY PO 08/29/24 09:00 09/28/24 08:59 09/06/24 09:31 300 MG Aspirin (Aspirin 81mg Chew Tab) 81 mg DAILY PO 09/02/24 09:00 10/02/24 08:59 09/06/24 09:31 81 MG Aspirin (Aspirin 81mg Ec Tab) 81 mg DAILY PO 08/29/24 13:30 09/01/24 14:07 DC 08/31/24 09:05 81 MG Atorvastatin Calcium (LIPItor 40MG) 40 mg HS PO 08/29/24 21:00 09/28/24 20:59 09/05/24 20:37 40 MG Carvedilol (Coreg 12.5MG) 12.5 mg BID PO 09/02/24 09:00 10/02/24 08:59 09/06/24 09:29 12.5 MG Ceftriaxone Sodium (ROCEphine 1G INJ) 2 gm Q24H IVP 08/28/24 14:30 09/03/24 13:41 DC 09/02/24 15:44 2 GM Ceftriaxone Sodium (Rocephin 2gm Inj) 2 gm Q24H IVP 09/03/24 14:00 09/07/24 14:29 09/05/24 14:05 2 GM Doxycycline Hyclate (Doxycycline 100mg+NS 250ml) 100 mg BID IV 08/28/24 21:00 08/29/24 20:17 DC 08/29/24 09:27 100 MG Doxycycline Hyclate (Doxycycline 100mg+NS 250ml) 100 mg Q12H IV 08/30/24 05:00 09/09/24 04:59 09/06/24 04:09 100 MG Enoxaparin Sodium (Lovenox) 30 mg DAILY SQ 08/31/24 09:00 09/01/24 11:34 DC 08/31/24 09:04 30 MG Enoxaparin Sodium (Lovenox) 30 mg DAILY SQ 08/29/24 09:00 08/28/24 18:38 DC EZETIMIBE (Zetia) 10 mg DAILY PO 08/29/24 09:00 09/28/24 08:59 09/06/24 09:32 10 MG Furosemide (LASix 20MG VIAL) 20 mg Q8H IV 08/28/24 14:30 08/29/24 16:30 CT 08/29/24 05:51 20 MG Furosemide (LASix 40MG VIAL) 40 mg Q12H IV 08/29/24 20:00 09/28/24 19:59 09/06/24 09:28 40 MG Glipizide (GLUCOtrol XL 5MG TAB) 5 mg DAILY PO 08/29/24 09:00 08/30/24 13:55 DC 08/30/24 09:24 5 MG Heparin Sodium/ Dextrose 250 ml @ 0 mls/hr PROTOCOL IV 08/28/24 19:00 08/29/24 14:07 DC 08/29/24 03:03 0 MLS/HR Heparin Sodium/ Dextrose 250 ml @ 0 mls/hr Q6H IV 08/29/24 22:00 08/30/24 02:00 CT 08/29/24 21:34 12.38 MLS/HR Home Med (Home Medication) (Vitamin D2) (Katheryn... QWEEK PO 09/04/24 09:00 10/04/24 08:59 Hydralazine HCl ([id number] TAB) 12.5 mg TID PO 09/02/24 09:00 10/02/24 08:59 09/06/24 09:31 12.5 MG Insulin Glargine (LANtus 100 UNITS/ML 10 ML VIAL) 20 units BID@0730,2100 SQ 08/28/24 21:00 09/27/24 20:59 09/05/24 20:33 20 UNITS Insulin Human Regular (humuLIN R 100 UNIT/ML 3ML) INSULIN SLIDING SCAL... ACHS SQ 08/28/24 16:30 09/27/24 16:29 09/06/24 12:19 6 UNIT Ipratropium [place] (AtrovENT UD) 0.5 MG [id number] IH 08/28/24 22:00 09/27/24 21:59 09/06/24 14:09 0.5 MG Isosorbide Mononitrate (Imdur 30mg Sr) 30 mg DAILY PO 09/02/24 09:00 10/02/24 08:59 09/06/24 09:32 30 MG Metolazone (zarOXOlyn) 2.5 mg QWEEK PO 09/04/24 09:00 10/04/24 08:59 09/04/24 12:07 2.5 MG Metoprolol Tartrate (loprESSOR) 12.5 mg BID PO 08/29/24 21:00 09/02/24 08:03 DC 09/01/24 21:07 12.5 MG Milrinone Lactate/ Dextrose 100 ml @ 0 mls/hr PROTOCOL IV 09/03/24 14:00 09/04/24 12:42 DC 09/03/24 14:18 4 MLS/HR Pantoprazole Sodium (PROTonix 40MG TAB) 40 mg DAILY PO 08/29/24 09:00 09/28/24 08:59 09/06/24 09:29 40 MG Polyethylene Glycol (MIRalax 3350 17 GM POWD.PACK) 17 gm DAILY PO 08/29/24 09:00 09/28/24 08:59 09/06/24 09:32 17 GM Sodium Chloride 1,000 ml @ 30 mls/hr Q24H IV 08/31/24 08:30 09/01/24 11:42 DC Sodium Chloride 1,000 ml @ 50 mls/hr Q20H IV 09/01/24 12:00 09/01/24 15:59 DC 09/01/24 12:27 50 MLS/HR Ticagrelor (BRILinta) 90 mg BID PO 09/01/24 21:00 10/01/24 20:59 09/06/24 09:31 90 MG Vitamin B Complex/ Vit C/Folic Acid (Nephrovite Tablet) 1 cap DAILY PO 09/03/24 09:00 10/03/24 08:59 09/06/24 09:29 1 CAP LABORATORY: [ ] Hematology Labs: Test 09/12/24 14:44 09/12/24 01:40 Range/Units Hemoglobin 10.0 L 14.0-18.0 g/dL Hematocrit 30.9 L 42-54 % White Blood Count 10.0 # 4.8-10.8 K/uL Red Blood Count 3.35 L 4.50-6.20 MIL/uL Mean Corpuscular Volume 91.0 79-99 fL Mean Corpuscular Hemoglobin 30.1 27.0-33.0 pg Mean Corpuscular Hemoglobin Concent 33.1 32.0-36.0 g/dL Red Cell Distribution Width 14.6 11.0-15.5 % Platelet Count 170 130-400 K/uL Mean Platelet Volume 11.8 H 7.5-10.5 fL Nucleated Red Blood Cells 0.0 0.0-0.19 % Chemistry Labs: Test 09/12/24 11:01 09/12/24 01:40 09/10/24 16:00 Range/Units Whole Blood Glucose 113 H 70-110 MG/DL Sodium Level 140 136-145 mmol/L Potassium Level 3.1 L 3.5-5.1 mmol/L Chloride Level 102 101-111 mmol/L Carbon Dioxide Level 32 21-32 mmol/L Blood Urea Nitrogen 45 H 7-18 mg/dL Creatinine 3.9 H 0.5-1.3 mg/dL Glomerular Filtration Rate Calc 16 >90 mL/min Random Glucose 109 H 70-105 mg/dL Total Calcium 8.3 L 8.5-10.1 mg/dL Phosphorus Level 3.0 2.5-4.9 mg/dL Magnesium Level 1.50 L 1.80-2.40 mg/dL Bedside Glucose Comment Notified Nurse Coagulation Labs: Test 09/12/24 01:40 Range/Units Prothrombin Time 13.0 H 9.6-11.6 SEC Prothromb Time International Ratio 1.18 H 0.85-1.15 Activated Partial Thromboplast Time 42.1 H 26.3-35.5 SEC DIAGNOSTICS / RADIOLOGY: REASON: [facility]. ORDERING PHYSICIAN: IVAN DUARTE MD PROCEDURE: CXR1VW - CHEST 1VW CHEST 1VW HISTORY: Dialysis COMPARISON: None FINDINGS: A frontal projection of the chest was obtained. There are bilateral pulmonary infiltrates suggestive of pulmonary vascular congestion with possible superimposed pneumonitis. Poststernotomy changes are seen. The heart is enlarged. Degenerative changes of the thoracolumbar spine are present. Pacemaker is seen entering from the left. Aortic calcifications are seen. IMPRESSION: 1. Bilateral pulmonary infiltrates mostly on the right are seen suggestive of pulmonary vascular congestion with possible superimposed pneumonitis. DICTATED BY: GARFIELD BRAGA MD DATE: 09/06/24 1641 REASON: follow up pulmonary edema, hypoxia ORDERING PHYSICIAN: RAND HERNANDEZ CNP PROCEDURE: CXR1VW - CHEST 1VW CHEST 1VW HISTORY: Follow-up COMPARISON: 08/25/2024 FINDINGS: A frontal projection of the chest was obtained. Mild bilateral pulmonary infiltrates are seen may be related to mild pulmonary vascular congestion with possible superimposed pneumonitis. Poststernotomy changes are seen. The heart is enlarged. Degenerative changes of the thoracolumbar spine are present. Pacemaker is seen entering from the left. No evidence of aortic calcification is seen. IMPRESSION: 1. Mild bilateral pulmonary infiltrates are seen may be related to mild pulmonary vascular congestion with possible superimposed pneumonitis. DICTATED BY: GARFIELD BRAGA MD DATE: 09/06/24 0920 REASON: ACUTE KIDNEY INJURY ORDERING PHYSICIAN: IVAN DUARTE MD PROCEDURE: RENAL - US RENAL SONOGRAM US RENAL SONOGRAM REASON: ACUTE KIDNEY INJURY COMPARISON: None TECHNIQUE: Renal and bladder sonogram was performed FINDINGS: Right kidney is 9.9 x 6.1 x 5.0 cm, left 4.2 x 6.5 x 5.0 cm. Overall size and cortical thickness appears preserved. Kidneys are moderately echogenic consistent with chronic renal disease. There is no mass, stone or hydronephrosis. Urinary bladder was nondistended and not well visualized. IMPRESSION: 1. Echogenic kidneys consistent with chronic renal disease, overall size and cortical thickness appears preserved. 2. Urinary bladder not well visualized. DICTATED BY: WENDY MUELLER MD DATE: 09/03/24 1013 REASON: effusion ORDERING PHYSICIAN: ALBIN DIAS PROCEDURE: CXR1VW - CHEST 1VW CHEST 1VW REASON: effusion COMPARISON: 08/31/2024 FINDINGS: There is mild cardiomegaly. There is mild vascular congestion, this appears decreased. There are small bilateral pleural effusions, also decreased. IMPRESSION: 1. Stable cardiomegaly with decreasing vascular congestion and effusions. DICTATED BY: WENDY MUELLER MD DATE: 09/02/24 1354 REASON: PLEURAL EFFUSION ORDERING PHYSICIAN: ALBIN DIAS PROCEDURE: CXR1VW - CHEST 1VW CHEST 1VW REASON: PLEURAL EFFUSION COMPARISON: 08/29/2024 FINDINGS: There are stable cardiomegaly. There is mild vascular congestion. There are small bilateral pleural effusions. These findings appear unchanged. Pacemaker and median sternotomy are again noted. IMPRESSION: 1. Mild cardiomegaly with mild vascular congestion and effusions. 2. No interval change. DICTATED BY: WENDY MUELLER MD DATE: 08/31/24 1215 REASON: ACUTE ON CHORNIC CHF ORDERING PHYSICIAN: SHREE CORDOBA PROCEDURE: ECHO CMP - ECHO 2-D COMPLETE APPROVED REPORT EXAM: Two-dimensional and M-mode echocardiogram with Doppler and color Doppler. Study Details: HTN ,HLD ,CHF ,CAD , CP , COPD , CABG INDICATION ICD: acute on chronic CHF 2D Dimensions RVDd 5.8 cm LVEF(%) 38.1 (>50%) LA ESV INDEX (4CH) 34.50 mL/m2 IVSd 1.0 (0.7-1.1cm) FS(%) 18 % LVDd 4.9 (3.8-5.6cm) LA (2D) 4.7 (1.6-4.0cm) PWd 1.5 (0.7-1.1cm) Ao Root(2D) 3.5 (2.0-3.7cm) IVSs 1.3 cm LVOT diam 2.2 (1.8-2.4cm) LVDs 4.0 (2.5-4.0cm) PWs 1.6 cm M-Mode Dimensions EPSS 2.1 cm LA (MM) 5.3 (1.6-4.0cm) Ao Root(MM) 3.2 (2.0-3.7cm) Aortic Valve AoV VTI 0.1 m Ao Mean GR 1.0 mmHg LVOT VTI 0.09 m OLIVER (VMAX) 2.7 cm2 OLIVER (VTI) 2.7 cm2 Mitral Valve MV E Vmax 125.3 cm/s DECEL Time 173 ms MV A Vmax 23.5 cm/s P 1/2 T 51 ms E/A ratio 5.3 MVA (PHT) 4.4 cm2 TDI E/E' Medial 35.8 E/E' Lateral 32.1 Medial E' Peak V 3.50 cm/s Lateral E' Peak V 3.90 cm/s Pulmonary Valve PV VTI 0.13 m PV Mean GR 1 mmHg Tricuspid Valve TR Vmax 2.6 m/s TR Peak GR 26.4 mmHg Left Ventricle The left ventricle is moderately dilated. Severe concentric left ventricular hypertrophy. LVEF is 25-30%. Stage III diastolic dysfunction. Right Ventricle The right ventricle is moderately dilated. Right ventricular systolic function is moderately reduced. Device lead is present in the right ventricle. Atria The left atrium is moderately dilated. The right atrium size is normal. A pacemaker is seen in the right atrium consistent with history. Aortic Valve Aortic valve leaflets are thickened and calcified. No aortic regurgitation is present. There is no aortic valvular stenosis. Mitral Valve Mild mitral annular calcification present. The mitral valve chordae are redundant. Mitral regurgitation is mild. There is no mitral valve stenosis. Tricuspid Valve The tricuspid valve leaflets are mildly thickened. Mild tricuspid regurgitation. Pulmonic Valve Pulmonic valve is not well visualized. There is no pulmonic valvular regurgitation. Great Vessels The aortic root is normal in size. The ascending aorta is normal in size. The inferior vena cava is moderately to severely dilated with no inspiratory collapse. Pericardium No pericardial effusion. Other Information Technically limited study due to body habitus, smoking and CABG. Conclusion The left ventricle is moderately dilated. LVEF is 25-30%. Stage III diastolic dysfunction. Mitral regurgitation is mild. DICTATED BY: JAYLEN BLACKWELL II, MD DATE: 08/28/24 1636 REASON: HYPOXIA ORDERING PHYSICIAN: SHREE CORDOBA PROCEDURE: CXR1VW - CHEST 1VW CHEST 1VW REASON: HYPOXIA COMPARISON: 08/28/2024 FINDINGS: There is cardiomegaly. There is mild central vascular congestion. There are small bilateral pleural effusions. Pacemaker and median sternotomy are again noted. IMPRESSION: 1. Interval development of mild vascular congestion with small bilateral pleural effusions. DICTATED BY: WENDY MUELLER MD DATE: 08/29/24 0904 REASON: RULE OUT dvt ORDERING PHYSICIAN: SHREE CORDOBA PROCEDURE: VENOUS JONATHAN - US VENOUS DOPPLER BILATERAL US VENOUS DOPPLER BILATERAL CLINICAL HISTORY: Lower extremity pain and edema COMPARISON: None FINDINGS: Bilateral lower extremity venous Doppler ultrasound was performed. The greater saphenous, common femoral, deep femoral, femoral , popliteal veins are widely patent and easily compressible with the ultrasound probe. Calf veins appear normal as well. There is normal response to compression and augmentation. IMPRESSION: Normal bilateral lower extremity venous Doppler ultrasound. DICTATED BY: ANCA MIXON DO DATE: 08/28/24 193 REASON: sob ORDERING PHYSICIAN: MARIAM TAVARES MD PROCEDURE: CXR1VW - CHEST 1VW PORTABLE CHEST RADIOGRAPH INDICATION: sob COMPARISON: 03/19/2020 FINDINGS: Median sternotomy wires are in appropriate alignment. Left sided dual chamber pacer and continuous leads remain in customary position. Heart is enlarged. The pulmonary vascularity and marta appear normal. No evidence for consolidation. Left costophrenic angle appears slightly blunted more than the right. No pneumothorax detected. IMPRESSION: Cardiomegaly and trace left greater than right pleural effusion without pulmonary vascular congestion. DICTATED BY: ITZ CHAPARRO MD DATE: 08/28/24 0912 ASSESSMENT: Acute on chronic renal failure Acute hypoxic respiratory failure NSTEMI Severe CAD s/p CABG 16yrs ago and 2nd CABG 10 yrs ago Acute on Chronic CHF exacerbation with ICM EF 25-30% s/p AICD placement Suspected CAP COPD exacerbation Lt > RT pleural effusion Type 2DM Essential hypertension Obesity PLAN: Labs, diagnostic, radiologic exams reviewed and interpreted by myself and supervising physician. We have reviewed external records in detail Pending venogram to be done tomorrow, dialysis to follow, case was discussed with Dr. Echols Outpatient dialysis chair at [facility] Case management coordinating SNF placement. If patient is placed in [facility] then outpatient dialysis chair we will need to be arranged in the [place] area, this was discussed with Shree BAKER Preserve nondominant arm for AV access creation Epogen, on dialysis days. He was counseled on the importance of fluid restriction. Require close monitoring of renal function and electrolytes Order CBC, CMP, and electrolytes in am Continue with antibiotics Renal diabetic diet BiPAP as necessary, for respiratory distress Monitor blood pressure adjust medication doses as needed Avoid hypotensive episodes May use Dilaudid 0.5 mg IV every 6 hours as needed for severe pain Monitor blood sugars Strict intake, output, and daily weight should be monitored Please renally adjust medications Avoid nephrotoxic and nonsteroidal drugs Avoid contrast if possible Will continue to monitor renal function, anemia, electrolytes Treatment plan discussed with patient Questions were answered We have discussed with the other team physicians in detail about the care plan We will continue to monitor the patient closely ATTESTATION BY PHYSICIAN I have seen and examined the patient. I reviewed the documentation, medical de cision making, and treatment plan as noted by the mid-level provider above. I agree with the findings and plan of care. IVAN DUARTE MD, [facility] Sep 12, 2024 15:15
--- NOTE | 2024-09-12 15:48 | PN ---
[facility] PROGRESS NOTE Date Patient Seen: Sep 12, 2024 Time of Visit: 15:30 Supervising Physician:Sebastian Nolasco MD Primary Care Physician: Srinath Kumari MD Outpatient Specialists: Dr Maribel Higgins MD Inpatient Consults: Dr Maribel Higgins MD (Cardiology), Dr. Whitman (nephrology) PROBLEM LIST: Acute hypoxic respiratory failure, requiring supplemental oxygen via nasal cannula POA, resolved Left upper extremity DVT on vein mapping 09/10/24. NSTEMI, POA S/p C Left heart catheterization with stenting of the saphenous vein graft to the posterior descending artery 09/01 Acute renal failure secondary to ATN from [facility]IE vs CRS on CKD stage III, PO ( GFR 28 in 2019) S/P PermCath placement to right chest wall and HD 1st Tx on 09/07/24 Severe CAD s/p CABG 16yrs ago and 2nd CABG 10 yrs ago Acute on Chronic CHF exacerbation with ICM EF 25-30% s/p AICD placement, POA (BNP 1650) Suspected CAP, POA COPD exacerbation, POA,improved Lt > RT pleural effusion, POA , multifactorial Hyperglycemia in the presence of Type 2DM, POA Essential HTN Suspected BETTY, undiagnosed and untreated, POA INTERVAL HISTORY: Patient was seen and examined today by me at bedside continues to complain of shortness of breath continues with Lasix 40 mg q.12 hours , Chest x-ray to reveal bilateral effusions with left greater than the right small to moderate, improving. Of note does have congestive heart failure exacerbation with an EF of25 30% with stage III diastolic dysfunction and medications have been optimized by Dr. López Considerdation for dobutamine drip discussed with Dr. López as per recs by our team however at this time he would like to wait and see how he comes along .Should he not improve Dr. López would prefer milrinone. We greatly appreciate his input in this interesting case. For now we will continue to monitor his effusions , he is on 2L via [place] + orthopnea 09/03 patient is sitting up in the chair not in acute distress. He reported that he is still out of breath with exertion. He remains on 2 L of oxygen nasal cannula. Creatinine is worsening, creatinine is 2.8 up from 2.5. we will start patient on inotrope with Milrinone drip. Continue to monitor I/O. 09/04 patient is up in the chair dangling his legs which are markedly more edematous since yesterday. Venous Doppler negative. This is likely from fluid retention in related to worsening MAHESH, creatinine is 4.1 this is up from 2.8 yesterday. He was started on inotrope Milrinone. Given worsening renal function and urine output is minimal, We will discontinue Milrinone because he is not responding to inotrope. He likely has cardiorenal syndrome vs LANIE. Continue with diuretic Lasix. Continue to follow renal function very closely. Otherwise continue current regimen. Nephrology is following. 09/05 patient is sitting up at the recliner not in acute distress. He stated that he is able to ambulate though with shortness of breath. His bilateral lower extremity are still edematous. His remarkable lab studies this morning with creatinine up to 5.2 from 4.1. He put out 500 cc with balance +79 cc. Diuretic. He also has moved his bowel. He remains on 2 L nasal cannula with sats 98%. Continue to trend renal function. Will need 6 minute walk prior to discharge. 09/06 patient is awake alert oriented x3 no acute event overnight. Patient had decided to go ahead and do dialysis given worsening renal function. Patient's lower extremities edema is worsened. Patient has put out only 1.2 L of urine. We will ask IR to place dialysis catheter and Nephrology to start patient on hemodialysis. Case management to arrange for chair for outpatient dialysis. 09/07-patient is awake alert and oriented x3 hemodynamically stable afebrile saturating 99% on room air. Pending a PermCath placement. And dialysis scheduled for later on today. CBC unremarkable similar to yesterday. Magnesium was 1.7 replace per protocol BUN 88 creatinine 5.9 GFR 10 consistent with ESRD. PT is 12.4 INR 1.12, P APTT 36.7. We will follow Nephrology recommendations in regards to hemodialysis. 09/08- patient is awake alert and oriented x3 he is in good spirits his family at bedside hemodynamically stable with a blood pressure of 128/72 heart rate in the 70s respiratory rate of 16 saturating 99% on room air and afebrile. He tolerated his hemodialysis treatment yesterday in which the pulled 1.3 L. On laboratory H&H is 12.6/38.1 and platelet count is 561117. Chemistries sodium is 141 potassium 3.1 covered per protocol with BUN 68 creatinine of 4.5 and GFR 14 consistent with his ESRD glucose 109 mg/dL with a phosphorus 5.8 total protein 5.6 albumin 2.7. On chest x-ray mild bilateral pulmonary infiltrates are seen may be related to mild pulmonary vascular congestion with possible superimposed pneumonitis. Nephrology plans for another hemodialysis treatment for today. Case management spoke to patient regarding HD arrangement patient's preference is to have a chair at [facility]. 09/09-patient is awake alert and oriented x3 sitting up in recliner chair. Appears to be in good spirits afebrile heart rate in the 70s hemodynamically stable with a blood pressure 115/72 saturating 96% on room air. He has passed 6 minute walk. Patient received dialysis yesterday with a 2nd time with 2.2 L out and pending dialysis for today as well. Per nephrology recommendations consult CV surgery for possible AV fistula placement or graft placement. Pending to see. Otherwise as per case management patient already has a chair at [facility]. 09/10-patient is awake alert and oriented x3. He was on heparin due to noncompressible thrombus seen in the proximal portion of the left basilic vein consistent with superficial thrombophlebitis and noncompressible thrombus are noted in the left axillary vein consistent with deep venous spondylosis. Ultrasound upper extremity venous mapping study as described above. APTT was elevated this morning. Holding heparin. We will redraw APTT this afternoon. Patient with some bleeding from PermCath site controlled. CV surgery followed up with patient this afternoon and decided that we will wait for permanent AV fistula or graft placement. No further procedures this admission per CV. Nephrology cleared after hemodialysis tomorrow. Likely discharge in the morning. Otherwise CBC unremarkable and chemistry consistent with ESRD. I have spoken to the patient and explained to him the importance of continuation of anticoagulation with Eliquis. He understands the risk of stopping anticoagulation including stroke or from occluded stent. He also understands the risk of bleeding associated with the use of anticoagulants but we discussed that in this case that benefits outweighed the risk and he agrees to continue Eliquis and follow-up with the cardiology clinic. He is fully awake and oriented at the time of my conversation. We had given him prescription for Eliquis.. 12/21- patient is awake alert and oriented x3. Hemodynamically stable afebrile. No major events overnight. Plan was for discharge today after hemodialysis but patient has requested to go to an inpatient rehab unit due to is afraid to go home since he lives alone now that he has been started on Eliquis. Case management made aware of DC planning. We will await placement. 09/12-patient awake alert and oriented x3. Afebrile and hemodynamically stable. Overnight patient had an episode of bleeding from the PermCath site. A quick clot was placed and bleeding was controlled. Otherwise patient has no complaints. CV surgery has seen patient and recommended venous mapping for tomorrow to reassess area and evaluate for AV fistula vs graft Friday. Case management is following for DC planning per patient request IRU pending insurance approval. REVIEW OF SYSTEMS: 12 Point ROS reviewed with patient and were positive only as per HPI. Pertinent + and negative listed above all others negative PHYSICAL EXAM: GENERAL: alert, weak, awake oriented x 3 HEENT: EOMI, Sclera non icteric, moist mucosa NECK: Supple, no JVD, trachea midline LUNGS: Lung sounds clear to bilateral bases. No wheezes HEART: Regular rate and rhythm. Normal S1 and S2, without murmurs ABD: Abdomen soft obese, nontender. Bowel sounds present EXT: No clubbing cyanosis plus 1 pitting edema to bilateral lower extremities NEURO: Alert and oriented to person, follows commands , calm at time of my evaluation Vital Signs (last 8hr) Date Time Temp Pulse Resp B/P (MAP) Pulse Ox O2 Delivery O2 Flow Rate FiO2 09/12/24 12:08 98.1 82 20 121/58 98 Room Air 09/12/24 09:00 106/52 09/12/24 08:00 96 Room Air* 0 21 09/12/24 07:38 71 18 N/A Room Air 09/12/24 07:36 71 18 LABS: Hematology Labs: Test 09/12/24 14:44 09/12/24 01:40 Range/Units Hemoglobin 10.0 L 14.0-18.0 g/dL Hematocrit 30.9 L 42-54 % White Blood Count 10.0 # 4.8-10.8 K/uL Red Blood Count 3.35 L 4.50-6.20 MIL/uL Mean Corpuscular Volume 91.0 79-99 fL Mean Corpuscular Hemoglobin 30.1 27.0-33.0 pg Mean Corpuscular Hemoglobin Concent 33.1 32.0-36.0 g/dL Red Cell Distribution Width 14.6 11.0-15.5 % Platelet Count 170 130-400 K/uL Mean Platelet Volume 11.8 H 7.5-10.5 fL Nucleated Red Blood Cells 0.0 0.0-0.19 % Chemistry Labs: Test 09/12/24 11:01 09/12/24 01:40 09/10/24 16:00 Range/Units Whole Blood Glucose 113 H 70-110 MG/DL Sodium Level 140 136-145 mmol/L Potassium Level 3.1 L 3.5-5.1 mmol/L Chloride Level 102 101-111 mmol/L Carbon Dioxide Level 32 21-32 mmol/L Blood Urea Nitrogen 45 H 7-18 mg/dL Creatinine 3.9 H 0.5-1.3 mg/dL Glomerular Filtration Rate Calc 16 >90 mL/min Random Glucose 109 H 70-105 mg/dL Total Calcium 8.3 L 8.5-10.1 mg/dL Phosphorus Level 3.0 2.5-4.9 mg/dL Magnesium Level 1.50 L 1.80-2.40 mg/dL Bedside Glucose Comment Notified Nurse Coagulation Labs: Test 09/12/24 01:40 Range/Units Prothrombin Time 13.0 H 9.6-11.6 SEC Prothromb Time International Ratio 1.18 H 0.85-1.15 Activated Partial Thromboplast Time 42.1 H 26.3-35.5 SEC DIAGNOSTICS / RADIOLOGY RESULTS: [ ] PLAN Passed 6 min walk. s/p [facility] with successful angioplasty and stenting to SVG to posterior descending artery 09/01. continue with ASA, statin and brilinta. HOLD Eliquis for now for possible procedure per CV. Continue with Rocephin2 g daily Continue with doxycycline 100 mg b.i.d. Continue metoprolol 12.5 mg b.i.d. Continue amiodarone 300 mg daily We will discontinue patient's glipizide while in the hospital Per Case Management pt has a chair in [facility]. Per CV surgery we will wait for a fistula or graft placement not in this admission. Poor long-term prognosis. Consider palliative. Nephrology cleared for discharge tomorrow after hemodialysis 09/11/24. Start Eliquis 2.5 mg p.o. b.i.d. for DVT to left upper extremity. On hold for now. Patient will continue on recommended medication with aspirin and Brilinta. Stop aspirin after 30 days. NEURO: Minimize central acting medications as possible. Maintain fall precautions, adequate lighting during the day PULMONARY: Supplemental 02 as needed. Maintain aspiration precautions at all times maintain o2 sats above 92% atrovent Tx's PRN wheezing or sob emperic CAP coverage singular 10mg po daily ABG if worsening respiratory failure CARDIOVASCULAR: Follow hemodynamics. Vital signs per facility protocol Telemetry monitoring Continue patient's cardiac meds including: Amiodarone 300 mg daily Ezetimibe 10 mg daily Diurese with Lasix Metolazone 2.5 mg Hold CARLOS/ARB due to CKD I&O Daily weights Fluid restriction of 1500 Aspirin Atorvastatin Brilinta Beta meagan GI & NUTRITION: Continue with nutritional support. Continue stool softeners and laxatives as needed. Heart healthy diet KIDNEYS & ELECTROLYTES: Strict monitoring of intake, output and overall fluid balance. Avoid nephrotoxic medications to the extent possible. Medications to be dosed according to renal function. Monitor electrolytes and replace as needed ENDOCRINE: Maintain blood glucose between 100-180 at all times. Hypoglycemia protocol in place Lantus 20units BID ISS INFECTIOUS DISEASE: Trend temperature, WBC and procalcitonin level Follow cultures, deescalate antibiotics as soon as possible. Panculture if new onset fever Doxy Rocephin for emperic CAP coverage ONCOLOGY/HEMATOLOGY/COAGULATION: Monitor for s/s of bleeding Monitor hemoglobin, coagulation studies as needed SKIN: Pressure ulcer prevention per facility protocol Specialty mattress ORTHO/REHAB: Continue PT/OT Prophylaxis: Continue GI and DVT prophylaxis Protonix Lovenox Code Status: Full Resuscitation Disposition: TBD Other: Total critical care time 35 minutes Case discussed with supervising physician plan of care agreed upon SHREE CORDOBA Sep 12, 2024 15:48
[2024-09-12 19:40] LABS: HEMATOCRIT 28.3 % (42-54)
[2024-09-13] VITALS (27 sets, daily range): BP systolic 115–157; BP diastolic 62–90; PULSE 68–80; RESP 16–20; TEMP 97.5–99; O2SAT 96–100
[2024-09-13 01:44] LABS: HEMATOCRIT 26.5 % (42-54)
[2024-09-13 04:00] LABS: HEMATOCRIT 27.9 % (42-54); MEAN CORPUSCULAR HEMOGLOBIN 30.1 pg (27.0-33.0); MEAN CORPUSCULAR VOLUME 91.2 fL (79-99); RED BLOOD CELL COUNT(AUTO) 3.06 MIL/uL (4.50-6.20); RED CELL DISTRIBUTION WIDTH 14.6 % (11.0-15.5); WHITE BLOOD COUNT (AUTO) 9.8 K/uL (4.8-10.8)
[2024-09-13 04:13] LABS: INR 1.11 (0.85-1.15); PROTHROMBIN TIME 12.3 SEC (9.6-11.6)
[2024-09-13 04:14] LABS: PARTIAL THROMBOPLASTIN TIME 45.3 SEC (26.3-35.5)
[2024-09-13 04:19] LABS: CREATININE 4.9 mg/dL (0.5-1.3); MAGNESIUM 1.7 mg/dL (1.80-2.40)
--- NOTE | 2024-09-13 11:38 | NUR ---
TAKEN TO RADIOLOGY FOR LEFT ARM VENOGRAM.
[2024-09-13] MEDS ORDERED: IOHEXOL-350 75 ML VIAL IV ONE (11:47)
--- NOTE | 2024-09-13 12:00 | PN ---
SUBJECTIVE: This gentleman was new to hemodialysis and was referred for an AV fistula, however, he got a DVT and had been treated for. The patient still has deep venous thrombosis treated and if stable, proceed with creation of AV fistula probe in the right arm. I have discussed with him the indications for surgery as well as the potential complications of the operation including, but not limited to postoperative bleeding, infection, stroke and/or . Plan for surgery once the deep venous thrombosis is treated perhaps electively. TID: [id number] RECEIPT: [id number]
--- NOTE | 2024-09-13 12:03 | PN ---
[facility] PROGRESS NOTE Date Patient Seen: Sep 13, 2024 Time of Visit: 12:03 Supervising Physician: Anthony Lua MD Primary Care Physician: Srinath Kumari MD Outpatient Specialists: Dr Maribel Higgins MD Inpatient Consults: Dr Maribel Higgins MD (Cardiology), Dr. Whitman (nephrology) PROBLEM LIST: Acute hypoxic respiratory failure, requiring supplemental oxygen via nasal cannula POA, resolved Left upper extremity DVT on vein mapping 09/10/24. NSTEMI, POA S/p C Left heart catheterization with stenting of the saphenous vein graft to the posterior descending artery 09/01 Acute renal failure secondary to ATN from LANIE vs CRS on CKD stage III, PO ( GFR 28 in 2019) S/P PermCath placement to right chest wall and HD 1st Tx on 09/07/24 Severe CAD s/p CABG 16yrs ago and 2nd CABG 10 yrs ago Acute on Chronic CHF exacerbation with ICM EF 25-30% s/p AICD placement, POA (BNP 1650) Suspected CAP, POA COPD exacerbation, POA,improved Lt > RT pleural effusion, POA , multifactorial Hyperglycemia in the presence of Type 2DM, POA Essential HTN Suspected BETTY, undiagnosed and untreated, POA INTERVAL HISTORY: Patient was seen and examined today by me at bedside continues to complain of shortness of breath continues with Lasix 40 mg q.12 hours , Chest x-ray to reveal bilateral effusions with left greater than the right small to moderate, improving. Of note does have congestive heart failure exacerbation with an EF of25 30% with stage III diastolic dysfunction and medications have been optimized by Dr. López Considerdation for dobutamine drip discussed with Dr. López as per recs by our team however at this time he would like to wait and see how he comes along .Should he not improve Dr. López would prefer milrinone. We greatly appreciate his input in this interesting case. For now we will continue to monitor his effusions , he is on 2L via [place] + ort hopnea 09/03 patient is sitting up in the chair not in acute distress. He reported that he is still out of breath with exertion. He remains on 2 L of oxygen nasal cannula. Creatinine is worsening, creatinine is 2.8 up from 2.5. we will start patient on inotrope with Milrinone drip. Continue to monitor I/O. 09/04 patient is up in the chair dangling his legs which are markedly more edematous since yesterday. Venous Doppler negative. This is likely from fluid retention in related to worsening MAHESH, creatinine is 4.1 this is up from 2.8 yesterday. He was started on inotrope Milrinone. Given worsening renal function and urine output is minimal, We will discontinue Milrinone because he is not responding to inotrope. He likely has cardiorenal syndrome vs LANIE. Continue with diuretic Lasix. Continue to follow renal function very closely. Otherwise continue current regimen. Nephrology is following. 09/05 patient is sitting up at the recliner not in acute distress. He stated that he is able to ambulate though with shortness of breath. His bilateral lower extremity are still edematous. His remarkable lab studies this morning wi th creatinine up to 5.2 from 4.1. He put out 500 cc with balance +79 cc. Diuretic. He also has moved his bowel. He remains on 2 L nasal cannula with sats 98%. Continue to trend renal function. Will need 6 minute walk prior to discharge. 09/06 patient is awake alert oriented x3 no acute event overnight. Patient had decided to go ahead and do dialysis given worsening renal function. Patient's lower extremities edema is worsened. Patient has put out only 1.2 L of urine. We will ask IR to place dialysis catheter and Nephrology to start patient on hemodialysis. Case management to arrange for chair for outpatient dialysis. 09/07-patient is awake alert and oriented x3 hemodynamically stable afebrile saturating 99% on room air. Pending a PermCath placement. And dialysis scheduled for later on today. CBC unremarkable similar to yesterday. Magnesium was 1.7 replace per protocol BUN 88 creatinine 5.9 GFR 10 consistent with ESRD. PT is 12.4 INR 1.12, P APTT 36.7. We will follow Nephrology recommendations in regards to hemodialysis. 09/08- patient is awake alert and oriented x3 he is in good spirits his family at bedside hemodynamically stable with a blood pressure of 128/72 heart rate in the 70s respiratory rate of 16 saturating 99% on room air and afebrile. He tolerated his hemodialysis treatment yesterday in which the pulled 1.3 L. On laboratory H&H is 12.6/38.1 and platelet count is 112928. Chemistries sodium is 141 potassium 3.1 covered per protocol with BUN 68 creatinine of 4.5 and GFR 14 consistent with his ESRD glucose 109 mg/dL with a phosphorus 5.8 total protein 5.6 albumin 2.7. On chest x-ray mild bilateral pulmonary infiltrates are seen may be related to mild pulmonary vascular congestion with possible superimposed pneumonitis. Nephrology plans for another hemodialysis treatment for today. Case management spoke to patient regarding HD arrangement patient's preference is to have a chair at [facility]. 09/09-patient is awake alert and oriented x3 sitting up in recliner chair. Appe ars to be in good spirits afebrile heart rate in the 70s hemodynamically stable with a blood pressure 115/72 saturating 96% on room air. He has passed 6 minute walk. Patient received dialysis yesterday with a 2nd time with 2.2 L out and pending dialysis for today as well. Per nephrology recommendations consult CV surgery for possible AV fistula placement or graft placement. Pending to see. Otherwise as per case management patient already has a chair at [facility]. 09/10-patient is awake alert and oriented x3. He was on heparin due to noncompressible thrombus seen in the proximal portion of the left basilic vein consistent with superficial thrombophlebitis and noncompressible thrombus are noted in the left axillary vein consistent with deep venous spondylosis. Ultrasound upper extremity venous mapping study as described above. APTT was elevated this morning. Holding heparin. We will redraw APTT this afternoon. Patient with some bleeding from PermCath site controlled. CV surgery followed up with patient this afternoon and decided that we will wait for permanent AV fistula or graft placement. No further procedures this admission per CV. Nephrology cleared after hemodialysis tomorrow. Likely discharge in the morning. Otherwise CBC unremarkable and chemistry consistent with ESRD. I have spoken to the patient and explained to him the importance of continuation of anticoagulation with Eliquis. He understands the risk of stopping anticoagulation including stroke or from occluded stent. He also understands the risk of bleeding associated with the use of anticoagulants but we discussed that in this case that benefits outweighed the risk and he agrees to continue Eliquis and follow-up with the cardiology clinic. He is fully awake and oriented at the time of my conversation. We had given him prescription for Eliquis.. 09/11- patient is awake alert and oriented x3. Hemodynamically stable afebrile. No major events overnight. Plan was for discharge today after hemodialysis but patient has requested to go to an inpatient rehab unit due to is afraid to go home since he lives alone now that he has been started on Eliquis. Case management made aware of DC planning. We will await placement. 09/12-patient awake alert and oriented x3. Afebrile and hemodynamically stable. Overnight patient had an episode of bleeding from the PermCath site. A quick clot was placed and bleeding was controlled. Otherwise patient has no complaints. CV surgery has seen patient and recommended venous mapping for tomorrow to reassess area and evaluate for AV fistula vs graft Friday. Case management is following for DC planning per patient request IRU pending insurance approval. 09/13-patient awake alert and oriented x3. Afebrile and hemodynamically stable. Overnight patient had an episode of bleeding from the PermCath site. A quick clot was placed and bleeding was controlled. Otherwise patient has no complaints. CV surgery has seen patient and recommended venous mapping for tomorrow to reassess area and evaluate for AV fistula vs graft Friday. Case management is following for DC planning per patient request IRU pending insurance approval. Patient is awake alert and oriented x3 hemodynamically stable afebrile. He denies any chest pain, palpitations or shortness for breath he does report however some pain to bilateral lower extremities with plus two pitting edema that has been decreasing. Patient reports that the pain is new feels like pinpricks. We will do ultrasound Doppler bilateral lower extremities. Patient was evaluated by CV surgery today and plans to take patient for left upper extremity arteriovenous fistula versus arteriovenous graft tomorrow morning. Eliquis has been on hold since yesterday. Plavix was placed on hold per CV surgery for upcoming procedure. Morning lab shows sodium of 138 potassium of 3.0 chloride 100 BUN 62 and creatinine 4.9 GFR of 12 as per RN she covered potassium per protocol we will repeat BMP this afternoon magnesium 1.7 covered per protocol. WBCs 9.8 H&H is 9.2/27.9 stable. Patient went for venogram this morning awaiting results. REVIEW OF SYSTEMS: 12 Point ROS reviewed with patient and were positive only as per HPI. Pertinent + and negative listed above all others negative PHYSICAL EXAM: GENERAL: alert, weak, awake oriented x 3 HEENT: EOMI, Sclera non icteric, moist mucosa NECK: Supple, no JVD, trachea midline LUNGS: Lung sounds clear to bilateral bases. No wheezes HEART: Regular rate and rhythm. Normal S1 and S2, without murmurs ABD: Abdomen soft obese, nontender. Bowel sounds present EXT: No clubbing cyanosis plus 1 pitting edema to bilateral lower extremities NEURO: Alert and oriented to person, follows commands , calm at time of my evaluation Vital Signs (last 8hr) Date Time Temp Pulse Resp B/P (MAP) Pulse Ox O2 Delivery O2 Flow Rate FiO2 09/13/24 11:18 97.7 80 20 123/75 96 Room Air 09/13/24 07:42 96 Room Air* 0 21 09/13/24 07:41 98.6 72 20 122/71 94 Room Air 09/13/24 06:58 70 18 N/A Room Air 09/13/24 06:57 70 18 LABS: Hematology Labs: Test 09/13/24 03:33 Range/Units White Blood Count 9.8 4.8-10.8 K/uL Red Blood Count 3.06 L 4.50-6.20 MIL/uL Hemoglobin 9.2 L 14.0-18.0 g/dL Hematocrit 27.9 L 42-54 % Mean Corpuscular Volume 91.2 79-99 fL Mean Corpuscular Hemoglobin 30.1 27.0-33.0 pg Mean Corpuscular Hemoglobin Concent 33.0 32.0-36.0 g/dL Red Cell Distribution Width 14.6 11.0-15.5 % Platelet Count 158 130-400 K/uL Mean Platelet Volume 12.0 H 7.5-10.5 fL Nucleated Red Blood Cells 0.0 0.0-0.19 % Chemistry Labs: Test 09/13/24 10:42 09/13/24 03:33 Range/Units Whole Blood Glucose 151 #H 70-110 MG/DL Sodium Level 138 136-145 mmol/L Potassium Level 3.0 *L 3.5-5.1 mmol/L Chloride Level 100 L 101-111 mmol/L Carbon Dioxide Level 29 21-32 mmol/L Blood Urea Nitrogen 62 H 7-18 mg/dL Creatinine 4.9 H 0.5-1.3 mg/dL Glomerular Filtration Rate Calc 12 >90 mL/min Random Glucose 91 70-105 mg/dL Total Calcium 8.6 8.5-10.1 mg/dL Phosphorus Level 4.0 2.5-4.9 mg/dL Magnesium Level 1.70 L 1.80-2.40 mg/dL Coagulation Labs: Test 09/13/24 03:33 Range/Units Prothrombin Time 12.3 H 9.6-11.6 SEC Prothromb Time International Ratio 1.11 0.85-1.15 Activated Partial Thromboplast Time 45.3 H 26.3-35.5 SEC DIAGNOSTICS / RADIOLOGY RESULTS: [ ] PLAN Passed 6 min walk. s/p C with successful angioplasty and stenting to SVG to posterior descending artery 09/01. continue with ASA, statin and brilinta. HOLD Eliquis AND Brillinta per CV surgery for now for possible procedure per CV. Continue metoprolol 12.5 mg b.i.d. Continue amiodarone 300 mg daily Per Case Management pt has a chair in [facility]. Per CV surgery we will wait for a fistula or graft placement not in this admission. Poor long-term prognosis. Consider palliative. Nephrology cleared for discharge tomorrow after hemodialysis 09/11/24. Start Eliquis 2.5 mg p.o. b.i.d. for DVT to left upper extremity. On hold for now. Patient will continue on recommended medication with aspirin and Brilinta. Stop aspirin after 30 days. NEURO: Minimize central acting medications as possible. Maintain fall precautions, adequate lighting during the day PULMONARY: Supplemental 02 as needed. Maintain aspiration precautions at all times maintain o2 sats above 92% atrovent Tx's PRN wheezing or sob emperic CAP coverage singular 10mg po daily ABG if worsening respiratory failure CARDIOVASCULAR: Follow hemodynamics. Vital signs per facility protocol Telemetry monitoring Continue patient's cardiac meds including: Amiodarone 300 mg daily Ezetimibe 10 mg daily I&O Daily weights Fluid restriction of 1500 Aspirin Atorvastatin Brilinta Beta meagan GI & NUTRITION: Continue with nutritional support. Continue stool softeners and laxatives as needed. Heart healthy diet KIDNEYS & ELECTROLYTES: Strict monitoring of intake, output and overall fluid balance. Avoid nephrotoxic medications to the extent possible. Medications to be dosed according to renal function. Monitor electrolytes and replace as needed ENDOCRINE: Maintain blood glucose between 100-180 at all times. Hypoglycemia protocol in place Lantus 20units BID ISS INFECTIOUS DISEASE: Trend temperature, WBC and procalcitonin level Follow cultures, deescalate antibiotics as soon as possible. Panculture if new onset fever Doxy Rocephin for emperic CAP coverage ONCOLOGY/HEMATOLOGY/COAGULATION: Monitor for s/s of bleeding Monitor hemoglobin, coagulation studies as needed SKIN: Pressure ulcer prevention per facility protocol Specialty mattress ORTHO/REHAB: Continue PT/OT Prophylaxis: Continue GI and DVT prophylaxis Protonix Lovenox Code Status: Full Resuscitation Disposition: TBD Other: Total critical care time 35 minutes Case discussed with supervising physician plan of care agreed upon [facility] Sep 13, 2024 12:03
--- NOTE | 2024-09-13 12:20 | NUR ---
BACK FROM VENOGRAM.
[2024-09-13 15:07] LABS: HEMATOCRIT 30.4 % (42-54)
--- NOTE | 2024-09-13 17:58 | NUR ---
CM NOTE/WOH APPROVED CM spoke to Razia with [facility]. States they have insurance approval and have bed for transfer today. BEBETO updated Virgil Morgan NP. Patient is still pending AV access surgery. Tentatively scheduled for surgery tomorrow. BEBETO notified Jennifer RN with Dr. Muñoz of approval. Also updated that patient received Eliquis and Brillinta on 09/12. States she will discuss with Dr. Muñoz. BEBETO followed up with [facility] regarding HD chair. Explained that patient will be at [facility] short term and needing HD chair at [place] location. Ankush with [facility] states he will request chair and let BEBETO know once schedule approved. Ankush notified that patient is still pending surgery. CM to f/u. Addendum: 09/13/24 at 1803 by CATY YOU CM Amended: Links added.
[2024-09-13] MEDS: GABApentin 100 MG CAPSULE PO SCH (18:17)
[2024-09-13 20:22] LABS: HEMATOCRIT 30.2 % (42-54)
[2024-09-13 20:28] LABS: CREATININE 3.3 mg/dL (0.5-1.3)
--- NOTE | 2024-09-13 20:48 | HMCIMG ---
Exam Type: US VENOUS DOPPLER BILATERAL Clinical Information: rule out DVT pain and swelling Comparison: None Findings: The examination shows normal deep venous system. There is normal compressibility at all levels. There is no intraluminal clot. There is no occlusion. Adequate response is obtained on augmentation. Impression: No evidence of DVT.
--- NOTE | 2024-09-13 21:36 | PN ---
SUBJECTIVE: The patient has been evaluated and seen several times. This patient has no fever, chills, or rigors. The patient has no cough, expectoration, or hemoptysis. No other associated finding. No other aggravating or relieving factor. The patient has undergoing further studies for his venous structure. I have discussed with the surgical team personally and the other comorbidities are present. PHYSICAL EXAMINATION: VITAL SIGNS: Blood pressure is 115/62, pulse 71, respiratory rate is 18, afebrile. HEENT: Head is atraumatic, normocephalic. Pupils are round, reactive to light. Sclerae are anicteric. Conjunctivae are not pale. Oral mucosa is not dry. NECK: Supple. No masses or bruits. Thyroid is palpable. CHEST: Shows diminished at both bases, prolonged expiration, percussion note being resonant in all areas. CARDIAC: Regular rhythm. No rub, no S3, S4. No parasternal heave. LABORATORY DATA: We have reviewed available labs in detail with a hemoglobin of 9.2. Potassium is 3. Old records reviewed. IMAGING STUDIES: Personally reviewed. PROBLEMS: Renal failure, anemia, multiple other comorbidities. PLAN: Plan will be to continued monitoring. Follow up on renal function. Seen for dialysis, seen several times. We have discussed with the surgical team. AV access if possible and Epogen as needed. Seen for dialysis and seen multiple times. I have discussed with other team members in detail. TID: [id number] RECEIPT: [id number]
--- NOTE | 2024-09-13 21:54 | PN ---
SUBJECTIVE: This patient has been evaluated and seen for dialysis, seen several times. OBJECTIVE: CHEST: Shows crackles. EXTREMITIES: With no edema. NEUROLOGIC: Unchanged. The patient is generally weak. PROBLEMS: Renal failure, anemia, diabetes, nephropathy, and hypertension. PLAN: To continue dialysis support. Continue monitoring of renal function. The patient has severe cardiomyopathy and possible superficial vein thrombosis, left arm. We have ordered the venogram, will be monitoring on that. Intake, output, weight, and electrolytes will be monitored. The patient was evaluated and seen for dialysis and seen multiple times today. Overall condition is critical and guarded. Thank you for this patient. TID: [id number] RECEIPT: [id number]
[2024-09-14] VITALS (7 sets, daily range): BP systolic 119–133; BP diastolic 61–75; PULSE 69–85; RESP 18–20; TEMP 97.6–98.5; O2SAT 96–97
[2024-09-14 03:43] LABS: HEMATOCRIT 28.9 % (42-54); MEAN CORPUSCULAR HEMOGLOBIN 30.2 pg (27.0-33.0); MEAN CORPUSCULAR HGB CONC 32.2 g/dL (32.0-36.0); MEAN CORPUSCULAR VOLUME 93.8 fL (79-99); RED BLOOD CELL COUNT(AUTO) 3.08 MIL/uL (4.50-6.20); RED CELL DISTRIBUTION WIDTH 14.6 % (11.0-15.5); WHITE BLOOD COUNT (AUTO) 8.5 K/uL (4.8-10.8)
[2024-09-14 03:57] LABS: CREATININE 3.8 mg/dL (0.5-1.3); MAGNESIUM 1.8 mg/dL (1.80-2.40); PHOSPHORUS 3.4 mg/dL (2.5-4.9); POTASSIUM 3.1 mmol/L (3.5-5.1)
[2024-09-14 04:37] LABS: INR 1.04 (0.85-1.15); PROTHROMBIN TIME 11.6 SEC (9.6-11.6)
[2024-09-14 04:38] LABS: PARTIAL THROMBOPLASTIN TIME 39.3 SEC (26.3-35.5)
[2024-09-14] MEDS ORDERED: ceFAZolin SODIUM 2 GM VIAL IVPB PRN (07:30)
--- NOTE | 2024-09-14 11:32 | PN ---
[facility] PROGRESS NOTE Date Patient Seen: Sep 14, 2024 Time of Visit: 11:32 Supervising Physician: [ ] Primary Care Physician: Srinath Kumari MD Outpatient Specialists: Dr Maribel Higgins MD Inpatient Consults: Dr Maribel Higgins MD (Cardiology), Dr. Whitman (nephrology) PROBLEM LIST: Acute hypoxic respiratory failure, requiring supplemental oxygen via nasal ca nnula POA, resolved Left upper extremity DVT on vein mapping 09/10/24. NSTEMI, POA S/p [facility] Left heart catheterization with stenting of the saphenous vein graft to the posterior descending artery 09/01 Acute renal failure secondary to ATN from [facility] vs CRS on CKD stage III, PO ( GFR 28 in 2019) S/P PermCath placement to right chest wall and HD 1st Tx on 09/07/24 Severe CAD s/p CABG 16yrs ago and 2nd CABG 10 yrs ago Acute on Chronic CHF exacerbation with ICM EF 25-30% s/p AICD placement, POA (BNP 1650) Suspected CAP, POA COPD exacerbation, POA,improved Lt > RT pleural effusion, POA , multifactorial Hyperglycemia in the presence of Type 2DM, POA Essential HTN Suspected BETTY, undiagnosed and untreated, POA INTERVAL HISTORY: Patient was seen and examined today by me at bedside continues to complain of shortness of breath continues with Lasix 40 mg q.12 hours , Chest x-ray to reveal bilateral effusions with left greater than the right small to moderate, improving. Of note does have congestive heart failure exacerbation with an EF of25 30% with stage III diastolic dysfunction and medications have been optimized by Dr. López Considerdation for dobutamine drip discussed with Dr. López as per recs by our team however at this time he would like to wait and see how he comes along .Should he not improve Dr. López would prefer milrinone. We greatly appreciate his input in this interesting case. For now we will continue to monitor his effusions , he is on 2L via [place] + orthopnea 09/03 patient is sitting up in the chair not in acute distress. He reported that he is still out of breath with exertion. He remains on 2 L of oxygen nasal cannula. Creatinine is worsening, creatinine is 2.8 up from 2.5. we will start patient on inotrope with Milrinone drip. Continue to monitor I/O. 09/04 patient is up in the chair dangling his legs which are markedly more edematous since yesterday. Venous Doppler negative. This is likely from fluid retention in related to worsening MAHESH, creatinine is 4.1 this is up from 2.8 yesterday. He was started on inotrope Milrinone. Given worsening renal function and urine output is minimal, We will discontinue Milrinone because he is not responding to inotrope. He likely has cardiorenal syndrome vs LANIE. Continue with diuretic Lasix. Continue to follow renal function very closely. Otherwise continue current regimen. Nephrology is following. 09/05 patient is sitting up at the recliner not in acute distress. He stated that he is able to ambulate though with shortness of breath. His bilateral lower extremity are still edematous. His remarkable lab studies this morning with creatinine up to 5.2 from 4.1. He put out 500 cc with balance +79 cc. Diuretic. He also has moved his bowel. He remains on 2 L nasal cannula with sats 98%. Continue to trend renal function. Will need 6 minute walk prior to discharge. 09/06 patient is awake alert oriented x3 no acute event overnight. Patient had decided to go ahead and do dialysis given worsening renal function. Patient's lower extremities edema is worsened. Patient has put out only 1.2 L of urine. We will ask IR to place dialysis catheter and Nephrology to start patient on hemodialysis. Case management to arrange for chair for outpatient dialysis. 09/07-patient is awake alert and oriented x3 hemodynamically stable afebrile saturating 99% on room air. Pending a PermCath placement. And dialysis scheduled for later on today. CBC unremarkable similar to yesterday. Magnesium was 1.7 replace per protocol BUN 88 creatinine 5.9 GFR 10 consistent with ESRD. PT is 12.4 INR 1.12, P APTT 36.7. We will follow Nephrology recommendations in regards to hemodialysis. 09/08- patient is awake alert and oriented x3 he is in good spirits his family at bedside hemodynamically stable with a blood pressure of 128/72 heart rate in the 70s respiratory rate of 16 saturating 99% on room air and afebrile. He tolerated his hemodialysis treatment yesterday in which the pulled 1.3 L. On laboratory H&H is 12.6/38.1 and platelet count is 414309. Chemistries sodium is 141 potassium 3.1 covered per protocol with BUN 68 creatinine of 4.5 and GFR 14 consistent with his ESRD glucose 109 mg/dL with a phosphorus 5.8 total protein 5.6 albumin 2.7. On chest x-ray mild bilateral pulmonary infiltrates are seen may be related to mild pulmonary vascular congestion with possible superimposed pneumonitis. Nephrology plans for another hemodialysis treatment for today. Case management spoke to patient regarding HD arrangement patient's preference is to have a chair at [facility]. 09/09-patient is awake alert and oriented x3 sitting up in recliner chair. Appears to be in good spirits afebrile heart rate in the 70s hemodynamically stable with a blood pressure 115/72 saturating 96% on room air. He has passed 6 minute walk. Patient received dialysis yesterday with a 2nd time with 2.2 L out and pending dialysis for today as well. Per nephrology recommendations consult CV surgery for possible AV fistula placement or graft placement. Pending to see. Otherwise as per case management patient already has a chair at [facility]. 09/10-patient is awake alert and oriented x3. He was on heparin due to noncompressible thrombus seen in the proximal portion of the left basilic vein consistent with superficial thrombophlebitis and noncompressible thrombus are noted in the left axillary vein consistent with deep venous spondylosis. Ultrasound upper extremity venous mapping study as described above. APTT was elevated this morning. Holding heparin. We will redraw APTT this afternoon. Patient with some bleeding from PermCath site controlled. CV surgery followed up with patient this afternoon and decided that we will wait for permanent AV fistula or graft placement. No further procedures this admission per CV. Nephrology cleared after hemodialysis tomorrow. Likely discharge in the morning. Otherwise CBC unremarkable and chemistry consistent with ESRD. I have spoken to the patient and explained to him the importance of continuation of anticoagulation with Eliquis. He understands the risk of stopping anticoagulation including stroke or from occluded stent. He also understands the risk of bleeding associated with the use of anticoagulants but we discussed that in this case that benefits outweighed the risk and he agrees to continue Eliquis and follow-up with the cardiology clinic. He is fully awake and oriented at the time of my conversation. We had given him prescription for Eliquis.. 09/11- patient is awake alert and oriented x3. Hemodynamically stable afebrile. No major events overnight. Plan was for discharge today after hemodialysis but patient has requested to go to an inpatient rehab unit due to is afraid to go home since he lives alone now that he has been started on Eliqui s. Case management made aware of DC planning. We will await placement. 09/12-patient awake alert and oriented x3. Afebrile and hemodynamically stable. Overnight patient had an episode of bleeding from the PermCath site. A quick clot was placed and bleeding was controlled. Otherwise patient has no complaints. CV surgery has seen patient and recommended venous mapping for to horn to reassess area and evaluate for AV fistula vs graft Friday. Case management is following for DC planning per patient request IRU pending insurance approval. 09/13-patient awake alert and oriented x3. Afebrile and hemodynamically stable. Overnight patient had an episode of bleeding from the PermCath site. A quick clot was placed and bleeding was controlled. Otherwise patient has no complaints. CV surgery has seen patient and recommended venous mapping for tomorrow to reassess area and evaluate for AV fistula vs graft Friday. Case management is following for DC planning per patient request IRU pending insurance approval. Patient is awake alert and oriented x3 hemodynamically stable afebrile. He denies any chest pain, palpitations or shortness for breath he does report however some pain to bilateral lower extremities with plus two pitting edema that has been decreasing. Patient reports that the pain is new feels like pinpricks. We will do ultrasound Doppler bilateral lower extremities. Patient was evaluated by CV surgery today and plans to take patient for left upper extremity arteriovenous fistula versus arteriovenous graft tomorrow morning. Eliquis has been on hold since yesterday. Plavix was placed on hold per CV surgery for upcoming procedure. Morning lab shows sodium of 138 potassium of 3.0 chloride 100 BUN 62 and creatinine 4.9 GFR of 12 as per RN she covered potassium per protocol we will repeat BMP this afternoon magnesium 1.7 covered per protocol. WBCs 9.8 H&H is 9.2/27.9 stable. Patient went for venogram this morning awaiting results. REVIEW OF SYSTEMS: 12 Point ROS reviewed with patient and were positive only as per HPI. Pertinent + and negative listed above all others negative PHYSICAL EXAM: GENERAL: alert, weak, awake oriented x 3 HEENT: EOMI, Sclera non icteric, moist mucosa NECK: Supple, no JVD, trachea midline LUNGS: Lung sounds clear to bilateral bases. No wheezes HEART: Regular rate and rhythm. Normal S1 and S2, without murmurs ABD: Abdomen soft obese, nontender. Bowel sounds present EXT: No clubbing cyanosis plus 1 pitting edema to bilateral lower extremities NEURO: Alert and oriented to person, follows commands , calm at time of my evaluation Vital Signs (last 8hr) Date Time Temp Pulse Resp B/P (MAP) Pulse Ox O2 Delivery O2 Flow Rate FiO2 09/14/24 08:43 121/75 09/14/24 07:26 97.7 75 20 121/75 96 Room Air 09/14/24 06:11 70 18 N/A Room Air 21 09/14/24 06:11 70 18 09/14/24 03:35 98.4 69 18 119/61 95 Room Air LABS: Hematology Labs: Test 09/14/24 03:21 Range/Units White Blood Count 8.5 4.8-10.8 K/uL Red Blood Count 3.08 L 4.50-6.20 MIL/uL Hemoglobin 9.3 L 14.0-18.0 g/dL Hematocrit 28.9 L 42-54 % Mean Corpuscular Volume 93.8 79-99 fL Mean Corpuscular Hemoglobin 30.2 27.0-33.0 pg Mean Corpuscular Hemoglobin Concent 32.2 32.0-36.0 g/dL Red Cell Distribution Width 14.6 11.0-15.5 % Platelet Count 179 130-400 K/uL Mean Platelet Volume 11.7 H 7.5-10.5 fL Nucleated Red Blood Cells 0.0 0.0-0.19 % Chemistry Labs: Test 09/14/24 10:47 09/14/24 03:21 Range/Units Whole Blood Glucose 137 #H 70-110 MG/DL Sodium Level 140 136-145 mmol/L Potassium Level 3.1 L 3.5-5.1 mmol/L Chloride Level 101 101-111 mmol/L Carbon Dioxide Level 33 H 21-32 mmol/L Blood Urea Nitrogen 40 H 7-18 mg/dL Creatinine 3.8 H 0.5-1.3 mg/dL Glomerular Filtration Rate Calc 17 >90 mL/min Random Glucose 77 # 70-105 mg/dL Total Calcium 8.4 L 8.5-10.1 mg/dL Phosphorus Level 3.4 2.5-4.9 mg/dL Magnesium Level 1.80 1.80-2.40 mg/dL Coagulation Labs: Test 09/14/24 03:21 Range/Units Prothrombin Time 11.6 9.6-11.6 SEC Prothromb Time International Ratio 1.04 0.85-1.15 Activated Partial Thromboplast Time 39.3 H 26.3-35.5 SEC DIAGNOSTICS / RADIOLOGY RESULTS: [ ] PLAN Passed 6 min walk. s/p C with successful angioplasty and stenting to SVG to posterior descending artery 09/01. continue with ASA, statin and brilinta. HOLD Eliquis AND Brillinta per CV surgery for now for possible procedure per CV. Continue metoprolol 12.5 mg b.i.d. Continue amiodarone 300 mg daily Per Case Management pt has a chair in [facility]. Per CV surgery we will wait for a fistula or graft placement not in this admission. Poor long-term prognosis. Consider palliative. Nephrology cleared for discharge tomorrow after hemodialysis 09/11/24. Start Eliquis 2.5 mg p.o. b.i.d. for DVT to left upper extremity. On hold for now. Patient will continue on recommended medication with aspirin and Brilinta. Stop aspirin after 30 days. NEURO: Minimize central acting medications as possible. Maintain fall precautions, adequate lighting during the day PULMONARY: Supplemental 02 as needed. Maintain aspiration precautions at all times maintain o2 sats above 92% atrovent Tx's PRN wheezing or sob emperic CAP coverage singular 10mg po daily ABG if worsening respiratory failure CARDIOVASCULAR: Follow hemodynamics. Vital signs per facility protocol Telemetry monitoring Continue patient's cardiac meds including: Amiodarone 300 mg daily Ezetimibe 10 mg daily I&O Daily weights Fluid restriction of 1500 Aspirin Atorvastatin Brilinta Beta meagan GI & NUTRITION: Continue with nutritional support. Continue stool softeners and laxatives as needed. Heart healthy diet KIDNEYS & ELECTROLYTES: Strict monitoring of intake, output and overall fluid balance. Avoid nephrotoxic medications to the extent possible. Medications to be dosed according to renal function. Monitor electrolytes and replace as needed ENDOCRINE: Maintain blood glucose between 100-180 at all times. Hypoglycemia protocol in place Lantus 20units BID ISS INFECTIOUS DISEASE: Trend temperature, WBC and procalcitonin level Follow cultures, deescalate antibiotics as soon as possible. Panculture if new onset fever Doxy Rocephin for emperic CAP coverage ONCOLOGY/HEMATOLOGY/COAGULATION: Monitor for s/s of bleeding Monitor hemoglobin, coagulation studies as needed SKIN: Pressure ulcer prevention per facility protocol Specialty mattress ORTHO/REHAB: Continue PT/OT Prophylaxis: Continue GI and DVT prophylaxis Protonix Lovenox Code Status: Full Resuscitation Disposition: TBD Other: Total critical care time 35 minutes Case discussed with supervising physician plan of care agreed upon SHREE CORDOBA AIR CONDITIONING EQUIPMENT MECHANIC Sep 14, 2024 11:32
--- NOTE | 2024-09-14 12:15 | DS ---
[facility] DISCHARGE SUMMARY Date Patient Seen: Sep 14, 2024 Time of Visit: 12:14 Supervising Physician: Arcelia Romero MD Primary Care Physician: Srinath Kumari MD Outpatient Specialists: Dr Maribel Higgins MD Inpatient Consults: Dr Maribel Higgins MD (Cardiology), Dr. Whitman (nephrology) PROBLEM LIST: Acute hypoxic respiratory failure, requiring supplemental oxygen via nasal cannula POA, resolved Left upper extremity DVT on vein mapping 09/10/24. NSTEMI, POA S/p [facility] Left heart catheterization with stenting of the saphenous vein graft to the posterior descending artery 09/01 Acute renal failure secondary to ATN from [facility] vs CRS on CKD stage III, PO ( GFR 28 in 2019) S/P PermCath placement to right chest wall and HD 1st Tx on 09/07/24 Severe CAD s/p CABG 16yrs ago and 2nd CABG 10 yrs ago Acute on Chronic CHF exacerbation with ICM EF 25-30% s/p AICD placement, POA (BNP 1650) Suspected CAP, POA COPD exacerbation, POA,improved Lt > RT pleural effusion, POA , multifactorial Hyperglycemia in the presence of Type 2DM, POA Essential HTN Suspected BETTY, undiagnosed and untreated, POA HOSPITAL COURSE: HPI 08/28- This is a 69-year-old obese male with a past medical history of two CABGs last one 10 years ago. The Patient also has a pertinent medical history of HFrEF of 20% status post AICD, COPD, CKD stage 3, essential hypertension, and type 2 diabetes mellitus. He presented to the emergency department today for progressive increasing shortness of breath with minimal exertion, and orthopnea that started this morning. Patient did report a moderate chest pain prior to coming into the emergency department. He described pain feeling like pressure in the middle of his chest radiating to his back with associated cold sweat. On arrival to the emergency department he presented with a temperature 97.9 heart rate of 92 respiratory rate of 24 blood pressure 128/93 saturating 97% on room air. WBCs were normal with neutrophils of 83.4 on chemistry BUN 44 creatinine 2.3 random glucose of 226 mg/dL with a ionized calcium of 1.09 sensitive troponin initially was 151 and on repeat 225.7. The patient has been in the hospital for several days. He was initially admitted present management of NS echocardiogram showed an LVEF of 55-30% stage III diastolic dysfunction with a history of AICD placement. Heart failure medications were optimized by Dr. López his director [employer]. Patient is due to undergo left heart catheterization with stenting of the saphenous vein graft to the posterior descending artery and 09/01/24. He was prescribed Brilinta and aspirin per Cardiology post stent. Kidney function worsened and he required hemodialysis and agreed for treatment. Right chest PermCath was placed per IR and hemodialysis started and he tolerated x3 treatments here. Nephrology recommended fistula or graft placement to avoid the possibility of endocarditis. On vein grafting of the left arm he was found to have a DVT to left upper extremity and was started on Eliquis. Per CV surgery evaluation recommending to follow up as an outpatient for outpatient placement of AV fistula VS graft. Patient agreed to that. On DC planning patient was afraid to be discharged home because he lives alone and on new blood thinners. He requested to go to rehabilitation in order to regain his strength. He was placed on [facility] nursing [facility] although he lived in [place] he prefer not to go to [facility] due to pre due tosvious bad experienced with staff there. Per case management he was also arrange a chair at [facility] in [place] and once patient is from [facility] a chair we will be arranged for him at the [facility] in [place]. I have gone over his medications and prescription who were prescribed to his pharmacy [facility] pharmacy. I also educated him on medications including anticoagulation. I have spoken to the patient and explained to him the importance of continuation of Eliquis. He understands the risk of stopping anticoagulation including stroke or from occluded stent He also understands the risk of bleeding associated with the use of anticoagulants but we discussed that in this case that benefits outweighed the risk and he agrees to continue Eliquis and follow-up with the Cardiology clinic. He is fully awake and oriented at the time of my conversation. We had given him prescription for Eliquis. CHRONIC PROBLEMS: continue previous management per PCP unless otherwise indicated FRAME CATCHER FINDINGS/RECOMMENDATIONS: Per Cardiology- Follow up with cardiology in 1-2 weeks. continue with brillinta and asa Per Nephrology pr to follow up at [facility] for treatments as scheduled. CV surgery follow up in 1-2 weeks for outpatient scheduling of AV fistula/graft. PROCEDURES: as mentioned above Pt hemodynamically stable and afebrile at time of discharge. PCP notified of patients admission, hospital course and discharge. New Medications: Isosorbide Mononitrate (Isosorbide Mononitrate) 20 Mg Tablet 30 MG PO DAILY, #45 TAB 1 Refill Apixaban (Eliquis) 2.5 Mg Tablet 2.5 MG PO BID, #60 TAB 0 Refills Aspirin (Aspirin 81MG Chew Tab) 81 Mg Tab.chew 81 MG PO DAILY, #30 TAB.CHEW 1 Refill Stop after 30 days. Atorvastatin Calcium (Lipitor) 40 Mg Tablet 40 MG PO HS, #30 TAB 1 Refill Carvedilol (Coreg) 12.5 Mg Tablet 12.5 MG PO BID, #60 TAB 1 Refill Ticagrelor (Brilinta) 90 Mg Tablet 90 MG PO BID, #30 TAB 1 Refill Continued Medications: Allopurinol (Allopurinol) 300 Mg Tablet 300 MG PO DAILY, TAB Amiodarone HCl (Amiodarone HCl) 400 Mg Tablet 300 MG PO DAILY, TAB Ergocalciferol (Vitamin D2) (Vitamin D2) 50 Mcg (2000 Unit) Capsule 50 MCG PO QWEEK, CAP Ezetimibe (Ezetimibe) 10 Mg Tablet 10 MG PO DAILY, TAB Glipizide (Glipizide ER) 5 Mg Tab.er.24 5 MG PO DAILY Sacubitril/Valsartan (Entresto 24 mg-26 mg Tablet) 24 Mg-26 Mg Tablet 1 TAB PO BID for 30 Days, #60 TAB 0 Refills Discontinued Medications: Furosemide (Furosemide) 40 Mg Tablet 40 MG PO DAILY, TAB Metolazone (Metolazone) 2.5 Mg Tablet 2.5 MG PO QWEEK, TAB PHYSICAL EXAM: GENERAL: alert, weak, awake oriented x 3 HEENT: EOMI, Sclera non icteric, moist mucosa NECK: Supple, no JVD, trachea midline LUNGS: Lung sounds clear to bilateral bases. No wheezes HEART: Regular rate and rhythm. Normal S1 and S2, without murmurs, RT chest percath ABD: Abdomen soft obese, nontender. Bowel sounds present EXT: No clubbing cyanosis plus 1 pitting edema to bilateral lower extremities NEURO: Alert and oriented to person, follows commands , calm at time of my evaluation FOLLOW-UP: Patient to follow up with primary care physician in 1-3 days after discharge from [facility]. Patient to follow up with the hemodialysis as scheduled at [facility]. Patient to follow up with lead mechanical engineer in 1-2 weeks post discharge from [facility]. Patient to follow up with director museum [employer] in 1-2 weeks post discharge from [facility]. RECOMMENDATIONS: See Discharge Instructions This case was seen and discussed with my supervising physician. More than 30 minutes spent on discharge process, including evaluation of the patient, discussion with nursing staff, medication reconciliation and follow-up appointments SHREE CORDOBAP Sep 14, 2024 12:15
--- NOTE | 2024-09-14 12:38 | PN ---
NEPHROLOGY PROGRESS NOTE Date/Time Patient Seen: Sep 14, 2024 SUBJECTIVE: This is a 69-year-old male with a past medical history of two CABGs last one 10 years ago, HFrEF of 20% status post AICD, COPD, CKD stage 3, essential hypertension, obesity, and type 2 diabetes mellitus. He presented to the emergency department today for progressive increasing shortness of breath with minimal exertion, and orthopnea that started this morning. He has been in the hospital for several days Was admitted further evaluation and management of NSTEMI. Echocardiogram showed LVEF of 25-30%. Stage III diastolic dysfunction S/p left heart catheterization with stenting of the saphenous vein graft to the posterior descending artery on 09/01/2024. He was noted to have worsening renal function. We has been consulted for renal failure. Renal function continued to worsen Patient has agreed to start renal replacement therapy He has been tolerating dialysis without difficulty. Outpatient dialysis chair at [facility] Patient to follow up with CV surgeon as outpatient for AV access creation. Case management coordinating SNF placement, pending discharge later today He was seen in the telemetry floor, in no acute distress Family at the bedside Prognosis remains guarded REVIEW OF SYSTEMS: GENERAL: Negative for lower extremity edema and shortness of breath NEUROLOGIC: Negative for any blurry vision, blind spots, double vision, facial asymmetry, dysphagia, dysarthria, hemiparesis, hemisensory deficits, vertigo, ataxia. HEENT: Negative for any head trauma, neck trauma, neck stiffness, photophobia, phonophobia, sinusitis, rhinitis. CARDIAC: Negative for any chest pain, dyspnea on exertion, paroxysmal nocturnal dyspnea, peripheral edema. PULMONARY: Negative for any shortness of breath, wheezing, COPD, or TB exposure. GASTROINTESTINAL: Negative for any abdominal pain, nausea, vomiting, bright red blood per rectum, melena. GENITOURINARY: Negative for any dysuria, hematuria, incontinence. INTEGUMENTARY: Negative for any rashes, cuts, insect bites. RHEUMATOLOGIC: Negative for any joint pains, photosensitive rashes, history of vasculitis or kidney problems. HEMATOLOGIC: Negative for any abnormal bruising, frequent infections or ble eding. Vital Signs (last 8hr) Date Time Temp Pulse Resp B/P (MAP) Pulse Ox O2 Delivery O2 Flow Rate FiO2 09/06/24 14:09 71 20 09/06/24 11:30 98.4 71 16 123/77 100 Nasal Cannula 2.0 100 09/06/24 09:29 13/65 09/06/24 08:50 96 Room Air* 0 21 PHYSICAL EXAM: GENERAL: Alert and oriented x 3. No acute distress. Well-nourished. EYES: EOMI. Anicteric. HENT: Moist mucous membranes. No scleral icterus. No cervical lymphadenopathy. LUNGS: Clear to auscultation bilaterally. No accessory muscle use. CARDIOVASCULAR: Regular rate and rhythm. No murmur. No JVD. ABDOMEN: Soft, non-tender and non-distended. No palpable masses. EXTREMITIES: 2+ edema. Non-tender. SKIN: No rashes or lesions. Warm. NEUROLOGIC: No focal neurological deficits. CN II-XII grossly intact, but not in dividually tested. PSYCHIATRIC: Cooperative. Appropriate mood and affect. Current Medications Medications (Trade) Dose Ordered Sig/Joellen Route Start Time Stop Time Status Last Admin Dose Admin Allopurinol (ZYLOprim 300MG) 300 mg DAILY PO 08/29/24 09:00 09/28/24 08:59 09/06/24 09:28 300 MG Amiodarone HCl (pacERONE 200MG) 300 mg DAILY PO 08/29/24 09:00 09/28/24 08:59 09/06/24 09:31 300 MG Aspirin (Aspirin 81mg Chew Tab) 81 mg DAILY PO 09/02/24 09:00 10/02/24 08:59 09/06/24 09:31 81 MG Aspirin (Aspirin 81mg Ec Tab) 81 mg DAILY PO 08/29/24 13:30 09/01/24 14:07 DC 08/31/24 09:05 81 MG Atorvastatin Calcium (LIPItor 40MG) 40 mg HS PO 08/29/24 21:00 09/28/24 20:59 09/05/24 20:37 40 MG Carvedilol (Coreg 12.5MG) 12.5 mg BID PO 09/02/24 09:00 10/02/24 08:59 09/06/24 09:29 12.5 MG Ceftriaxone Sodium (ROCEphine 1G INJ) 2 gm Q24H IVP 08/28/24 14:30 09/03/24 13:41 DC 09/02/24 15:44 2 GM Ceftriaxone Sodium (Rocephin 2gm Inj) 2 gm Q24H IVP 09/03/24 14:00 09/07/24 14:29 09/05/24 14:05 2 GM Doxycycline Hyclate (Doxycycline 100mg+NS 250ml) 100 mg BID IV 08/28/24 21:00 08/29/24 20:17 DC 08/29/24 09:27 100 MG Doxycycline Hyclate (Doxycycline 100mg+NS 250ml) 100 mg Q12H IV 08/30/24 05:00 09/09/24 04:59 09/06/24 04:09 100 MG Enoxaparin Sodium (Lovenox) 30 mg DAILY SQ 08/31/24 09:00 09/01/24 11:34 DC 08/31/24 09:04 30 MG Enoxaparin Sodium (Lovenox) 30 mg DAILY SQ 08/29/24 09:00 08/28/24 18:38 DC EZETIMIBE (Zetia) 10 mg DAILY PO 08/29/24 09:00 09/28/24 08:59 09/06/24 09:32 10 MG Furosemide (LASix 20MG VIAL) 20 mg Q8H IV 08/28/24 14:30 08/29/24 16:30 DC 08/29/24 05:51 20 MG Furosemide (LASix 40MG VIAL) 40 mg Q12H IV 08/29/24 20:00 09/28/24 19:59 09/06/24 09:28 40 MG Glipizide (GLUCOtrol XL 5MG TAB) 5 mg DAILY PO 08/29/24 09:00 08/30/24 13:55 DC 08/30/24 09:24 5 MG Heparin Sodium/ Dextrose 250 ml @ 0 mls/hr PROTOCOL IV 08/28/24 19:00 08/29/24 14:07 DC 08/29/24 03:03 0 MLS/HR Heparin Sodium/ Dextrose 250 ml @ 0 mls/hr Q6H IV 08/29/24 22:00 08/30/24 02:00 DC 08/29/24 21:34 12.38 MLS/HR Home Med (Home Medication) (Vitamin D2) (Katheryn... QWEEK PO 09/04/24 09:00 10/04/24 08:59 Hydralazine HCl ([id number] TAB) 12.5 mg TID PO 09/02/24 09:00 10/02/24 08:59 09/06/24 09:31 12.5 MG Insulin Glargine (LANtus 100 UNITS/ML 10 ML VIAL) 20 units BID@0730,2100 SQ 08/28/24 21:00 09/27/24 20:59 09/05/24 20:33 20 UNITS Insulin Human Regular (humuLIN R 100 UNIT/ML 3ML) INSULIN SLIDING SCAL... ACHS SQ 08/28/24 16:30 09/27/24 16:29 09/06/24 12:19 6 UNIT Ipratropium [place] (AtrovENT UD) 0.5 MG [id number] IH 08/28/24 22:00 09/27/24 21:59 09/06/24 14:09 0.5 MG Isosorbide Mononitrate (Imdur 30mg Sr) 30 mg DAILY PO 09/02/24 09:00 10/02/24 08:59 09/06/24 09:32 30 MG Metolazone (zarOXOlyn) 2.5 mg QWEEK PO 09/04/24 09:00 10/04/24 08:59 09/04/24 12:07 2.5 MG Metoprolol Tartrate (loprESSOR) 12.5 mg BID PO 08/29/24 21:00 09/02/24 08:03 DC 09/01/24 21:07 12.5 MG Milrinone Lactate/ Dextrose 100 ml @ 0 mls/hr PROTOCOL IV 09/03/24 14:00 09/04/24 12:42 DC 09/03/24 14:18 4 MLS/HR Pantoprazole Sodium (PROTonix 40MG TAB) 40 mg DAILY PO 08/29/24 09:00 09/28/24 08:59 09/06/24 09:29 40 MG Polyethylene Glycol (MIRalax 3350 17 GM POWD.PACK) 17 gm DAILY PO 08/29/24 09:00 09/28/24 08:59 09/06/24 09:32 17 GM Sodium Chloride 1,000 ml @ 30 mls/hr Q24H IV 08/31/24 08:30 09/01/24 11:42 DC Sodium Chloride 1,000 ml @ 50 mls/hr Q20H IV 09/01/24 12:00 09/01/24 15:59 DC 09/01/24 12:27 50 MLS/HR Ticagrelor (BRILinta) 90 mg BID PO 09/01/24 21:00 10/01/24 20:59 09/06/24 09:31 90 MG Vitamin B Complex/ Vit C/Folic Acid (Nephrovite Tablet) 1 cap DAILY PO 09/03/24 09:00 10/03/24 08:59 09/06/24 09:29 1 CAP LABORATORY: [ ] Hematology Labs: Test 09/14/24 03:21 Range/Units White Blood Count 8.5 4.8-10.8 K/uL Red Blood Count 3.08 L 4.50-6.20 MIL/uL Hemoglobin 9.3 L 14.0-18.0 g/dL Hematocrit 28.9 L 42-54 % Mean Corpuscular Volume 93.8 79-99 fL Mean Corpuscular Hemoglobin 30.2 27.0-33.0 pg Mean Corpuscular Hemoglobin Concent 32.2 32.0-36.0 g/dL Red Cell Distribution Width 14.6 11.0-15.5 % Platelet Count 179 130-400 K/uL Mean Platelet Volume 11.7 H 7.5-10.5 fL Nucleated Red Blood Cells 0.0 0.0-0.19 % Chemistry Labs: Test 09/14/24 10:47 09/14/24 03:21 Range/Units Whole Blood Glucose 137 #H 70-110 MG/DL Sodium Level 140 136-145 mmol/L Potassium Level 3.1 L 3.5-5.1 mmol/L Chloride Level 101 101-111 mmol/L Carbon Dioxide Level 33 H 21-32 mmol/L Blood Urea Nitrogen 40 H 7-18 mg/dL Creatinine 3.8 H 0.5-1.3 mg/dL Glomerular Filtration Rate Calc 17 >90 mL/min Random Glucose 77 # 70-105 mg/dL Total Calcium 8.4 L 8.5-10.1 mg/dL Phosphorus Level 3.4 2.5-4.9 mg/dL Magnesium Level 1.80 1.80-2.40 mg/dL Coagulation Labs: Test 09/14/24 03:21 Range/Units Prothrombin Time 11.6 9.6-11.6 SEC Prothromb Time International Ratio 1.04 0.85-1.15 Activated Partial Thromboplast Time 39.3 H 26.3-35.5 SEC DIAGNOSTICS / RADIOLOGY: REASON: rule out DVT pain and swelling ORDERING PHYSICIAN: SHREE CORDOBA PROCEDURE: VENOUS JONATHAN - US VENOUS DOPPLER BILATERAL Exam Type: US VENOUS DOPPLER BILATERAL Clinical Information: rule out DVT pain and swelling Comparison: None Findings: The examination shows normal deep venous system. There is normal compressibility at all levels. There is no intraluminal clot. There is no occlusion. Adequate response is obtained on augmentation. Impression: No evidence of DVT. DICTATED BY: MELO JIMENEZ MD DATE: 09/13/242043 REASON: [facility]. ORDERING PHYSICIAN: IVAN DUARTE MD PROCEDURE: CXR1VW - CHEST 1VW CHEST 1VW HISTORY: Dialysis COMPARISON: None FINDINGS: A frontal projection of the chest was obtained. There are bilateral pulmonary infiltrates suggestive of pulmonary vascular congestion with possible superimposed pneumonitis. Poststernotomy changes are seen. The heart is enlarged. Degenerative changes of the thoracolumbar spine are present. Pacemaker is seen entering from the left. Aortic calcifications are seen. IMPRESSION: 1. Bilateral pulmonary infiltrates mostly on the right are seen suggestive of pulmonary vascular congestion with possible superimposed pneumonitis. DICTATED BY: GARFIELD BRAGA MD DATE: 09/06/24 164 REASON: follow up pulmonary edema, hypoxia ORDERING PHYSICIAN: RAND HERNANDEZ CNP PROCEDURE: CXR1VW - CHEST 1VW CHEST 1VW HISTORY: Follow-up COMPARISON: 08/25/2024 FINDINGS: A frontal projection of the chest was obtained. Mild bilateral pulmonary infiltrates are seen may be related to mild pulmonary vascular congestion with possible superimposed pneumonitis. Poststernotomy changes are seen. The heart is enlarged. Degenerative changes of the thoracolumbar spine are present. Pacemaker is seen entering from the left. No evidence of aortic calcification is seen. IMPRESSION: 1. Mild bilateral pulmonary infiltrates are seen may be related to mild pulmonary vascular congestion with possible superimposed pneumonitis. DICTATED BY: GARFIELD BRAGA MD DATE: 09/06/24 0920 REASON: ACUTE KIDNEY INJURY ORDERING PHYSICIAN: IVAN DUARTE MD PROCEDURE: RENAL - US RENAL SONOGRAM US RENAL SONOGRAM REASON: ACUTE KIDNEY INJURY COMPARISON: None TECHNIQUE: Renal and bladder sonogram was performed FINDINGS: Right kidney is 9.9 x 6.1 x 5.0 cm, left 4.2 x 6.5 x 5.0 cm. Overall size and cortical thickness appears preserved. Kidneys are moderately echogenic consistent with chronic renal disease. There is no mass, stone or hydronephrosis. Urinary bladder was nondistended and not well visualized. IMPRESSION: 1. Echogenic kidneys consistent with chronic renal disease, overall size and cortical thickness appears preserved. 2. Urinary bladder not well visualized. DICTATED BY: WENDY MUELLER MD DATE: 09/03/24 1013 REASON: effusion ORDERING PHYSICIAN: ALBIN DIAS PROCEDURE: CXR1VW - CHEST 1VW CHEST 1VW REASON: effusion COMPARISON: 08/31/2024 FINDINGS: There is mild cardiomegaly. There is mild vascular congestion, this appears decreased. There are small bilateral pleural effusions, also decreased. IMPRESSION: 1. Stable cardiomegaly with decreasing vascular congestion and effusions. DICTATED BY: WENDY MUELLER MD DATE: 09/02/24 1354 REASON: PLEURAL EFFUSION ORDERING PHYSICIAN: ALBIN DIAS PROCEDURE: CXR1VW - CHEST 1VW CHEST 1VW REASON: PLEURAL EFFUSION COMPARISON: 08/29/2024 FINDINGS: There are stable cardiomegaly. There is mild vascular congestion. There are small bilateral pleural effusions. These findings appear unchanged. Pacemaker and median sternotomy are again noted. IMPRESSION: 1. Mild cardiomegaly with mild vascular congestion and effusions. 2. No interval change. DICTATED BY: WENDY MUELLER MD DATE: 08/31/24 1215 REASON: ACUTE ON CHORNIC CHF ORDERING PHYSICIAN: SHREE CORDOBA PROCEDURE: ECHO [facility] - ECHO 2-D COMPLETE APPROVED REPORT EXAM: Two-dimensional and M-mode echocardiogram with Doppler and color Doppler. Study Details: HTN ,HLD ,CHF ,CAD , CP , COPD , CABG INDICATION ICD: acute on chronic CHF 2D Dimensions RVDd 5.8 cm LVEF(%) 38.1 (>50%) LA ESV INDEX (4CH) 34.50 mL/m2 IVSd 1.0 (0.7-1.1cm) FS(%) 18 % LVDd 4.9 (3.8-5.6cm) LA (2D) 4.7 (1.6-4.0cm) PWd 1.5 (0.7-1.1cm) Ao Root(2D) 3.5 (2.0-3.7cm) IVSs 1.3 cm LVOT diam 2.2 (1.8-2.4cm) LVDs 4.0 (2.5-4.0cm) PWs 1.6 cm M-Mode Dimensions EPSS 2.1 cm LA (MM) 5.3 (1.6-4.0cm) Ao Root(MM) 3.2 (2.0-3.7cm) Aortic Valve AoV VTI 0.1 m Ao Mean GR 1.0 mmHg LVOT VTI 0.09 m OLIVER (VMAX) 2.7 cm2 OLIVER (VTI) 2.7 cm2 Mitral Valve MV E Vmax 125.3 cm/s DECEL Time 173 ms MV A Vmax 23.5 cm/s P 1/2 T 51 ms E/A ratio 5.3 MVA (PHT) 4.4 cm2 TDI E/E' Medial 35.8 E/E' Lateral 32.1 Medial E' Peak V 3.50 cm/s Lateral E' Peak V 3.90 cm/s Pulmonary Valve PV VTI 0.13 m PV Mean GR 1 mmHg Tricuspid Valve TR Vmax 2.6 m/s TR Peak GR 26.4 mmHg Left Ventricle The left ventricle is moderately dilated. Severe concentric left ventricular hypertrophy. LVEF is 25-30%. Stage III diastolic dysfunction. Right Ventricle The right ventricle is moderately dilated. Right ventricular systolic function is moderately reduced. Device lead is present in the right ventricle. Atria The left atrium is moderately dilated. The right atrium size is normal. A pacemaker is seen in the right atrium consistent with history. Aortic Valve Aortic valve leaflets are thickened and calcified. No aortic regurgitation is present. There is no aortic valvular stenosis. Mitral Valve Mild mitral annular calcification present. The mitral valve chordae are redun dant. Mitral regurgitation is mild. There is no mitral valve stenosis. Tricuspid Valve The tricuspid valve leaflets are mildly thickened. Mild tricuspid regurgitation. Pulmonic Valve Pulmonic valve is not well visualized. There is no pulmonic valvular re gurgitation. Great Vessels The aortic root is normal in size. The ascending aorta is normal in size. The inferior vena cava is moderately to severely dilated with no inspiratory collapse. Pericardium No pericardial effusion. Other Information Technically limited study due to body habitus, smoking and CABG. Conclusion The left ventricle is moderately dilated. LVEF is 25-30%. Stage III diastolic dysfunction. Mitral regurgitation is mild. DICTATED BY: JAYLEN BLACKWELL II, MD DATE: 08/28/24 1636 REASON: HYPOXIA ORDERING PHYSICIAN: SHREE CORDOBA PROCEDURE: CXR1VW - CHEST 1VW CHEST 1VW REASON: HYPOXIA COMPARISON: 08/28/2024 FINDINGS: There is cardiomegaly. There is mild central vascular congestion. There are small bilateral pleural effusions. Pacemaker and median sternotomy are again noted. IMPRESSION: 1. Interval development of mild vascular congestion with small bilateral pleural effusions. DICTATED BY: WENDY MUELLER MD DATE: 08/29/24 0904 REASON: RULE OUT dvt ORDERING PHYSICIAN: SHREE CORDOBA PROCEDURE: VENOUS JONATHAN - US VENOUS DOPPLER BILATERAL US VENOUS DOPPLER BILATERAL CLINICAL HISTORY: Lower extremity pain and edema COMPARISON: None FINDINGS: Bilateral lower extremity venous Doppler ultrasound was performed. The greater saphenous, common femoral, deep femoral, femoral , popliteal veins are widely patent and easily compressible with the ultrasound probe. Calf veins appear normal as well. There is normal response to compression and augmentation. IMPRESSION: Normal bilateral lower extremity venous Doppler ultrasound. DICTATED BY: ANCA MIXON DO DATE: 08/28/241938 REASON: sob ORDERING PHYSICIAN: MARIAM TAVARES MD PROCEDURE: CXR1VW - CHEST 1VW PORTABLE CHEST RADIOGRAPH INDICATION: sob COMPARISON: 03/19/2020 FINDINGS: Median sternotomy wires are in appropriate alignment. Left sided dual chamber pacer and continuous leads remain in customary position. Heart is enlarged. The pulmonary vascularity and marta appear normal. No evidence for consolidation. Left costophrenic angle appears slightly blunted more than the right. No pneumothorax detected. IMPRESSION: Cardiomegaly and trace left greater than right pleural effusion without pulmonary vascular congestion. DICTATED BY: ITZ CHAPARRO MD DATE: 08/28/24 0912 ASSESSMENT: Acute on chronic renal failure Acute hypoxic respiratory failure NSTEMI Severe CAD s/p CABG 16yrs ago and 2nd CABG 10 yrs ago Acute on Chronic CHF exacerbation with ICM EF 25-30% s/p AICD placement Suspected CAP COPD exacerbation Lt > RT pleural effusion Type 2DM Essential hypertension Obesity PLAN: Labs, diagnostic, radiologic exams reviewed and interpreted by myself and supervising physician. We have reviewed external records in detail From Nephrology standpoint , patient may be discharged Follow up in the outpatient dialysis center on Outpatient dialysis chair at [facility] Case management coordinating SNF placement. Preserve nondominant arm for AV access creation Epogen, on dialysis days. He was counseled on the importance of fluid restriction. Require close monitoring of renal function and electrolytes Order CBC, CMP, and electrolytes in am Continue with antibiotics Renal diabetic diet BiPAP as necessary, for respiratory distress Monitor blood pressure adjust medication doses as needed Avoid hypotensive episodes May use Dilaudid 0.5 mg IV every 6 hours as needed for severe pain Monitor blood sugars Strict intake, output, and daily weight should be monitored Please renally adjust medications Avoid nephrotoxic and nonsteroidal drugs Avoid contrast if possible Will continue to monitor renal function, anemia, electrolytes Treatment plan discussed with patient Questions were answered We have discussed with the other team physicians in detail about the care plan We will continue to monitor the patient closely ATTESTATION BY PHYSICIAN I have seen and examined the patient. I reviewed the documentation, medical decision making, and treatment plan as noted by the mid-level provider above. I agree with the findings and plan of care. IVAN DUARTE MD, ELIZABETH FNP Sep 14, 2024 12:38
--- NOTE | 2024-09-14 16:27 | NUR ---
CM NOTE/DAVITA CM spoke to Ankush with [facility]. States patient has been approved in [facility] TTS @ 9 am. Patient to start first treatment on . Ankush aware that patient is only at [place] location temporarily while in rehab. CM updated patient with new chair time. CM also updated Dr. Dickerson. Patient hesitant with [facility] but CM explained that authorization is in place and unable to change location without insurance approval. Explained delays due to holiday. Patient then agreed to proceed with Javan Pineda. Nursing aware to call report.
--- NOTE | 2024-09-14 17:13 | NUR ---
NOTE REPORT CALLED TO KARISHMA. SPOKE TO CIPRIANO. PATIIENT DISCHARGE INSTRUCTIONS GIVEN. HE STATED UNDERSTANDING. ALL QUESTIONS ANSWERED.
[2024-09-14] MEDS ORDERED: TICAGrelor 90 MG TABLET PO SCH (21:00)
[2024-09-14] MEDS ORDERED: APIXaban 2.5 MG TABLET PO SCH (21:00)
--- NOTE | 2024-09-15 10:35 | HMCIMG ---
VENOGRAM EXT UNILATERAL HISTORY: FOLLOW UP ON DVT/POSSIBLE AV FISTULA PLACEMENT TECHNIQUE: VENOGRAM EXT UNILATERAL. Left venogram was performed after demonstration of 40 cc of contrast. Fluoroscopy time 1.5 minutes. FINDINGS/IMPRESSION: The superficial and deep veins are grossly patent in the forearm. Incomplete filling is seen in the mid basilic vein concerning for obstructing thrombus. Partially visualized left pacemaker is noted. The left axillary vein is not visualized due to overlying pacemaker. There is no opacification of the left subclavian vein concerning for obstructing clot. Consider correlation with ultrasound.
== END 2024-09-14 17:53 | DRG 231 ==
LOC: EDH 07:56 → EDHIP 14:11 → 2DH 15:50
PROVIDERS: ADMIT Internal Medicine Critical Care Medicine; ATTEND Internal Medicine Critical Care Medicine
PROC: 4A023N7 Measurement of Cardiac Sampling and Pressure, Left Heart, Percutaneous Approach (ICD-10-PCS; principal; 2024-09-01)
PROC: 027034Z Dilation of Coronary Artery, One Artery with Drug-eluting Intraluminal Device, Percutaneous Approach (ICD-10-PCS; 2024-09-01)
PROC: B2111ZZ Fluoroscopy of Multiple Coronary Arteries using Low Osmolar Contrast (ICD-10-PCS; 2024-09-01)
PROC: B2131ZZ Fluoroscopy of Multiple Coronary Artery Bypass Grafts using Low Osmolar Contrast (ICD-10-PCS; 2024-09-01)
PROC: 021009W Bypass Coronary Artery, One Artery from Aorta with Autologous Venous Tissue, Open Approach (ICD-10-PCS; 2024-09-01)
PROC: 06BQ0ZZ Excision of Left Saphenous Vein, Open Approach (ICD-10-PCS; 2024-09-01)
PROC: 5A1D70Z Performance of Urinary Filtration, Intermittent, Less than 6 Hours Per Day (ICD-10-PCS; 2024-09-07)
PROC: 5A1D70Z Performance of Urinary Filtration, Intermittent, Less than 6 Hours Per Day (ICD-10-PCS; 2024-09-08)
PROC: 5A1D70Z Performance of Urinary Filtration, Intermittent, Less than 6 Hours Per Day (ICD-10-PCS; 2024-09-09)
PROC: 5A1D70Z Performance of Urinary Filtration, Intermittent, Less than 6 Hours Per Day (ICD-10-PCS; 2024-09-11)
PROC: 5A1D70Z Performance of Urinary Filtration, Intermittent, Less than 6 Hours Per Day (ICD-10-PCS; 2024-09-13)
DX: I25.810 Atherosclerosis of coronary artery bypass graft(s) without angina pectoris (principal); I21.4 Non-ST elevation (NSTEMI) myocardial infarction; I50.43 Acute on chronic combined systolic (congestive) and diastolic (congestive) heart failure; J96.01 Acute respiratory failure with hypoxia; N18.6 End stage renal disease; N17.0 Acute kidney failure with tubular necrosis; J44.1 Chronic obstructive pulmonary disease with (acute) exacerbation; I13.2 Hypertensive heart and chronic kidney disease with heart failure and with stage 5 chronic kidney disease, or end stage renal disease; I42.0 Dilated cardiomyopathy; I82.622 Acute embolism and thrombosis of deep veins of left upper extremity; E11.22 Type 2 diabetes mellitus with diabetic chronic kidney disease; E11.65 Type 2 diabetes mellitus with hyperglycemia; E78.00 Pure hypercholesterolemia, unspecified; I25.5 Ischemic cardiomyopathy; I80.8 Phlebitis and thrombophlebitis of other sites; I48.91 Unspecified atrial fibrillation; D64.9 Anemia, unspecified; Z20.822 Contact with and (suspected) exposure to COVID-19; I25.82 Chronic total occlusion of coronary artery; E66.9 Obesity, unspecified; Z87.891 Personal history of nicotine dependence; Z86.718 Personal history of other venous thrombosis and embolism; Z79.899 Other long term (current) drug therapy; Z79.82 Long term (current) use of aspirin; Z95.1 Presence of aortocoronary bypass graft; Z95.810 Presence of automatic (implantable) cardiac defibrillator; Z79.01 Long term (current) use of anticoagulants; Z68.33 Body mass index [BMI] 33.0-33.9, adult
CPT/HCPCS: 36415; 36556; 36558; 36569; 71045; 75820; 76770; 77001; 80048; 80053; 80061; 81001; 82040; 82330; 82550; 82565; 82728; 82948; 83036; 83540; 83550; 83605; 83735; 83880; 84100; 84145; 84443; 84484; 84520; 84550; 85014; 85018; 85025; 85027; 85610; 85730; 86701; 86704; 86706; 86803; 86850; 86900; 86901; 87040; 87340; 87390; 87426; 87804; 90935; 93005; 93306; 93459; 93970; 93971; 94640; 94664; 94760; 96374; 99156; 99157; 99285; C1750; C1769; C1884; C1887; C1894; C9604; G0378; J0583; J0696; J1644; J1650; J1756; J1815; J1940; J2250; J2260; J3010; J3360; J3475; J3490; J7050; J7070; Q9967; A4600; C1725; C1760; C1874; Q9965

== ENCOUNTER 2025-02-06 01:12 | Emergency (ER) | payer MEDICARE, MEDICAID ==
[~2025-02-06] VITALS: Ht 170.2 cm; Wt 86.4 kg
[~2025-02-06 01:12] MED LIST: ALLO300T2 PO; APIX2.5T PO; ATOR40TA69 PO; CARV12.580 PO; ISOS-58 PO; TICA90TA PO
[2025-02-06 02:07] LABS: BASOPHILS # (AUTO) 0.01 K/uL (0.00-0.20); BASOPHILS % (AUTO) 0.2 % (0.0-5.0); EOSINOPHILS # (AUTO) 0.06 K/uL (0.00-0.70); HEMATOCRIT 38.7 % (42-54); IMMATURE GRANULOCYTE ABSOLUTE 0.02 K/uL (0-1); LYMPHOCYTES # (AUTO) 0.9 K/uL (1.0-4.8); LYMPHOCYTES % (AUTO) 14.4 % (21.0-51.0); MEAN CORPUSCULAR HGB CONC 34.6 g/dL (32.0-36.0); MEAN CORPUSCULAR VOLUME 86.6 fL (79-99); MONOCYTES # (AUTO) 0.6 K/uL (0.1-1.0); MONOCYTES % (AUTO) 9.9 % (3.0-13.0); NEUTROPHILS # (AUTO) 4.5 K/uL (1.8-7.7); NEUTROPHILS % (AUTO) 74.2 % (40.0-77.0); PLATELET COUNT (AUTO) 224 K/uL (130-400); RED BLOOD CELL COUNT(AUTO) 4.47 MIL/uL (4.50-6.20); WHITE BLOOD COUNT (AUTO) 6.1 K/uL (4.8-10.8)
[2025-02-06 02:21] LABS: CREATININE 2.8 mg/dL (0.5-1.3); POTASSIUM 3.4 mmol/L (3.5-5.1)
--- NOTE | 2025-02-06 02:31 | ERN ---
ED Note History of Present Illness Stated Complaint: LEAKING FROM DIALYSIS PORT Chief Complaint: Other Problems Time Seen by MD: 00:54 Dictation: This is a 69-year-old male who presented to the emergency room stating that his hemodialysis catheter site is leaking serous fluid and before that around 12 30 a.m. he felt a pop on the right chest area and he found his shirt wet with the fluid draining from the site. Reports some stinging but otherwise no fever chills or rigors. No erythema. He also stated that he has not taken his insulin for over a week Temperature 97.8 pulse 80 respirations 16 blood pressure 125/95 pulse oximetry 99% on room air His chronic medical problems include coronary artery disease status post CABG, congestive heart failure, pacemaker AICD placement, COPD, diabetes mellitus, GERD, hypercholesterolemia, hypertension, end-stage renal disease on dialysis = Friday schedule and history of a DVT in the left upper extremity Allergies: Coded Allergies: No Known Allergies (Unverified Allergy, Unknown, 04/13/19) Home Meds Active Scripts Cephalexin Monohydrate (Keflex) 500 Mg Cap, 1 CAP PO TID for 7 Days, #21 CAP 0 Refills Prov:MATEO FOWLER MD 02/06/25 Isosorbide Mononitrate (Isosorbide Mononitrate) 20 Mg Tablet, 30 MG PO DAILY, #45 TAB 1 Refill Prov:SHREE CORDOBA 09/10/24 Ticagrelor (Brilinta) 90 Mg Tablet, 90 MG PO BID, #30 TAB 1 Refill Prov:SHREE CORDOBA 09/10/24 Carvedilol (Coreg) 12.5 Mg Tablet, 12.5 MG PO BID, #60 TAB 1 Refill Prov:SHREE CORDOBA 09/10/24 Atorvastatin Calcium (LIPITOR) 40 Mg Tablet, 40 MG PO HS, #30 TAB 1 Refill Prov:SHREE CORDOBA 09/10/24 Apixaban (Eliquis) 2.5 Mg Tablet, 2.5 MG PO BID, #60 TAB 0 Refills Prov:SHREE CORDOBA 09/10/24 Reported Medications Allopurinol (Allopurinol) 300 Mg Tablet, 300 MG PO DAILY, TAB 08/28/24 Past Medical History Past Medical History: CAD, CHF, COPD, Diabetes-Type II, GERD, High Cholesterol, Heart Disease, Hypertension, [place], Renal Failure Additional Past Medical Hx: DVT LUE, ESRD ON H/D Surgical History: CABG, Pacer/AICD Surgical History Other: CARDIAC CATHETERIZATION Family History: Negative RN Note Reviewed/Agreed w/PFSH: Yes Review of System Dictation Constitutional: Negative for fever,chills, and weight loss Eyes: Negative for injury, pain,redness, and discharge ENT: Negative for injury,pain or swelling Cardiovascular: Negative for chest pain, palpitations, and edema drainage from the chest site Respiratory: Negative for shortness of breath, cough, and wheezing, Abdomen/GI: Negative for abdominal pain, nausea, vomiting, diarrhea, and constipation Back: Negative for injury and pain : Negative for injury, bleeding and discharge MS/Extremity: Negative for injury and deformity Skin: Negative for rash, and discoloration Neuro: Negative for headache, weakness, numbness, tingling, and seizure Psych: Negative for suicide ideation, homicidal ideation, and hallucinations Initial Vital Sign VS Vital Signs Date Time Temp Pulse Resp B/P (MAP) Pulse Ox O2 Delivery O2 Flow Rate FiO2 02/06/25 01:13 97.9 80 16 125/95 99 Room Air 0 02/06/25 01:27 21 Physical Exam Dictation General: awake, alert, NAD Head/Face: Normocephalic, atraumatic Eyes: PERRL, EOMI, vision at baseline ENT: oral cavity clear, TMs clear, no signs of infection Neck: Trachea midline, supple, no nuchal rigidity Cardiovascular: RRR, normal S1/S2, No MRGs, no JVD right chest area he modialysis catheter in place the site has mild redness at the insertion but there is no pus induration erythema. And I did not see any serous fluid pop out. Respiratory: CTAB, no respiratory distress, No rales or wheezes Abdomen: Soft, non-tender, non-distended, normal bowel sounds, no guarding or rebound. Skin: Warm, dry, normal turgor, no rash MS/Extremity: Pulses equal, no cyanosis, neurovascular intact, FROM Neuro: COAx4, GCS 15, strength 5/5, CN 2-12 intact, normal cerebellar exam, normal gait, Psych: Normal behavior, mood, and affect normal Extremities-trace edema without any palpable cords, Homans sign is negative Results (Laboratory/Radiology) Laboratory/Radiology Laboratory Tests Test 02/06/25 01:28 02/06/25 02:54 02/06/25 03:32 White Blood Count 6.1 K/uL (4.8-10.8) Red Blood Count 4.47 MIL/uL (4.50-6.20) L Hemoglobin 13.4 g/dL (14.0-18.0) L Hematocrit 38.7 % (42-54) L Mean Corpuscular Volume 86.6 fL (79-99) Mean Corpuscular Hemoglobin 30.0 pg (27.0-33.0) Mean Corpuscular Hemoglobin Concent 34.6 g/dL (32.0-36.0) Red Cell Distribution Width 15.0 % (11.0-15.5) Platelet Count 224 K/uL (130-400) Mean Platelet Volume 11.3 fL (7.5-10.5) H Immature Granulocyte % (Auto) 0.3 % (0-1) Neutrophils (%) (Auto) 74.2 % (40.0-77.0) Lymphocytes (%) (Auto) 14.4 % (21.0-51.0) L Monocytes (%) (Auto) 9.9 % (3.0-13.0) Eosinophils (%) (Auto) 1.0 % (0.0-8.0) Basophils (%) (Auto) 0.2 % (0.0-5.0) Neutrophils # (Auto) 4.5 K/uL (1.8-7.7) Lymphocytes # (Auto) 0.9 K/uL (1.0-4.8) L Monocytes # (Auto) 0.6 K/uL (0.1-1.0) Eosinophils # (Auto) 0.06 K/uL (0.00-0.70) Basophils # (Auto) 0.01 K/uL (0.00-0.20) Absolute Immature Granulocyte (auto 0.02 K/uL (0-1) Nucleated Red Blood Cells 0.0 % (0.0-0.19) Sodium Level 134 mmol/L (136-145) L Potassium Level 3.4 mmol/L (3.5-5.1) L Chloride Level 95 mmol/L (101-111) L Carbon Dioxide Level 25 mmol/L (21-32) Blood Urea Nitrogen 26 mg/dL (7-18) H Creatinine 2.8 mg/dL (0.5-1.3) H Glomerular Filtration Rate Calc 24 mL/min (>90) Random Glucose 501 mg/dL (70-105) *H Total Calcium 9.1 mg/dL (8.5-10.1) Whole Blood Glucose 416 MG/DL (70-110) *H 314 MG/DL (70-110) H Bedside Glucose Comment Notified Nurse Labs Reviewed?: Yes ED Course ED Course Orders Procedure Category Date Status Time Cbc With Differential LAB 02/06/25 Complete 01:47 Basic Metabolic Panel LAB 02/06/25 Complete 01:47 Chest 1vw RAD 02/06/25 Taken 01:47 Lactic Acid LAB 02/06/25 Logged 02:04 Insulin Regular, PHA 02/06/25 Complete Human 3ml (Humulin R 02:30 Cefazolin Sodium 1 Gm PHA 02/06/25 Complete Vial (Ancef 1 Gm V 03:00 Current Medications Medications (Trade) Dose Ordered Sig/Joellen Route PRN Reason Start Time Stop Time Status Last Admin Dose Admin Cefazolin Sodium (ANCEF 1 gm vial) 1 gm ONCE ONCE IVPB 02/06/25 03:00 02/06/25 03:01 DC 02/06/25 02:50 Insulin Human Regular (humuLIN R 100 UNIT/ML 3ML) 15 unit ONCE ONCE IV 02/06/25 02:30 02/06/25 02:31 DC 02/06/25 02:36 Vital Signs Date Time Temp Pulse Resp B/P (MAP) Pulse Ox O2 Delivery O2 Flow Rate FiO2 02/06/25 03:14 98.2 75 15 104/64 99 Room Air* 0 21 02/06/25 02:28 98.2 75 14 94/63 99 Room Air* 0 21 02/06/25 01:27 98.4 75 16 132/79 99 Room Air* 0 21 02/06/25 01:13 97.9 80 16 125/95 99 Room Air 0 We will perform diagnostic labs, advanced imaging and administer medications according to the patient's complaint. Once the results are available, will review and personally interpreted the labs to rule out any acute life- threatening emergency the trach require immediate intervention and treatment. I will then re-evaluate the patient after treatment and diagnostic exams have return to determine whether the patient requires any further testing, can safely be discharged home or need further admission to hospital for additional treatment and evaluation. Labs reviewed CBC is normal BNP 7 shows a sodium of 134 potassium 3.4 BUN and creatinine are 26 and 2.8 but his glucose is markedly elevated at 501 as expected Chest x-ray is unremarkable for any pleural effusions 2:40 a.m. I had a discussion with the patient and after inspection and an as sessment of the right dialysis insertion site, it is conceivable that he just finished dialysis yesterday and perhaps some of the dialysate leftover in the port squirted out from the site No fever chills no leukocytosis however I have would give a dose of Ancef . Medical Decision Making MDM MDM: Differential diagnosis: Malfunctioning hemodialysis catheter, infected site, hematoma, leftover dialysate in the port ejecting out Rationale: Tests considered and ordered secondary to shared decision making include: Previous outside records reviewed: Old ER visits. Risk of complication and/or morbidity or mortality of patient management: None Medications-Per medication reconciliation Need for hospitalization: Patient does not meet criteria for hospitalization. Need for emergency major/minor surgery: No There are no social concerns with this patient. Prescription drug management Prescriptions will include symptomatic care Patient's prior external medical records from other ER visits were reviewed by me as indicated. Prior testing and results from previous visits were reviewed. Prior tests were taken into account with medical decision making and resource utilization, independent historian/historians were used to obtain complete medical history. I independently interpreted the test that were performed, results were reviewed by me and considered findings on radiology if ordered. Medical management and examination interpretation discussions were had by me with other qualified healthcare professionals as indicated for the patient's care. Problem List Problem List: (1) Leakage of vascular dialysis catheter DX & DISP Disposition: Discharge Departure Impression: Primary Impression: Leakage of vascular dialysis catheter Condition: Stable Scripts Cephalexin Monohydrate (Keflex) 500 Mg Cap 1 CAP PO TID for 7 Days, #21 CAP 0 Refills Prov: MATEO FOWLER MD 02/06/25 Additional Instructions: Patient and the caregiver have been informed of all the diagnostic tests and the imaging conducted during the today's visit to the emergency room and has verbalized understanding of the results I have personally reviewed and interpreted all diagnostic exams performed here in the ER today as well as the vital signs documented by the nursing staff. The patient is now being discharged to home and should follow up with the primary care physician or the specialist as directed by the ER staff. Follow-up with primary care provider in 1 to 2 days. Take medications as directed here in the emergency room. Okay to continue home medications unless otherwise discussed during your visit in the emergency room today. Return to your nearest emergency room if symptoms worsen or if there is no improvement. Call 911 if you need immediate assistance. Take Tylenol or Motrin [id number] as needed and if no contraindications are present. Increase oral hydration. A wound culture or urine culture was ordered here in the emergency room department please follow-up with primary care provider and advise them to get repeat ports from our facility. If you had any Vidal wrap/splints that were applied here, please do not remove them until you see your primary care or specialty. Referrals: LEDY LEONARD MD (PCP) MATEO FOWLER MD February 06, 2025 02:31
[2025-02-06] MEDS: INSULIN humuLIN R 100 UNIT/ML 3ML IV ONE (02:36)
[2025-02-06] MEDS: ceFAZolin SODIUM 1 GM VIAL IVPB ONE (02:50)
[2025-02-06] MEDS ORDERED: CEPH500B PO (02:58)
[2025-02-06 04:05] VITALS: BP 105/69; PULSE 75; RESP 17; TEMP 98.3; O2SAT 100
--- NOTE | 2025-02-06 08:15 | HMCIMG ---
PORTABLE CHEST RADIOGRAPH INDICATION: Right sided HD catheter. serous drainage at the site COMPARISON: 10/04/2024 FINDINGS: Stable right-sided hemodialysis catheter in place. Median sternotomy wires are in appropriate alignment. Left sided dual chamber pacer and continuous leads remain in customary position. Heart size is normal. The pulmonary vascularity and marta appear normal. No abnormal pulmonary parenchymal opacity or consolidation identified. Left hemidiaphragm is slightly elevated. No significant pleural effusion noted. No pneumothorax detected. IMPRESSION: Right-sided hemodialysis catheter in place without pneumothorax.
== END 2025-02-06 04:14 | disposition home or self-care (01) ==
LOC: EDH 01:12 → EDBD 01:12 → EDH 04:14
DX: T82.43XA Leakage of vascular dialysis catheter, initial encounter (principal); I13.2 Hypertensive heart and chronic kidney disease with heart failure and with stage 5 chronic kidney disease, or end stage renal disease; E11.22 Type 2 diabetes mellitus with diabetic chronic kidney disease; N18.6 End stage renal disease; E78.00 Pure hypercholesterolemia, unspecified; I25.10 Atherosclerotic heart disease of native coronary artery without angina pectoris; I50.9 Heart failure, unspecified; J44.9 Chronic obstructive pulmonary disease, unspecified; Z79.01 Long term (current) use of anticoagulants; Z79.02 Long term (current) use of antithrombotics/antiplatelets; Z79.899 Other long term (current) drug therapy; Z86.718 Personal history of other venous thrombosis and embolism; Z95.1 Presence of aortocoronary bypass graft; Z95.810 Presence of automatic (implantable) cardiac defibrillator; Z99.2 Dependence on renal dialysis; Y82.8 Other medical devices associated with adverse incidents; Y92.89 Other specified places as the place of occurrence of the external cause
CPT/HCPCS: 99285; 96365; 71045; 96375; 80048; 85025; 82948 ×2; 36415; J1815; J0690

== ENCOUNTER 2025-02-18 06:17 | Day surgery (SDC) | payer MEDICARE, MEDICAID ==
[2025-02-16 10:20] LABS: BASOPHILS # (AUTO) 0.02 K/uL (0.00-0.20); BASOPHILS % (AUTO) 0.4 % (0.0-5.0); EOSINOPHILS # (AUTO) 0.14 K/uL (0.00-0.70); EOSINOPHILS % (AUTO) 2.5 % (0.0-8.0); HEMATOCRIT 41.5 % (42-54); IMMATURE GRANULOCYTE ABSOLUTE 0.02 K/uL (0-1); LYMPHOCYTES # (AUTO) 0.9 K/uL (1.0-4.8); LYMPHOCYTES % (AUTO) 15.2 % (21.0-51.0); MEAN CORPUSCULAR HEMOGLOBIN 29.8 pg (27.0-33.0); MEAN CORPUSCULAR HGB CONC 33.5 g/dL (32.0-36.0); MEAN CORPUSCULAR VOLUME 89.1 fL (79-99); MONOCYTES # (AUTO) 0.5 K/uL (0.1-1.0); MONOCYTES % (AUTO) 8.1 % (3.0-13.0); NEUTROPHILS # (AUTO) 4.2 K/uL (1.8-7.7); NEUTROPHILS % (AUTO) 73.4 % (40.0-77.0); PLATELET COUNT (AUTO) 218 K/uL (130-400); RED BLOOD CELL COUNT(AUTO) 4.66 MIL/uL (4.50-6.20); RED CELL DISTRIBUTION WIDTH 14.9 % (11.0-15.5); WHITE BLOOD COUNT (AUTO) 5.7 K/uL (4.8-10.8)
[2025-02-16 10:27] VITALS: BP 94/61; PULSE 87; RESP 19; TEMP 97.3
[2025-02-16 10:39] LABS: INR 1.02 (0.85-1.15); PROTHROMBIN TIME 10.8 SEC (9.6-11.6)
[2025-02-16 10:41] LABS: PARTIAL THROMBOPLASTIN TIME 27.6 SEC (26.3-35.5)
--- NOTE | 2025-02-16 12:46 | EKG ---
[facility] Test Date: 2025-02-16 Test Time: 10:11:11 Pat Name: NEISHA BATISTA Department: [facility] Room: [facility] Gender: M Band Leader: [id number] : 1955 Requested By: OCTAVIA ABERNATHY Order Number: [id number] Reading MD: Felton Solis Measurements Intervals [place] Rate: 76 P: 185 RI: 136 QRS: 166 QRSD: 173 T: 57 QT: 501 QTc: 563 Interpretive Statements A-V dual-paced rhythm with some inhibition Compared to ECG 09/25/2024 01:07:00 No significant changes Electronically Signed On 02-21-2025 07:33:25 CDT by Felton Solis Please click the below link to view image of tracing.
[2025-02-18] VITALS (13 sets, daily range): BP systolic 97–105; BP diastolic 54–70; PULSE 72–84; RESP 15–18; TEMP 96.1–97.7
[~2025-02-18] VITALS: Ht 170.2 cm; Wt 88.6 kg
[~2025-02-18 06:17] MED LIST changes: -ALLO300T2 PO; +AMIO200T68 PO; -APIX2.5T PO; -CARV12.580 PO; +CARV6.25 PO; +GLIP5TAB15 PO; -ISOS-58 PO; +LISI5TAB21 PO
[2025-02-18] MEDS: ceFAZolin SODIUM 2 GM VIAL ONE (07:29)
[2025-02-18] MEDS: 0.9% NACL 500ML IV.SOLN 500 ML IV ONE (07:29)
[2025-02-18 07:30] LABS: CREATININE 3.3 mg/dL (0.5-1.3); POTASSIUM 3.9 mmol/L (3.5-5.1)
[2025-02-18] MEDS ORDERED: HEParin-NS 1,000 UNIT/500 ML 500 ML IV ONE (08:03)
[2025-02-18] MEDS ORDERED: INSU100I47 SQ (08:10)
--- NOTE | 2025-02-18 08:40 | NUR ---
GENERAL ANESTHESIA DR. ABERNATHY AND [employer] SPOKE TO PATIENT EXTENSIVELY ABOUT RISK AND BENEFITS OF GENERAL ANESTHESIA. PATIENT AGREED GENERAL ANESTHESIA PLAN B. DR. ABERNATHY AND [employer] MADE AWARE THAT INSULIN WAS INJECTED IN AM. OKAY TO PROCEED PER DR. ABERNATHY.
[2025-02-18] MEDS ORDERED: ROPivacaine 0.5% 5MG/ML 30ML ONE (08:44)
[2025-02-18] MEDS ORDERED: proPOFol 1000 MG/100 ML 100 ML IV ONE (08:45)
[2025-02-18] MEDS ORDERED: ketaMINE 50MG/ML SYRINGE 50 MG/ML DISP.SYRIN ONE ×2 (08:45→09:22)
[2025-02-18] MEDS ORDERED: MIDAZOLAM HCL 1 MG/ML 2ML VIAL ONE (08:46)
[2025-02-18] MEDS ORDERED: LIDOCAINE HCL 1% 20 ML VIAL ONE (09:18)
[2025-02-18] MEDS: ceFAZolin SODIUM 2 GM VIAL IVPB ONE (09:20)
--- NOTE | 2025-02-18 13:11 | OP ---
Operative Note: DATE OF PROCEDURE: 02/18/25 SURGEON: OCTAVIA ABERNATHY MD BOILER ASSISTANT OPERATOR: Dr. Tavarez PREOPERATIVE DIAGNOSIS: End-stage renal disease POSTOPERATIVE DIAGNOSIS: End-stage renal disease PROCEDURE: Right upper extremity brachiobasilic fistula creation with transposition INDICATIONS: Patient needs access for dialysis ESTIMATED BLOOD LOSS: 15cc Devices left in place: None Anesthesia: General endotracheal DESCRIPTION OF PROCEDURE: Patient is brought to the operating room placed on the operating table in a supine position. Once general endotracheal anesthesia is achieved patient's right upper extremity up to the axilla is prepped and draped in sterile fashion. Using ultrasound we identified the basilic vein and confirm ed that it was adequate for fistula creation. We then proceeded to create a longitudinal incision medially in the arm and dissected down through the subcutaneous tissue to expose the basilic vein. We exposed that for a length of about 20 cm down to the antecubital fossa. And clipped all its branches. We then proceeded to create a transverse incision at the antecubital fossa. Expose the brachial artery for a length of about 4 cm and obtained proximal and distal control. We then asked anesthesia to give 5000 units of heparin. I then proceeded to clamp the basilic vein proximally and distally divided it at the level of the elbow. And suture ligated the distal and end. We then proceeded to to dilate the vein with heparinized saline and ensured that there were no leaks from all the branches were clipped or sutured. We then proceeded to use a [place] tunneler to tunnel the vein medially and brought it out through the antecubital fossa incision. I then clamped the brachial artery proximally and distally. I then proceeded to create a end-to-side anastomosis between the brachial artery and the basilic vein at the antecubital fossa with 6-0 Prolene. I then opened up the clamp to the vein first and that there to be backflow. And then proceeded to open the proximal clamp on the artery emanated flush out the anastomosis and then open the distal clamp. I then proceeded to suture the an astomosis. We ensured with a Doppler that we had a strong palmar arch pulse at the right hand and ulnar and radial pulses as well. We had a good thrill throughout the fistula. We then closed both incisions with 2 layers with subcutaneous tissue being closed with 2-0 Vicryl in running fashion and the skin was closed with 4-0 Monocryl in running fashion. Dermabond is applied over top of skin incisions. Skin dressings were applied over top patient tolerated the procedure well all counts were correct x2 at the end of the procedure. OCTAVIA ABERNATHY MD February 18, 2025 13:11
== END 2025-02-18 12:30 | disposition home or self-care (01) ==
LOC: DAH 06:17
PROVIDERS: ATTEND Student in an Organized Health Care Education/Training Program
DX: E11.22 Type 2 diabetes mellitus with diabetic chronic kidney disease (principal); N18.6 End stage renal disease; I13.0 Hypertensive heart and chronic kidney disease with heart failure and stage 1 through stage 4 chronic kidney disease, or unspecified chronic kidney disease; I50.9 Heart failure, unspecified; E78.00 Pure hypercholesterolemia, unspecified; Z99.2 Dependence on renal dialysis; Z96.653 Presence of artificial knee joint, bilateral; Z95.5 Presence of coronary angioplasty implant and graft; Z87.891 Personal history of nicotine dependence; Z82.49 Family history of ischemic heart disease and other diseases of the circulatory system; Z79.899 Other long term (current) drug therapy; Z98.890 Other specified postprocedural states
CPT/HCPCS: 85025; 85610; 85730; 36415 ×2; 93005; 36819; 64415; 80048; 82948 ×2; A6260; A4663; J7040; J2250; J2704; J1644 ×2; J2795; J3490 ×2; J0690 ×2; A4649 ×3; C1713 ×2; A4930; A4215; A4213; A4222; A4221; A4216; A4223 ×2; A4600